=== PATIENT | female | born 1990 | race Caucasian/White ===

== ENCOUNTER 2017-08-26 16:13 | Emergency (ER) | payer MEDICAID, SELFPAY ==
[2017-08-26 16:15] VITALS: BP 127/63; PULSE 82; RESP 18; TEMP 36.5; O2SAT 100; BMI 18.6
--- NOTE | 2017-08-26 16:30 | CT_ITS ---
STUDY: CT ABDOMEN AND PELVIS WITH CONTRAST REASON FOR EXAM: Female, 27 years old. Abdominal pain. Patient has been treated for cervical cancer and melanoma. RADIATION DOSAGE (If Supplied By Facility): CTDIvol = ( 5.80 ) mGy, DLP = ( 219.75 ) mGycm TECHNIQUE: Transaxial images were obtained from the dome of the diaphragm to the symphysis pubis with oral contrast. 60ML ml of Isovue 300 contrast was administered. Sagittal and coronal images were reconstructed. Individualized dose optimization techniques were used for this CT. COMPARISON: CT of the abdomen and pelvis dated August 30, 2016. FINDINGS: The visualized lung bases are unremarkable. The visualized portions of the heart are within normal limits. Normal liver. Normal gallbladder and extrahepatic biliary system. Normal spleen. Normal pancreas. Normal bilateral adrenal glands. There is mild prominence of right renal collecting system, similar to previous CT. The renal parenchyma has a normal appearance. Normal left kidney. Normal visualized stomach. Normal small intestine. Normal colon. There are surgical clips in the region of the appendix consistent with a prior appendectomy. Normal abdominal aorta. Normal inferior vena cava. Normal retroperitoneum. Normal urinary bladder. There is decreased enhancement in the region of the cervix compared to the rest of the uterus. This may be related to treatment for cancer. Normal abdominal wall. Normal osseous structures. CT/Abdomen/Pelvis WITH Contrast IMPRESSION: No CT evidence of acute intra-abdominal disease. Electronically Signed: Shu Perez MD at 19:20 EST , Service support ,
[2017-08-26] MEDS: Ondansetron 4 MG/2 ML Vial IV (16:50)
[2017-08-26] MEDS: 0.9% Normal Saline 1,000 ML 150 ML IV (16:53)
[2017-08-26] MEDS: DiphenhydrAMINE 50 MG/ML Syringe 12.5 MG IV (17:07)
[2017-08-26 17:09] LABS: Absolute Lymphocyte Count 1.05 X10^3/ul (0.83-4.51); Basophil# 0.04 X10^3/uL; Basophil% 0.9 % (0-1); Eosinophil# 0.06 X10^3/uL; Eosinophils% 1.3 % (0-5); Hematocrit 43.7 % (37-47); Hemoglobin 14.5 g/dl (12.0-15.0); Lymphocyte # 1.05 X10^3/ul (4.0); Lymphocyte % 22.4 % (19-41); Mean Corp Hgb Conc 33.2 g/gl (32-36); Mean Corpuscular Volume 93.6 fL (81-99); Mean Platelet Vol. 8.8 fl (6.2-12.0); Monocyte# 0.55 X10^3/uL; Monocyte% 11.8 % (0-10); Neutrophil # 2.97 X10^3/uL (2.7-7.7); Neutrophil % 63.4 % (47-70); Platelet Count 270 K/mm3 (150-450); RBC Distribution Width SD 47.7 fl (35.1-43.9); Red Blood Count 4.67 M/mm3 (4.2-5.4); White Blood Count 4.7 K/mm3 (4.4-11.0)
[2017-08-26 17:10] LABS: POSITIVE COUNT NO; POSITIVE DIFFERENTIAL NO; POSITIVE MORPHOLOGY NO
[2017-08-26 17:37] LABS: Anion Gap 8 (5-15); BUN 7 mg/dL (7-18); BUN/Creat Ratio 7.7 RATIO (10-20); Chloride 101 mmol/L (98-107); EST Glomerular Filtration Rate 80 mL/min (>60); Est Glom Filt Rate - Afr Amer 97 mL/min (>60); Estimated Creatinine Clearance 58.47 ml/min; Glucose 79 mg/dL (70-110); Potassium 3.9 mmol/L (3.5-5.1); Sodium Level 136 mmol/L (136-145)
[2017-08-26 17:42] LABS: Bacteria 0 SEEN /hpf (None Seen); Mucous, Urine 0 SEEN /hpf (<or=2+); Red Blood Cells-Urine 0 SEEN /hpf (0-5); White Blood Cells 0 SEEN /hpf (0-5)
[2017-08-26 17:48] LABS: Color, Urine Yellow (Yellow); Glucose, Dipstick Normal (Normal); Ketone-Dipstick Negative (Negative); Leukocyte Esterase-Dipstick Negative /ul (Negative); Nitrite-Dipstick Negative (Negative); Occult Blood-Urine Negative /ul (Negative); Protein-Dipstick Negative (Negative); Specific Gravity, Urine 1.005 (1.002-1.030); Urine Bilirubin Dipstick Negative (Negative); Urine Clarity Clear (Clear); Urine Urobilinogen Normal (Normal)
[2017-08-26 18:01] LABS: Squamous Epithelial Cells - UA 0-5 SEEN /hpf (5-10)
[2017-08-26 18:29] VITALS: PULSE 64; RESP 21; O2SAT 99
[2017-08-26] MEDS: HYDROcodone Bitartrate/Apap 5/325 Tablet PO (19:35)
--- NOTE | 2017-08-26 20:31 | ED.DCSUM_ITS ---
- ER Visit Summary Date of Service: 08/26/17 Chief Complaint: Abdominal pain History of Present Illness: The patient is a 27 F who presents with a four-day history of lower abdominal pain, worse in the left lower quadrant. Patient is a history of cervical cancer that was treated with chemo and radiation. She has recurrent radiation cystitis. Patient reports having both ovaries removed in the past secondary to twisting and bleeding. Patient states she is able to urinate and have bowel movements without difficulty. Pain is not worsened with food. She has not noted a fever. Physical Examination: Vital signs are unremarkable. Patient is sitting on the bed, flexed forward laying her head on the mattress in front of her. She appears quite uncomfortable. She is in no acute distress. Heart is regular rate and rhythm. Lung sounds are clear. Abdomen is soft with tenderness in the left lower quadrant. There is no guarding or rebound. She has no CVA tenderness. Test Results: CBC and chemistry studies are normal. Urinalysis normal. Lactate normal. CT abdomen pelvis with contrast reveals no evidence of acute disease. Emergency Department Course and Treatment: Patient was given morphine, Zofran, and IV fluids. Patient states she has had all his medications previously with no difficulty, however did developed a localized reaction just above her IV site. She is given a dose of Benadryl and this reaction resolved. Due to continued pain she did receive a dose of [place] here. Test results were discussed with her. She will follow bland diet will be given a short course of [place] for home. She is written off work for today and tomorrow. Treatment Plan: [] Disposition: Discharge Impression: Abdominal pain, uncertain etiology This note was generated with [employer] dictation software. It may contain incorrect words, spelling, and punctuation that were not noted in review of the chart prior to signing ED Disposition - Plan for ED Patient: Disposition: Home or Assisted Living Chief Complaint: Abd Pain Instructions: ED Abdominal Pain Unkn Cause Prescriptions: Hydrocodone Bitart/Apap 5-325 [[place] 5/325] 1 - 2 tablet PO Q4H PRN PRN #20 tablet PRN Reason: Pain Ondansetron [Zofran Odt] 4 mg PO Q8H PRN PRN #10 tab PRN Reason: Nausea Referrals: Flavio Blanchard DO [Primary Care Provider] - 1 Week if not improving
[2017-08-26 20:55] VITALS: BP 105/54; PULSE 60; RESP 14; O2SAT 98
== END 2017-08-26 21:04 | disposition home or self-care (01) ==
PROVIDERS: Emergency Provider Emergency Medicine; Family Provider Student in an Organized Health Care Education/Training Program; PCP Student in an Organized Health Care Education/Training Program
DX: R10.30 Lower abdominal pain, unspecified (principal); N30.40 Irradiation cystitis without hematuria; Y84.2 Radiological procedure and radiotherapy as the cause of abnormal reaction of the patient, or of later complication, without mention of misadventure at the time of the procedure; Z72.0 Tobacco use; Z85.41 Personal history of malignant neoplasm of cervix uteri; Z92.21 Personal history of antineoplastic chemotherapy; Z92.3 Personal history of irradiation; Z86.2 Personal history of diseases of the blood and blood-forming organs and certain disorders involving the immune mechanism; Z86.19 Personal history of other infectious and parasitic diseases
CPT/HCPCS: 74177; 80048; 81001; 83605; 85025; 96361; 96374; 96375; 99285; J7050; Q9967; A4216; J2405

== ENCOUNTER 2017-12-01 17:19 | Emergency (ER) | payer MEDICAID, SELFPAY ==
[2017-12-01 17:20] VITALS: BP 138/105; PULSE 70; RESP 18; TEMP 36.9; O2SAT 98; BMI 16.9
[2017-12-01] MEDS: 0.9% Normal Saline 1,000 ML 1000 ML IV (17:43)
[2017-12-01] MEDS: Ondansetron 4 MG/2 ML Vial IV (17:43)
[2017-12-01] MEDS: HYDROmorphone 1 MG/ML Syringe IV ×2 (17:43→19:45)
--- NOTE | 2017-12-01 17:49 | EKG12_ITS ---
Test Reason : ABDOMINAL PAIN Blood Pressure : / mmHG Vent. Rate : 084 BPM Atrial Rate : 080 BPM P-R Int : 000 ms QRS Dur : 070 ms QT Int : 414 ms P-R-T Axes : 000 036 070 degrees QTc Int : 489 ms Normal sinus rhythm Prolonged QT Abnormal ECG Confirmed by ALEJANDRO PARDO, RO ([id number]), editorial director ALMA HUI ([id number] on 12/03/2017 3:34:16 PM Referred By: JAYESH Confirmed By:RO ALLEN MD
--- NOTE | 2017-12-01 18:01 | RAD_ITS ---
STUDY: X-RAY CHEST REASON FOR EXAM: Female, 27 years old. Chest pain TECHNIQUE: Frontal view of the chest COMPARISON: None. FINDINGS: The lungs are clear. There are no pleural effusions. There is no pneumothorax. The heart is normal in size. The visualized osseous structures are within normal limits. RAD/Chest 1 View (Portable) IMPRESSION: No acute thoracic pathology. Electronically Signed: Reid Hernandez, at 18:31 EDT Tel , Service support ,
--- NOTE | 2017-12-01 18:02 | CT_ITS ---
STUDY: CT ABDOMEN AND PELVIS WITH CONTRAST REASON FOR EXAM: Female, 27 years old. Lower abdominal pain. History of cervical cancer and radiation treatment. RADIATION DOSAGE (If Supplied By Facility): CTDIvol = ( 5.59 ) mGy, DLP = ( 199.11 ) mGycm TECHNIQUE: Transaxial images were obtained from the dome of the diaphragm to the symphysis pubis without oral contrast. 75ML ml of Isovue 300 contrast was administered. Sagittal and coronal images were reconstructed. Individualized dose optimization techniques were used for this CT. COMPARISON: 08/26/2017 FINDINGS: The visualized lung bases are clear. The visualized portions of the heart and pericardium are within normal limits. There are no calcified gallstones present. The liver is within normal limits. There are no suspicious hepatic lesions. The spleen is normal in size. The pancreas is within normal limits. The adrenal glands are within normal limits. There are no obstructing renal stones. There is no hydronephrosis. There are no focal renal lesions. Normal visualized stomach. There is no bowel obstruction. There are mildly thickened loops of small bowel in the pelvis, consistent with enteritis. The patient is status post appendectomy. The aorta is normal in caliber. There is a small amount of free fluid. There is no free air, fluid collection or lymphadenopathy. There are no destructive osseous lesions. CT/Abdomen/Pelvis W IV Cont ONLY IMPRESSION: Mildly thickened loops of small bowel in the pelvis, consistent with enteritis. No bowel obstruction. Small amount of pelvic free fluid. Electronically Signed: Reid Hernandez, at 19:12 EDT Tel , Service support ,
[2017-12-01 18:29] LABS: Absolute Lymphocyte Count 1.19 X10^3/ul (0.83-4.51); Absolute Neutrophil Count 7.4 X10^3/uL (2.0-7.7); Basophil# 0.03 X10^3/uL; Basophil% 0.3 % (0-1); Eosinophil# 0.05 X10^3/uL; Eosinophils% 0.5 % (0-5); Hematocrit 41.6 % (37-47); Hemoglobin 13.8 g/dl (12.0-15.0); Lymphocyte # 1.19 X10^3/ul (4.0); Lymphocyte % 12.8 % (19-41); Mean Corp Hgb Conc 33.2 g/gl (32-36); Mean Corpuscular Hgb 31.1 pg (27.0-32.0); Mean Corpuscular Volume 93.7 fL (81-99); Mean Platelet Vol. 8.7 fl (6.2-12.0); Monocyte# 0.65 X10^3/uL; Neutrophil # 7.39 X10^3/uL (2.7-7.7); Neutrophil % 79.3 % (47-70); Platelet Count 286 K/mm3 (150-450); RBC Distribution Width CV 14.1 % (11.6-14.6); RBC Distribution Width SD 48.2 fl (35.1-43.9); Red Blood Count 4.44 M/mm3 (4.2-5.4); White Blood Count 9.3 K/mm3 (4.4-11.0)
[2017-12-01 18:31] LABS: ALB/GLOB Ratio 1.1 RATIO (0.9-2.4); AST(SGOT) 26 U/L (15-37); Alanine Aminotransfer ALT/SGPT 31 U/L (13-56); Albumin, Serum 3.8 g/dL (3.2-5.0); Alkaline Phosphatase 99 U/L (45-117); Anion Gap 8 (5-15); BUN 8 mg/dL (7-18); Calcium,Total 8.6 mg/dL (8.5-10.1); Chloride 104 mmol/L (98-107); Creatinine, Serum 0.89 mg/dL (0.55-1.02); EST Glomerular Filtration Rate 81 mL/min (>60); Est Glom Filt Rate - Afr Amer 98 mL/min (>60); Globulin 3.5 g/dL (2.2-4.2); Glucose 86 mg/dL (74-106); Lipase 386 U/L (73-393); Potassium 3.5 mmol/L (3.5-5.1); Protein, Total 7.3 g/dL (6.4-8.2); Sodium Level 136 mmol/L (136-145)
[2017-12-01 18:32] LABS: POSITIVE COUNT NO; POSITIVE DIFFERENTIAL NO; POSITIVE MORPHOLOGY NO
[2017-12-01 18:33] LABS: hCG Titer Quant., Serum 3 mIU/mL (<9 non-preg)
[2017-12-01] MEDS: Ketorolac 30 MG/ML Syringe IV (18:33)
[2017-12-01 18:48] LABS: Mucous, Urine 0 SEEN /hpf (<or=2+)
[2017-12-01 18:54] LABS: Color, Urine Yellow (Yellow); Glucose, Dipstick Normal (Normal); Ketone-Dipstick 5 mg/dl (Negative); Leukocyte Esterase-Dipstick 25 /ul (Negative); Nitrite-Dipstick Negative (Negative); Occult Blood-Urine 50 /ul (Negative); Protein-Dipstick Negative (Negative); Urine Bilirubin Dipstick Negative (Negative); Urine Clarity Cloudy (Clear); Urine Urobilinogen Normal (Normal)
[2017-12-01 19:06] LABS: Red Blood Cells-Urine 5-10 SEEN /hpf (0-5); White Blood Cells 0-5 SEEN /hpf (0-5)
[2017-12-01 19:07] LABS: Amorphous Sediment 1+; Bacteria 1+ /hpf (None Seen); Squamous Epithelial Cells - UA 0-5 SEEN /hpf (5-10)
--- NOTE | 2017-12-01 19:32 | ED.DCSUM_ITS ---
- ER Visit Summary Date of Service: 12/01/17 Chief Complaint: Abdominal pain History of Present Illness: The patient is a [address] Blanchard. She reports that she has abdominal pain that began today. It is a diffuse pain is worse in the left lower quadrant. She describes it as sharp. Senna 10 severity. It is worsened by movement and relieved by position. She reports she has been nausea and vomited multiple times. No blood or emesis. Last bowel was today. She has had no diarrhea, melena, or hematochezia. No dysuria or frequency. Patient reports that she has a history of cervical cancer that required chemotherapy and radiation in 2016. States that she has had similar pain intermittently since this. Physical Examination: Vitals: Stable. Afebrile. General: Well-nourished and well-developed. Head: Normocephalic atraumatic. Neck: Supple, no lymphadenopathy. No JVD. Nontender. Cardiovascular: Regular rate and rhythm. No murmurs. Respiratory: No respiratory distress. Clear to auscultation bilaterally. Abdominal: Soft, moderate diffuse tenderness palpation is worse in the left lower quadrant, nondistended, normal bowel sounds. No guarding, rebound, or peritoneal signs. Back: Nontender. Extremities: Nontender, no edema. Skin: Normal color, no rash. Neurologic: Alert and oriented ?3. Cranial nerves II through XII are intact. Normal strength and sensation. Psych: Normal affect. Test Results: EKG is sinus at 84 with artifact and no acute changes. Chest x- ray is normal. CT and pelvis IV contrast only shows a small amount of free fluid in the pelvis. Mildly thickened loops of small bowel in the pelvis consistent with enteritis. No small bowel obstruction. CBC is marked for segment neutrophils 79 lymphocytes of 13. Chem-7 is normal. LFTs are normal. Lipase normal. UA is negative. test is negative. Emergency Department Course and Treatment: An [facility] report was obtained which show she is only had 4 prescriptions for opiates in the past year. She is treated here with Tylenol, Dilaudid, Zofran, and Phenergan IV. She is resting more comfortably. Treatment Plan: Patient will be discharged with [place] and Zofran. Instructed to follow-up Dr. Blanchard 1-2 days not improving. Return to the emergency department for any worsening symptoms. Disposition: To home in improved and stable condition. Impression: 1. Abdominal pain, uncertain cause. This note was generated with [employer] dictation software. It may contain incorrect words, spelling, and punctuation that were not noted in review of the chart prior to signing ED Disposition - Plan for ED Patient: Disposition: Home or Assisted Living Chief Complaint: Abd Pain Instructions: ED Abdominal Pain Unkn Cause Prescriptions: Hydrocodone Bitart/Apap 5-325 [[place] 5/325] 1 - 2 tablet PO Q4H PRN PRN 3 Days # 12 tablet PRN Reason: Pain Ondansetron [Zofran Odt] 4 mg PO Q8H PRN PRN #10 tablet PRN Reason: Nausea Referrals: Flavio Blanchard DO [Primary Care Provider] - 1-2 Days if not improving
[2017-12-01] MEDS: proMETHazine 25 MG/ML Syringe 6.25 MG IV (19:42)
[2017-12-01 19:49] VITALS: BP 106/65; PULSE 84; RESP 14; O2SAT 97
[2017-12-01] MEDS: HYDROcodone Bitartrate/Apap 5/325 Tablet PO (20:15)
--- NOTE | 2017-12-01 20:16 | ED.RN ---
PT GIVEN HOME PACK. SCANNER IN THE ROOM NOT WORKING. TINO MORENO PRESENT TO VERIFY.
== END 2017-12-01 20:17 | disposition home or self-care (01) ==
PROVIDERS: Emergency Provider Emergency Medicine; Family Provider Student in an Organized Health Care Education/Training Program; PCP Student in an Organized Health Care Education/Training Program
DX: R10.9 Unspecified abdominal pain (principal); R11.2 Nausea with vomiting, unspecified; R07.9 Chest pain, unspecified; R06.00 Dyspnea, unspecified; Z72.0 Tobacco use; Z85.41 Personal history of malignant neoplasm of cervix uteri; Z92.21 Personal history of antineoplastic chemotherapy; Z92.3 Personal history of irradiation
CPT/HCPCS: 71045; 74177; 80053; 81001; 83690; 84702; 85025; 93005; 96361; 96374; 96375; 96376; 99285; J7030; Q9967; A4216; J2405

== ENCOUNTER 2018-02-16 14:53 | Emergency (ER) | payer MEDICAID, SELFPAY ==
[2018-02-16 14:54] VITALS: BP 100/66; PULSE 104; RESP 16; TEMP 36.8; O2SAT 97; BMI 18.8
--- NOTE | 2018-02-16 15:08 | CT_ITS ---
STUDY: CT BRAIN WITHOUT CONTRAST REASON FOR EXAM: Female, 27 years old. Headache. Light sensitivity. RADIATION DOSAGE (If Supplied By Facility): CTDIvol = ( 44.99 ) mGy, DLP = ( 694.87 ) mGycm TECHNIQUE: Transaxial CT imaging of the brain was performed without administration of intravenous contrast material. Individualized dose optimization techniques were used for this CT. COMPARISON: 10/18/2012 FINDINGS: Normal soft tissue structures. Normal calvarium. Normal size ventricles and extra-axial spaces for the patient's age. Normal white matter tracts of the cerebral hemispheres. Normal basal ganglia and thalami. Normal brainstem. Normal cerebellum. There is no intracranial hemorrhage. There are no findings of an acute ischemic infarction. Normal visualized paranasal sinuses. CT/Brain/Head without Contrast IMPRESSION: Normal unenhanced CT scan of the brain. Electronically Signed: Stewart Leach DO at 16:12 EDT Tel , Service support ,
--- NOTE | 2018-02-16 15:09 | EKG12_ITS ---
Test Reason : HEADACHE Blood Pressure : / mmHG Vent. Rate : 072 BPM Atrial Rate : 072 BPM P-R Int : 114 ms QRS Dur : 084 ms QT Int : 378 ms P-R-T Axes : 015 036 063 degrees QTc Int : 413 ms Normal sinus rhythm Normal ECG Confirmed by BREE PARDO, PATRICIA ([id number]), publications editor ALMA HUI ([id number] on 02/20/2018 1:04:41 PM Referred By: DARREN Confirmed By:PATRICIA GIRON MD
[2018-02-16] MEDS: DiphenhydrAMINE 50 MG/ML Syringe 25 MG IV (15:24)
[2018-02-16] MEDS: 0.9% Normal Saline 1,000 ML 1000 ML IV (15:24)
[2018-02-16] MEDS: HYDROmorphone 1 MG/ML Syringe IV (15:24)
[2018-02-16] MEDS: Metoclopramide 10 MG/2 ML Vial IV (15:24)
[2018-02-16 15:42] LABS: Absolute Lymphocyte Count 1.31 X10^3/ul (0.83-4.51); Absolute Neutrophil Count 3.5 X10^3/uL (2.0-7.7); Basophil# 0.04 X10^3/uL; Basophil% 0.7 % (0-1); Eosinophil# 0.13 X10^3/uL; Eosinophils% 2.4 % (0-5); Hematocrit 38.3 % (37-47); Hemoglobin 12.7 g/dl (12.0-15.0); Lymphocyte # 1.31 X10^3/ul (4.0); Lymphocyte % 23.9 % (19-41); Mean Corp Hgb Conc 33.2 g/gl (32-36); Mean Corpuscular Hgb 31.5 pg (27.0-32.0); Mean Platelet Vol. 8.7 fl (6.2-12.0); Monocyte# 0.54 X10^3/uL; Monocyte% 9.8 % (0-10); Neutrophil # 3.46 X10^3/uL (2.7-7.7); Platelet Count 253 K/mm3 (150-450); RBC Distribution Width CV 13.1 % (11.6-14.6); RBC Distribution Width SD 44.1 fl (35.1-43.9); Red Blood Count 4.03 M/mm3 (4.2-5.4); White Blood Count 5.5 K/mm3 (4.4-11.0)
[2018-02-16 15:43] LABS: POSITIVE COUNT NO; POSITIVE DIFFERENTIAL NO; POSITIVE MORPHOLOGY NO
--- NOTE | 2018-02-16 15:53 | ED.DCSUM_ITS ---
- ER Visit Summary Date of Service: 02/16/18 Chief Complaint: Headache History of Present Illness: The patient is a 27 F who reports that approximately 30 minutes ago she had the abrupt onset of a sharp headache that is diffuse. Is 10 out of 10 severity. Is worsened by standing, light, or sound. She taken ibuprofen without relief. She reports she has been nausea and vomited twice. No blood or emesis. Patient reports that the pain is so severe that she is feels shaky and has been stiff with this. She reports that she felt hot and was breathing quickly. She had paresthesias from her toes to midcalf and hands to elbows bilaterally and her hands went stiff. She then had a syncopal episode while sitting. She reports that she does feel mildly short of breath. Physical Examination: Vitals: Stable. Afebrile. General: Well-nourished and well-developed. Head: Normocephalic atraumatic. Neck: Supple, no lymphadenopathy. No JVD. Nontender. Cardiovascular: Regular rate and rhythm. No murmurs. Respiratory: No respiratory distress. Clear to auscultation bilaterally. Abdominal: Soft, nontender, nondistended, normal bowel sounds. No guarding, rebound, or peritoneal signs. Back: Nontender. Extremities: Nontender, no edema. Skin: Normal color, no rash. Neurologic: Alert and oriented ?3. Cranial nerves II through XII are intact. Normal strength and sensation. Psych: Tearful, anxious, and hyperventilating. Test Results: EKG is sinus at [address] changes. Chest x-ray is normal. CBC is normal. Chem-[address] brain shows no acute disease. Emergency Department Course and Treatment: Patient had an IV placed. She was given Dilaudid, Reglan, and Benadryl IV. Patient reports her headache is down to 4 out of 10 severity. She is given dose of Toradol IV and dexamethasone IV to try to prevent rebound headache. Treatment Plan: Patient will be discharged instructions to push fluids. Use Tylenol and/or ibuprofen for pain. Follow Dr. Blanchard in 1-2 days not improving. Return to the emergency department for any worsening symptoms. Disposition: To home in improved and stable condition. Impression: 1. Cephalgia, acute. This note was generated with [employer] software. It may contain incorrect words, spelling, and punctuation that were not noted in review of the chart prior to signing ED Disposition - Plan for ED Patient: Chief Complaint: Headache Instructions: ED Cephalgia Unspecified Referrals: Flavio Blanchard DO [Primary Care Provider] - 1-2 Days if not improving
[2018-02-16 15:56] LABS: Anion Gap 6 (5-15); BUN 10 mg/dL (7-18); BUN/Creat Ratio 10.6 RATIO (10-20); Calcium,Total 8.5 mg/dL (8.5-10.1); Chloride 104 mmol/L (98-107); Creatinine, Serum 0.94 mg/dL (0.55-1.02); EST Glomerular Filtration Rate 76 mL/min (>60); Est Glom Filt Rate - Afr Amer 92 mL/min (>60); Glucose 95 mg/dL (74-106); Potassium 3.7 mmol/L (3.5-5.1); Sodium Level 139 mmol/L (136-145)
[2018-02-16 16:25] VITALS: BP 96/57; PULSE 57; RESP 12; O2SAT 99
[2018-02-16] MEDS: Ketorolac 30 MG/ML Syringe IV (16:45)
[2018-02-16 16:51] VITALS: BP 96/51; PULSE 68; RESP 12
--- NOTE | 2018-02-16 18:17 | RAD_ITS ---
STUDY: X-RAY CHEST REASON FOR EXAM: Female, 27 years old. Headache. TECHNIQUE: AP upright portable view. COMPARISON: 12/01/2017. FINDINGS: The lungs are clear and expanded. There is no demonstrated pleural abnormality. Normal size heart. Normal mediastinum and marbella. Normal visualized pulmonary arteries. Normal visualized aortic arch and descending thoracic aorta. Normal visualized thoracic spine. Normal visualized ribs, clavicles, and shoulders. There is no demonstrated abnormality of the visualized soft tissue structures of the upper abdomen. RAD/Chest 1 View (Portable) IMPRESSION: Normal x-ray examination of the chest and unchanged since 12/01/2017. Electronically Signed: Bean Connor MD at 15:28 EDT , Service support ,
== END 2018-02-16 16:54 | disposition home or self-care (01) ==
PROVIDERS: Emergency Provider Emergency Medicine; Family Provider Student in an Organized Health Care Education/Training Program; PCP Student in an Organized Health Care Education/Training Program
DX: R51 Headache (principal); R11.2 Nausea with vomiting, unspecified; R06.4 Hyperventilation; R55 Syncope and collapse; Z72.0 Tobacco use; Z85.41 Personal history of malignant neoplasm of cervix uteri; Z92.21 Personal history of antineoplastic chemotherapy; Z86.2 Personal history of diseases of the blood and blood-forming organs and certain disorders involving the immune mechanism
CPT/HCPCS: 70450; 71045; 80048; 85025; 93005; 96361; 96374; 96375; 99284; J7030; A4216

== ENCOUNTER 2018-07-14 17:52 | Emergency (ER) | payer MEDICAID, SELFPAY ==
[2018-07-14 17:53] VITALS: BP 150/98; PULSE 90; RESP 16; TEMP 36.6; O2SAT 96; BMI 19.9
== END 2018-07-14 20:28 | disposition left against medical advice (07) ==
PROVIDERS: Emergency Provider Emergency Medicine; Family Provider Student in an Organized Health Care Education/Training Program; PCP Student in an Organized Health Care Education/Training Program
DX: K92.2 Gastrointestinal hemorrhage, unspecified (principal)

== ENCOUNTER 2018-07-15 02:57 | Emergency (ER) | payer MEDICAID, SELFPAY ==
[2018-07-14 17:53] VITALS: BMI 19.9
[2018-07-15 02:59] VITALS: BP 132/81; PULSE 65; RESP 16; TEMP 36.9; O2SAT 95; BMI 19.0
[2018-07-15 03:02] VITALS: RESP 16
[2018-07-15] MEDS: Ondansetron 4 MG/2 ML Vial IV (03:40)
[2018-07-15] MEDS: 0.9% Normal Saline 1,000 ML 1000 ML IV (03:40)
[2018-07-15] MEDS: Ketorolac 30 MG/ML Syringe IV (03:43)
[2018-07-15 03:44] LABS: Absolute Lymphocyte Count 0.69 X10^3/ul (0.83-4.51); Absolute Neutrophil Count 7.3 X10^3/uL (2.0-7.7); Basophil# 0.03 X10^3/uL; Basophil% 0.3 % (0-1); Eosinophils% 1.1 % (0-5); Hemoglobin 13.2 g/dl (12.0-15.0); Lymphocyte # 0.69 X10^3/ul (4.0); Lymphocyte % 7.7 % (19-41); Mean Corp Hgb Conc 33.8 g/gl (32-36); Mean Corpuscular Hgb 31.5 pg (27.0-32.0); Mean Corpuscular Volume 93.1 fL (81-99); Mean Platelet Vol. 8.8 fl (6.2-12.0); Monocyte# 0.75 X10^3/uL; Monocyte% 8.4 % (0-10); Neutrophil # 7.34 X10^3/uL (2.7-7.7); Neutrophil % 82.4 % (47-70); Platelet Count 247 K/mm3 (150-450); RBC Distribution Width CV 13.5 % (11.6-14.6); RBC Distribution Width SD 44.9 fl (35.1-43.9); Red Blood Count 4.19 M/mm3 (4.2-5.4); White Blood Count 8.9 K/mm3 (4.4-11.0)
[2018-07-15 03:50] LABS: POSITIVE COUNT NO; POSITIVE DIFFERENTIAL NO; POSITIVE MORPHOLOGY NO
[2018-07-15 03:54] LABS: Anion Gap 11 (5-15); BUN 12 mg/dL (7-18); BUN/Creat Ratio 15.8 RATIO (10-20); Calcium,Total 8.7 mg/dL (8.5-10.1); Chloride 106 mmol/L (98-107); Creatinine, Serum 0.76 mg/dL (0.55-1.02); EST Glomerular Filtration Rate 97 mL/min (>60); Est Glom Filt Rate - Afr Amer 117 mL/min (>60); Estimated Creatinine Clearance 69.91 ml/min; Glucose 96 mg/dL (74-106); Sodium Level 143 mmol/L (136-145)
[2018-07-15 04:39] LABS: Color, Urine Yellow (Yellow); Glucose, Dipstick Normal (Normal); Ketone-Dipstick 50 mg/dl (Negative); Leukocyte Esterase-Dipstick 25 /ul (Negative); Nitrite-Dipstick Negative (Negative); Occult Blood-Urine 10 /ul (Negative); Protein-Dipstick Negative (Negative); Urine Bilirubin Dipstick Negative (Negative); Urine Clarity Sl. Cloudy (Clear); Urine Urobilinogen Normal (Normal)
[2018-07-15 04:44] LABS: Bacteria RARE /hpf (None Seen); Red Blood Cells-Urine 0-5 SEEN /hpf (0-5); Squamous Epithelial Cells - UA 0-5 SEEN /hpf (5-10); White Blood Cells 0-5 SEEN /hpf (0-5)
[2018-07-15 04:45] LABS: Calcium Oxalate Crystals Ur RARE /hpf (<or=2+); Mucous, Urine RARE /hpf (<or=2+)
--- NOTE | 2018-07-15 04:51 | ED.VISSUMM ---
- ER Visit Summary Date of Service: 07/15/18 Chief Complaint: Abdominal pain History of Present Illness: The patient is a 28 F who presents with abdominal pain. It began yesterday. She complains of sharp lower abdominal pain which is worse on the left. She also reports 2 episodes of nonbloody nonbilious emesis. She reports a fever of 101.2 at home. No diarrhea. Physical Examination: Afebrile vitals are normal Moist mucous membranes Heart regular rate and rhythm Lungs are clear Abdomen soft nondistended she does have suprapubic abdominal tenderness and left lower quadrant abdominal pain Test Results: CBC BMP unremarkable. Urinalysis shows rare bacteria and was sent for culture. Emergency Department Course and Treatment: Patient was treated here with IV fluids Toradol Zofran. She is sleeping comfortably on reevaluation. Patient has had chronic similar pain. Her last 2 CTs were unremarkable. 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 She was advised to follow-up as an outpatient with gynecology. She is agreeable to this plan. All questions answered bedside. Patient discharged. Understands to return for new or worsening symptoms. Treatment Plan: [] Disposition: Discharge Impression: Abdominal pain This note was generated with [employer] dictation software. It may contain incorrect words, spelling, and punctuation that were not noted in review of the chart prior to signing ED Disposition - Plan for ED Patient: Chief Complaint: Nausea/Vomiting Referrals: Flavio Blanchard DO [Primary Care Provider] -
--- NOTE | 2018-07-15 04:53 | ED.DEP ---
ED Disposition - Plan for ED Patient: Chief Complaint: Nausea/Vomiting Instructions: ED Abdominal Pain Unkn Cause Referrals: Flavio Blanchard DO [Primary Care Provider] -
[2018-07-15 05:15] VITALS: BP 118/70; PULSE 87; RESP 16; O2SAT 95
== END 2018-07-15 05:15 | disposition home or self-care (01) ==
PROVIDERS: Emergency Provider Emergency Medicine; Family Provider Student in an Organized Health Care Education/Training Program; PCP Student in an Organized Health Care Education/Training Program
DX: R10.32 Left lower quadrant pain (principal); R11.2 Nausea with vomiting, unspecified; R50.9 Fever, unspecified; Z72.0 Tobacco use; Z86.19 Personal history of other infectious and parasitic diseases
CPT/HCPCS: 80048; 81001; 85025; 87086; 96361; 96374; 96375; 99283; J7030; A4216; J2405

== ENCOUNTER 2018-07-29 17:59 | Emergency (ER) | payer MEDICAID, SELFPAY ==
[2018-07-29] VITALS (7 sets, daily range): BP systolic 108–132; BP diastolic 70–84; PULSE 82–102; RESP 14–21; TEMP 37.3–38.9; O2SAT 96–98; BMI 20.2
--- NOTE | 2018-07-29 18:21 | EKG12_ITS ---
Test Reason : FEVER Blood Pressure : / mmHG Vent. Rate : 104 BPM Atrial Rate : 105 BPM P-R Int : 122 ms QRS Dur : 074 ms QT Int : 306 ms P-R-T Axes : 064 028 069 degrees QTc Int : 402 ms Sinus tachycardia Otherwise normal ECG Confirmed by ALEJANDRO PARDO, RO ([id number]), science editor ALMA HUI ([id number] on 08/01/2018 1:47:56 PM Referred By: ROBERT Confirmed By:RO ALLEN MD
--- NOTE | 2018-07-29 18:40 | RAD_ITS ---
STUDY: X-RAY CHEST REASON FOR EXAM: Female, 28 years old. Fever, cough. TECHNIQUE: Portable chest. COMPARISON: 02/16/2018. FINDINGS: There is mild opacity in the right lower lobe consistent with acute pneumonia. The lungs are otherwise clear. There is no pleural effusion. Normal size heart. Normal mediastinum and marbella. Normal visualized pulmonary arteries. Normal visualized aortic arch and descending thoracic aorta. Normal visualized thoracic spine. Normal visualized ribs, clavicles, and shoulders. There is no demonstrated abnormality of the visualized soft tissue structures of the upper abdomen. RAD/Chest 1 View (Portable) IMPRESSION: Right lower lobe pneumonia. Electronically Signed: Lydia Hernandez MD at 19:13 EST Tel , Service support ,
[2018-07-29 18:41] LABS: Bacteria 0 SEEN /hpf (None Seen); Red Blood Cells-Urine 0 SEEN /hpf (0-5)
[2018-07-29] MEDS: Ondansetron 4 MG/2 ML Vial IV (18:41)
[2018-07-29] MEDS: Acetaminophen 325 MG Tablet 650 MG PO (18:41)
[2018-07-29] MEDS: 0.9% Normal Saline 1,000 ML 150 ML IV (18:41)
[2018-07-29 18:58] LABS: Color, Urine Yellow (Yellow); Glucose, Dipstick Normal (Normal); Ketone-Dipstick 5 mg/dl (Negative); Leukocyte Esterase-Dipstick 25 /ul (Negative); Nitrite-Dipstick Negative (Negative); Occult Blood-Urine Negative /ul (Negative); Protein-Dipstick 15 mg/dl (Negative); Specific Gravity, Urine 1.015 (1.002-1.030); Urine Bilirubin Dipstick Negative (Negative); Urine Clarity Clear (Clear); Urine Urobilinogen 1 mg/dl (Normal); Urine pH 6.5 (5.0 - 8.0)
[2018-07-29 18:59] LABS: ALB/GLOB Ratio 0.8 RATIO (0.9-2.4); AST(SGOT) 28 U/L (15-37); Alanine Aminotransfer ALT/SGPT 28 U/L (13-56); Albumin, Serum 3.1 g/dL (3.2-5.0); Alkaline Phosphatase 106 U/L (45-117); Anion Gap 8 (5-15); BUN 6 mg/dL (7-18); BUN/Creat Ratio 7.6 RATIO (10-20); Chloride 100 mmol/L (98-107); Creatinine, Serum 0.79 mg/dL (0.55-1.02); EST Glomerular Filtration Rate 92 mL/min (>60); Est Glom Filt Rate - Afr Amer 112 mL/min (>60); Estimated Creatinine Clearance 71.77 ml/min; Globulin 3.8 g/dL (2.2-4.2); Glucose 81 mg/dL (74-106); Potassium 3.7 mmol/L (3.5-5.1); Protein, Total 6.9 g/dL (6.4-8.2); Sodium Level 134 mmol/L (136-145)
[2018-07-29 19:01] LABS: White Blood Cells 5-10 SEEN /hpf (0-5)
[2018-07-29 19:02] LABS: Mucous, Urine 1+ /hpf (<or=2+); Squamous Epithelial Cells - UA 0-5 SEEN /hpf (5-10)
[2018-07-29 19:14] LABS: Absolute Neutrophil Count 8.6 X10^3/uL (2.0-7.7); Basophil# 0.03 X10^3/uL; Basophil% 0.3 % (0-1); Hematocrit 35.2 % (37-47); Hemoglobin 11.9 g/dl (12.0-15.0); Lymphocyte % 5.7 % (19-41); Mean Corp Hgb Conc 33.8 g/gl (32-36); Mean Corpuscular Hgb 30.8 pg (27.0-32.0); Mean Corpuscular Volume 91.2 fL (81-99); Mean Platelet Vol. 8.6 fl (6.2-12.0); Monocyte# 1.27 X10^3/uL; Neutrophil # 8.63 X10^3/uL (2.7-7.7); Neutrophil % 81.9 % (47-70); Platelet Count 233 K/mm3 (150-450); RBC Distribution Width CV 13.6 % (11.6-14.6); RBC Distribution Width SD 45.2 fl (35.1-43.9); Red Blood Count 3.86 M/mm3 (4.2-5.4); White Blood Count 10.5 K/mm3 (4.4-11.0)
[2018-07-29 19:16] LABS: Differential Indicated SCAN CRITERIA MET; POSITIVE COUNT NO; POSITIVE DIFFERENTIAL YES; POSITIVE MORPHOLOGY NO
[2018-07-29] MEDS: Benzonatate 100 MG Capsule 200 MG PO (20:04)
[2018-07-29] MEDS: levoFLOXacin IV 500 MG/100 ML BAG 100 MG IV (20:04)
[2018-07-29] MEDS: HYDROmorphone 0.5 MG/0.5 ML SYRINGE IV (20:21)
--- NOTE | 2018-07-29 21:38 | ED.VISSUMM ---
- ER Visit Summary Date of Service: 07/29/18 Chief Complaint: Fever History of Present Illness: The patient is a 28 F with a one-week history of fever, sore throat, body aches. She has had nausea, vomiting, diarrhea. She does report dysuria. Patient states her nephew had similar type symptoms. Past history significant for cervical cancer with radiation cystitis and C. difficile. Physical Examination: Blood pressure is 122/70, temperature 101.6, heart rate 102, respiratory rate 18, pulse ox 98% on room air. Patient sitting upright in bed. She is in no acute distress but is anxious. Head neck examination reveals TMs to be clear bilaterally. Posterior pharynx is normal. Heart is tachycardic and regular. Lungs sounds are slightly diminished at the bases. Abdomen is soft with mild mid left abdominal tenderness. No guarding or rebound. Hypoactive bowel sounds. Skin examination was no rash or lesions. Test Results: Portable chest x-ray reveals right lower lobe pneumonia. EKG is sinus tach at 104 with no sign of acute ischemia. CBC was normal white count but left shift is present. Hemoglobin is 11.9. Chemistry studies, LFTs, urinalysis normal. Lactate is normal at 1.0. Blood cultures were sent. Emergency Department Course and Treatment: Patient is given IV fluids, Tylenol, and Zofran. Upon completion of x-ray she is given a dose of IV Levaquin. For continued pain and cough she did receive a small dose of Dilaudid along with Tessalon Perles. On repeat evaluation patient is resting comfortably. Test results are discussed with her. She will be given Levaquin and Tessalon Perles for home. Treatment Plan: [] Disposition: Discharge Impression: Pneumonia This note was generated with [employer] dictation software. It may contain incorrect words, spelling, and punctuation that were not noted in review of the chart prior to signing ED Disposition - Plan for ED Patient: Disposition: Home or Assisted Living Chief Complaint: Fever Instructions: ED Pneumonia Adult Prescriptions: Benzonatate [Tessalon Perle] 200 mg PO TID PRN PRN #20 capsule PRN Reason: Cough levoFLOXacin tablet [Levaquin] 500 mg PO DAILY #6 tablet Referrals: Flavio Blanchard DO [Primary Care Provider] - 5-7 Days
[2018-07-29 21:59] LABS: International Normalized Ratio 1.1; Prothrombin Time (Protime)PT. 14.5 SECONDS (11.7-14.9)
[2018-07-29 22:00] LABS: Partial Thromboplast Time 38.3 Seconds (24.1-36.2)
--- OUTSIDE RECORDS SUMMARY | 2018-10-31 06:16 | XMS RPT_ITS ---
:1990 Author Organization [facility] Care Team Providers Name Role Phone OXANA VARGASYA (OUTPATIENT SURGERY RN) Referring Unavailable ANASTASIA GARCIA Attending Unavailable FLAVIO BOLAND Referring Unavailable ANASTASIA GARCIA Attending Unavailable ANASTASIA GARCIA Referring Unavailable Boland, Flavio Primary Care Unavailable Ashleigh Hill Attending Unavailable Boland, Flavio Primary Care Unavailable Zana Brown Attending Unavailable Boland, Flavio Primary Care Unavailable Tyrone Meyer Attending Unavailable Boland, Flavio Primary Care Unavailable Tyrone Meyer Attending Unavailable Flavio Boland Primary Care Unavailable Nitish Basilio Attending Unavailable PROBLEMS PROBLEMS DATE TYPE CONDITION / CODE ATTENDING STATUS SOURCE 08/15/2018 Active Malignant ANASTASIA GARCIA Active [facility] neoplasm of [facility] [place] endocervix / Repository C53.0(ICD-10) 04/30/2018 Unknown R10.9 - DarrenBoris cannonuel Active Ana Unspecified Community abdominal pain / Hospital R10.9(ICD-10) Repository PROCEDURES PROCEDURES No Procedure Records FoundRESULTS RESULTS VAG PATHOGENS DNA Collected: 08/21/2018 Status: F Source: [place] 1:00 PM [facility] REPOSITORY TYPE CODE TESTS RESULT OUT OF RANGE REFERENCE UNITS LAB TVDNA Negative for Trichomonas Negative vaginalis by DNA for Trichomonas Probe Trich vag vaginalis by DNA DNA Probe Probe LAB GVDNA Negative for Gardnerella Positive Abnormal vaginalis by DNA for Gardnerella Alert Probe Chika vag vaginalis by DNA DNA Probe probe. Result Comment: This is suggestive, but not diagnostic of bacterial vaginosis, results should be interpreted in conjunction with other data such as pH, amine odor, clue cells and vaginal discharge characteristics. LAB CANDNA Negative for Shirin species Negative by DNA Probe Shirin sp DNA for Shirin Probe species by DNA Probe Performed By: #### VAGDNA #### [facility] [address] [place] [address] GC/CHLAMYDIA AMPLIF Collected: 08/21/2018 Status: F Source: [place] 1:00 [facility] REPOSITORY TYPE CODE TESTS RESULT OUT OF REFERENCE UNITS RANGE LAB GCCTSR GC/Chlam Amp Cervix Source LAB GCAMPL GC Negative Amplification for Neisseria gonorrhoeae by amplification. LAB CLAMPL Chlamydia Negative Amplif for Chlamydia trachomatis by amplification. Performed By: #### GCCT #### [facility] [address] [place] [address] Observed: 08/21/2018 Status: F Source: [place] URINE CULTURE 1:00 PM [facility] REPOSITORY Sp. Request/Comment: - Specimen received in preservative Culture Result - <10,000 CFU/ml Normal urogenital nanci Performed By: #### URCUL #### [facility] [address] [place] [address] PROGRESS Observed: 08/21/2018 Status: COMPLETED Source: [place] 12:40 PM [facility] REPOSITORY HNO ID: [id number] Author: Kinza (Mya) Lazaro Service: (none) Author Type: Nurse Practitioner Type: Progress Notes Filed: 08/21/2018 1:06 PM Note Text: Subjective HPI Lashon Medina is a 28 year old female who presents with vaginal discharge and urinary frequency for the past 2 days. She had a pelvic exam a few days ago (f/u visit with COLLEGE ADMINISTRATOR oncololgy from cervical cancer- in remission since 2015. She states she normally gets a UTI following pelvic exams. She denies dysuria. Review of Systems Constitutional: Negative. Negative for fever. Gastrointestinal: Negative. Negative for abdominal pain, diarrhea, nausea and vomiting. Genitourinary: Positive for frequency. Vaginal discharge and itching Musculoskeletal: Negative. Negative for back pain. BP 102/72 Pulse 68 Temp 36.5 ?C (97.7 ?F) (Left Tympanic) Resp 16 Wt 44.3 kg (97 lb 9.6 oz) LMP (LMP Unknown) BMI 21.12 kg/m? PAST MEDICAL HISTORY Diagnosis Date - Cervical cancer (HCC) 06/19/2015 stage 1 b - Depression - Endometriosis - IBS (irritable bowel syndrome) 03/26 - Unspecified asthma(493.90) PAST SURGICAL HISTORY Procedure Laterality Date - APPENDECTOMY HX 06/24 - EXTRACTION ERUPTED TOOTH/EXR 2009 all 4-- severe reaction after - IMPLANON INSERTION 04/26/2011 - LAPAROSCOPIC SALPING/OOPHORECTOMY 07/2016 for ovarian tissue freezing - LAPAROSCOPIC SALPING/OOPHORECTOMY 09/2015 for ovarian torsion following transposition from previous surgery. - LAPAROSCOPY DIAGNOSTIC 05/24 endometriosis - PAST SURGICAL HISTORY OF 2001 ORIF LEFT ELBOW - REMOVAL OF TONSILS,12+ Y/O 05/2012 - SIGMOIDOSCOPY 08/30/2017 Ahmed- bleeding inflamed mucosa in the rectum, bx - normal ALLERGIES Bees; Cisplatin; Morphine; Percocet [Oxycodone-Acetaminophen] MEDICATIONS albuterol HFA (PROAIR HFA) 90 mcg/actuation inhaler Inhale 2 Puffs as instructed every 4 hours as needed. phenazopyridine (PYRIDIUM) 100 mg tablet Take 1 tablet by mouth three times daily as needed. dicyclomine (BENTYL) 10 mg capsule Take 1 capsule by mouth three times daily. pantoprazole DR (PROTONIX) 40 mg tablet Take 1 tablet by mouth once daily. phenazopyridine (PYRIDIUM, GERIDIUM) 100 mg tablet Take 1 tablet by mouth three times daily as needed (bladder pain). shark liver oil-cocoa butter (PREPARATION H) 0.25-3 % suppository 1 Suppository by RECTAL route as needed. ondansetron (ZOFRAN) 4 mg tablet Take 1 tablet by mouth every 6 hours as needed. EPINEPHrine (EPIPEN) 0.3 mg/0.3 mL auto-injector Inject 0.3 mL intramuscularly as needed. USE AUTO INJECTOR IN LARGE MUSCLE (THIGH) AT FIRST SIGN OF HYPERSENSATIVITY REACTION zolpidem (AMBIEN) 5 mg tablet Take 1 tablet by mouth at bedtime as needed. albuterol HFA (PROVENTIL HFA, VENTOLIN HFA) 90 mcg/actuation inhaler Inhale 2 Puffs as instructed every 4 hours as needed. docusate sodium (COLACE) 100 mg capsule Take 1 capsule by mouth twice daily. albuterol 90 mcg/actuation Aero Inhale 2 Puffs as instructed four times daily as needed. benzonatate (TESSALON PERLE) 100 mg capsule Take 1-2 capsules tid prn peg 3350-Electrolytes (GOLYTELY) 236-22.74-6.74 -5.86 gram suspension Take the night prior to the examination HYDROcodone-acetaminophen (NORCO) 5-325 mg per tablet Take 1 tablet by mouth every 6 hours as needed. conjugated estrogens-medroxyPROGESTERone (PREMPRO) 0.625-2.5 mg per tablet Take 1 tablet by mouth once daily. ibuprofen (MOTRIN) 600 mg tablet Take 1 tablet by mouth every 6 hours as needed for Pain. FAMILY HISTORY Problem Relation Age of Onset - Breast Cancer Maternal Aunt in her 30's - Alcohol/Drug Mother ETOH - Alcohol/Drug Father - Asthma Paternal Grandmother - Asthma Paternal Aunt - Hypertension Paternal Uncle - Hypertension Paternal Grandfather - Lipids Paternal Aunt - Osteoporosis Paternal Grandmother - Hypertension Maternal Grandmother - Hypertension Maternal Uncle - Alcohol/Drug Paternal Aunt - Alcohol/Drug Maternal Aunt - Alcohol/Drug Maternal Uncle - Hypertension Paternal Grandmother - Allergies Mother - Allergies Father - Allergies Paternal Aunt - Allergies Paternal Grandmother - Allergies Brother - Allergies Daughter - Psychiatry Mother Depression - Psychiatry Father - Psychiatry Paternal Aunt Depression - Psychiatry Paternal Grandmother Social History Substance Use Topics - Smoking status: Current Every Day Smoker Packs/day: 0.30 Years: 2.00 Types: Cigarettes Start date: 01/14/2013 - Smokeless tobacco: Never Used - Alcohol use Yes Comment: approx 1 per month Objective Physical Exam Cardiovascular: Normal rate. Pulmonary/Chest: Effort normal. Genitourinary: Vagina normal and vulva normal. Vulva exhibits no erythema, no exudate, no lesion, no rash and no tenderness. Vagina exhibits normal mucosa, no exudate and no lesion. No vaginal discharge found. Neurological: She is alert. Skin: Skin is warm and dry. No rash noted. Nursing note and vitals reviewed. ASSESSMENT/PLAN: 1. Urinary frequency - ICD9: 788.41, ICD10: R35.0 acute - UA positive for ramona esterase - Send urine for culture - Begin treatment with Bactrim DS BID for 3 days - Patient education for prevention given - UA DIP, URINE (POC) - URINE CULTURE - SULFAMETHOXAZOLE 800 MG-TRIMETHOPRIM 160 MG TABLET - VAGINAL PATHOGENS DNA PROBES - GC/CHLAMYDIA DNA DET - Follow-up with your PCP in 3-5 days if symptoms have not improved or sooner if symptoms worsen - Discussed red flags and need for immediate medical evaluation if any occur. - Discussed supportive care treatment with fluids, rest and analgesia. - Discussed expected course of illness Kinza Streeter APRN.OUTPATIENT SURGERY RN - Follow- up with your PCP in 3-5 days if symptoms have not improved or sooner if symptoms worsen - Discussed red flags and need for immediate medical evaluation if any occur. - Discussed supportive care treatment with fluids, rest and analgesia. - Discussed expected course of illness - Follow-up with your PCP in 3-5 days if symptoms have not improved or sooner if symptoms worsen - Discussed red flags and need for immediate medical evaluation if any occur. - Discussed supportive care treatment with fluids, rest and analgesia. - Discussed expected course of illness Kinza Streeter APRN.CNP CNOV Observed: 08/21/2018 Status: COMPLETED Source: [place] 12:30 PM [facility] REPOSITORY Office Visit (WSTR) LASHON MEDINA ([id number]) 1990 F TXT Date Time Provider Department 08/21/18 12:[address]ZA [address]REETER (MYA) [facility] During your visit today, we recorded the following information about you: Temperature Pulse Respiration Blood pressure 97.7 degrees 68/minute 16/minute 102/72 Weight 44.3 kg Kinza Streeter APRN.MYA 08/21/2018 1:06 PM Addendum Subjective HPI Lashon Medina is a 28 year old female who presents with vaginal discharge and urinary frequency for the past 2 days. She had a pelvic exam a few days ago (f/u visit with COLLEGE ADMINISTRATOR oncololgy from cervical cancer- in remission since 2015. She states she normally gets a UTI following pelvic exams. She denies dysuria. Review of Systems Constitutional: Negative. Negative for fever. Gastrointestinal: Negative. Negative for abdominal pain, diarrhea, nausea and vomiting. Genitourinary: Positive for frequency. Vaginal discharge and itching Musculoskeletal: Negative. Negative for back pain. BP 102/72 Pulse 68 Temp 36.5 ?C (97.7 ?F) (Left Tympanic) Resp 16 Wt 44.3 kg (97 lb 9.6 oz) LMP (LMP Unknown) BMI 21.12 kg/m? PAST MEDICAL HISTORY Diagnosis Date - Cervical cancer (HCC) 06/19/2015 stage 1 b - Depression - Endometriosis - IBS (irritable bowel syndrome) 03/26 - Unspecified asthma(493.90) PAST SURGICAL HISTORY Procedure Laterality Date - APPENDECTOMY HX 06/24 - EXTRACTION ERUPTED TOOTH/EXR 2009 all 4-- severe reaction after - IMPLANON INSERTION 04/26/2011 - LAPAROSCOPIC SALPING/OOPHORECTOMY 07/2016 for ovarian tissue freezing - LAPAROSCOPIC SALPING/OOPHORECTOMY 09/2015 for ovarian torsion following transposition from previous surgery. - LAPAROSCOPY DIAGNOSTIC 05/24 endometriosis - PAST SURGICAL HISTORY OF 2001 ORIF LEFT ELBOW - REMOVAL OF TONSILS,12+ Y/O 05/2012 - SIGMOIDOSCOPY 08/30/2017 Ahmed- bleeding inflamed mucosa in the rectum, bx - normal ALLERGIES Bees; Cisplatin; Morphine; Percocet [Oxycodone-Acetaminophen] MEDICATIONS albuterol HFA (PROAIR HFA) 90 mcg/actuation inhaler Inhale 2 Puffs as instructed every 4 hours as needed. phenazopyridine (PYRIDIUM) 100 mg tablet Take 1 tablet by mouth three times daily as needed. dicyclomine (BENTYL) 10 mg capsule Take 1 capsule by mouth three times daily. pantoprazole DR (PROTONIX) 40 mg tablet Take 1 tablet by mouth once daily. phenazopyridine (PYRIDIUM, GERIDIUM) 100 mg tablet Take 1 tablet by mouth three times daily as needed (bladder pain). shark liver oil-cocoa butter (PREPARATION H) 0.25-3 % suppository 1 Suppository by RECTAL route as needed. ondansetron (ZOFRAN) 4 mg tablet Take 1 tablet by mouth every 6 hours as needed. EPINEPHrine (EPIPEN) 0.3 mg/0.3 mL auto-injector Inject 0.3 mL intramuscularly as needed. USE AUTO INJECTOR IN LARGE MUSCLE (THIGH) AT FIRST SIGN OF HYPERSENSATIVITY REACTION zolpidem (AMBIEN) 5 mg tablet Take 1 tablet by mouth at bedtime as needed. albuterol HFA (PROVENTIL HFA, VENTOLIN HFA) 90 mcg/actuation inhaler Inhale 2 Puffs as instructed every 4 hours as needed. docusate sodium (COLACE) 100 mg capsule Take 1 capsule by mouth twice daily. albuterol 90 mcg/actuation Aero Inhale 2 Puffs as instructed four times daily as needed. benzonatate (TESSALON PERLE) 100 mg capsule Take 1-2 capsules tid prn peg 3350-Electrolytes (GOLYTELY) 236-22.74-6.74 -5.86 gram suspension Take the night prior to the examination HYDROcodone-acetaminophen (NORCO) 5-325 mg per tablet Take 1 tablet by mouth every 6 hours as needed. conjugated estrogens-medroxyPROGESTERone (PREMPRO) 0.625-2.5 mg per tablet Take 1 tablet by mouth once daily. ibuprofen (MOTRIN) 600 mg tablet Take 1 tablet by mouth every 6 hours as needed for Pain. FAMILY HISTORY Problem Relation Age of Onset - Breast Cancer Maternal Aunt in her 30's - Alcohol/Drug Mother ETOH - Alcohol/Drug Father - Asthma Paternal Grandmother - Asthma Paternal Aunt - Hypertension Paternal Uncle - Hypertension Paternal Grandfather - Lipids Paternal Aunt - Osteoporosis Paternal Grandmother - Hypertension Maternal Grandmother - Hypertension Maternal Uncle - Alcohol/Drug Paternal Aunt - Alcohol/Drug Maternal Aunt - Alcohol/Drug Maternal Uncle - Hypertension Paternal Grandmother - Allergies Mother - Allergies Father - Allergies Paternal Aunt - Allergies Paternal Grandmother - Allergies Brother - Allergies Daughter - Psychiatry Mother Depression - Psychiatry Father - Psychiatry Paternal Aunt Depression - Psychiatry Paternal Grandmother Social History Substance Use Topics - Smoking status: Current Every Day Smoker Packs/day: 0.30 Years: 2.00 Types: Cigarettes Start date: 01/14/2013 - Smokeless tobacco: Never Used - Alcohol use Yes Comment: approx 1 per month Objective Physical Exam Cardiovascular: Normal rate. Pulmonary/Chest: Effort normal. Genitourinary: Vagina normal and vulva normal. Vulva exhibits no erythema, no exudate, no lesion, no rash and no tenderness. Vagina exhibits normal mucosa, no exudate and no lesion. No vaginal discharge found. Neurological: She is alert. Skin: Skin is warm and dry. No rash noted. Nursing note and vitals reviewed. ASSESSMENT/PLAN: 1. Urinary frequency - ICD9: 788.41, ICD10: R35.0 acute - UA positive for ramona esterase - Send urine for culture - Begin treatment with Bactrim DS BID for 3 days - Patient education for prevention given - UA DIP, URINE (POC) - URINE CULTURE - SULFAMETHOXAZOLE 800 MG-TRIMETHOPRIM 160 MG TABLET - VAGINAL PATHOGENS DNA PROBES - GC/CHLAMYDIA DNA DET - Follow-up with your PCP in 3-5 days if symptoms have not improved or sooner if symptoms worsen - Discussed red flags and need for immediate medical evaluation if any occur. - Discussed supportive care treatment with fluids, rest and analgesia. - Discussed expected course of illness Kinza Streeter APRN.OUTPATIENT SURGERY RN - Follow-up with your PCP in 3-5 days if symptoms have not improved or sooner if symptoms worsen - Discussed red flags and need for immediate medical evaluation if any occur. - Discussed supportive care treatment with fluids, rest and analgesia. - Discussed expected course of illness - Follow-up with your PCP in 3-5 days if symptoms have not improved or sooner if symptoms worsen - Discussed red flags and need for immediate medical evaluation if any occur. - Discussed supportive care treatment with fluids, rest and analgesia. - Discussed expected course of illness FRANCO Isidro APRN.CNP 08/21/2018 1:03 PM Addendum ASSESSMENT/PLAN: 1. Dysuria - ICD9: 788.1, ICD10: R30.0 acute - UA positive for ramona esterase - Send urine for culture - Begin treatment with Bactrim DS BID for 3 days- will call with culture results - Patient education for prevention given - UA DIP, URINE (POC) - URINE CULTURE - SULFAMETHOXAZOLE 800 MG-TRIMETHOPRIM 160 MG TABLET - VAGINAL PATHOGENS DNA PROBES - GC/CHLAMYDIA DNA DET - Follow-up with your PCP in 3-5 days if symptoms have not improved or sooner if symptoms worsen - Discussed red flags and need for immediate medical evaluation if any occur. - Discussed supportive care treatment with fluids, rest and analgesia. - Discussed expected course of illness FRANCO Isidro Ma 08/21/2018 12:56 PM Signed I was present during the patient's physical exam by kinza Cervantes Ma Referring Provider: SELF [[id number]] Allergies As of Date: 08/21/2018 Noted Allergy Reaction BEES 07/29/2008 2 - Rash Comments: HAS EPI PEN CISPLATIN 08/15/2015 5 - Intolerance Comments: Hearing loss MORPHINE 08/29/2017 4 - Hives PERCOCET (OXYCODONE-ACETAMINOPHEN)08/09/2015 8 - GI Upset Date Reviewed: 08/21/2018 Reviewed by: Kinza Streeter - Fully Assessed Reason for Visit: UTI [116] Primary Visit Diagnosis:Urinary frequency [R35.0] Order(s):UA DIP, URINE (POC) [[id number]] Order #: [id number]. #:[id number] URINE CULTURE [SQURCUL] Order #: [id number] sulfamethoxazole-trimethoprim (BACTRIM DS) 800-160 mg per tabletTake 1 tablet by mouth twice daily for 3 days.Disp: 6 tabletRfl: 0 VAGINAL PATHOGENS DNA PROBES [SQVAGDNA] Order #: [id number] GC/CHLAMYDIA DNA DET [SQGCCAMP] Order #: [id number] Prescriptions as of 08/21/2018 Sig: ALBUTEROL SULFATE HFA 90 MCG/* Inhale 2 Puffs as instructed * PHENAZOPYRIDINE 100 MG TABLET Take 1 tablet by mouth three * DICYCLOMINE 10 MG CAPSULE Take 1 capsule by mouth three* PANTOPRAZOLE 40 MG TABLET,DEL* Take 1 tablet by mouth once d* PHENAZOPYRIDINE 100 MG TABLET Take 1 tablet by mouth three * PHENYLEPHRINE 0.25 %-SHARK LI* 1 Suppository by RECTAL route* ONDANSETRON HCL 4 MG TABLET Take 1 tablet by mouth every * EPINEPHRINE 0.3 MG/0.3 ML INJ* Inject 0.3 mL intramuscularly* ZOLPIDEM 5 MG TABLET Take 1 tablet by mouth at bed* ALBUTEROL SULFATE HFA 90 MCG/* Inhale 2 Puffs as instructed * DOCUSATE SODIUM 100 MG CAPSULE Take 1 capsule by mouth twice* ALBUTEROL 90 MCG/ACTUATION AE* Inhale 2 Puffs as instructed * SULFAMETHOXAZOLE 800 MG-TRIME* Take 1 tablet by mouth twice * BENZONATATE 100 MG CAPSULE Take 1-2 capsules tid prn Patient not taking: Reported on 08/21/2018 PEG 3350-ELECTROLYTES 236 GRA* Take the night prior to the e* HYDROCODONE 5 MG-ACETAMINOPHE* Take 1 tablet by mouth every * CONJ ESTROGEN-MEDROXYPROGESTE* Take 1 tablet by mouth once d* IBUPROFEN 600 MG TABLET Take 1 tablet by mouth every * Problem List As Of Date 08/21/2018 Noted Resolved Supervision of Other High-Risk [O09.8*INVALID FOR*08/31/2009 Unspecified symptom associated with female ishmael*INVALID FOR*04/17/2011 Asthma [J45.909] INVALID FOR* Depression with anxiety [F41.8] INVALID FOR* Chronic pelvic pain in female [R10.2, G89.29] INVALID FOR* ADD (attention deficit disorder) [F98.8] INVALID FOR* Pain in joint, lower leg [M25.569] INVALID FOR*12/17/2016 Lower urinary tract infectious disease [N39.0] INVALID FOR*12/17/2016 Neoplasm of uncertain behavior of skin of breas*INVALID FOR* Cervical cancer (HCC) [C53.9] INVALID FOR*12/17/2016 Abdominal pain [R10.9] INVALID FOR*09/21/2015 Cervical cancer, FIGO stage IB1 (HCC) [C53.9] INVALID FOR* Surgical menopause [E89.40] INVALID FOR* Vaginal bleeding [N93.9] INVALID FOR* Hematuria [R31.9] INVALID FOR* Left lower quadrant pain [R10.32] INVALID FOR* More... Change in bowel habit [R19.4] INVALID FOR* More... Hematochezia [K92.1] INVALID FOR* More... Other instructions from your clinician: ASSESSMENT/PLAN: 1. Dysuria - ICD9: 788.1, ICD10: R30.0 acute - UA positive for raomna esterase - Send urine for culture - Begin treatment with Bactrim DS BID for 3 days- will call with culture results - Patient education for prevention given - UA DIP, URINE (POC) - URINE CULTURE - SULFAMETHOXAZOLE 800 MG-TRIMETHOPRIM 160 MG TABLET - VAGINAL PATHOGENS DNA PROBES - GC/CHLAMYDIA DNA DET - Follow-up with your PCP in 3-5 days if symptoms have not improved or sooner if symptoms worsen - Discussed red flags and need for immediate medical evaluation if any occur. - Discussed supportive care treatment with fluids, rest and analgesia. - Discussed expected course of illness Kinza Streeter APRN.[facility] Visit Notes: >> Zaria Cervantes Ma [facility] Aug 21, 2018 12:55 PM Status: Signed I was present during the patient's physical exam by kinza [facility] Zaria Cervantes Ma Prescriptions ordered this encounter Disp Refills Start End SULFAMETHOXAZOLE 800 MG-TRIMETHOPRIM* 6 ta* 0 08/21/2018 08/24/2018 Route: ORAL Sig: Take 1 tablet by mouth twice daily for 3 days. Encounter Status:Closed by KINZA STREETER on 08/21/18 CYTOLOGY Observed: 08/15/2018 Status: F Source: [place] 5:16 PM [facility] REPOSITORY ---Abnormal Pap Test - Epithelial Cell Abnormality--- Specimen originated from [facility] Specimen #: [id number] Submitting Physician: ASHLEIGH GARCIA CNP SPECIMEN SUBMITTED A: CERVICAL, DIAGNOSTIC, FLUID FINAL DIAGNOSIS A. CERVICAL, DIAGNOSTIC, FLUID Satisfactory for interpretation. Epithelial cell abnormality. Low grade squamous intraepithelial lesion (LSIL). This specimen has been analyzed by the ThinPrep Imaging System, an automated imaging and review system, which assists the laboratory in evaluating cells on ThinPrep Pap tests. Following automated imaging, selected díaz from every slide are reviewed by a gas operations superintendent. Flavio Medina M.D. (Electronic Signature) CLINICAL DATA HIST MALIGNANCY Cervical carcinoma, HPV Testing: Yes, Reflex HPV for ASCUS Menstrual History: HYSTERECTOMY: Cervix still remains STAINS A: CERVICAL, DIAGNOSTIC, FLUID THIN PREP COLLEGE ADMINISTRATOR Date of Report: 08/20/2018 Date of Procedure: 08/15/2018 Date of Receipt: 08/18/2018 Submitted by: ASHLEIGH GARCIA OUTPATIENT SURGERY RN Additional Physician(s): ANASTASIA GARCIA MD Location: [facility] (Medicare Nurse [facility]) Diagnostic interpretation performed at [facility], [address] [place] [address]. The Pap Smear is a screening test for cervical cancer. False negative results occur with all screening tests, emphasizing the need for rescreening at recommended intervals, and clinical correlation. CNOVSP Observed: 08/15/2018 Status: COMPLETED Source: [place] 4:20 PM [facility] REPOSITORY Visit (SP) Office (GYNCMD) LASHON MEDINA ([id number]) 1990 F TXT Date Time Provider Department 08/15/18 4:20 PM ANASTASIA GARCIA GYNCMD During your visit today, we recorded the following information about you: Pulse Blood pressure Weight 78/minute 135/60 42.7 kg Anastasia Garcia MD 08/23/2018 12:42 PM Signed Gynecologic Oncology [facility] Follow up visit Re: Lashon Medina CC#: [id number] 08/15/2018 PROBLEM: Lashon Medina returns to the office today for follow up DIAGNOSIS: FIGO stage 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 PRIOR TREATMENT AND DATE: 1) 04/2013: Pap - Low grade squamous intraepithelial lesion (LSIL), cannot exclude high grade squamous intraepithelial lesion (HSIL). Lost to follow-up until 2014. 2) 03/2015: Colpo and biopsies - High grade cervical dysplasia 3) 05/2015: LEEP - Grade 2 SCC, involve entire thickness (4.5 mm), positive lateral and deep margins, focal LVSI. Specimen size 2.1 x 2.0 x 0.6 cm. 4) 07/12/2015: Laparoscopic right ovarian transposition, right salpingectomy, left salpingo-oophorectomy for ovarian tissue freezing. 5) 07/26/2015 - 09/02/2015: Definitive and concurrent chemotherapy (Weekly Cisplatin), received external beam RT 45 Gy/25 fx (Ana). 6) 09/05/2015 - 09/26/2015: HDRB: 30Gy, 6Gy/fx, 5fx's, point A dose, has received 5/5 fractions. 7) 09/19/2015 - 09/21/2015: Admitted for persistent RLQ abdominal pain, underwent diagnostic laparoscopy, lysis of adhesion, right oophorectomy on 09/20 for ovarian torsion. 8.) 07/11/2016 - Vaginal culture - BV, flagyl prescribed. Urine Culture - Negative. Vaginal mucosa, biopsy - Numerous bacterial colonies, inflammation, and rare fragments of benign squamous epithelium. 9.)07/16/2016 PAIN MANAGEMENT CONSULTATION RECOMMENDATIONS Discontinue gabapentin if not already stopped.Topamax 15 mg 1 capsule at bedtime for 1 week increase to 2 capsules at bedtime thereafter, #60 with 2 refills. The patient wished to titrate any new medications rather judiciously given past medication sensitivities. 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 No vaginal bleeding or discharge. No abdominal pain, nausea, vomiting, diarrhea, or constipation. No dysuria, gross hematuria, urinary frequency, urinary urgency, or incontinence. No shortness of breath, cough, or chest pain. Her ECOG performance status is zero (fully active, able to carry on all pre-disease performance without restriction). OBJECTIVE: VITALS: BP 135/60 Pulse 78 Wt 42.7 kg (94 lb 1.6 oz) LMP (LMP Unknown) BMI 20.36 kg/m? GENERAL: alert, oriented, pleasant and cooperative. HEENT: Normocephalic, atraumatic, mucus membranes moist and no lesions. NECK: Supple, no adenopathy; thyroid symmetric, normal size, no bruits. No supraclavicular, cervical, or pelvic lymphadenopathy.. HEART: Regular rate and rhythm, no murmur, clicks or rubs. LUNGS: Clear to auscultation bilaterally. Good air exchange. ABDOMEN: Abdomen soft, non-tender, no hepatosplenomegaly. PELVIC: External genitalia, anus and urethral meatus are normal in appearance and without lesions. Vagina and cervix are normal in appearance on speculum examination. Bimanual pelvic and rectovaginal examination were negative for urethral, bladder or pelvic masses, parametrial thickening or cul-de-sac nodularity. Uterus normal size and non-tender. There were no rectal masses. LOWER EXTREMITIES: No pitting edema, no palpable cords and no skin changes Buckram Sewer for exam: Ashleigh Garcia CNP ASSESSMENT: Ms. 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 Cancer: No clinical evidence of disease. Signs and symptoms of recurrence reviewed - Pap done today, will repeat annually - CT scan as needed 2. RTC in 6 months Anastasia Garcia MD, MPH 25 min spent with the patient with >50% face to face counseling CC: DO Flavio Lazaro DO (PCP) Sarah Garcia MD Referring Provider: ANASTASIA GARCIA [[id number]] Allergies As of Date: 08/15/2018 Noted Allergy Reaction BEES 07/29/2008 2 - Rash Comments: HAS EPI PEN CISPLATIN 08/15/2015 5 - Intolerance Comments: Hearing loss MORPHINE 08/29/2017 4 - Hives PERCOCET (OXYCODONE-ACETAMINOPHEN)08/09/2015 8 - GI Upset Date Reviewed: 08/15/2018 Reviewed by: Jess (Payal) PAYAL Armenta - Fully Assessed Reason for Visit: Follow Up [171] Primary Visit Diagnosis:Cancer of endocervix (HCC) [C53.0] Order(s):PAP FLUID CERVICAL DIAGNOSTIC [[id number]] Order #: [id number]. #:[id number] Prescriptions as of 08/15/2018 Sig: BENZONATATE 100 MG CAPSULE Take 1-2 capsules tid prn Patient not taking: Reported on 08/21/2018 ALBUTEROL SULFATE HFA 90 MCG/* Inhale 2 Puffs as instructed * PHENAZOPYRIDINE 100 MG TABLET Take 1 tablet by mouth three * DICYCLOMINE 10 MG CAPSULE Take 1 capsule by mouth three* PANTOPRAZOLE 40 MG TABLET,DEL* Take 1 tablet by mouth once d* PHENAZOPYRIDINE 100 MG TABLET Take 1 tablet by mouth three * PEG 3350-ELECTROLYTES 236 GRA* Take the night prior to the e* PHENYLEPHRINE 0.25 %-SHARK LI* 1 Suppository by RECTAL route* ONDANSETRON HCL 4 MG TABLET Take 1 tablet by mouth every * HYDROCODONE 5 MG-ACETAMINOPHE* Take 1 tablet by mouth every * CONJ ESTROGEN-MEDROXYPROGESTE* Take 1 tablet by mouth once d* EPINEPHRINE 0.3 MG/0.3 ML INJ* Inject 0.3 mL intramuscularly* IBUPROFEN 600 MG TABLET Take 1 tablet by mouth every * ZOLPIDEM 5 MG TABLET Take 1 tablet by mouth at bed* ALBUTEROL SULFATE HFA 90 MCG/* Inhale 2 Puffs as instructed * DOCUSATE SODIUM 100 MG CAPSULE Take 1 capsule by mouth twice* ALBUTEROL 90 MCG/ACTUATION AE* Inhale 2 Puffs as instructed * Problem List As Of Date 08/15/2018 Noted Resolved Supervision of Other High-Risk [O09.8*INVALID FOR*08/31/2009 Unspecified symptom associated with female ishmael*INVALID FOR*04/17/2011 Asthma [J45.909] INVALID FOR* Depression with anxiety [F41.8] INVALID FOR* Chronic pelvic pain in female [R10.2, G89.29] INVALID FOR* ADD (attention deficit disorder) [F98.8] INVALID FOR* Pain in joint, lower leg [M25.569] INVALID FOR*12/17/2016 Lower urinary tract infectious disease [N39.0] INVALID FOR*12/17/2016 Neoplasm of uncertain behavior of skin of breas*INVALID FOR* Cervical cancer (HCC) [C53.9] INVALID FOR*12/17/2016 Abdominal pain [R10.9] INVALID FOR*09/21/2015 Cervical cancer, FIGO stage IB1 (HCC) [C53.9] INVALID FOR* Surgical menopause [E89.40] INVALID FOR* Vaginal bleeding [N93.9] INVALID FOR* Hematuria [R31.9] INVALID FOR* Left lower quadrant pain [R10.32] INVALID FOR* More... Change in bowel habit [R19.4] INVALID FOR* More... Hematochezia [K92.1] INVALID FOR* More... Encounter Status:Closed by ANASTASIA GARCIA MD on 08/23/18 PROGRESS Observed: 08/13/2018 Status: COMPLETED Source: [place] 7:49 PM [facility] REPOSITORY HNO ID: [id number] Author: Anastasia Garcia Service: (none) Author Type: Physician Type: Progress Notes Filed: 08/23/2018 12:42 PM Note Text: Gynecologic Oncology [facility] Follow up visit Re: Lashon Medina [facility]#: [id number] 08/15/2018 PROBLEM: Lashon Medina returns to the office today for follow up DIAGNOSIS: FIGO stage 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 PRIOR TREATMENT AND DATE: 1) 04/2013: Pap - Low grade squamous intraepithelial lesion (LSIL), cannot exclude high grade squamous intraepithelial lesion (HSIL). Lost to follow-up until 2014. 2) 03/2015: Colpo and biopsies - High grade cervical dysplasia 3) 05/2015: LEEP - Grade 2 SCC, involve entire thickness (4.5 mm), positive lateral and deep margins, focal LVSI. Specimen size 2.1 x 2.0 x 0.6 cm. 4) 07/12/2015: Laparoscopic right ovarian transposition, right salpingectomy, left salpingo-oophorectomy for ovarian tissue freezing. 5) 07/26/2015 - 09/02/2015: Definitive and concurrent chemotherapy (Weekly Cisplatin), received external beam RT 45 Gy/25 fx ([place]). 6) 09/05/2015 - 09/26/2015: HDRB: 30Gy, 6Gy/fx, 5fx's, point A dose, has received 5/5 fractions. 7) 09/19/2015 - 09/21/2015: Admitted for persistent RLQ abdominal pain, underwent diagnostic laparoscopy, lysis of adhesion, right oophorectomy on 09/20 for ovarian torsion. 8.) 07/11/2016 - Vaginal culture - BV, flagyl prescribed. Urine Culture - Negative. Vaginal mucosa, biopsy - Numerous bacterial colonies, inflammation, and rare fragments of benign squamous epithelium. 9.)07/16/2016 PAIN MANAGEMENT CONSULTATION RECOMMENDATIONS Discontinue gabapentin if not already stopped.Topamax 15 mg 1 capsule at bedtime for 1 week increase to 2 capsules at bedtime thereafter, #60 with 2 refills. The patient wished to titrate any new medications rather judiciously given past medication sensitivities. 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 No vaginal bleeding or discharge. No abdominal pain, nausea, vomiting, diarrhea, or constipation. No dysuria, gross hematuria, urinary frequency, urinary urgency, or incontinence. No shortness of breath, cough, or chest pain. Her ECOG performance status is zero (fully active, able to carry on all pre-disease performance without restriction). OBJECTIVE: VITALS: BP 135/60 Pulse 78 Wt 42.7 kg (94 lb 1.6 oz) LMP (LMP Unknown) BMI 20.36 kg/m? GENERAL: alert, oriented, pleasant and cooperative. HEENT: Normocephalic, atraumatic, mucus membranes moist and no lesions. NECK: Supple, no adenopathy; thyroid symmetric, normal size, no bruits. No supraclavicular, cervical, or pelvic lymphadenopathy.. HEART: Regular rate and rhythm, no murmur, clicks or rubs. LUNGS: Clear to auscultation bilaterally. Good air exchange. ABDOMEN: Abdomen soft, non-tender, no hepatosplenomegaly. PELVIC: External genitalia, anus and urethral meatus are normal in appearance and without lesions. Vagina and cervix are normal in appearance on speculum examination. Bimanual pelvic and rectovaginal examination were negative for urethral, bladder or pelvic masses, parametrial thickening or cul-de-sac nodularity. Uterus normal size and non-tender. There were no rectal masses. LOWER EXTREMITIES: No pitting edema, no palpable cords and no skin changes Buckram Sewer for exam: Ashleigh Garcia CNP ASSESSMENT: Ms. 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 Cancer: No clinical evidence of disease. Signs and symptoms of recurrence reviewed - Pap done today, will repeat annually - CT scan as needed 2. RTC in 6 months Anastasia Garcia MD, MPH 25 min spent with the patient with >50% face to face counseling CC: DO Flavio Lazaro DO (PCP) Sarah Garcia MD 12 LEAD ELECTROCARDIOGRAM Observed: 08/01/2018 Status: F Source: [place] 1:48 PM [facility] Cardiovascular Services [address] [place] [address] 12 Lead EKG 07/29/18 1830 MR#: [id number] Acct: [id number] Name: LASHON MEDINA Rep #: [id number] : 1990 28 From: Román Santos MD Attending Dr: Status: DEP ER Ordering Dr: Ashleigh Hill MD Date: 07/29/18 Location: ED Sex: F C Admitted: Test Reason : FEVER Blood Pressure : / mmHG Vent. Rate : 104 BPM Atrial Rate : 105 BPM P-R Int : 122 ms QRS Dur : 074 ms QT Int : 306 ms P-R-T Axes : 064 028 069 degrees QTc Int : 402 ms Sinus tachycardia Otherwise normal ECG Confirmed by ALEJANDRO PARDO, ROMÁN ([id number]), social media editor ALMA HUI ([id number]) on 08/01/2018 1:47:56 PM Referred By: ROBERT Confirmed By:ROMÁN SANTOS MD 08/01/18 1347 Date Román Santos MD CC: Ashleigh Hill MD; Flavio Melendez DO Signed EMERGENCY DEPARTMENT Observed: 07/30/2018 Status: F Source: [place] SUMMARY 1:57 AM [facility] REPOSITORY [facility] Medical Records Department [address] [place] [address] Emergency Department Summary 07/29/188 MR#: [id number] Acct: [id number] Name: LASHON MEDINA Rep #: [id number] : 1990 28 From: Ashleigh Hill MD PCP: Flavio Melendez DO Status: DEP ER - ER Visit Summary Date of Service: 07/29/18 Chief Complaint: Fever History of Present Illness: The patient is a 28 F with a one- week history of fever, sore throat, body aches. She has had nausea, vomiting, diarrhea. She does report dysuria. Patient states her nephew had similar type symptoms. Past history significant for cervical cancer with radiation cystitis and C. difficile. Physical Examination: Blood pressure is 122/70, temperature 101.6, heart rate 102, respiratory rate 18, pulse ox 98% on room air. Patient sitting upright in bed. She is in no acute distress but is anxious. Head neck examination reveals TMs to be clear bilaterally. Posterior pharynx is normal. Heart is tachycardic and regular. Lungs sounds are slightly diminished at the bases. Abdomen is soft with mild mid left abdominal tenderness. No guarding or rebound. Hypoactive bowel sounds. Skin examination was no rash or lesions. Test Results: Portable chest x-ray reveals right lower lobe pneumonia. EKG is sinus tach at 104 with no sign of acute ischemia. CBC was normal white count but left shift is present. Hemoglobin is 11.9. Chemistry studies, LFTs, urinalysis normal. Lactate is normal at 1.0. Blood cultures were sent. Emergency Department Course and Treatment: Patient is given IV fluids, Tylenol, and Zofran. Upon completion of x-ray she is given a dose of IV Levaquin. For continued pain and cough she did receive a small dose of Dilaudid along with Tessalon Perles. On repeat evaluation patient is resting comfortably. Test results are discussed with her. She will be given Levaquin and Tessalon Perles for home. Treatment Plan: [] Disposition: Discharge Impression: Pneumonia This note was generated with [employer] dictation software. It may contain incorrect words, spelling, and punctuation that were not noted in review of the chart prior to signing ED Disposition - Plan for ED Patient: Disposition: Home or Assisted Living Chief Complaint: Fever Instructions: ED Pneumonia Adult Prescriptions: Benzonatate [Tessalon Perle] 200 mg PO TID PRN PRN #20 capsule PRN Reason: Cough levoFLOXacin tablet [Levaquin] 500 mg PO DAILY #6 tablet Referrals: Falvio Boland, [Primary Care Provider] - 5-7 Days What to do if you have Problems For any increased pain, shortness of breath, bleeding, nausea or vomiting, chest pain, or any unexpected problems, contact your Primary Care Provider. Call [facility] ([phone]) or report to the closest Emergency Room. Call 911 if necessary. 07/30/18 0157 <Electronically signed by Ashleigh Hill MD> Date Ashleigh Hill MD Cosigner Signature (If Indicated): Date CC: Flavio Melendez DO DISCHARGE INSTRUCTION Observed: 07/29/2018 Status: F Source: [place] 9:40 PM [facility] REPOSITORY [facility] Medical Records Department [address] [place] [address] Discharge Instruction 07/29/182137 MR#: [id number] Acct: [id number] Name: LASHON MEDINA Rep #: [id number] : 1990 28 From: Ashleigh Hill MD PCP: Flavio Melendez DO Status: REG ER ED Disposition - Plan for ED Patient: Disposition: Home or Assisted Living Chief Complaint: Fever Instructions: ED Pneumonia Adult Prescriptions: Benzonatate [Tessalon Perle] 200 mg PO TID PRN PRN #20 capsule PRN Reason: Cough levoFLOXacin tablet [Levaquin] 500 mg PO DAILY #6 tablet Referrals: Flavio Boland DO [Primary Care Provider] - 5-7 Days What to do if you have Problems For any increased pain, shortness of breath, bleeding, nausea or vomiting, chest pain, or any unexpected problems, contact your Primary Care Provider. Call [facility] ([phone]) or report to the closest Emergency Room. Call 911 if necessary. 07/29/180 <Electronically signed by Ashleigh Hill MD> Date Ashleigh Hill MD Cosigner Signature (If Indicated): Date CC: Flavio Rajivhernan Observed: 07/29/2018 Status: F Source: [place] CULTURE, BLOOD (WB) 6:46 PM [facility] REPOSITORY BC No growth in 5 days. Performed By: #### M200.1000 #### [facility] [address] [place], [address] Observed: 07/29/2018 Status: F Source: [place] CULTURE, URINE 6:30 PM [facility] REPOSITORY Order Date: 07/29/18 Urine Culture Culture exhibits no growth. Performed By: #### M100.0650 #### [facility] [address] [place], [address] COMPREHENSIVE METABOLIC Collected: 07/29/2018 Status: F Source: ANA PROFIL 6:26 PM [facility] REPOSITORY TYPE CODE TESTS RESULT OUT OF RANGE REFERENCE UNITS LAB L501.0100 74-106 mg/dL Normal GLU 81 Result Comment: Please note revised GLUCOSE reference range effective 2017. LAB L501.1000 7-18 mg/dL Low BUN 6 LAB L501.1100 0.55-1.02 mg/dL Normal CREAT,SERUM 0.79 Result Comment: The validity of the calculated GFR AND GFRAA in patients over 70 years has not been determined. Clinical correlation is essential. LAB L501.1110 >60 mL/min Normal EST GFR 92 Result Comment: Non- GFR Calc LAB L501.1115 >60 mL/min Normal EST GFR - AA 112 Result Comment: GFR Calc LAB L501.1255 ml/min Normal Estimated CRCL 71.77 LAB L501.1300 10-20 RATIO Low BUN/CRE 7.6 LAB L501.1500 6.4-8. g/dL Normal 2 T PROT 6.9 LAB L501.1800 3.2-5. g/dL Low 0 ALB 3.1 LAB L501.1950 2.2-4. g/dL Normal 2 GLOB 3.8 LAB L501.2000 0.9-2. RATIO Low 4 A/G 0.8 LAB L501.2200 8.5-10 mg/dL Low .1 CA 8.0 LAB L501.4100 15-37 U/L Normal AST 28 LAB L501.4305 45-117 U/L Normal ALK P 106 LAB L501.4405 13-56 U/L Normal ALT 28 LAB L501.4600 0.20-1 mg/dL Normal .00 T BILI 0.20 LAB L501.5300 136-14 mmol/L Low 5 NA 134 LAB L501.5600 3.5-5. mmol/L Normal 1 K 3.7 LAB L501.5900 98-107 mmol/L Normal CL 100 LAB L501.6100 21.0-3 mmol/L Normal 2.0 CO2 26.0 LAB L501.6200 5-15 Normal GAP 8 Performed By: #### L500.4050 #### [facility] [address] [place], [address] URINALYSIS, COMPLETE Collected: 07/29/2018 Status: F Source: [place] 6:26 PM [facility] REPOSITORY Order Comment: Order Date: 07/29/18 How was Urine Obtained? HAZ TECH TO SPECIFY TYPE CODE TESTS RESULT OUT OF RANGE REFERENCE UNITS LAB L400.3000 Yellow COLOR Normal Yellow LAB L400.3050 Clear Normal CLARITY Clear LAB L400.3200 Normal mg/dl Normal GLUCOSE, UR Normal LAB L400.3300 Negative mg/dL Normal BILIRUBIN URINE Negative LAB L400.3400 Negative mg/dl High 5 KETONE UR LAB L400.3465 1.002-1.030 Normal SP.GR. DIPSTX 1.015 LAB L400.3550 5.0 - 8.0 pH UR Normal 6.5 LAB L400.3600 Negative mg/dl High PROT 15 DIPSTX LAB L400.3700 Normal mg/dl High 1 UROBILI LAB L400.3750 Negative Normal NITRITE UR Negative LAB L400.3780 Negative /ul Normal OCCULT BLOOD-UR Negative LAB L400.3800 Negative /ul High LEUK 25 ESTERASE LAB L400.4050 0-5 /hpf WBC Normal 5-10 SEEN LAB L400.4100 0-5 /hpf 0 Normal RBC-UA SEEN LAB L400.4150 5-10 /hpf SQUAM Normal EPI 0-5 SEEN LAB L400.4300 None Seen /hpf 0 Normal BACTERIA SEEN LAB L400.4350 <or=2+ /hpf 1+ Normal MUCUS, URINE Performed By: #### L400.0001 #### [facility] [address] [place], [address] CBC W/DIFF, AUTOMATED Collected: 07/29/2018 Status: F Source: ANA 6:26 PM [facility] REPOSITORY TYPE CODE TESTS RESULT OUT OF RANGE REFERENCE UNITS LAB L100.1000 4.4-11.0 K/mm3 Normal WBC 10.5 LAB L100.1200 4.2-5.4 M/mm3 Low RBC 3.86 LAB L100.1300 12.0-15.0 g/dl Low HGB 11.9 LAB L100.1400 37-47 % Low HCT 35.2 LAB L100.1500 81-99 fL Normal MCV 91.2 LAB L100.1600 27.0-32.0 pg Normal MCH 30.8 LAB L100.1700 32-36 g/gl Normal MCHC 33.8 LAB L100.1810 11.6-14.6 % Normal RDW CV 13.6 LAB L100.1820 35.1-43.9 fl High RDW SD 45.2 LAB L100.1900 150-450 K/mm3 Normal PLT 233 LAB L100.2000 6.2-12.0 fl Normal MPV 8.6 LAB L100.2100 47-70 % High NEUT% 81.9 LAB L100.2200 19-41 % Low LY% 5.7 LAB L100.2300 0-10 % High MONO% 12.0 LAB L100.2400 0-5 % Normal EO% 0.0 LAB L100.2500 0-1 % Normal BASO% 0.3 LAB L100.2550 0.0-0.9 % Normal IM GRAN % 0.100 Result Comment: IG% - Immature Granulocytes (promyelocytes, myelocytes and metamyelocytes) > 1% indicates that a LEFT SHIFT is Present. LAB L100.2620 2.0-7.7 X10 3/uL High Absolute Neut 8.6 LAB L100.2720 0.83-4.51 X10 3/ul Low Absolute Lymph 0.60 LAB L100.4500 SMEAR Normal COMMENT Result Comment: LYMPHOPENIA NOTED Performed By: #### L100.0100 #### [facility] [address] [place], [address] LACTIC ACID Collected: 07/29/2018 Status: F Source: ANA 6:26 PM [facility] REPOSITORY Order Comment: Yes/No query for Sepsis Lactate Rule Y TYPE CODE TESTS RESULT OUT OF RANGE REFERENCE UNITS LAB L503.6005 0.4-2.0 mmol/L Normal LACTIC ACID 1.0 Performed By: #### L503.6005 #### [facility] [address] [place], [address] PROTHROMBIN TIME W/INR Collected: 07/29/2018 Status: F Source: ANA 6:26 PM [facility] REPOSITORY TYPE CODE TESTS RESULT OUT OF RANGE REFERENCE UNITS LAB L300.4150 11.7-14.9 SECONDS Normal PROTIME 14.5 LAB L300.4200 Normal INR 1.1 Performed By: #### L300.3900, L300.4310 #### [facility] [place], [address] PARTIAL THROMBOPLAST Collected: 07/29/2018 Status: F Source: ANA TIME 6:26 PM [facility] REPOSITORY TYPE CODE TESTS RESULT OUT OF REFERENCE UNITS RANGE LAB L300.4310 24.1-36.2 Seconds High PTT 38.3 Performed By: #### L300.3900, L300.4310 #### [facility] [address] [place], [address] Observed: 07/29/2018 Status: F Source: ANA CULTURE, BLOOD (WB) 6:26 PM [facility] REPOSITORY BC No growth in 5 days. Performed By: #### M200.1000 #### [facility] [address] [place], [address] CHEST 1 VIEW Observed: 07/29/2018 Status: F Source: ANA (PORTABLE) 6:23 PM [facility] REPOSITORY [facility] Imaging Services [address] [place] [address] Chest 1 View (Portable) MR#: [id number] Acct: [id number] Name: LASHON MEDINA Rep #: [id number] : 1990 F 28 From: Lydia Hernandez MD PCP: Flavio Melendez DO Status: REG ER Study: Chest 1 View (Portable) Date of Exam: 07/29/18 Exam# [id number] Ordering Dr: Ashleigh Hill MD STUDY: X-RAY CHEST REASON FOR EXAM: Female, 28 years old. Fever, cough. TECHNIQUE: Portable chest. COMPARISON: 02/16/2018. FINDINGS: There is mild opacity in the right lower lobe consistent with acute pneumonia. The lungs are otherwise clear. There is no pleural effusion. Normal size heart. Normal mediastinum and marbella. Normal visualized pulmonary arteries. Normal visualized aortic arch and descending thoracic aorta. Normal visualized thoracic spine. Normal visualized ribs, clavicles, and shoulders. There is no demonstrated abnormality of the visualized soft tissue structures of the upper abdomen. RAD/Chest 1 View (Portable) IMPRESSION: Right lower lobe pneumonia. Electronically Signed: Lydia Hernandez MD at 19:13 EST Tel , Service support , CC: Ashleigh Hill MD; Flavio Melendez DO Experience Specialist: Signed DISCHARGE INSTRUCTION Observed: 07/15/2018 Status: F Source: [place] 4:53 AM [facility] REPOSITORY [facility] Medical Records Department [address] [place] [address] Discharge Instruction 07/15/18 0453 MR#: [id number] Acct: [id number] Name: LASHON MEDINA Rep #: [id number] : 1990 28 From: Zana Brown MD PCP: Flavio Melendez DO Status: REG ER ED Disposition - Plan for ED Patient: Chief Complaint: Nausea/Vomiting Instructions: ED Abdominal Pain Unkn Cause Referrals: Boland,Flavio, DO [Primary Care Provider] - What to do if you have Problems For any increased pain, shortness of breath, bleeding, nausea or vomiting, chest pain, or any unexpected problems, contact your Primary Care Provider. Call [facility] ([phone]) or report to the closest Emergency Room. Call 911 if necessary. 07/15/18 0453 <Electronically signed by Zana Brown MD> Date Zana Brown MD Cosigner Signature (If Indicated): Date CC: Flavio Melendez DO EMERGENCY DEPARTMENT Observed: 07/15/2018 Status: F Source: [place] SUMMARY 4:53 AM [facility] REPOSITORY [facility] Medical Records Department [address] [place] [address] Emergency Department Summary 07/15/18 0451 MR#: [id number] Acct: [id number] Name: LASHON MEDINA Rep #: [id number] : 1990 28 From: Zana Brown MD PCP: Flavio Melendez DO Status: REG ER - ER Visit Summary Date of Service: 07/15/18 Chief Complaint: Abdominal pain History of Present Illness: The patient is a 28 F who presents with abdominal pain. It began yesterday. She complains of sharp lower abdominal pain which is worse on the left. She also reports 2 episodes of nonbloody nonbilious emesis. She reports a fever of 101.2 at home. No diarrhea. Physical Examination: Afebrile vitals are normal Moist mucous membranes Heart regular rate and rhythm Lungs are clear Abdomen soft nondistended she does have suprapubic abdominal tenderness and left lower quadrant abdominal pain Test Results: CBC BMP unremarkable. Urinalysis shows rare bacteria and was sent for culture. Emergency Department Course and Treatment: Patient was treated here with IV fluids Toradol Zofran. She is sleeping comfortably on reevaluation. Patient has had chronic similar pain. Her last 2 CTs were unremarkable. Patient states that she does have a resource management specialist in [facility] that she follows with. She was advised to follow- up as an outpatient with gynecology. She is agreeable to this plan. All questions answered bedside. Patient discharged. Understands to return for new or worsening symptoms. Treatment Plan: [] Disposition: Discharge Impression: Abdominal pain This note was generated with Mobile [employer] dictation software. It may contain incorrect words, spelling, and punctuation that were not noted in review of the chart prior to signing ED Disposition - Plan for ED Patient: Chief Complaint: Nausea/Vomiting Referrals: Flavio Boland, DO [Primary Care Provider] - What to do if you have Problems For any increased pain, shortness of breath, bleeding, nausea or vomiting, chest pain, or any unexpected problems, contact your Primary Care Provider. Call [facility] ([phone]) or report to the closest Emergency Room. Call 911 if necessary. 07/15/18 0453 <Electronically signed by Zana Brown MD> Date Zana Brown MD Cosigner Signature (If Indicated): Date CC: Flavio Melendez DO URINALYSIS, COMPLETE Collected: 07/15/2018 Status: F Source: ANA 4:33 AM [facility] REPOSITORY Order Comment: Order Date: 07/15/18 How was Urine Obtained? CLEAN CATCH TYPE CODE TESTS RESULT OUT OF RANGE REFERENCE UNITS LAB L400.3000 Yellow COLOR Normal Yellow LAB L400.3050 Clear Normal CLARITY Sl. Cloudy LAB L400.3200 Normal mg/dl Normal GLUCOSE, UR Normal LAB L400.3300 Negative mg/dL Normal BILIRUBIN URINE Negative LAB L400.3400 Negative mg/dl High 50 KETONE UR LAB L400.3465 1.002-1.030 Normal SP.GR. DIPSTX 1.020 LAB L400.3550 5.0 - 8.0 pH UR Normal 6.0 LAB L400.3600 Negative mg/dl PROT Normal DIPSTX Negative LAB L400.3700 Normal mg/dl Normal UROBILI Normal LAB L400.3750 Negative Normal NITRITE UR Negative LAB L400.3780 Negative /ul High 10 OCCULT BLOOD-UR LAB L400.3800 Negative /ul High LEUK 25 ESTERASE LAB L400.4050 0-5 /hpf WBC Normal 0-5 SEEN LAB L400.4100 0-5 /hpf Normal RBC-UA 0-5 SEEN LAB L400.4150 5-10 /hpf SQUAM Normal EPI 0-5 SEEN LAB L400.4300 None Seen /hpf Normal BACTERIA RARE LAB L400.4350 <or=2+ /hpf Normal MUCUS, URINE RARE LAB L400.4700 <or=2+ /hpf CA OX Normal CRYSTAL RARE Performed By: #### L400.0001 #### [facility] [address] [place], [address] Observed: 07/15/2018 Status: F Source: [place] CULTURE, URINE 4:33 AM [facility] REPOSITORY Urine Culture Culture exhibits no growth. Performed By: #### M100.0650 #### [facility] [address] [place], [address] CBC W/DIFF, AUTOMATED Collected: 07/15/2018 Status: F Source: [place] 3:35 AM [facility] REPOSITORY TYPE CODE TESTS RESULT OUT OF RANGE REFERENCE UNITS LAB L100.1000 4.4-11.0 K/mm3 Normal WBC 8.9 LAB L100.1200 4.2-5.4 M/mm3 Low RBC 4.19 LAB L100.1300 12.0-15.0 g/dl Normal HGB 13.2 LAB L100.1400 37-47 % Normal HCT 39.0 LAB L100.1500 81-99 fL Normal MCV 93.1 LAB L100.1600 27.0-32.0 pg Normal MCH 31.5 LAB L100.1700 32-36 g/gl Normal MCHC 33.8 LAB L100.1810 11.6-14.6 % Normal RDW CV 13.5 LAB L100.1820 35.1-43.9 fl High RDW SD 44.9 LAB L100.1900 150-450 K/mm3 Normal PLT 247 LAB L100.2000 6.2-12.0 fl Normal MPV 8.8 LAB L100.2100 47-70 % High NEUT% 82.4 LAB L100.2200 19-41 % Low LY% 7.7 LAB L100.2300 0-10 % Normal MONO% 8.4 LAB L100.2400 0-5 % Normal EO% 1.1 LAB L100.2500 0-1 % Normal BASO% 0.3 LAB L100.2550 0.0-0.9 % Normal IM GRAN % 0.100 Result Comment: IG% - Immature Granulocytes (promyelocytes, myelocytes and metamyelocytes) > 1% indicates that a LEFT SHIFT is Present. LAB L100.2620 2.0-7.7 X10 3/uL Normal Absolute Neut 7.3 LAB L100.2720 0.83-4.51 X10 3/ul Low Absolute Lymph 0.69 Performed By: #### L100.0100 #### [facility] [address] [place], [address] BASIC METABOLIC Collected: 07/15/2018 Status: F Source: [place] PROFILE (BMP) 3:35 AM [facility] REPOSITORY TYPE CODE TESTS RESULT OUT OF RANGE REFERENCE UNITS LAB L501.0100 74-106 mg/dL Normal GLU 96 Result Comment: Please note revised GLUCOSE reference range effective 2017. LAB L501.1000 7-18 mg/dL Normal BUN 12 LAB L501.1100 0.55-1.02 mg/dL Normal CREAT,SERUM 0.76 Result Comment: The validity of the calculated GFR AND GFRAA in patients over 70 years has not been determined. Clinical correlation is essential. LAB L501.1110 >60 mL/min Normal EST GFR 97 Result Comment: Non- GFR Calc LAB L501.1115 >60 mL/min Normal EST GFR - AA 117 Result Comment: GFR Calc LAB L501.1255 ml/min Normal Estimated CRCL 69.91 LAB L501.1300 10-20 RATIO Normal BUN/CRE 15.8 LAB L501.2200 8.5-10 mg/dL Normal .1 CA 8.7 LAB L501.5300 136-14 mmol/L Normal 5 NA 143 LAB L501.5600 3.5-5. mmol/L Normal 1 K 4.0 LAB L501.5900 98-107 mmol/L Normal CL 106 LAB L501.6100 21.0-3 mmol/L Normal 2.0 CO2 26.0 LAB L501.6200 5-15 Normal GAP 11 Performed By: #### L500.2500 #### [facility] [address] [place], [address] CNOV Observed: 05/03/2018 Status: COMPLETED Source: [place] 3:00 PM [facility] REPOSITORY Office Visit (WSTR) LASHON MEDINA ([id number]) 1990 F TXT Date Time Provider Department 05/03/18 3:00 PM KIM VARGAS (OUTPATIENT SURGERY RN) [facility] During your visit today, we recorded the following information about you: Temperature Pulse Blood pressure Weight 98.5 degrees 97/minute 120/70 41.3 kg Kim Vargas APRN.CNP 05/03/2018 2:59 PM Signed ASSESSMENT/PLAN: 1. Acute bronchitis, unspecified organism - ICD9: 466.0, ICD10: J20.9 (primary diagnosis) - Discussed use of Prednisone 5 day course as needed for cough, wheeze, shortness of breath * Prednisone 40 mg (2 tablets) per day for 5 days, take in morning or early in day * Do not NSAIDs during this 5 day course (ibuprofen, naproxen, Motrin, Aleve, Advil) Tylenol only during prednisone use * Follow up with primary care provider if no improvement with treatmen * Seek medical care immediately, call 911, go to ER if you have chest pain, difficulty breathing, shortness of breath, inability to swallow. ? Rest, oral fluids, tylenol or motrin as needed for pain or fever Tessalon Perles as prescribed for coughing, do not combine this with other cough and cold medications Prednisone for airway congestion/wheezing/coughing Zithromax for infection please take as directed and finish the entire prescription unless instructed otherwise - AZITHROMYCIN 250 MG TABLET - PREDNISONE 20 MG TABLET - BENZONATATE 100 MG CAPSULE - ALBUTEROL SULFATE HFA 90 MCG/ACTUATION AEROSOL INHALER 2. Wheezing - ICD9: 786.07, ICD10: R06.2 - PREDNISONE 20 MG TABLET - ALBUTEROL SULFATE HFA 90 MCG/ACTUATION AEROSOL INHALER 3. Adventitious breath sounds - ICD9: 786.00, ICD10: R06.89 Kim Vargas APRN.CNP 05/03/2018 3:07 PM Signed Subjective The history is provided by the patient and a relative. Patient presents with: Cough Sore Throat HISTORY: Lashon Medina is a 28 year old female who presents presents today with a complaint of cough present for last 16 days, and worsening CHARACTERISTICS: productive with yellow, green sputum, congested PRECIPITATING/AGGRIVATING FACTORS: position ASSOCIATED SYMPTOMS: wheezing, sputum production and ear pressure and sore throat HISTORY: ASTHMA: No ENVIRONMENTAL ALLERGENS: Yes RECENT TRAVEL: No SMOKING: Yes PREVIOUS CHEST X-RAY: No BP 120/70 Pulse 97 Temp 36.9 ?C (98.5 ?F) (Left Tympanic) Wt 41.3 kg (91 lb) LMP (LMP Unknown) SpO2 97% BMI 19.69 kg/m? 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 Cervical Cancer, Figo Stage Ib1 (Hcc) Surgical Menopause Vaginal Bleeding Hematuria Left Lower Quadrant Pain Change in Bowel Habit Hematochezia Family History Problem Relation Age of Onset - Breast Cancer Maternal Aunt in her 30's - Alcohol/Drug Mother ETOH - Alcohol/Drug Father - Asthma Paternal Grandmother - Asthma Paternal Aunt - Hypertension Paternal Uncle - Hypertension Paternal Grandfather - Lipids Paternal Aunt - Osteoporosis Paternal Grandmother - Hypertension Maternal Grandmother - Hypertension Maternal Uncle - Alcohol/Drug Paternal Aunt - Alcohol/Drug Maternal Aunt - Alcohol/Drug Maternal Uncle - Hypertension Paternal Grandmother - Allergies Mother - Allergies Father - Allergies Paternal Aunt - Allergies Paternal Grandmother - Allergies Brother - Allergies Daughter - Psychiatry Mother Depression - Psychiatry Father - Psychiatry Paternal Aunt Depression - Psychiatry Paternal Grandmother Social History Marital status: Single Spouse name: Years of education: 10 Number of children: 1 Occupational History Occupation Employer Comment [employer] Social History Main Topics Smoking status: Current Every Day Smoker Packs/day: 0.30 Years: 2.00 Types: Cigarettes Start date: 01/14/2013 Smokeless tobacco: Never Used Alcohol use: Yes Comment: approx 1 per month Drug use: No Sexual activity: Yes Partners with: Male control/protection: Implant Comment: Nexplanon Social History Narrative Daughter 4 yo. Nicki ([facility] 07/2013)- lives in apartment with self, daughter,bf and brother (who is a big stress inducer for her) PAST MEDICAL HISTORY Diagnosis Date - Cervical cancer (HCC) 06/19/2015 stage 1 b - Depression - Endometriosis - IBS (irritable bowel syndrome) 03/26 - Unspecified asthma(493.90) Review of Systems Constitutional: Negative. Negative for chills, fever and malaise/fatigue. HENT: Positive for congestion (cest) and sore throat (mild). Negative for ear pain (pressure) and sinus pain. Respiratory: Positive for cough, sputum production and wheezing. Negative for shortness of breath. Cardiovascular: Negative for chest pain. Musculoskeletal: Negative for myalgias. Skin: Negative for rash. Neurological: Negative for headaches. Objective Physical Exam Constitutional: She is well-developed, well-nourished, and in no distress. HENT: Head: Normocephalic and atraumatic. Right Ear: External ear and ear canal normal. Tympanic membrane is bulging. Tympanic membrane is not injected, not erythematous and not retracted. A middle ear effusion (serous) is present. Left Ear: External ear and ear canal normal. Tympanic membrane is bulging. Tympanic membrane is not injected, not erythematous and not retracted. A middle ear effusion (serous) is present. Nose: Nose normal. Right sinus exhibits no maxillary sinus tenderness and no frontal sinus tenderness. Left sinus exhibits no maxillary sinus tenderness and no frontal sinus tenderness. Mouth/Throat: Uvula is midline and mucous membranes are normal. Posterior oropharyngeal erythema (mild) present. No oropharyngeal exudate, posterior oropharyngeal edema or tonsillar abscesses. Eyes: Pupils are equal, round, and reactive to light. Conjunctivae and EOM are normal. Neck: Normal range of motion. Cardiovascular: Normal rate, regular rhythm and normal heart sounds. Pulmonary/Chest: Effort normal. No respiratory distress. She has no decreased breath sounds. She has wheezes (throughout). She has rhonchi in the right lower field and the left lower field. She has no rales. Lymphadenopathy: Head (right side): No submental, no submandibular, no tonsillar, no preauricular and no posterior auricular adenopathy present. Head (left side): No submental, no submandibular, no tonsillar, no preauricular and no posterior auricular adenopathy present. She has no cervical adenopathy. Right cervical: No posterior cervical adenopathy present. Left cervical: No posterior cervical adenopathy present. Right: No supraclavicular adenopathy present. Left: No supraclavicular adenopathy present. Skin: Skin is warm and dry. Psychiatric: Affect normal. Nursing note and vitals reviewed. ASSESSMENT/PLAN: 1. Acute bronchitis, unspecified organism - ICD9: 466.0, ICD10: J20.9 (primary diagnosis) - Discussed use of Prednisone 5 day course as needed for cough, wheeze, shortness of breath * Prednisone 40 mg (2 tablets) per day for 5 days, take in morning or early in day * Do not NSAIDs during this 5 day course (ibuprofen, naproxen, Motrin, Aleve, Advil) Tylenol only during prednisone use * Follow up with primary care provider if no improvement with treatmen * Seek medical care immediately, call 911, go to ER if you have chest pain, difficulty breathing, shortness of breath, inability to swallow. ? Rest, oral fluids, tylenol or motrin as needed for pain or fever Marcos Chow as prescribed for coughing, do not combine this with other cough and cold medications Prednisone for airway congestion/wheezing/coughing Zithromax for infection please take as directed and finish the entire prescription unless instructed otherwise - AZITHROMYCIN 250 MG TABLET - PREDNISONE 20 MG TABLET - BENZONATATE 100 MG CAPSULE - ALBUTEROL SULFATE HFA 90 MCG/ACTUATION AEROSOL INHALER 2. Wheezing - ICD9: 786.07, ICD10: R06.2 - PREDNISONE 20 MG TABLET - ALBUTEROL SULFATE HFA 90 MCG/ACTUATION AEROSOL INHALER 3. Adventitious breath sounds - ICD9: 786.00, ICD10: R06.89 Diagnosis and treatment plan were discussed and questions were answered to the patient's satisfaction. Pt acknowledged understanding of concepts and follow up plan. Specific signs and symptoms that would indicate the need for higher level of care were discussed in detail warranting prompt ER evaluation. Kim Vargas APRN.OUTPATIENT SURGERY RN Referring Provider: SELF [200] Allergies As of Date: 05/03/2018 Noted Allergy Reaction BEES 07/29/2008 2 - Rash Comments: HAS EPI PEN CISPLATIN 08/15/2015 5 - Intolerance Comments: Hearing loss MORPHINE 08/29/2017 4 - Hives PERCOCET (OXYCODONE-ACETAMINOPHEN)08/09/2015 8 - GI Upset Date Reviewed: 05/03/2018 Reviewed by: Zaria Cervantes Ma - Fully Assessed Reason for Visit: Cough [28] Sore Throat [200] Primary Visit Diagnosis:Acute bronchitis, unspecified organism [J20.9] Other Visit Diagnoses:Wheezing [R06.2] Adventitious breath sounds [R06.89] Order(s):azithromycin (ZITHROMAX Z-TED) 250 mg tabletTake 2 tablets day one, then, 1 tablet daily until gone.Disp: 1 PackageRfl: 0 predniSONE (DELTASONE) 20 mg tabletTake 2 tablets by mouth once daily for 5 days.Disp: 10 tabletRfl: 0 benzonatate (TESSALON PERLE) 100 mg capsuleTake 1- 2 capsules tid prnDisp: 30 capsuleRfl: 0 albuterol HFA (PROAIR HFA) 90 mcg/actuation inhalerInhale 2 Puffs as instructed every 4 hours as needed.Disp: 1 InhalerRfl: 0 Prescriptions as of 05/03/2018 Sig: DICYCLOMINE 10 MG CAPSULE Take 1 capsule by mouth three* PANTOPRAZOLE 40 MG TABLET,DEL* Take 1 tablet by mouth once d* ONDANSETRON HCL 4 MG TABLET Take 1 tablet by mouth every * EPINEPHRINE 0.3 MG/0.3 ML INJ* Inject 0.3 mL intramuscularly* ZOLPIDEM 5 MG TABLET Take 1 tablet by mouth at bed* ALBUTEROL SULFATE HFA 90 MCG/* Inhale 2 Puffs as instructed * ALBUTEROL 90 MCG/ACTUATION AE* Inhale 2 Puffs as instructed * AZITHROMYCIN 250 MG TABLET Take 2 tablets day one, then,* PREDNISONE 20 MG TABLET Take 2 tablets by mouth once * BENZONATATE 100 MG CAPSULE Take 1-2 capsules tid prn ALBUTEROL SULFATE HFA 90 MCG/* Inhale 2 Puffs as instructed * PHENAZOPYRIDINE 100 MG TABLET Take 1 tablet by mouth three * PHENAZOPYRIDINE 100 MG TABLET Take 1 tablet by mouth three * PEG 3350-ELECTROLYTES 236 GRA* Take the night prior to the e* PHENYLEPHRINE 0.25 %-SHARK LI* 1 Suppository by RECTAL route* HYDROCODONE 5 MG-ACETAMINOPHE* Take 1 tablet by mouth every * CONJ ESTROGEN-MEDROXYPROGESTE* Take 1 tablet by mouth once d* IBUPROFEN 600 MG TABLET Take 1 tablet by mouth every * DOCUSATE SODIUM 100 MG CAPSULE Take 1 capsule by mouth twice* Problem List As Of Date 05/03/2018 Noted Resolved Supervision of Other High-Risk [O09.8*INVALID FOR*08/31/2009 Unspecified symptom associated with female ishmael*INVALID FOR*04/17/2011 Asthma [J45.909] INVALID FOR* Depression with anxiety [F41.8] INVALID FOR* Chronic pelvic pain in female [R10.2, G89.29] INVALID FOR* ADD (attention deficit disorder) [F98.8] INVALID FOR* Pain in joint, lower leg [M25.569] INVALID FOR*12/17/2016 Lower urinary tract infectious disease [N39.0] INVALID FOR*12/17/2016 Neoplasm of uncertain behavior of skin of breas*INVALID FOR* Cervical cancer (HCC) [C53.9] INVALID FOR*12/17/2016 Abdominal pain [R10.9] INVALID FOR*09/21/2015 Cervical cancer, FIGO stage IB1 (HCC) [C53.9] INVALID FOR* Surgical menopause [E89.40] INVALID FOR* Vaginal bleeding [N93.9] INVALID FOR* Hematuria [R31.9] INVALID FOR* Left lower quadrant pain [R10.32] INVALID FOR* More... Change in bowel habit [R19.4] INVALID FOR* More... Hematochezia [K92.1] INVALID FOR* More... Other instructions from your clinician: ASSESSMENT/PLAN: 1. Acute bronchitis, unspecified organism - ICD9: 466.0, ICD10: J20.9 (primary diagnosis) - Discussed use of Prednisone 5 day course as needed for cough, wheeze, shortness of breath * Prednisone 40 mg (2 tablets) per day for 5 days, take in morning or early in day * Do not NSAIDs during this 5 day course (ibuprofen, naproxen, Motrin, Aleve, Advil) Tylenol only during prednisone use * Follow up with primary care provider if no improvement with treatmen * Seek medical care immediately, call 911, go to ER if you have chest pain, difficulty breathing, shortness of breath, inability to swallow. ? Rest, oral fluids, tylenol or motrin as needed for pain or fever Tessalon Perles as prescribed for coughing, do not combine this with other cough and cold medications Prednisone for airway congestion/wheezing/coughing Zithromax for infection please take as directed and finish the entire prescription unless instructed otherwise - AZITHROMYCIN 250 MG TABLET - PREDNISONE 20 MG TABLET - BENZONATATE 100 MG CAPSULE - ALBUTEROL SULFATE HFA 90 MCG/ACTUATION AEROSOL INHALER 2. Wheezing - ICD9: 786.07, ICD10: R06.2 - PREDNISONE 20 MG TABLET - ALBUTEROL SULFATE HFA 90 MCG/ACTUATION AEROSOL INHALER 3. Adventitious breath sounds - ICD9: 786.00, ICD10: R06.89 Prescriptions ordered this encounter Disp Refills Start End AZITHROMYCIN 250 MG TABLET 1 Pa* 0 05/03/2018 05/08/2018 Sig: Take 2 tablets day one, then, 1 tablet daily until gone. PREDNISONE 20 MG TABLET 10 t* 0 05/03/2018 05/08/2018 Route: ORAL Sig: Take 2 tablets by mouth once daily for 5 days. BENZONATATE 100 MG CAPSULE 30 c* 0 05/03/2018 Sig: Take 1-2 capsules tid prn ALBUTEROL SULFATE HFA 90 MCG/ACTUATI* 1 In* 0 05/03/2018 Route: INHALATION Sig: Inhale 2 Puffs as instructed every 4 hours as needed. Encounter Status:Closed by KIM VARGAS CNP on 05/03/18 PROGRESS Observed: 05/03/2018 Status: COMPLETED Source: [place] 2:59 PM [facility] REPOSITORY HNO ID: [id number] Author: Kim Garay) Robbie Service: (none) Author Type: Nurse Practitioner Type: Progress Notes Filed: 05/03/2018 3:07 PM Note Text: Subjective The history is provided by the patient and a relative. Patient presents with: Cough Sore Throat HISTORY: Lashon Medina is a 28 year old female who presents presents today with a complaint of cough present for last 16 days, and worsening CHARACTERISTICS: productive with yellow, green sputum, congested PRECIPITATING/AGGRIVATING FACTORS: position ASSOCIATED SYMPTOMS: wheezing, sputum production and ear pressure and sore throat HISTORY: ASTHMA: No ENVIRONMENTAL ALLERGENS: Yes RECENT TRAVEL: No SMOKING: Yes PREVIOUS CHEST X-RAY: No BP 120/70 Pulse 97 Temp 36.9 ?C (98.5 ?F) (Left Tympanic) Wt 41.3 kg (91 lb) LMP (LMP Unknown) SpO2 97% BMI 19.69 kg/m? 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 Cervical Cancer, Figo Stage Ib1 (Hcc) Surgical Menopause Vaginal Bleeding Hematuria Left Lower Quadrant Pain Change in Bowel Habit Hematochezia Family History Problem Relation Age of Onset - Breast Cancer Maternal Aunt in her 30's - Alcohol/Drug Mother ETOH - Alcohol/Drug Father - Asthma Paternal Grandmother - Asthma Paternal Aunt - Hypertension Paternal Uncle - Hypertension Paternal Grandfather - Lipids Paternal Aunt - Osteoporosis Paternal Grandmother - Hypertension Maternal Grandmother - Hypertension Maternal Uncle - Alcohol/Drug Paternal Aunt - Alcohol/Drug Maternal Aunt - Alcohol/Drug Maternal Uncle - Hypertension Paternal Grandmother - Allergies Mother - Allergies Father - Allergies Paternal Aunt - Allergies Paternal Grandmother - Allergies Brother - Allergies Daughter - Psychiatry Mother Depression - Psychiatry Father - Psychiatry Paternal Aunt Depression - Psychiatry Paternal Grandmother Social History Marital status: Single Spouse name: Years of education: 10 Number of children: 1 Occupational History Occupation Employer Comment [employer] Social History Main Topics Smoking status: Current Every Day Smoker Packs/day: 0.30 Years: 2.00 Types: Cigarettes Start date: 01/14/2013 Smokeless tobacco: Never Used Alcohol use: Yes Comment: approx 1 per month Drug use: No Sexual activity: Yes Partners with: Male control/protection: Implant Comment: Nexplanon Social History Narrative Daughter 4 yo. Nicki ([facility] 07/2013)- lives in apartment with self, daughter,bf and brother (who is a big stress inducer for her) PAST MEDICAL HISTORY Diagnosis Date - Cervical cancer (HCC) 06/19/2015 stage 1 b - Depression - Endometriosis - IBS (irritable bowel syndrome) 03/26 - Unspecified asthma(493.90) Review of Systems Constitutional: Negative. Negative for chills, fever and malaise/fatigue. HENT: Positive for congestion (cest) and sore throat (mild). Negative for ear pain (pressure) and sinus pain. Respiratory: Positive for cough, sputum production and wheezing. Negative for shortness of breath. Cardiovascular: Negative for chest pain. Musculoskeletal: Negative for myalgias. Skin: Negative for rash. Neurological: Negative for headaches. Objective Physical Exam Constitutional: She is well-developed, well-nourished, and in no distress. HENT: Head: Normocephalic and atraumatic. Right Ear: External ear and ear canal normal. Tympanic membrane is bulging. Tympanic membrane is not injected, not erythematous and not retracted. A middle ear effusion (serous) is present. Left Ear: External ear and ear canal normal. Tympanic membrane is bulging. Tympanic membrane is not injected, not erythematous and not retracted. A middle ear effusion (serous) is present. Nose: Nose normal. Right sinus exhibits no maxillary sinus tenderness and no frontal sinus tenderness. Left sinus exhibits no maxillary sinus tenderness and no frontal sinus tenderness. Mouth/Throat: Uvula is midline and mucous membranes are normal. Posterior oropharyngeal erythema (mild) present. No oropharyngeal exudate, posterior oropharyngeal edema or tonsillar abscesses. Eyes: Pupils are equal, round, and reactive to light. Conjunctivae and EOM are normal. Neck: Normal range of motion. Cardiovascular: Normal rate, regular rhythm and normal heart sounds. Pulmonary/Chest: Effort normal. No respiratory distress. She has no decreased breath sounds. She has wheezes (throughout). She has rhonchi in the right lower field and the left lower field. She has no rales. Lymphadenopathy: Head (right side): No submental, no submandibular, no tonsillar, no preauricular and no posterior auricular adenopathy present. Head (left side): No submental, no submandibular, no tonsillar, no preauricular and no posterior auricular adenopathy present. She has no cervical adenopathy. Right cervical: No posterior cervical adenopathy present. Left cervical: No posterior cervical adenopathy present. Right: No supraclavicular adenopathy present. Left: No supraclavicular adenopathy present. Skin: Skin is warm and dry. Psychiatric: Affect normal. Nursing note and vitals reviewed. ASSESSMENT/PLAN: 1. Acute bronchitis, unspecified organism - ICD9: 466.0, ICD10: J20.9 (primary diagnosis) - Discussed use of Prednisone 5 day course as needed for cough, wheeze, shortness of breath * Prednisone 40 mg (2 tablets) per day for 5 days, take in morning or early in day * Do not NSAIDs during this 5 day course (ibuprofen, naproxen, Motrin, Aleve, Advil) Tylenol only during prednisone use * Follow up with primary care provider if no improvement with treatmen * Seek medical care immediately, call 911, go to ER if you have chest pain, difficulty breathing, shortness of breath, inability to swallow. ? Rest, oral fluids, tylenol or motrin as needed for pain or fever Tessalon Perles as prescribed for coughing, do not combine this with other cough and cold medications Prednisone for airway congestion/wheezing/coughing Zithromax for infection please take as directed and finish the entire prescription unless instructed otherwise - AZITHROMYCIN 250 MG TABLET - PREDNISONE 20 MG TABLET - BENZONATATE 100 MG CAPSULE - ALBUTEROL SULFATE HFA 90 MCG/ACTUATION AEROSOL INHALER 2. Wheezing - ICD9: 786.07, ICD10: R06.2 - PREDNISONE 20 MG TABLET - ALBUTEROL SULFATE HFA 90 MCG/ACTUATION AEROSOL INHALER 3. Adventitious breath sounds - ICD9: 786.00, ICD10: R06.89 Diagnosis and treatment plan were discussed and questions were answered to the patient's satisfaction. Pt acknowledged understanding of concepts and follow up plan. Specific signs and symptoms that would indicate the need for higher level of care were discussed in detail warranting prompt ER evaluation. Kim Vargas APRN.OUTPATIENT SURGERY RN CNCO Observed: 03/11/2018 Status: COMPLETED Source: [place] 12:00 AM [facility] REPOSITORY Letter Text MD [facility] [address] [place] [address] Lashon Medina March 11, 2018 Lashon Medina [address] [facility] [address] Dear Lashon Iyer Medina: Due to a change in your provider's schedule, it has become necessary to reschedule the following appointment: Anastasia Garcia MD Date: 08/01/18 Time: 3:00PM We apologize for any inconvenience to you, however your provider would still like to see you. Please call us at [phone] to reschedule your appointment. Sincerely, Appointment Staff 12 LEAD ELECTROCARDIOGRAM Observed: 02/20/2018 Status: F Source: [place] 1:05 PM [facility] REPOSITORY [facility] Cardiovascular Services [address] [place] [id number] 12 Lead EKG 02/16/18 1516 MR#: [id number] Acct: [id number] Name: LASHON MEDINA Rep #: [id number] : 1990 27 From: Beck Giron MD Attending Dr: Status: DEP ER Ordering Dr: Tyrone Meyer MD Date: 02/16/18 Location: ED Sex: F C Admitted: Test Reason : HEADACHE Blood Pressure : / mmHG Vent. Rate : 072 BPM Atrial Rate : 072 BPM P-R Int : 114 ms QRS Dur : 084 ms QT Int : 378 ms P-R-T Axes : 015 036 063 degrees QTc Int : 413 ms Normal sinus rhythm Normal ECG Confirmed by BREE PARDO, BECK ([id number]), social media editor ALMA HUI ([id number]) on 02/20/2018 1:04:41 PM Referred By: DARREN Confirmed By:BECK GIRON MD 02/20/18 1304 Date Beck Giron MD CC: Flavio Melendez DO; Tyrone Meyer MD Signed EMERGENCY DEPARTMENT Observed: 02/17/2018 Status: F Source: [place] SUMMARY 2:21 AM [facility] REPOSITORY [facility] Medical Records Department [address] [place] [address] Emergency Department Summary 02/16/18 1551 MR#: [id number] Acct: [id number] Name: LASHON MEDINA Rep #: [id number] : 1990 27 From: Tyrone Meyer MD PCP: Flavio Melendez, Status: DEP ER - ER Visit Summary Date of Service: 02/16/18 Chief Complaint: Headache History of Present Illness: The patient is a 27 F who reports that approximately 30 minutes ago she had the abrupt onset of a sharp headache that is diffuse. Is 10 out of 10 severity. Is worsened by standing, light, or sound. She taken ibuprofen without relief. She reports she has been nausea and vomited twice. No blood or emesis. Patient reports that the pain is so severe that she is feels shaky and has been stiff with this. She reports that she felt hot and was breathing quickly. She had paresthesias from her toes to midcalf and hands to elbows bilaterally and her hands went stiff. She then had a syncopal episode while sitting. She reports that she does feel mildly short of breath. Physical Examination: Vitals: Stable. Afebrile. General: Well-nourished and well-developed. Head: Normocephalic atraumatic. Neck: Supple, no lymphadenopathy. No JVD. Nontender. Cardiovascular: Regular rate and rhythm. No murmurs. Respiratory: No respiratory distress. Clear to auscultation bilaterally. Abdominal: Soft, nontender, nondistended, normal bowel sounds. No guarding, rebound, or peritoneal signs. Back: Nontender. Extremities: Nontender, no edema. Skin: Normal color, no rash. Neurologic: Alert and oriented 3. Cranial nerves II through XII are intact. Normal strength and sensation. Psych: Tearful, anxious, and hyperventilating. Test Results: EKG is sinus at [address] changes. Chest x-ray is normal. CBC is normal. Chem-[address] brain shows no acute disease. Emergency Department Course and Treatment: Patient had an IV placed. She was given Dilaudid, Reglan, and Benadryl IV. Patient reports her headache is down to 4 out of 10 severity. She is given dose of Toradol IV and dexamethasone IV to try to prevent rebound headache. Treatment Plan: Patient will be discharged instructions to push fluids. Use Tylenol and/or ibuprofen for pain. Follow Dr. Boland in 1-2 days not improving. Return to the emergency department for any worsening symptoms. Disposition: To home in improved and stable condition. Impression: 1. Cephalgia, acute. This note was generated with Mobile [employer] dictation software. It may contain incorrect words, spelling, and punctuation that were not noted in review of the chart prior to signing ED Disposition - Plan for ED Patient: Chief Complaint: Headache Instructions: ED Cephalgia Unspecified Referrals: Flavio Boland DO [Primary Care Provider] - 1-2 Days if not improving What to do if you have Problems For any increased pain, shortness of breath, bleeding, nausea or vomiting, chest pain, or any unexpected problems, contact your Primary Care Provider. Call [facility] ([phone]) or report to the closest Emergency Room. Call 911 if necessary. 02/17/18 0221 <Electronically signed by Tyrone Meyer MD> Date Tyrone Meyer MD Cosigner Signature (If Indicated): Date CC: Flavio Melendez DO CBC W/DIFF, AUTOMATED Collected: 02/16/2018 Status: F Source: [place] 3:30 PM [facility] REPOSITORY TYPE CODE TESTS RESULT OUT OF RANGE REFERENCE UNITS LAB L100.1000 4.4-11.0 K/mm3 Normal WBC 5.5 LAB L100.1200 4.2-5.4 M/mm3 Low RBC 4.03 LAB L100.1300 12.0-15.0 g/dl Normal HGB 12.7 LAB L100.1400 37-47 % Normal HCT 38.3 LAB L100.1500 81-99 fL Normal MCV 95.0 LAB L100.1600 27.0-32.0 pg Normal MCH 31.5 LAB L100.1700 32-36 g/gl Normal MCHC 33.2 LAB L100.1810 11.6-14.6 % Normal RDW CV 13.1 LAB L100.1820 35.1-43.9 fl High RDW SD 44.1 LAB L100.1900 150-450 K/mm3 Normal PLT 253 LAB L100.2000 6.2-12.0 fl Normal MPV 8.7 LAB L100.2100 47-70 % Normal NEUT% 63.0 LAB L100.2200 19-41 % Normal LY% 23.9 LAB L100.2300 0-10 % Normal MONO% 9.8 LAB L100.2400 0-5 % Normal EO% 2.4 LAB L100.2500 0-1 % Normal BASO% 0.7 LAB L100.2550 0.0-0.9 % Normal IM GRAN % 0.200 Result Comment: IG% - Immature Granulocytes (promyelocytes, myelocytes and metamyelocytes) > 1% indicates that a LEFT SHIFT is Present. LAB L100.2620 2.0-7.7 X10 3/uL Normal Absolute Neut 3.5 LAB L100.2720 0.83-4.51 X10 3/ul Normal Absolute Lymph 1.31 Performed By: #### L100.0100 #### [facility] [address] [place], [address] BASIC METABOLIC Collected: 02/16/2018 Status: F Source: [place] PROFILE ([facility]) 3:30 PM [facility] REPOSITORY TYPE CODE TESTS RESULT OUT OF RANGE REFERENCE UNITS LAB L501.0100 74-106 mg/dL Normal GLU 95 Result Comment: Please note revised GLUCOSE reference range effective 2017. LAB L501.1000 7-18 mg/dL Normal BUN 10 LAB L501.1100 0.55-1.02 mg/dL Normal CREAT,SERUM 0.94 Result Comment: The validity of the calculated GFR AND GFRAA in patients over 70 years has not been determined. Clinical correlation is essential. LAB L501.1110 >60 mL/min Normal EST GFR 76 Result Comment: Non- GFR Calc LAB L501.1115 >60 mL/min Normal EST GFR - AA 92 Result Comment: GFR Calc LAB L501.1255 ml/min Normal Estimated CRCL 56.50 LAB L501.1300 10-20 RATIO Normal BUN/CRE 10.6 LAB L501.2200 8.5-10 mg/dL Normal .1 CA 8.5 LAB L501.5300 136-14 mmol/L Normal 5 NA 139 LAB L501.5600 3.5-5. mmol/L Normal 1 K 3.7 LAB L501.5900 98-107 mmol/L Normal CL 104 LAB L501.6100 21.0-3 mmol/L Normal 2.0 CO2 29.0 LAB L501.6200 5-15 Normal GAP 6 Performed By: #### L500.2500 #### [facility] [address] [facility] [place], [address] CHEST 1 VIEW Observed: 02/16/2018 Status: F Source: [place] (PORTABLE) 3:10 PM [facility] REPOSITORY [facility] Imaging Services [address] [place] [address] Chest 1 View (Portable) MR#: [id number] Acct: [id number] Name: LASHON MEDINA Rep #: [id number] : 1990 F 27 From: Bean Connor MD PCP: Flavio Melendez DO Status: REG ER Study: Chest 1 View (Portable) Date of Exam: 02/16/18 Exam# [id number] Ordering Dr: Tyrone Meyer MD STUDY: X-RAY CHEST REASON FOR EXAM: Female, 27 years old. Headache. TECHNIQUE: AP upright portable view. COMPARISON: 12/01/2017. FINDINGS: The lungs are clear and expanded. There is no demonstrated pleural abnormality. Normal size heart. Normal mediastinum and marbella. Normal visualized pulmonary arteries. Normal visualized aortic arch and descending thoracic aorta. Normal visualized thoracic spine. Normal visualized ribs, clavicles, and shoulders. There is no demonstrated abnormality of the visualized soft tissue structures of the upper abdomen. RAD/Chest 1 View (Portable) IMPRESSION: Normal x-ray examination of the chest and unchanged since 12/01/2017. Electronically Signed: Bean Connor MD at 15:28 EDT , Service support , CC: Flavio Melendez DO; Tyrone Meyer MD Experience Specialist: Signed BRAIN/HEAD WITHOUT Observed: 02/16/2018 Status: F Source: [place] CONTRAST 3:10 PM [facility] REPOSITORY [facility] Imaging Services [address] [place] [address] Brain/Head without Contrast MR#: [id number] Acct: [id number] Name: LASHON MEDINA Rep #: [id number] : 1990 F 27 From: Stewart Leach DO PCP: Flavio Melendez DO Status: REG ER Study: Brain/Head without Contrast Date of Exam: 02/16/18 Exam# [id number] Ordering Dr: Tyrone Meyer MD STUDY: CT BRAIN WITHOUT CONTRAST REASON FOR EXAM: Female, 27 years old. Headache. Light sensitivity. RADIATION DOSAGE (If Supplied By Facility): CTDIvol = ( 44.99 ) mGy, DLP = ( 694.87 ) mGycm TECHNIQUE: Transaxial CT imaging of the brain was performed without administration of intravenous contrast material. Individualized dose optimization techniques were used for this CT. COMPARISON: 10/18/2012 FINDINGS: Normal soft tissue structures. Normal calvarium. Normal size ventricles and extra-axial spaces for the patient's age. Normal white matter tracts of the cerebral hemispheres. Normal basal ganglia and thalami. Normal brainstem. Normal cerebellum. There is no intracranial hemorrhage. There are no findings of an acute ischemic infarction. Normal visualized paranasal sinuses. CT/Brain/Head without Contrast IMPRESSION: Normal unenhanced CT scan of the brain. Electronically Signed: Stewart Leach DO at 16:12 EDT Tel , Service support , CC: Flavio Melendez DO; Tyrone Meyer MD Experience Specialist: Signed PROGRESS Observed: 01/24/2018 Status: COMPLETED Source: [place] 7:38 PM [facility] [place] REPOSITORY HNO ID: [id number] Author: Anastasia Garcia Service: (none) Author Type: Physician Type: Progress Notes Filed: 01/24/2018 7:43 PM Note Text: DATE OF SERVICE: January 24, 2018 PROBLEM: Lashon Medina returns to the office today for follow up DIAGNOSIS: FIGO stage IB1 cervical SCC (LVSI+, deep stromal invasion) s/p external beam RT (completed 09/02/15), now s/p 5 fractions of brachytherapy (6 Gy/fx). PRIOR TREATMENT AND DATE: 1) 04/2013: Pap - Low grade squamous intraepithelial lesion (LSIL), cannot exclude high grade squamous intraepithelial lesion (HSIL). Lost to follow-up until 2014. 2) 03/2015: Colpo and biopsies - High grade cervical dysplasia 3) 05/2015: LEEP - Grade 2 SCC, involve entire thickness (4.5 mm), positive lateral and deep margins, focal LVSI. Specimen size 2.1 x 2.0 x 0.6 cm. 4) 07/12/2015: Laparoscopic right ovarian transposition, right salpingectomy, left salpingo-oophorectomy for ovarian tissue freezing. 5) 07/26/2015 - 09/02/2015: Definitive and concurrent chemotherapy (Weekly Cisplatin), received external beam RT 45 Gy/25 fx (Ana). 6) 09/05/2015 - 09/26/2015: HDRB: 30Gy, 6Gy/fx, 5fx's, point A dose, has received 5/5 fractions. 7) 09/19/2015 - 09/21/2015: Admitted for persistent RLQ abdominal pain, underwent diagnostic laparoscopy, lysis of adhesion, right oophorectomy on 09/20 for ovarian torsion. 8.) 07/11/2016 - Vaginal culture - BV, flagyl prescribed. Urine Culture - Negative. Vaginal mucosa, biopsy - Numerous bacterial colonies, inflammation, and rare fragments of benign squamous epithelium. 9.)07/16/2016 PAIN MANAGEMENT CONSULTATION RECOMMENDATIONS Discontinue gabapentin if not already stopped.Topamax 15 mg 1 capsule at bedtime for 1 week increase to 2 capsules at bedtime thereafter, #60 with 2 refills. The patient wished to titrate any new medications rather judiciously given past medication sensitivities. 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 12/07/2016 CT UROGRAM IMPRESSION: NO SUSPICIOUS RENAL LESIONS, URINARY TRACT CALCULUS, OR HYDRONEPHROSIS. NO ACUTE FINDINGS OR METASTATIC DISEASE IN THE ABDOMEN OR PELVIS. HEALTH MAINTENANCE: Last Pap- 07/2017 - Negative Last mammogram 2012 [place] 1 SUBJECTIVE/INTERVAL HISTORY: Lashon Medina reports that she feels well. c/p of abdominal cramping sometime. No vaginal bleeding or discharge. No shortness of breath, cough, or chest pain. No abdominal pain, nausea, vomiting, diarrhea, or constipation. No dysuria, gross hematuria, urinary frequency, urinary urgency, or incontinence. Her ECOG performance status is zero (fully active, able to carry on all pre-disease performance without restriction). Anastasia Garcia MD OBJECTIVE: VITALS: BP 106/76 Pulse 70 Temp 36.9 ?C (98.4 ?F) Wt 38.7 kg (85 lb 6.4 oz) LMP (LMP Unknown) SpO2 100% BMI 18.48 kg/m? GENERAL: Patient is a well developed, well nourished female. She is Alert, oriented, pleasant and cooperative. SKIN: Color, texture, turgor normal. No rashes or lesions. HEENT: Normocephalic, atraumatic, mucus membranes moist and no lesions NECK: Supple, no adenopathy; thyroid symmetric, normal size, no bruits LUNGS: Normal efforts BACK: No CVA tenderness or gross deformities. BREAST: breast lump fixed about 2-3 cm on the left breast ABDOMEN: Abdomen soft, non-tender, no hepatosplenomegaly. PELVIC: Normal external genitalia. Normal vaginal and cervix on speculum. No mass or lesion or nodularity on bimanual exam. LOWER EXTREMITIES: No pitting edema, no palpable cords and no skin changes. ASSESSMENT: Ms. 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 Cancer: No clinical evidence of disease. Signs and symptoms of recurrence reviewed - Pap done today, will repeat annually - CT scan as needed 2. RTC in 6 months Anastasia Garcia MD, MPH 25 min spent with the patient with >50% face to face counseling CC: DO Flavio Lazaro DO (PCP) Sarah Garcia MD CNOV Observed: 01/24/2018 Status: COMPLETED Source: [place] 3:20 PM [facility] REPOSITORY Office Visit (GYNCMD) LASHON MEDINA ([id number]) 1990 F TXT Date Time Provider Department 01/24/18 3:20 PM ANASTASIA GARCIA GYND During your visit today, we recorded the following information about you: Temperature Pulse Blood pressure Weight 98.4 degrees 70/minute 106/76 38.7 kg Anastasia Garcia MD 01/24/2018 7:43 PM Signed DATE OF SERVICE: January 24, 2018 PROBLEM: Lashon Medina returns to the office today for follow up DIAGNOSIS: FIGO stage IB1 cervical SCC (LVSI+, deep stromal invasion) s/p external beam RT (completed 09/02/15), now s/p 5 fractions of brachytherapy (6 Gy/fx). PRIOR TREATMENT AND DATE: 1) 04/2013: Pap - Low grade squamous intraepithelial lesion (LSIL), cannot exclude high grade squamous intraepithelial lesion (HSIL). Lost to follow-up until 2014. 2) 03/2015: Colpo and biopsies - High grade cervical dysplasia 3) 05/2015: LEEP - Grade 2 SCC, involve entire thickness (4.5 mm), positive lateral and deep margins, focal LVSI. Specimen size 2.1 x 2.0 x 0.6 cm. 4) 07/12/2015: Laparoscopic right ovarian transposition, right salpingectomy, left salpingo-oophorectomy for ovarian tissue freezing. 5) 07/26/2015 - 09/02/2015: Definitive and concurrent chemotherapy (Weekly Cisplatin), received external beam RT 45 Gy/25 fx (Ana). 6) 09/05/2015 - 09/26/2015: HDRB: 30Gy, 6Gy/fx, 5fx's, point A dose, has received 5/5 fractions. 7) 09/19/2015 - 09/21/2015: Admitted for persistent RLQ abdominal pain, underwent diagnostic laparoscopy, lysis of adhesion, right oophorectomy on 09/20 for ovarian torsion. 8.) 07/11/2016 - Vaginal culture - BV, flagyl prescribed. Urine Culture - Negative. Vaginal mucosa, biopsy - Numerous bacterial colonies, inflammation, and rare fragments of benign squamous epithelium. 9.)07/16/2016 PAIN MANAGEMENT CONSULTATION RECOMMENDATIONS Discontinue gabapentin if not already stopped.Topamax 15 mg 1 capsule at bedtime for 1 week increase to 2 capsules at bedtime thereafter, #60 with 2 refills. The patient wished to titrate any new medications rather judiciously given past medication sensitivities. 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 12/07/2016 CT UROGRAM IMPRESSION: NO SUSPICIOUS RENAL LESIONS, URINARY TRACT CALCULUS, OR HYDRONEPHROSIS. NO ACUTE FINDINGS OR METASTATIC DISEASE IN THE ABDOMEN OR PELVIS. HEALTH MAINTENANCE: Last Pap- 07/2017 - Negative Last mammogram 2012 [place] 1 SUBJECTIVE/INTERVAL HISTORY: Lashon Medina reports that she feels well. c/p of abdominal cramping sometime. No vaginal bleeding or discharge. No shortness of breath, cough, or chest pain. No abdominal pain, nausea, vomiting, diarrhea, or constipation. No dysuria, gross hematuria, urinary frequency, urinary urgency, or incontinence. Her ECOG performance status is zero (fully active, able to carry on all pre-disease performance without restriction). Anastasia Garcia MD OBJECTIVE: VITALS: BP 106/76 Pulse 70 Temp 36.9 ?C (98.4 ?F) Wt 38.7 kg (85 lb 6.4 oz) LMP (LMP Unknown) SpO2 100% BMI 18.48 kg/m? GENERAL: Patient is a well developed, well nourished female. She is Alert, oriented, pleasant and cooperative. SKIN: Color, texture, turgor normal. No rashes or lesions. HEENT: Normocephalic, atraumatic, mucus membranes moist and no lesions NECK: Supple, no adenopathy; thyroid symmetric, normal size, no bruits LUNGS: Normal efforts BACK: No CVA tenderness or gross deformities. BREAST: breast lump fixed about 2-3 cm on the left breast ABDOMEN: Abdomen soft, non-tender, no hepatosplenomegaly. PELVIC: Normal external genitalia. Normal vaginal and cervix on speculum. No mass or lesion or nodularity on bimanual exam. LOWER EXTREMITIES: No pitting edema, no palpable cords and no skin changes. ASSESSMENT: Ms. 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 Cancer: No clinical evidence of disease. Signs and symptoms of recurrence reviewed - Pap done today, will repeat annually - CT scan as needed 2. RTC in 6 months Anastasia Garcia MD, MPH 25 min spent with the patient with >50% face to face counseling CC: DO Flavio Lazaro DO (PCP) Sarah Garcia MD Referring Provider: FLAVIO BOLAND [[id number]] Allergies As of Date: 01/24/2018 Noted Allergy Reaction BEES 07/29/2008 2 - Rash Comments: HAS EPI PEN CISPLATIN 08/15/2015 5 - Intolerance Comments: Hearing loss MORPHINE 08/29/2017 4 - Hives PERCOCET (OXYCODONE-ACETAMINOPHEN)08/09/2015 8 - GI Upset Date Reviewed: 01/24/2018 Reviewed by: Anastasia Garcia - Fully Assessed Reason for Visit: ED Follow-up [821] Cmt: inflamed bladder - in remission from Cervical Cancer and still having some concerns per patient Primary Visit Diagnosis:Malignant neoplasm of cervix, unspecified site (HCC) [C53.9] Prescriptions as of 01/24/2018 Sig: PHENAZOPYRIDINE 100 MG TABLET Take 1 tablet by mouth three * DICYCLOMINE 10 MG CAPSULE Take 1 capsule by mouth three* PANTOPRAZOLE 40 MG TABLET,DEL* Take 1 tablet by mouth once d* PHENAZOPYRIDINE 100 MG TABLET Take 1 tablet by mouth three * PHENYLEPHRINE 0.25 %-SHARK LI* 1 Suppository by RECTAL route* ONDANSETRON HCL 4 MG TABLET Take 1 tablet by mouth every * EPINEPHRINE 0.3 MG/0.3 ML INJ* Inject 0.3 mL intramuscularly* ZOLPIDEM 5 MG TABLET Take 1 tablet by mouth at bed* ALBUTEROL SULFATE HFA 90 MCG/* Inhale 2 Puffs as instructed * DOCUSATE SODIUM 100 MG CAPSULE Take 1 capsule by mouth twice* ALBUTEROL 90 MCG/ACTUATION AE* Inhale 2 Puffs as instructed * PEG 3350-ELECTROLYTES 236 GRA* Take the night prior to the e* HYDROCODONE 5 MG-ACETAMINOPHE* Take 1 tablet by mouth every * CONJ ESTROGEN-MEDROXYPROGESTE* Take 1 tablet by mouth once d* IBUPROFEN 600 MG TABLET Take 1 tablet by mouth every * Problem List As Of Date 01/24/2018 Noted Resolved Supervision of Other High-Risk [O09.8*INVALID FOR*08/31/2009 Unspecified symptom associated with female ishmael*INVALID FOR*04/17/2011 Asthma [J45.909] INVALID FOR* Depression with anxiety [F41.8] INVALID FOR* Chronic pelvic pain in female [R10.2, G89.29] INVALID FOR* ADD (attention deficit disorder) [F98.8] INVALID FOR* Pain in joint, lower leg [M25.569] INVALID FOR*12/17/2016 Lower urinary tract infectious disease [N39.0] INVALID FOR*12/17/2016 Neoplasm of uncertain behavior of skin of breas*INVALID FOR* Cervical cancer (HCC) [C53.9] INVALID FOR*12/17/2016 Abdominal pain [R10.9] INVALID FOR*09/21/2015 Cervical cancer, FIGO stage IB1 (HCC) [C53.9] INVALID FOR* Surgical menopause [E89.40] INVALID FOR* Vaginal bleeding [N93.9] INVALID FOR* Hematuria [R31.9] INVALID FOR* Left lower quadrant pain [R10.32] INVALID FOR* More... Change in bowel habit [R19.4] INVALID FOR* More... Hematochezia [K92.1] INVALID FOR* More... Encounter Status:Closed by ANASTASIA GARCIA MD on 01/24/18 CNCO Observed: 01/24/2018 Status: COMPLETED Source: [place] 12:00 AM [facility] REPOSITORY Letter Text Lashon Medina Anastasia Garcia MD Hematology and Medical Oncology [address] [place] [address] January 24, 2018 Lashon Medina [address] [place] [address] To Whom it May Concern: Lashon Medina is able to return to work 01/27/2018. If you have any further questions, please feel free to contact my office at [phone]. Sincerely yours, Anastasia Garcia MD (Electronically signed to expedite mailing) 12 LEAD ELECTROCARDIOGRAM Observed: 12/03/2017 Status: F Source: [place] 3:34 PM [facility] REPOSITORY [facility] Cardiovascular Services [address] [place] [address] 12 Lead EKG 12/01/17 1803 MR#: [id number] Acct: [id number] Name: LASHON MEDINA Rep #: [id number] : 1990 27 From: Román Snatos MD Attending Dr: Status: DEP ER Ordering Dr: Tyrone Meyer MD Date: 12/01/17 Location: ED Sex: F C Admitted: Test Reason : ABDOMINAL PAIN Blood Pressure : / mmHG Vent. Rate : 084 BPM Atrial Rate : 080 BPM P-R Int : 000 ms QRS Dur : 070 ms QT Int : 414 ms P-R-T Axes : 000 036 070 degrees QTc Int : 489 ms Normal sinus rhythm Prolonged QT Abnormal ECG Confirmed by ALEJANDRO PARDO, ROMÁN ([id number]), social media editor ALMA HUI ([id number]) on 12/03/2017 3:34:16 PM Referred By: JAYESH Confirmed By:ROMÁN SANTOS MD 12/03/17 1534 Date Román Santos MD CC: Flavio Melendez DO; Tyrone Meeyr MD Signed EMERGENCY DEPARTMENT Observed: 12/02/2017 Status: F Source: [place] SUMMARY 12:16 AM [facility] REPOSITORY [facility] Medical Records Department [address] [place] [address] Emergency Department Summary 12/01/17 1931 MR#: [id number] Acct: [id number] Name: LASHON MEDINA Rep #: [id number] : 1990 27 From: Tyrone Meyer MD PCP: Flavio Melendez DO Status: DEP ER - ER Visit Summary Date of Service: 12/01/17 Chief Complaint: Abdominal pain History of Present Illness: The patient is a [address] Boland. She reports that she has abdominal pain that began today. It is a diffuse pain is worse in the left lower quadrant. She describes it as sharp. Senna 10 severity. It is worsened by movement and relieved by position. She reports she has been nausea and vomited multiple times. No blood or emesis. Last bowel was today. She has had no diarrhea, melena, or hematochezia. No dysuria or frequency. Patient reports that she has a history of cervical cancer that required chemotherapy and radiation in 2016. States that she has had similar pain intermittently since this. Physical Examination: Vitals: Stable. Afebrile. General: Well-nourished and well-developed. Head: Normocephalic atraumatic. Neck: Supple, no lymphadenopathy. No JVD. Nontender. Cardiovascular: Regular rate and rhythm. No murmurs. Respiratory: No respiratory distress. Clear to auscultation bilaterally. Abdominal: Soft, moderate diffuse tenderness palpation is worse in the left lower quadrant, nondistended, normal bowel sounds. No guarding, rebound, or peritoneal signs. Back: Nontender. Extremities: Nontender, no edema. Skin: Normal color, no rash. Neurologic: Alert and oriented 3. Cranial nerves II through XII are intact. Normal strength and sensation. Psych: Normal affect. Test Results: EKG is sinus at 84 with artifact and no acute changes. Chest x-ray is normal. CT and pelvis IV contrast only shows a small amount of free fluid in the pelvis. Mildly thickened loops of small bowel in the pelvis consistent with enteritis. No small bowel obstruction. CBC is marked for segment neutrophils 79 lymphocytes of 13. Chem-7 is normal. LFTs are normal. Lipase normal. UA is negative. test is negative. Emergency Department Course and Treatment: An OARRS report was obtained which show she is only had 4 prescriptions for opiates in the past year. She is treated here with Tylenol, Dilaudid, Zofran, and Phenergan IV. She is resting more comfortably. Treatment Plan: Patient will be discharged with Topping and Zofran. Instructed to follow-up Dr. Boland 1-2 days not improving. Return to the emergency department for any worsening symptoms. Disposition: To home in improved and stable condition. Impression: 1. Abdominal pain, uncertain cause. This note was generated with Mobile Co[employer]ion dictation software. It may contain incorrect words, spelling, and punctuation that were not noted in review of the chart prior to signing ED Disposition - Plan for ED Patient: Disposition: Home or Assisted Living Chief Complaint: Abd Pain Instructions: ED Abdominal Pain Unkn Cause Prescriptions: Hydrocodone Bitart/Apap 5-325 [Topping 5/325] 1 - 2 tablet PO Q4H PRN PRN 3 Days #12 tablet PRN Reason: Pain Ondansetron [Zofran Odt] 4 mg PO Q8H PRN PRN #10 tablet PRN Reason: Nausea Referrals: Flavio Boland DO [Primary Care Provider] - 1-2 Days if not improving What to do if you have Problems For any increased pain, shortness of breath, bleeding, nausea or vomiting, chest pain, or any unexpected problems, contact your Primary Care Provider. Call [facility] ([phone]) or report to the closest Emergency Room. Call 911 if necessary. 12/02/17 0016 <Electronically signed by Tyrone Meyer MD> Date Tyrone Vasquezigngrace Signature (If Indicated): Date CC: Flavio Melendez, URINALYSIS, COMPLETE Collected: 12/01/2017 Status: F Source: [place] 6:37 PM [facility] REPOSITORY Order Comment: Order Date: 12/01/17 Has pt arrived? Y How was Urine Obtained? CLEAN CATCH TYPE CODE TESTS RESULT OUT OF RANGE REFERENCE UNITS LAB L400.3000 Yellow COLOR Normal Yellow LAB L400.3050 Clear Normal CLARITY Cloudy LAB L400.3200 Normal mg/dl Normal GLUCOSE, UR Normal LAB L400.3300 Negative mg/dL Normal BILIRUBIN URINE Negative LAB L400.3400 Negative mg/dl High 5 KETONE UR LAB L400.3465 1.002-1.030 Normal SP.GR. DIPSTX 1.010 LAB L400.3550 5.0 - 8.0 pH UR Normal 8.0 LAB L400.3600 Negative mg/dl PROT Normal DIPSTX Negative LAB L400.3700 Normal mg/dl Normal UROBILI Normal LAB L400.3750 Negative Normal NITRITE UR Negative LAB L400.3780 Negative /ul High 50 OCCULT BLOOD-UR LAB L400.3800 Negative /ul High LEUK 25 ESTERASE LAB L400.4050 0-5 /hpf WBC Normal 0-5 SEEN LAB L400.4100 0-5 /hpf Normal RBC-UA 5-10 SEEN LAB L400.4150 5-10 /hpf SQUAM Normal EPI 0-5 SEEN LAB L400.4300 None Seen /hpf 1+ Normal BACTERIA LAB L400.4350 <or=2+ /hpf 0 Normal MUCUS, URINE SEEN LAB L400.4900 1+ Normal AMORPHOUS Performed By: #### L400.0001 #### [facility] [address] [place], [address] CHEST 1 VIEW Observed: 12/01/2017 Status: F Source: ANA (PORTABLE) 6:03 PM [facility] REPOSITORY [facility] Imaging Services [address] [place] [address] Chest 1 View (Portable) MR#: [id number] Acct: [id number] Name: LASHON MEDINA Rep #: [id number] : 1990 F 27 From: Reid Hernandez MD PCP: Flavio Melendez DO Status: REG ER Study: Chest 1 View (Portable) Date of Exam: 12/01/17 Exam# [id number] Ordering Dr: Tyrone Meyer MD STUDY: X-RAY CHEST REASON FOR EXAM: Female, 27 years old. Chest pain TECHNIQUE: Frontal view of the chest COMPARISON: None. FINDINGS: The lungs are clear. There are no pleural effusions. There is no pneumothorax. The heart is normal in size. The visualized osseous structures are within normal limits. RAD/Chest 1 View (Portable) IMPRESSION: No acute thoracic pathology. Electronically Signed: Reid Hernandez, at 18:31 EDT Tel , Service support , CC: Flavio Melendez DO; Tyrone Meyer MD Experience Specialist: Signed ABDOMEN/PELVIS W IV CONT Observed: 12/01/2017 Status: F Source: [place] ONLY 6:03 PM [facility] REPOSITORY [facility] Imaging Services [address] [place] [address] Abdomen/Pelvis W IV Cont ONLY MR#: [id number] Acct: [id number] Name: LASHON MEDINA Rep #: [id number] : 1990 F 27 From: Reid Hernandez MD PCP: Flavio Melendez DO Status: REG ER Study: Abdomen/Pelvis W IV Cont ONLY Date of Exam: 12/01/17 Exam# [id number] Ordering Dr: Tyrone Meyer MD STUDY: CT ABDOMEN AND PELVIS WITH CONTRAST REASON FOR EXAM: Female, 27 years old. Lower abdominal pain. History of cervical cancer and radiation treatment. RADIATION DOSAGE (If Supplied By Facility): CTDIvol = ( 5.59 ) mGy, DLP = ( 199.11 ) mGycm TECHNIQUE: Transaxial images were obtained from the dome of the diaphragm to the symphysis pubis without oral contrast. 75ML ml of Isovue 300 contrast was administered. Sagittal and coronal images were reconstructed. Individualized dose optimization techniques were used for this CT. COMPARISON: 08/26/2017 FINDINGS: The visualized lung bases are clear. The visualized portions of the heart and pericardium are within normal limits. There are no calcified gallstones present. The liver is within normal limits. There are no suspicious hepatic lesions. The spleen is normal in size. The pancreas is within normal limits. The adrenal glands are within normal limits. There are no obstructing renal stones. There is no hydronephrosis. There are no focal renal lesions. Normal visualized stomach. There is no bowel obstruction. There are mildly thickened loops of small bowel in the pelvis, consistent with enteritis. The patient is status post appendectomy. The aorta is normal in caliber. There is a small amount of free fluid. There is no free air, fluid collection or lymphadenopathy. There are no destructive osseous lesions. CT/Abdomen/Pelvis W IV Cont ONLY IMPRESSION: Mildly thickened loops of small bowel in the pelvis, consistent with enteritis. No bowel obstruction. Small amount of pelvic free fluid. Electronically Signed: Reid Hernandez, at 19:12 EDT Tel , Service support , CC: Flavio Melendez DO; Tyrone Meyer MD Experience Specialist: Signed COMPREHENSIVE METABOLIC Collected: 12/01/2017 Status: F Source: ANA PROFIL 5:40 PM [facility] REPOSITORY TYPE CODE TESTS RESULT OUT OF RANGE REFERENCE UNITS LAB L501.0100 74-106 mg/dL Normal GLU 86 Result Comment: Please note revised GLUCOSE reference range effective 2017. LAB L501.1000 7-18 mg/dL Normal BUN 8 LAB L501.1100 0.55-1.02 mg/dL Normal CREAT,SERUM 0.89 Result Comment: The validity of the calculated GFR AND GFRAA in patients over 70 years has not been determined. Clinical correlation is essential. LAB L501.1110 >60 mL/min Normal EST GFR 81 Result Comment: Non- GFR Calc LAB L501.1115 >60 mL/min Normal EST GFR - AA 98 Result Comment: GFR Calc LAB L501.1255 ml/min Normal Estimated CRCL 53.50 LAB L501.1300 10-20 RATIO Low BUN/CRE 9.0 LAB L501.1500 6.4-8. g/dL Normal 2 T PROT 7.3 LAB L501.1800 3.2-5. g/dL Normal 0 ALB 3.8 LAB L501.1950 2.2-4. g/dL Normal 2 GLOB 3.5 LAB L501.2000 0.9-2. RATIO Normal 4 A/G 1.1 LAB L501.2200 8.5-10 mg/dL Normal .1 CA 8.6 LAB L501.4100 15-37 U/L Normal AST 26 LAB L501.4305 45-117 U/L Normal ALK P 99 LAB L501.4405 13-56 U/L Normal ALT 31 LAB L501.4600 0.20-1 mg/dL Normal .00 T BILI 0.70 LAB L501.5300 136-14 mmol/L Normal 5 NA 136 LAB L501.5600 3.5-5. mmol/L Normal 1 K 3.5 LAB L501.5900 98-107 mmol/L Normal CL 104 LAB L501.6100 21.0-3 mmol/L Normal 2.0 CO2 24.0 LAB L501.6200 5-15 Normal GAP 8 Performed By: #### L500.4050, L501.2450 #### [facility] [address] [place], [address] LIPASE Collected: 12/01/2017 Status: F Source: ANA 5:40 PM [facility] REPOSITORY TYPE CODE TESTS RESULT OUT OF RANGE REFERENCE UNITS LAB L501.2450 73-393 U/L Normal LIPASE 386 Performed By: #### L500.4050, L501.2450 #### [facility] [address] [facility] [address] [place], [place], [id number] CBC W/DIFF, AUTOMATED Collected: 12/01/2017 Status: F Source: [place] 5:40 PM [facility] REPOSITORY TYPE CODE TESTS RESULT OUT OF RANGE REFERENCE UNITS LAB L100.1000 4.4-11.0 K/mm3 Normal WBC 9.3 LAB L100.1200 4.2-5.4 M/mm3 Normal RBC 4.44 LAB L100.1300 12.0-15.0 g/dl Normal HGB 13.8 LAB L100.1400 37-47 % Normal HCT 41.6 LAB L100.1500 81-99 fL Normal MCV 93.7 LAB L100.1600 27.0-32.0 pg Normal MCH 31.1 LAB L100.1700 32-36 g/gl Normal MCHC 33.2 LAB L100.1810 11.6-14.6 % Normal RDW CV 14.1 LAB L100.1820 35.1-43.9 fl High RDW SD 48.2 LAB L100.1900 150-450 K/mm3 Normal PLT 286 LAB L100.2000 6.2-12.0 fl Normal MPV 8.7 LAB L100.2100 47-70 % High NEUT% 79.3 LAB L100.2200 19-41 % Low LY% 12.8 LAB L100.2300 0-10 % Normal MONO% 7.0 LAB L100.2400 0-5 % Normal EO% 0.5 LAB L100.2500 0-1 % Normal BASO% 0.3 LAB L100.2550 0.0-0.9 % Normal IM GRAN % 0.100 Result Comment: IG% - Immature Granulocytes (promyelocytes, myelocytes and metamyelocytes) > 1% indicates that a LEFT SHIFT is Present. LAB L100.2620 2.0-7.7 X10 3/uL Normal Absolute Neut 7.4 LAB L100.2720 0.83-4.51 X10 3/ul Normal Absolute Lymph 1.19 Performed By: #### L100.0100 #### [facility] [address] [facility] [place], [address] HCG TITER QUANT., Collected: 12/01/2017 Status: F Source: ANA SERUM 5:40 PM [facility] REPOSITORY TYPE CODE TESTS RESULT OUT OF RANGE REFERENCE UNITS LAB L700.8000 <9 non-preg mIU/mL Normal HCG 3 QUANT. Performed By: #### L700.8000 #### [facility] [address] [place], [address] XR HAND 3V PA/LAT/OBL Observed: 09/27/2017 Status: C Source: [facility] 3:41 PM [facility] REPOSITORY * * *Final Report* * * * * * SEE BOTTOM OF REPORT FOR ADDENDED TEXT * * * DATE OF EXAM: Sep 27 2017 3:41PM WOX [id number] - XR HAND 3V PA/LAT/OBL LT / PROCEDURE REASON: Pain in left hand * * * * Physician Interpretation * * * * * * * * * * * * ORIGINAL REPORT * * * * * * * * EXAM TITLE: XR HAND 3V PA/LAT/OBL LT EXAM DATE/TIME: 09/27/2017 3:41 PM COMPARISON: None. CLINICAL INDICATION/HISTORY: Metatarsal tenderness TECHNIQUE: PA, lateral, and oblique views of left wrist are presented. FINDINGS: No fractures or subluxations are noted. The wrist joint spaces are well preserved. The mineralization of the bones is normal. There is no significant soft tissue swelling. IMPRESSION: Negative left wrist. * * * * * * * * ADDENDUM #1 * * * * * * * * TECHNIQUE: PA, lateral and oblique views of the left hand are presented. IMPRESSION: No acute fractures seen and phalanxes or metacarpal bones. Experience Specialist: PSCB Transcribe Date/Time: Sep 27 2017 4:29P Dictated by : BRE GUTIERREZ MD This examination was interpreted and the report reviewed and electronically signed by: BRE GUTIERREZ MD on Sep 27 2017 4:05PM EST This document has been addended by: BRE GUTIERREZ MD on Sep 27 2017 4:32PM EST [id number] PROGRESS Observed: 09/27/2017 Status: COMPLETED Source: [place] 3:34 PM [facility] REPOSITORY HNO ID: [id number] Author: Carol Manning Service: (none) Author Type: (none) Type: Progress Notes Filed: 09/27/2017 3:41 PM Note Text: Radiology Service Progress Note PATIENT NAME: Lashon Medina DATE OF SERVICE: September 27, 2017 TIME: 3:34 PM PATIENT IDENTITY VERIFICATION COMPLETED USING TWO (2) METHODS: Patient confirmed name verbally and Date of . PATIENT GENDER DATA: Female. status: : No status: NO. PATIENT RELEVANT IMPLANT DATA REVIEWED: Not Applicable RADIOLOGY DEPARTMENT: General X-ray: Exam(s) Completed: Upper Extremity X-Ray(s): Hand, left : PERIPHERAL IV DATA: Not applicable SIGNED BY: Carol Manning September 27, 2017 3:34 PM PROGRESS Observed: 09/27/2017 Status: COMPLETED Source: [place] 3:22 PM [facility] REPOSITORY HNO ID: [id number] Author: Kim Vargas Service: (none) Author Type: Nurse Practitioner Type: Progress Notes Filed: 09/27/2017 4:37 PM Note Text: Subjective The history is provided by the patient. No foreign languages professor was used. HPI Lashon Medina is a 27 year old female who presents today for CC of left hand pain. This started today when she was moving two porcelein sinks, and pushed one sink into the other and her hand was in between. She is also having bruising and swelling. Symptoms are worsened by touch or movement She has tried ice, no medications. 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 Cervical Cancer, Figo Stage Ib1 (Hcc) Surgical Menopause Vaginal Bleeding Hematuria Left Lower Quadrant Pain Change in Bowel Habit Hematochezia Family History Problem Relation Age of Onset - Breast Cancer Maternal Aunt in her 30's - Alcohol/Drug Mother ETOH - Alcohol/Drug Father - Asthma Paternal Grandmother - Asthma Paternal Aunt - Hypertension Paternal Uncle - Hypertension Paternal Grandfather - Lipids Paternal Aunt - Osteoporosis Paternal Grandmother - Hypertension Maternal Grandmother - Hypertension Maternal Uncle - Alcohol/Drug Paternal Aunt - Alcohol/Drug Maternal Aunt - Alcohol/Drug Maternal Uncle - Hypertension Paternal Grandmother - Allergies Mother - Allergies Father - Allergies Paternal Aunt - Allergies Paternal Grandmother - Allergies Brother - Allergies Daughter - Psychiatry Mother Depression - Psychiatry Father - Psychiatry Paternal Aunt Depression - Psychiatry Paternal Grandmother Social History Marital status: Single Spouse name: Years of education: 10 Number of children: 1 Occupational History Occupation Employer Comment [employer] Social History Main Topics Smoking status: Current Every Day Smoker Packs/day: 0.30 Years: 2.00 Types: Cigarettes Start date: 01/14/2013 Smokeless status: Never Used Alcohol use: Yes Comment: approx 1 per month Drug use: No Sexual activity: Yes Partners with: Male control/protection: Implant Comment: MarginLefton Social History Narrative Daughter 4 yo. Nicki ([facility] 07/2013)- lives in apartment with self, daughter,bf and brother (who is a big stress inducer for her) Review of Systems Constitutional: Negative for chills, fever and malaise/fatigue. Musculoskeletal: Positive for joint pain (left hand). Negative for myalgias. Skin: Negative for rash. Neurological: Negative for tingling and headaches. Objective Physical Exam Constitutional: She is oriented to person, place, and time and well-developed, well-nourished, and in no distress. No distress. HENT: Head: Normocephalic and atraumatic. Eyes: Conjunctivae and EOM are normal. Pupils are equal, round, and reactive to light. Neck: Normal range of motion. Neck supple. Pulmonary/Chest: Effort normal. Musculoskeletal: Left hand: She exhibits decreased range of motion, tenderness, bony tenderness, disruption of two-point discrimination and swelling. She exhibits no deformity and no laceration. Hands: Neurological: She is alert and oriented to person, place, and time. Skin: Skin is warm and dry. Psychiatric: Affect normal. Nursing note and vitals reviewed. ASSESSMENT/PLAN: 1. Left hand pain - ICD9: 729.5, ICD10: M79.642 Rest, ice, elevation, drake tape finger splint as applied for comfort, pain medications as discussed Tylenol or motrin/Advil/ibuprofen as needed for pain See your doctor if not improving if pain persists beyond 10-14 days there are times where a repeat x-ray is needed to rule out occult fracture Ibuprofen 600 mg 3-4 times a day as needed every 6 hours - XR HAND GENERAL 3V PA/LAT/OBL LT - interpreted by BRE GUTIERREZ MD IMPRESSION: No acute fractures seen and phalanxes or metacarpal bones. Diagnosis and treatment plan were discussed and questions were answered to the patient's satisfaction. Pt acknowledged understanding of concepts and follow up plan. Specific signs and symptoms that would indicate the need for higher level of care were discussed in detail warranting prompt ER evaluation. Kim Vargas CNP ALLERGIES ALLERGIES DATE TYPE / CODE NAME / CODE REACTION SEVERITY SOURCE Drug oxycodone Nausea Unknown [place] 8 Allergy/292013277( HCl/[id number] [facility]) (RXNORM) Hospital Repository Drug morphine/F0060 Hives Unknown [place] 8 Allergy/661510726( 75769(RXNORM) [facility]) Hospital Repository Drug cisplatin/F006 Other Unknown [place] 8 Allergy/312868116( 797783(RXNORM) [facility]) Hospital Repository Drug venom-honey Other Unknown [place] 8 Allergy/334036003( bee/A327795819 [facility]) (RXNORM) Hospital Repository Miscellaneous CISPLATIN Other Unknown [place] 8 Allergy/617424989( [facility]) Hospital Repository DRUG MORPHINE HIVES [place] 8 INGREDI/605324064( [facility] Main SNOMED CT) [place] Repository DRUG CISPLATIN INTOLERANCE [place] 6 INGREDI/401605336( [facility] Main SNOMED CT) [place] Repository DRUG/439453016(SNO OXYCODONE-ACET GI UPSET [place] [address]) AMINOPHEN [facility] Repository Environ/582423635( BEES RASH [place] [address]) [facility] Main [place] Repository ENCOUNTERS ENCOUNTERS ADMIT/DISCHARGE ACCOUNT ADMITTING ENCOUNTER LOCATION SOURCE NUMBER CLASS 08/21/2018/08/21/19 [id number] Ambulatory [address] Repository 08/15/2018/08/25/19 [id number] Ambulatory [address] Repository 07/29/2018/07/29/20 [id number] Emergency [place] ing:ED Repository 07/15/2018/07/15/20 [id number] Emergency [place] ing:ED Repository 07/14/2018/07/14/20 [id number] Emergency [place] ing:ED Repository 05/03/2018/05/05/20 [id number] Ambulatory [address] Repository 02/16/2018/02/17/20 [id number] Emergency [place] ing:ED Repository 01/24/2018/01/29/20 [id number] Ambulatory [address] Repository 12/01/2017/12/02/19 [id number] Emergency [place] ing:ED Repository 09/27/2017/09/27/19 [id number] Ambulatory [address] Repository 09/27/2017/09/27/19 [id number] Ambulatory [address] Repository PAYERS PAYERS ENCOUNTER GUARANTOR PAYER SUBSCRIBER SOURCE 07/29/2018 LASHON L Primary LASHON L [place] [id number] [facility] Number: [id number] [id number] Repository [address]Mfy: [phone]) Date:2018-07-29P O [phone] () [address]ATTN: [place] [address]HG: 07/29/2018 Secondary NOT GIVENUNK [place] Insurance:SELF PAY [place] Number: Effective Repository Date:2018-07-29 07/15/2018 LASHON L Primary LASHON L [place] [id number] [facility] Number: [id number] [place], [place] [id number] Repository [address]Xxs: [phone]) Date:2018-07-15P O [phone] () [address]ATTN: [place] [address]SW: 07/15/2018 Secondary NOT GIVENUNK [place] Insurance:SELF PAY [place] Number: Effective Repository Date:2018-07-15 07/14/2018 LASHON L Primary LASHON L [place] [id number] Insurance:CARESOURCEP REYNOLDSB: [facility] Number: [id number] [place], [place] [id number] Repository [address]Tad: ([phone]) Date:2018-07-14P O [phone] () [address]ATTN: [place] [address]EE: 07/14/2018 Secondary NOT GIVENUNK [place] Insurance:SELF PAY [place] Number: Effective Repository Date:2018-07-14 02/16/2018 LASHON L Primary LASHON L [place] [id number] Insurance:CAREURCEP REYNOLDSB: [facility] Number: [id number] [place], [place] [id number] Repository [address]Jqw: [phone]) Date:2018-02-16P O [phone] () [address]ATTN: [place] [address]ER: 02/16/2018 Secondary NOT GIVENUNK [place] Insurance:SELF PAY [place] Number: Effective Repository Date:2018-02-16 12/01/2017 LASHON L Primary LASHON L [place] [id number] Insurance:BUCKDEANGELOE REYNOLDSDOB: [facility] [id number] Number: Repository [phone]: [phone]) [id number] [phone] (HP) Date:9111-32-20[address] [address]BE: 12/01/2017 Secondary NOT GIVENUNK [place] Insurance:SELF PAY [facility] Number: Effective Repository Date:2017-12-01
== END 2018-07-29 21:59 | disposition home or self-care (01) ==
PROVIDERS: Emergency Provider Emergency Medicine; Family Provider Student in an Organized Health Care Education/Training Program; PCP Student in an Organized Health Care Education/Training Program
DX: J18.9 Pneumonia, unspecified organism (principal); R11.2 Nausea with vomiting, unspecified; R19.7 Diarrhea, unspecified; R30.0 Dysuria; Z72.0 Tobacco use; Z85.41 Personal history of malignant neoplasm of cervix uteri
CPT/HCPCS: 71045; 80053; 81001; 83605; 85025; 85610; 85730; 87040; 87086; 93005; 96361; 96365; 96366; 96375; 99284; J7030; A4216; J2405

== ENCOUNTER 2019-02-17 15:02 | Emergency (ER) | payer MEDICAID, SELFPAY ==
[2018-07-29 17:59] VITALS: BMI 20.2
[2019-02-17 15:05] VITALS: BP 120/80; PULSE 76; RESP 16; TEMP 25.5; O2SAT 99; BMI 20.4
--- NOTE | 2019-02-17 15:39 | ED.VISSUMM ---
- ER Visit Summary Date of Service: 02/17/19 Chief Complaint: Hematuria History of Present Illness: The patient is a 28 F presenting with hematuria and multiple complaints. Patient states her symptoms have been ongoing since January. She has noted blood in her urine. She also complains of generalized weakness, feeling dehydrated, and decreased appetite. She believes these symptoms may be due to kidney failure. She denies dysuria. Denies abdominal pain. Denies fever. Denies vaginal discharge. She was seen by her gynecologic oncologist on Saturday. She was advised her symptoms are not related to her previous cervical cancer that is in remission and was referred back to her primary care physician. She has an appointment with her primary care physician on February 28. Physical Examination: Vitals are stable. Patient is afebrile. Alert no acute distress. HEENT exam is unremarkable. Neck is supple. Lungs are clear and equal bilaterally. Heart is regular rate and rhythm. Abdomen is soft nontender nondistended. No guarding or rebound Back nontender, no CVA tenderness Extremities are unremarkable. Skin is warm and dry. No focal neurologic deficit. Remainder of exam is unremarkable. Emergency Department Course and Treatment: Patient was given IV fluids, Zofran. CBC, chemistries unremarkable. Urinalysis unremarkable. hCG negative. On repeat evaluation, patient is resting comfortably. She is advised to follow-up with her primary care physician as scheduled. Advised to return to the ED for worsening complaints. Disposition: Discharge home Impression: Reported hematuria This note was generated with [employer] dictation software. It may contain incorrect words, spelling, and punctuation that were not noted in review of the chart prior to signing ED Disposition - Plan for ED Patient: Instructions: Hematuria Referrals: Kerrie Ferraro MD [STAFF PHYSICIAN] - Flavio Blanchard DO [NON CLINICAL AFFILIATE] -
[2019-02-17 15:53] VITALS: TEMP 37.1
[2019-02-17] MEDS: 0.9% Normal Saline 1,000 ML 1000 ML IV (16:10)
[2019-02-17 16:17] LABS: Anion Gap 5 (5-15); BUN 6 mg/dL (7-18); BUN/Creat Ratio 6.7 RATIO (10-20); Calcium,Total 8.8 mg/dL (8.5-10.1); Chloride 104 mmol/L (98-107); EST Glomerular Filtration Rate 79 mL/min (>60); Est Glom Filt Rate - Afr Amer 96 mL/min (>60); Estimated Creatinine Clearance 63.44 ml/min; Glucose 92 mg/dL (74-106); Potassium 3.9 mmol/L (3.5-5.1); Sodium Level 138 mmol/L (136-145)
[2019-02-17 16:25] LABS: Bacteria 0 SEEN /hpf (None Seen); Mucous, Urine 0 SEEN /hpf (<or=2+); Red Blood Cells-Urine 0 SEEN /hpf (0-5); White Blood Cells 0 SEEN /hpf (0-5)
[2019-02-17 16:29] LABS: Absolute Lymphocyte Count 0.92 X10^3/ul (0.83-4.51); Absolute Neutrophil Count 3.7 X10^3/uL (2.0-7.7); Basophil# 0.05 X10^3/uL; Basophil% 0.9 % (0-1); Eosinophil# 0.09 X10^3/uL; Eosinophils% 1.7 % (0-5); Hemoglobin 13.3 g/dl (12.0-15.0); Lymphocyte # 0.92 X10^3/ul (4.0); Lymphocyte % 17.1 % (19-41); Mean Corp Hgb Conc 33.3 g/gl (32-36); Mean Corpuscular Hgb 31.3 pg (27.0-32.0); Mean Corpuscular Volume 94.1 fL (81-99); Mean Platelet Vol. 8.9 fl (6.2-12.0); Monocyte# 0.61 X10^3/uL; Monocyte% 11.3 % (0-10); Neutrophil % 68.8 % (47-70); Platelet Count 267 K/mm3 (150-450); RBC Distribution Width CV 13.7 % (11.6-14.6); RBC Distribution Width SD 47.5 fl (35.1-43.9); Red Blood Count 4.25 M/mm3 (4.2-5.4); White Blood Count 5.4 K/mm3 (4.4-11.0)
[2019-02-17 16:32] LABS: Internal QC Validated? YES +Cl - CLEAR BKGD; Pregnancy, Urine Negative Negative
[2019-02-17 16:32] LABS: POSITIVE COUNT NO; POSITIVE DIFFERENTIAL NO; POSITIVE MORPHOLOGY NO
[2019-02-17 16:39] LABS: Color, Urine Yellow (Yellow); Glucose, Dipstick Normal (Normal); Ketone-Dipstick Negative (Negative); Leukocyte Esterase-Dipstick Negative /ul (Negative); Nitrite-Dipstick Negative (Negative); Occult Blood-Urine Negative /ul (Negative); Protein-Dipstick Negative (Negative); Specific Gravity, Urine 1.005 (1.002-1.030); Urine Bilirubin Dipstick Negative (Negative); Urine Clarity Clear (Clear); Urine Urobilinogen Normal (Normal)
[2019-02-17 16:51] LABS: Squamous Epithelial Cells - UA 0-5 SEEN /hpf (5-10)
[2019-02-17] MEDS: Ondansetron 4 MG/2 ML Vial IV (17:14)
--- NOTE | 2019-02-17 17:18 | ED.DEP ---
ED Disposition - Plan for ED Patient: Instructions: Hematuria Referrals: Flavio Blanchard DO [NON CLINICAL AFFILIATE] - Kerrie Ferraro MD [STAFF PHYSICIAN] -
[2019-02-17 17:39] VITALS: BP 114/65; PULSE 71; RESP 16; O2SAT 99
== END 2019-02-17 17:40 | disposition home or self-care (01) ==
PROVIDERS: Emergency Provider Emergency Medicine; Family Provider Family Medicine; PCP Family Medicine
DX: R31.9 Hematuria, unspecified (principal); R53.1 Weakness; R63.8 Other symptoms and signs concerning food and fluid intake; Z85.41 Personal history of malignant neoplasm of cervix uteri; Z72.0 Tobacco use
CPT/HCPCS: 80048; 81001; 81025; 85025; 96361; 96374; 99283; J7030; A4216; J2405

== ENCOUNTER 2019-03-05 18:32 | Emergency (ER) | payer MEDICAID, SELFPAY ==
[2019-03-05 18:34] VITALS: BP 127/71; PULSE 80; RESP 18; TEMP 36.8; O2SAT 97; BMI 20.7
--- NOTE | 2019-03-05 19:55 | CT_ITS ---
STUDY: CT ABDOMEN AND PELVIS WITH CONTRAST REASON FOR EXAM: Female, 28 years old. Pain. Rectal bleeding. History of cervical cancer. Prior appendectomy. RADIATION DOSAGE (If Supplied By Facility): CTDIvol = ( 7.98 ) mGy, DLP = ( 275.74 ) mGycm TECHNIQUE: Transaxial images were obtained from the dome of the diaphragm to the symphysis pubis with oral contrast. 100ml IV/Oral Isovue 300 was administered. Sagittal and coronal images were reconstructed. Individualized dose optimization techniques were used for this CT. COMPARISON: December 01, 2017 FINDINGS: The visualized lung bases are unremarkable. The visualized portions of the heart are within normal limits. Normal liver. Normal gallbladder and extrahepatic biliary system. Normal spleen. Normal pancreas. Normal bilateral adrenal glands. Stable extrarenal pelvis of the right kidney. Normal left kidney. Normal visualized stomach. Normal small intestine. There is wall thickening of the distal rectum. There is perirectal and presacral edema . There are surgical clips in the region of the appendix consistent with a prior appendectomy. Normal abdominal aorta. Normal inferior vena cava. Normal retroperitoneum. Normal urinary bladder. There is atrophy of the uterus. Normal abdominal wall. Normal osseous structures. CT/Abdomen/Pelvis WITH Contrast IMPRESSION: Proctocolitis could be infectious or inflammatory or postradiation.. No obstruction. Presacral edema Electronically Signed: Matias Vega MD at 21:52 EDT , Service support ,
[2019-03-05 20:09] LABS: Bacteria 0 SEEN /hpf (None Seen); Mucous, Urine 0 SEEN /hpf (<or=2+); Red Blood Cells-Urine 0 SEEN /hpf (0-5)
[2019-03-05] MEDS: Ondansetron 4 MG/2 ML Vial IV (20:12)
[2019-03-05] MEDS: Ketorolac 30 MG/ML Syringe IV (20:12)
--- NOTE | 2019-03-05 20:28 | ED.DCSUM_ITS ---
- ER Visit Summary Date of Service: 03/05/19 Chief Complaint: Abdominal pain History of Present Illness: The patient is a 28 F presenting with abdominal pain. She states this has been going on for the past 3 weeks. She states she has a history of cervical cancer. She states she is in the process of trans ferring to a new oncologist. She is awaiting a call back. She states she did not like her previous oncologist. She states she believes she needs a hysterectomy. She denies nausea or vomiting. She states she is due for a CT scan of her abdomen. She went to urgent care today and was advised to come to the ED for further evaluation. Physical Examination: Vitals are stable. Patient is afebrile. Alert no acute distress. HEENT exam is unremarkable. Neck is supple. Lungs are clear and equal bilaterally. Heart is regular rate and rhythm. Abdomen is soft mild diffuse tenderness with no guarding or rebound Extremities are unremarkable. Skin is warm and dry. No focal neurologic deficit. Remainder of exam is unremarkable. Emergency Department Course and Treatment: Patient given Toradol, Zofran IV. CBC, chemistries unremarkable. Urinalysis shows 5-10 white blood cells. Urine culture was sent. She denies urinary complaints. hCG negative. CT abdomen pelvis shows proctocolitis could be infectious or inflammatory or postradiation.. No obstruction. Presacral edema. Patient believes she has had these findings in the past post radiation. She does not have a white count. Discussed with Dr. Rich. She will see her for close outpatient follow-up. Patient is agreeable with this plan. Advised return to ED if worsening complaints. Disposition: Discharge home Impression: Abdominal pain, proctocolitis This note was generated with [employer] dictation software. It may contain incorrect words, spelling, and punctuation that were not noted in review of the chart prior to signing ED Disposition - Plan for ED Patient: Referrals: Korey Seay MD [Primary Care Provider] -
[2019-03-05 20:29] LABS: Absolute Lymphocyte Count 1.47 X10^3/uL (0.83-4.51); Absolute Neutrophil Count 3.6 X10^3/uL (2.0-7.7); Basophil# 0.06 X10^3/uL; Basophil% 1.1 % (0-1); Eosinophil# 0.09 X10^3/uL; Eosinophils% 1.6 % (0-5); Hematocrit 40.6 % (37-47); Hemoglobin 13.4 g/dL (12.0-15.0); Lymphocyte # 1.47 X10^3/ul (4.0); Lymphocyte % 25.7 % (19-41); Mean Corpuscular Hgb 31.8 pg (27.0-32.0); Mean Corpuscular Volume 96.2 fL (81-99); Mean Platelet Vol. 8.7 fl (6.2-12.0); Monocyte# 0.48 X10^3/uL; Monocyte% 8.4 % (0-10); NRBC Flagged by Analyzer 0 % (0-5); Neutrophil # 3.59 X10^3/uL (2.7-7.7); Neutrophil % 62.8 % (47-70); Platelet Count 262 K/mm3 (150-450); RBC Distribution Width CV 13.2 % (11.6-14.6); RBC Distribution Width SD 46.4 fl (35.1-43.9); Red Blood Count 4.22 M/mm3 (4.2-5.4); White Blood Count 5.7 K/mm3 (4.4-11.0)
[2019-03-05 20:30] LABS: Color, Urine Yellow (Yellow); Glucose, Dipstick Normal (Normal); Ketone-Dipstick Negative (Negative); Leukocyte Esterase-Dipstick 100 /ul (Negative); Nitrite-Dipstick Negative (Negative); Occult Blood-Urine Negative /ul (Negative); Protein-Dipstick Negative (Negative); Urine Bilirubin Dipstick Negative (Negative); Urine Clarity Clear (Clear); Urine Urobilinogen Normal (Normal)
[2019-03-05 20:33] VITALS: RESP 16
[2019-03-05 20:41] LABS: Anion Gap 4 (5-15); BUN 5 mg/dL (7-18); BUN/Creat Ratio 5.6 RATIO (10-20); Calcium,Total 8.8 mg/dL (8.5-10.1); Chloride 107 mmol/L (98-107); Creatinine, Serum 0.89 mg/dL (0.55-1.02); EST Glomerular Filtration Rate 81 mL/min (>60); Est Glom Filt Rate - Afr Amer 98 mL/min (>60); Estimated Creatinine Clearance 65.05 ml/min; Glucose 78 mg/dL (74-106); Potassium 3.6 mmol/L (3.5-5.1); Sodium Level 140 mmol/L (136-145)
[2019-03-05 20:56] LABS: Squamous Epithelial Cells - UA 0-5 SEEN /hpf (5-10); White Blood Cells 5-10 SEEN /hpf (0-5)
[2019-03-05 20:59] LABS: Internal QC Validated? YES +Cl - CLEAR BKGD; Pregnancy, Serum, hCG Quali. NEGATIVE Negative
[2019-03-05 22:00] VITALS: RESP 16
--- NOTE | 2019-03-05 22:59 | ED.DEP ---
ED Disposition - Plan for ED Patient: Instructions: ABDOMINAL PAIN, Unknown Cause, (Female) Referrals: Korey Seay MD [Primary Care Provider] - Shantell Rich MD [STAFF PHYSICIAN] -
[2019-03-05 23:07] VITALS: BP 131/97; PULSE 68; RESP 16; O2SAT 98
--- NOTE | 2019-03-05 23:07 | ED.RN ---
REVIEWED D/C INSTRUCTIONS, FOLLOW UP CARE, AND S/S THAT WOULD WARRANT A RETURN TO THE ED WITH PT. PT VERBALIZED AN UNDERSTANDING AND DENIES FURTHER QUESTIONS FOR THIS RN. PT SKIN P/W/D, RESP EVEN AND UNLABORED, PT A&O X 3, NO DISTRESS NOTED. PT AMBULATED OUT OF ED, GAIT STEADY.
== END 2019-03-05 23:09 | disposition home or self-care (01) ==
LOC: ED 19:16
PROVIDERS: Emergency Provider Emergency Medicine; Family Provider Family Medicine; PCP Family Medicine
DX: K51.30 Ulcerative (chronic) rectosigmoiditis without complications (principal); Z79.899 Other long term (current) drug therapy; Z85.41 Personal history of malignant neoplasm of cervix uteri
CPT/HCPCS: 74177; 80048; 81001; 84703; 85025; 87086; 87088; 96374; 96375; 99283; Q9967; A4216; J2405

== ENCOUNTER 2019-03-22 19:03 | Inpatient (IN) | payer MEDICAID, SELFPAY ==
[2019-03-22 19:04] VITALS: BP 115/67; PULSE 83; RESP 14; TEMP 36.7; O2SAT 99; BMI 20.7
--- NOTE | 2019-03-22 19:29 | RAD_ITS ---
STUDY: X-RAY - LEFT FOOT CLINICAL: Female, 28 years old. STEPPED ON A NAIL 2 DAYS AGO. LEFT FOOT PAIN. PUNCTURE WOUND AREA OF 4TH METATARSAL. TECHNIQUE: 3 view(s) of the foot. COMPARISON: None. FINDINGS: Normal talus, calcaneus, and tarsal bones. Normal visualized subtalar, talonavicular, calcaneocuboid, tarsal and tarsometatarsal articulations. Normal metatarsi. Normal metatarsophalangeal joint of the great toe. Normal tibial and fibular sesamoid bones. Normal interphalangeal joint of the great toe. Normal phalanges of the great toe. Normal second through fifth metatarsophalangeal joints. Normal interphalangeal joints and phalanges of the lesser toes. The soft tissue structures are unremarkable. RAD/Foot min 3 Views IMPRESSION: No radiodense foreign body is seen. No evidence of osteomyelitis or fracture. Electronically Signed: David Tang MD at 19:47 EDT Tel , Service support ,
[2019-03-22 19:40] LABS: Absolute Lymphocyte Count 1.84 X10^3/uL (0.83-4.51); Basophil# 0.04 X10^3/uL; Basophil% 0.7 % (0-1); Eosinophil# 0.25 X10^3/uL; Eosinophils% 4.3 % (0-5); Hematocrit 39.6 % (37-47); Hemoglobin 13.1 g/dL (12.0-15.0); Lymphocyte # 1.84 X10^3/ul (4.0); Lymphocyte % 31.8 % (19-41); Mean Corp Hgb Conc 33.1 g/dL (32-36); Mean Corpuscular Hgb 31.3 pg (27.0-32.0); Mean Corpuscular Volume 94.5 fL (81-99); Mean Platelet Vol. 8.4 fl (6.2-12.0); Monocyte# 0.64 X10^3/uL; Monocyte% 11.1 % (0-10); NRBC Flagged by Analyzer 0 % (0-5); Neutrophil % 51.8 % (47-70); Platelet Count 265 K/mm3 (150-450); RBC Distribution Width CV 12.9 % (11.6-14.6); RBC Distribution Width SD 45.1 fl (35.1-43.9); Red Blood Count 4.19 M/mm3 (4.2-5.4); White Blood Count 5.8 K/mm3 (4.4-11.0)
[2019-03-22] MEDS: Diphth,Pertuss(Acell),Tet Vac 0.5 ML Vial IM (19:42)
[2019-03-22 19:53] LABS: Anion Gap 4 (5-15); BUN 5 mg/dL (7-18); BUN/Creat Ratio 5.7 RATIO (10-20); Calcium,Total 8.8 mg/dL (8.5-10.1); Chloride 107 mmol/L (98-107); Creatinine, Serum 0.88 mg/dL (0.55-1.02); EST Glomerular Filtration Rate 82 mL/min (>60); Est Glom Filt Rate - Afr Amer 99 mL/min (>60); Estimated Creatinine Clearance 66.01 ml/min; Glucose 77 mg/dL (74-106); Sodium Level 139 mmol/L (136-145)
--- NOTE | 2019-03-22 20:08 | ED.DCSUM_ITS ---
- ER Visit Summary Date of Service: 03/22/19 Chief Complaint: [Puncture wound to the left foot] History of Present Illness: The patient is a 28 F [presents to the emergency department with a puncture wound to the left foot that occurred 3 days ago. Patient states that Rolly evening she was walking her dog and was wearing flip- flops when she stepped on a nail that was in a board. Patient states that the nail went almost all the way through to her foot but did not break the skin on the dorsal surface of the foot. Patient is unsure of her last tetanus shot. Patient now having a hard time bearing weight secondary to pain. Patient also noticed increased redness and swelling and she presents for evaluation. She denies any fevers. Patient has history of cervical cancer that had been in remission but recently found that she may have recurrence. She is not currently receiving any type of chemotherapy. She is not a diabetic. Physical Examination: [HEENT-PERRLA, EOMI. Cranial nerves II through XII grossly intact. TMs clear. Mucous membranes moist. No adenopathy. Cardiovascular-regular rate and rhythm without murmur or ectopy Lungs-clear to auscultation, chest wall stable without crepitus or subcu emphysema Abdomen-normoactive bowel sounds, soft, nontender, no rebound or rigidity, no peritoneal signs. Extremities-intact ?4, normal range of motion, normal pulses. Left foot-patient has small puncture wound between the fourth and fifth metatarsal heads. Pat ient has soft tissue swelling and erythema noted. Patient also has erythema to the dorsum of the foot. Neurovascular intact. No lymphangitic streaking.] Test Results: [CBC with differential showed normal white count. Chemistries unremarkable. X-rays of the left foot showed no foreign bodies within the wound.] Emergency Department Course and Treatment: [Patient treated with clindamycin 600 mg IV and also added Cipro 400 mg IV for Pseudomonas coverage. Case was discussed with podiatry. At this point it was decided to admit patient for IV antibiotics and if she does not respond may require surgical incision and drainage.] Treatment Plan: [Admit for IV antibiotics] Disposition: [Admit] Impression: [Puncture wound left foot and cellulitis left foot] This note was generated with [employer] dictation software. It may contain incorrect words, spelling, and punctuation that were not noted in review of the chart prior to signing ED Disposition - Plan for ED Patient: Referrals: Korey Seay MD [Primary Care Provider] -
--- NOTE | 2019-03-22 20:24 | PCM.HP.STD ---
Problem List (1) Left foot infection Status: Acute (2) Pelvic pain Status: Chronic History of Present Illness Date of Admission: 03/22/19 Chief Complaint: LEFT FOOT PAIN The patient is a 28 year old F with a significant history of cervical cancer s/p oophorectomy, chemotherapy, and radiation; IBS; overactive bladder who presented with excruciating left foot pain that started about 2 days ago following a nail puncture through her right metatarsals while walking her dog. She reports not been able to walk because of the pain. She tried some Epsom salts but it did not help her. Associated with her symptoms is swelling and erythema in between the metatarsal heads of the same foot. Patient was started on Clindamycin IV at the ED. Also, because she was wearing a flip-flop when she had the nail puncture she was considered at risk for pseudomonas and she was given a dose of Ciprofloxacin. Emergency department reportedly discussed the case with food and beverage service manager, Dr. Gibbons. Per ED Doc, Dr. Kanu Gibbons will follow if consulted. Also, at the ED patient was given TdaP injection. Past Medical History Past Medical History (Chronic Problems): Chronic Problems Anemia due to blood loss, chronic (Chronic) Hematuria (Chronic) due to radiation cystitis Chronic radiation cystitis (Chronic) Pelvic pain (Chronic) Cervical cancer (Chronic) treated with radiation and chemo in the past Allergies morphine Allergy (Verified 03/05/19 18:34) Hives venom-honey bee [bee venom (honey bee)] Allergy (Verified 03/05/19 18:34) Other cisplatin Adverse Reaction (Verified 03/05/19 18:34) Other oxycodone HCl [From Percocet] Adverse Reaction (Verified 03/05/19 18:34) Nausea CISPLATIN Adverse Reaction (Uncoded 03/05/19 18:34) Other LOSS OF HEARING Home Medications: Ambulatory Orders Medication Instructions Recorded Dicyclomine HCl [Bentyl] 10 mg PO TID 02/17/19 Epinephrine 0.3 mg IM PRN PRN 02/17/19 Ergocalciferol [Vitamin D] 50,000 mg PO QWEEK 02/17/19 Oxybutynin [Ditropan] 5 mg PO DAILY 02/17/19 Potassium Gluconate 595 mg PO DAILY 02/17/19 Venlafaxine HCl [Venlafaxine HCl 75 mg PO DAILY 02/17/19 ER] Surgical History: appendectomy, tonsillectomy, - - Oophorectomy BL Psychiatric History: No pertinent psych hx [employer]IAN History: cervical cancer - treated with radiation and chemo Lives: With Family Smoking Status: Current every day smoker Tobacco Use: Cigarettes - *Family History Maternal History Items: Cancer, Heart Disease Paternal History Items: - - Parkinson disease Review of Systems Constitutional: Reports: - - Hot flashes that she attributes to menopause. Denies: Weight Change HEENT: Denies: Head Aches, Sinus Congestion, Sinus Drainage Cardiovascular: Reports: Edema - Left foot. Denies: Chest Pain, Palpitations Respiratory: Denies: Cough, Shortness of breath at rest, Sputum production Gastrointestinal: Reports: Nausea - After receiving Dilaudid at the emergency department. Denies: Abdominal Pain, Vomiting Genitourinary: Denies: Dysuria Musculoskeletal: Reports: Joint Pain - Metatarsals of left foot, Joint Tenderness - Left foot Skin: Reports: - - Erythema in between metatarsal heads of left foot. Denies: Rash, Wounds Neurological: Denies: Numbness, Tingling, Focal weakness Psychiatric: Denies: Anxiety, Depression, Homicidal Ideations, Suicidal Ideations Hematologic/ Lymphatic: Denies: Easy Bruising, Easy Bleeding VTE Information - Inpt Only VTE Present on Admission: No VTE Mechan Device Prophylaxis: None VTE Pharm Prophylaxis ordered?: Yes Patient Problems: Active and Suspected Problems Left foot infection (Acute) - Physical Exam General: Alert, Oriented x3, Cooperative HEENT: Atraumatic, PERRLA, EOMI, Normocephalic Neck: Supple, No JVD, Negative Carotid Bruits Lungs: Clear to auscultation, Normal air movement Cardiovascular: Regular rate, No murmurs Abdomen: Bowel Sounds Present, Soft, Non Tender Extremities: Capillary Refill Less than 3 Seconds, Edema - Left foot, Tenderness Skin: - - Erythema in between the heads of left foot Musculoskeletal: Tenderness - Left foot Neurological: Cranial nerves II-XII grossly intact Psych/Mental Status: Normal Affect, Appropriate Vital Signs Temp Pulse Resp BP Pulse Ox 98.1 F 83 14 115/67 99 03/22/19 19:04 03/22/19 19:04 03/22/19 19:04 03/22/19 19:04 03/22/19 19:04 Weight: 43.545 kg Body Mass Index (BMI) 20.7 Laboratory Tests Past 24 Hrs 03/22/19 03/22/19 19:30 19:30 WBC 5.8 RBC 4.19 L Hgb 13.1 Hct 39.6 MCV 94.5 MCH 31.3 MCHC 33.1 RDW Std Deviation 45.1 H RDW Coeff of Carmen 12.9 Plt Count 265 MPV 8.4 Immature Gran % (Auto) 0.300 Neut % (Auto) 51.8 Lymph % (Auto) 31.8 [place] % (Auto) 11.1 H Eos % (Auto) 4.3 Baso % (Auto) 0.7 Absolute Neuts (auto) 3.0 Absolute Lymphs (auto) 1.84 Nucleated RBC % 0 Sodium 139 Potassium 4.0 Chloride 107 Carbon Dioxide 28.0 Anion Gap 4 L BUN 5 L Creatinine 0.88 Estim Creat Clear Calc 66.01 Est GFR (MDRD) Af Amer 99 Est GFR (MDRD) Non-Af 82 BUN/Creatinine Ratio 5.7 L Glucose 77 Calcium 8.8 Assessment/Plan All Active Problems Left foot infection (Acute) Abdominal pain (Resolved) Clostridium difficile colitis (Resolved) The patient is a 28 year old F with a significant history of cervical cancer s/p oophorectomy, chemotherapy, and radiation; IBS; overactive bladder who presented with excruciating left foot pain that started about 2 days ago following a nail puncture through her right metatarsals; and also with swelling and erythema of her left foot consistent with left foot infection secondary to a nail puncture. Left foot infection secondary to a nail puncture. Patient received Tdap in the emergency department. Received a dose of clindamycin and ciprofloxacin at the emergency department. We will continue ciprofloxacin and clindamycin. Emergency department doctor discussed the case with Dr. Kanu Gibbons, food and beverage service manager. Will consult Dr. Kanu Gibbnos. Patient is allergic to morphine and oxycodone at the emergency department. Reported allergy to oxycodone is nausea. At the emergency department he received Dilaudid which reportedly also gave nausea. Dilaudid continued. PRN Zofran and as needed; and bowel protocol ordered. Cervical Cancer Status post oophorectomy, chemo and radiation. Patient reports recurrence and is awaiting biopsy. Patient to follow-up outpatient. Tobacco abuse Counseled Nicotine patch prescribed IBS Bentyl ordered. Overactive bladder Ditropan continued Depression Venlafaxine continued DVT prophylaxis Because of his history of cancer is at high risk of DVT. Lovenox ordered Code Visit Inpatient E&M: 13790 Init Hosp L3
[2019-03-22] MEDS: Ciprofloxacin 400 MG/200 ML BAG 200 MG IV (20:58)
[2019-03-22] MEDS: HYDROmorphone 1 MG/ML Syringe IV ×2 (20:58→22:10)
[2019-03-22] MEDS: proMETHazine 25 MG/ML Syringe 12.5 MG IV (21:08)
[2019-03-22 21:24] VITALS: BMI 21.7
[2019-03-22 21:38] VITALS: BP 120/81; PULSE 60; RESP 16; TEMP 36.8; O2SAT 100
[2019-03-22] MEDS: Dicyclomine 10 MG Capsule PO (21:51)
[2019-03-22] MEDS: Ondansetron 4 MG/2 ML Vial IV (22:14)
[2019-03-22 22:20] VITALS: O2SAT 99
[2019-03-22] MEDS: Senna/Docusate Sodium 1 Tablet 2 TABLET PO (22:34)
[2019-03-22 22:45] VITALS: PULSE 60; RESP 16; O2SAT 100
[2019-03-23] VITALS (12 sets, daily range): BP systolic 85–126; BP diastolic 43–80; PULSE 54–86; RESP 12–18; TEMP 36.3–36.8; O2SAT 96–100; BMI 20.5
[2019-03-23] MEDS: Ibuprofen 400 MG Tablet PO (00:22)
[2019-03-23] MEDS: Acetaminophen 325 MG Tablet 650 MG PO (04:22)
[2019-03-23 04:27] LABS: Mucous, Urine 0 SEEN /hpf (<or=2+); White Blood Cells 0 SEEN /hpf (0-5)
[2019-03-23] MEDS: Dicyclomine 10 MG Capsule PO ×2 (04:29→22:54)
[2019-03-23 05:06] LABS: Color, Urine Yellow (Yellow); Glucose, Dipstick Normal (Normal); Ketone-Dipstick Negative (Negative); Leukocyte Esterase-Dipstick 25 /ul (Negative); Nitrite-Dipstick Negative (Negative); Occult Blood-Urine Negative /ul (Negative); Protein-Dipstick Negative (Negative); Urine Bilirubin Dipstick Negative (Negative); Urine Clarity Clear (Clear); Urine Urobilinogen Normal (Normal)
[2019-03-23 05:17] LABS: Bacteria RARE /hpf (None Seen); Red Blood Cells-Urine 0-5 SEEN /hpf (0-5); Squamous Epithelial Cells - UA 0-5 SEEN /hpf (5-10)
[2019-03-23 06:09] LABS: Absolute Lymphocyte Count 1.75 X10^3/uL (0.83-4.51); Absolute Neutrophil Count 3.3 X10^3/uL (2.0-7.7); Basophil# 0.05 X10^3/uL; Basophil% 0.8 % (0-1); Eosinophil# 0.26 X10^3/uL; Eosinophils% 4.3 % (0-5); Hematocrit 36.3 % (37-47); Hemoglobin 11.6 g/dL (12.0-15.0); Lymphocyte # 1.75 X10^3/ul (4.0); Lymphocyte % 28.7 % (19-41); Mean Corpuscular Hgb 30.9 pg (27.0-32.0); Mean Corpuscular Volume 96.5 fL (81-99); Mean Platelet Vol. 8.6 fl (6.2-12.0); Monocyte# 0.75 X10^3/uL; Monocyte% 12.3 % (0-10); NRBC Flagged by Analyzer 0 % (0-5); Neutrophil # 3.28 X10^3/uL (2.7-7.7); Neutrophil % 53.7 % (47-70); Platelet Count 238 K/mm3 (150-450); RBC Distribution Width CV 13.1 % (11.6-14.6); RBC Distribution Width SD 46.8 fl (35.1-43.9); Red Blood Count 3.76 M/mm3 (4.2-5.4); White Blood Count 6.1 K/mm3 (4.4-11.0)
--- NOTE | 2019-03-23 06:34 | MRI_ITS ---
STUDY: MRI LEFT FOREFOOT WITHOUT CONTRAST REASON FOR EXAM: Female, 28 years old. Nail puncture wound, foot infection. TECHNIQUE: Standardized fat and water weighted pulse sequences were obtained in all 3 orthogonal planes. COMPARISON: None. FINDINGS: Normal metatarsophalangeal joint of the hallux. Normal tibial and fibular sesamoids, with normal sesamoids-first metatarsal articulations. Normal interphalangeal joint of the hallux. Normal proximal and distal phalanges of the great toe. Normal medial and lateral heads of the flexor hallucis brevis tendons. Normal flexor and extensor hallucis longus tendons. Normal second through fifth metatarsophalangeal (MTP) joints. Normal interphalangeal joints of the second through fifth toes. Normal proximal, middle and distal phalanges of the second through fifth toes. Normal first through fourth intermetatarsal spaces. Normal flexor and extensor tendons of the second through fifth toes. Normal visualized metatarsi. Normal intrinsic muscles of the forefoot. There is no demonstrated soft tissue abnormality. MRI/Lower Ext/No Jt/w/o IMPRESSION: Normal unenhanced MRI of the forefoot. Electronically Signed: Law Adams MD at 10:34 EDT Tel , Service support ,
[2019-03-23 06:37] LABS: Anion Gap 5 (5-15); BUN 6 mg/dL (7-18); BUN/Creat Ratio 6.6 RATIO (10-20); Calcium,Total 8.4 mg/dL (8.5-10.1); Chloride 109 mmol/L (98-107); Creatinine, Serum 0.91 mg/dL (0.55-1.02); EST Glomerular Filtration Rate 79 mL/min (>60); Est Glom Filt Rate - Afr Amer 95 mL/min (>60); Glucose 79 mg/dL (74-106); Potassium 4.2 mmol/L (3.5-5.1); Sodium Level 144 mmol/L (136-145)
--- NOTE | 2019-03-23 06:42 | CON.PCM_ITS ---
Problem List (1) Puncture wound of left foot Status: Acute (2) Pain in left foot Status: Acute (3) Cellulitis of left foot Status: Acute Reason for Consult Date of Consultation: 03/23/19 Reason for Consultation: Puncture wound left foot History of Present Illness: The patient is a 28 year old F with a history of cervical cancer and s/p oophore ctomy, chemotherapy, and radiation, History of IBS, overactive bladder. Patient was consulted to podiatry after being admitted through the emergency department last evening for a puncture wound that the patient sustained after stepping on a nail while walking her dog on Saturday evening. Patient states that she did not notice some rust to the nail. She tried using epsom salt, but not much else to treat the area. She said it hurt to bear weight, and she noticed a small area of redness to the top of her foot with some slight swelling and says she decided to finally get checked out late last evening. She is currently resting comfortably in bed and denies any current feelings of nausea, vomiting, fever, chills, or shortness of breath. [] Past Medical History Past Medical History (Chronic Problems): Chronic Problems Anemia due to blood loss, chronic (Chronic) Hematuria (Chronic) due to radiation cystitis Chronic radiation cystitis (Chronic) Pelvic pain (Chronic) Cervical cancer (Chronic) treated with radiation and chemo in the past Allergies morphine Allergy (Verified 03/05/19 18:34) Hives venom-honey bee [bee venom (honey bee)] Allergy (Verified 03/05/19 18:34) Other cisplatin Adverse Reaction (Verified 03/05/19 18:34) Other oxycodone HCl [From Percocet] Adverse Reaction (Verified 03/05/19 18:34) Nausea CISPLATIN Adverse Reaction (Uncoded 03/05/19 18:34) Other LOSS OF HEARING Home Medications: Ambulatory Orders Medication Instructions Recorded Dicyclomine HCl [Bentyl] 10 mg PO TID 02/17/19 Epinephrine 0.3 mg IM PRN PRN 02/17/19 Ergocalciferol [Vitamin D] 50,000 mg PO QWEEK 02/17/19 Oxybutynin [Ditropan] 5 mg PO DAILY 02/17/19 Potassium Gluconate 595 mg PO DAILY 02/17/19 Venlafaxine HCl [Venlafaxine HCl 75 mg PO DAILY 02/17/19 ER] Surgical History: appendectomy, tonsillectomy, - - Oophorectomy BL 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: cervical cancer - treated with radiation and chemo Lives: With Family Smoking Status: Current every day smoker Tobacco Use: Cigarettes - *Family History Maternal History Items: Cancer, Heart Disease Paternal History Items: - - Parkinson disease Review of Systems Constitutional: Denies: Chills, Fever, Weight Change HEENT: Denies: Head Aches, Sinus Congestion, Sinus Drainage Cardiovascular: Denies: Chest Pain, Palpitations Respiratory: Denies: Cough, Shortness of breath at rest, Sputum production Gastrointestinal: Denies: Abdominal Pain, Nausea, Vomiting Musculoskeletal: Reports: Foot Pain - left Skin: Reports: - - erythema to left foot Neurological: Denies: Numbness, Tingling, Focal weakness Hematologic/ Lymphatic: Denies: Easy Bruising, Easy Bleeding Patient Problems: Active and Suspected Problems Left foot infection (Acute) Puncture wound of left foot (Acute) Pain in left foot (Acute) Cellulitis of left foot (Acute) - Physical Exam General: Alert, Oriented x3, Cooperative Extremities: No cyanosis, Capillary Refill Less than 3 Seconds - to all distal digits of left foot, No Calf Tenderness - negative stevo and lal signs, Edema - very minor edema to distal plantar and dorsal foot in area of 3rd/4the distal metatarsals in area of puncture wound., Peripheral Pulses Normal - DP and PT pulses palpable bilateral Skin: Ulcer/ Wound - Small puncture wound that appears to be closed to the plantar left foot between the 3rd and 4th distal metatarsal heads. Slight edema in this area, but no significant cellulitis appreciated plantarly. There is also some slight erythema dorsally between the 3rd and 4th metatarsal areas. No drainage appreciated due to there being no open wounds at this time as the puncture site has closed since Saturday. No significant bogginess or fluctuance appreciated on examination. Musculoskeletal: Tenderness - to dorsal and plantar distal left foot in area of puncture, - - AROM of all digits of left foot Neurological: Sensory exam intact to light touch and pain Psych/Mental Status: Normal Affect, Appropriate Vital Signs Temp Pulse Resp BP Pulse Ox 97.3 F L 58 L 16 95/57 L 99 03/23/19 04:07 03/23/19 04:07 03/23/19 04:07 03/23/19 04:07 03/23/19 04:07 Oxygen Delivery Method Room Air Weight: 45.5 kg Body Mass Index (BMI) 21.7 Intake and Output for Last 24 Hours 03/21/19 03/22/19 03/23/19 23:59 23:59 23:59 Intake Total 353 / 353 Output Total 1110 / 1110 Balance -757 / -757 Laboratory Tests Past 24 Hrs 03/22/19 03/22/19 03/23/19 19:30 19:30 04:20 WBC 5.8 RBC 4.19 L Hgb 13.1 Hct 39.6 MCV 94.5 MCH 31.3 MCHC 33.1 RDW Std Deviation 45.1 H RDW Coeff of Carmen 12.9 Plt Count 265 MPV 8.4 Immature Gran % (Auto) 0.300 Neut % (Auto) 51.8 Lymph % (Auto) 31.8 [place] % (Auto) 11.1 H Eos % (Auto) 4.3 Baso % (Auto) 0.7 Absolute Neuts (auto) 3.0 Absolute Lymphs (auto) 1.84 Nucleated RBC % 0 ESR Sodium 139 Potassium 4.0 Chloride 107 Carbon Dioxide 28.0 Anion Gap 4 L BUN 5 L Creatinine 0.88 Estim Creat Clear Calc 66.01 Est GFR (MDRD) Af Amer 99 Est GFR (MDRD) Non-Af 82 BUN/Creatinine Ratio 5.7 L Glucose 77 Calcium 8.8 C-React Prot Ext Range Urine Color Yellow Urine Clarity Clear Urine pH 6.0 Ur Specific [place] 1.010 Urine Protein Negative Urine Glucose (UA) Normal Urine Ketones Negative Urine Occult Blood Negative Urine Nitrite Negative Urine Bilirubin Negative Urine Urobilinogen Normal Ur Leukocyte Esterase 25 H Urine RBC 0-5 SEEN Urine WBC 0 SEEN Ur Squamous Epith Cells 0-5 SEEN Urine Bacteria RARE Urine Mucus 0 SEEN 03/23/19 03/23/19 03/23/19 05:48 05:48 05:48 WBC 6.1 RBC 3.76 L Hgb 11.6 L Hct 36.3 L MCV 96.5 MCH 30.9 MCHC 32.0 RDW Std Deviation 46.8 H RDW Coeff of Carmen 13.1 Plt Count 238 MPV 8.6 Immature Gran % (Auto) 0.200 Neut % (Auto) 53.7 Lymph % (Auto) 28.7 [place] % (Auto) 12.3 H Eos % (Auto) 4.3 Baso % (Auto) 0.8 Absolute Neuts (auto) 3.3 Absolute Lymphs (auto) 1.75 Nucleated RBC % 0 ESR Pending Sodium 144 Potassium 4.2 Chloride 109 H Carbon Dioxide 30.0 Anion Gap 5 BUN 6 L Creatinine 0.91 Estim Creat Clear Calc 66.70 Est GFR (MDRD) Af Amer 95 Est GFR (MDRD) Non-Af 79 BUN/Creatinine Ratio 6.6 L Glucose 79 Calcium 8.4 L C-React Prot Ext Range Urine Color Urine Clarity Urine pH Ur Specific [place] Urine Protein Urine Glucose (UA) Urine Ketones Urine Occult Blood Urine Nitrite Urine Bilirubin Urine Urobilinogen Ur Leukocyte Esterase Urine RBC Urine WBC Ur Squamous Epith Cells Urine Bacteria Urine Mucus 03/23/19 05:48 WBC RBC Hgb Hct MCV MCH MCHC RDW Std Deviation RDW Coeff of Carmen Plt Count MPV Immature Gran % (Auto) Neut % (Auto) Lymph % (Auto) [place] % (Auto) Eos % (Auto) Baso % (Auto) Absolute Neuts (auto) Absolute Lymphs (auto) Nucleated RBC % ESR Sodium Potassium Chloride Carbon Dioxide Anion Gap BUN Creatinine Estim Creat Clear Calc Est GFR (MDRD) Af Amer Est GFR (MDRD) Non-Af BUN/Creatinine Ratio Glucose Calcium C-React Prot Ext Range Pending Urine Color Urine Clarity Urine pH Ur Specific [place] Urine Protein Urine Glucose (UA) Urine Ketones Urine Occult Blood Urine Nitrite Urine Bilirubin Urine Urobilinogen Ur Leukocyte Esterase Urine RBC Urine WBC Ur Squamous Epith Cells Urine Bacteria Urine Mucus Assessment/Plan All Active Problems Left foot infection (Acute) Puncture wound of left foot (Acute) Pain in left foot (Acute) Cellulitis of left foot (Acute) Abdominal pain (Resolved) Clostridium difficile colitis (Resolved) This patient was carefully examined and evaluated in detail resting in her bed earlier this morning. She was examined for her left foot where she sustained a puncture wound after stepping on a nail while walking her dog Rolly evening. WBC is 6.1. Patient is afebrile. No cultures taken this morning as there are no open wounds currently. Patient currently on clindamycin and ciprofloxacin. X-rays taken last evening showed no radiodense foreign bodies and no evidence of osteomyelitis or fracture. No soft tissue emphysema. MRI was ordered this morning to further evaluate the area of puncture wound. We will continue to monitor for results from this. I discussed the case with the patient in great detail as well as discussed all of her possible treatment options along with all of the risks, benefits, and potential outcomes of all of these. At this time, the plan will be to take the patient for incision and drainage as well as debridement of all necrotic, nonviable, infected soft tissue. This procedure was discussed in detail with the patient. We also discussed complications could include but are not limited to further infection, infection of bone, infection of the joint, need for further surgery, possible partial amputation, loss of limb. Patient understands this and agrees to proceed with procedure. Consent will be obtained for said procedure. We also discussed that her waiting over 2 days before seeking treatment could also have an effect on the outcome. She is aware of this. Orders were placed to have the patient n.p.o. after 8 AM. M edical management and DVT prophylaxis appreciated per medical team. Podiatry will continue to follow this patient closely while in house.
[2019-03-23 06:56] LABS: CRP < 2.90 mg/L (0.0-3.0)
[2019-03-23 07:00] LABS: Erythrocyte Sedimentation Rate 2 mm/hr (0-20)
[2019-03-23] MEDS: Oxybutynin 5 MG Tablet PO (08:01)
[2019-03-23] MEDS: Venlafaxine XR 75 MG Capsule PO (08:01)
[2019-03-23] MEDS: Ondansetron 4 MG/2 ML Vial IV ×2 (08:06→16:26)
[2019-03-23] MEDS: 0.9% NaCl Peripheral Flush Adult/Peds IV ×2 (08:07→10:42)
[2019-03-23] MEDS: HYDROmorphone 1 MG/ML Syringe IV ×4 (08:07→23:25)
--- NOTE | 2019-03-23 09:31 | PN_ITS ---
Patient Problems: Active and Suspected Problems Left foot infection (Acute) Puncture wound of left foot (Acute) Pain in left foot (Acute) Cellulitis of left foot (Acute) Subjective: Patient is a 28-year-old lady admitted with left foot pain following puncture wound with a nail Objective: GENERAL: cooperative HEENT: Atraumatic; moist oral mucosa EYES; Anicteric, Normal Conjunctiva NECK; supple, normal thyroid, no distended JVD. RESPIRATORY: Diminished to auscultation bilaterally, CARDIOVASCULAR: Regular S1 S2, no audible murmurs GI: soft, non-tender, normoactive bowel sounds, : No Renal angle tenderness; EXTREMITIES: Puncture wound on the sole of the left foot with surrounding area of tenderness no erythema MUSCULOSKELETAL: No Joint Tenderness; no muscle waisting NEURO: Awake; no lateralizing signs. SKIN: No Rash PSYCH; Normal affect Vitals/I&O's: Vital Signs Temp Pulse Resp BP Pulse Ox 97.3 F L 58 L 16 95/57 L 99 03/23/19 04:07 03/23/19 04:07 03/23/19 04:07 03/23/19 04:07 03/23/19 04:07 Oxygen Delivery Method Room Air Weight: 45.5 kg Body Mass Index (BMI) 21.7 Intake and Output for Last 24 Hours 03/21/19 03/22/19 03/23/19 23:59 23:59 23:59 Intake Total 353 / 353 Output Total 1110 / 1110 Balance -757 / -757 Laboratory Results 03/22/19 19:30: WBC 5.8, RBC 4.19 L, Hgb 13.1, Hct 39.6, MCV 94.5, MCH 31.3, MCHC 33.1, RDW Std Deviation 45.1 H, RDW Coeff of Carmen 12.9, Plt Count 265, MPV 8.4, Immature Gran % (Auto) 0.300, Neut % (Auto) 51.8, Lymph % (Auto) 31.8, [place] % (Auto) 11.1 H, Eos % (Auto) 4.3, Baso % (Auto) 0.7, Absolute Neuts (auto) 3.0, Absolute Lymphs (auto) 1.84, Nucleated RBC % 0 03/22/19 19:30: Sodium 139, Potassium 4.0, Chloride 107, Carbon Dioxide 28.0, Anion Gap 4 L, BUN 5 L, Creatinine 0.88, Estim Creat Clear Calc 66.01, Est GFR (MDRD) Af Amer 99, Est GFR (MDRD) Non-Af 82, BUN/Creatinine Ratio 5.7 L, Glucose 77, Calcium 8.8 03/23/19 04:20: Urine Color Yellow, Urine Clarity Clear, Urine pH 6.0, Ur Specific [place] 1.010, Urine Protein Negative, Urine Glucose (UA) Normal, Urine Ketones Negative, Urine Occult Blood Negative, Urine Nitrite Negative, Urine Bilirubin Negative, Urine Urobilinogen Normal, Ur Leukocyte Esterase 25 H, Urine RBC 0-5 SEEN, Urine WBC 0 SEEN, Ur Squamous Epith Cells 0-5 SEEN, Urine Bacteria RARE, Urine Mucus 0 SEEN 03/23/19 05:48: WBC 6.1, RBC 3.76 L, Hgb 11.6 L, Hct 36.3 L, MCV 96.5, MCH 30.9, MCHC 32.0, RDW Std Deviation 46.8 H, RDW Coeff of Carmen 13.1, Plt Count 238, MPV 8.6, Immature Gran % (Auto) 0.200, Neut % (Auto) 53.7, Lymph % (Auto) 28.7, [place] % (Auto) 12.3 H, Eos % (Auto) 4.3, Baso % (Auto) 0.8, Absolute Neuts (auto) 3.3, Absolute Lymphs (auto) 1.75, Nucleated RBC % 0 03/23/19 05:48: Sodium 144, Potassium 4.2, Chloride 109 H, Carbon Dioxide 30.0, Anion Gap 5, BUN 6 L, Creatinine 0.91, Estim Creat Clear Calc 66.70, Est GFR (MDRD) Af Amer 95, Est GFR (MDRD) Non-Af 79, BUN/Creatinine Ratio 6.6 L, Glucose 79, Calcium 8.4 L 03/23/19 05:48: ESR 2 03/23/19 05:48: C-React Prot Ext Range < 2.90 Current Medications Acetaminophen (Tylenol) 650 mg PO Q6H PRN PRN PRN Reason: MILD PAIN (-10/19) Last Admin: 03/23/19 04:22 Dose: 650 mg Documented by: Dextrose (D50w Syringe) 0 gm IV X1 PRN; Protocol PRN Reason: Hypoglycemia Dicyclomine HCl (Bentyl) 10 mg PO TID [facility] Last Admin: 03/23/19 04:29 Dose: 10 mg Documented by: Enoxaparin Sodium (Lovenox) 40 mg SC DAILY@1000 SHILA Last Admin: 03/23/19 07:52 Dose: Not Given Documented by: Ergocalciferol (Vitamin D) 50,000 unit PO QWEEK@1000 SHILA Glucagon () 1 mg IM .X1 PRN PRN Reason: Hypoglycemia Hydromorphone HCl (Dilaudid Inj) 1 mg IV Q4H PRN PRN PRN Reason: SEVERE PAIN (6-10/10) Last Admin: 03/23/19 08:07 Dose: 1 mg Documented by: Clindamycin Phosphate 600 mg/ (Dextrose) 54 mls @ 100 mls/hr IV Q8 [facility] Last Admin: 03/23/19 05:36 Dose: 100 mls/hr Documented by: Ciprofloxacin (Cipro) 400 mg in 200 mls @ 200 mls/hr IV Q12 [facility] Sodium Chloride () 250 mls @ 15 mls/hr IV .[id number] PRN PRN Reason: SALINE FLUSH Ibuprofen (Motrin) 400 mg PO Q6H PRN PRN PRN Reason: MODERATE PAIN (4-5/10) Last Admin: 03/23/19 00:22 Dose: 400 mg Documented by: Nicotine (Nicoderm Cq (Pbkc)) 21 mg TRANSDERM. DAILY [facility] Last Admin: 03/23/19 08:01 Dose: 21 mg Documented by: Ondansetron HCl (Zofran) 4 mg IV Q8H PRN PRN PRN Reason: NAUSEA/VOMITING Last Admin: 03/23/19 08:06 Dose: 4 mg Documented by: Oxybutynin Chloride (Ditropan) 5 mg PO DAILY [facility] Last Admin: 03/23/19 08:01 Dose: 5 mg Documented by: Senna/Docusate Sodium (Senokot-S, Mae-Colace) 2 tablet PO BID PRN PRN PRN Reason: Constipation Last Admin: 03/22/19 22:34 Dose: 2 tablet Documented by: Sodium Chloride () 10 - 40 ml IV UD PRN PRN Reason: SALINE FLUSH Last Admin: 03/23/19 08:07 Dose: 10 ml Documented by: Venlafaxine HCl (Effexor Xr) 75 mg PO DAILY [facility] Last Admin: 03/23/19 08:01 Dose: 75 mg Documented by: Medical Necessity - Tobacco Use Smoking Status: Current every day smoker Tobacco Use: Cigarettes Assessment/Plan All Active Problems Left foot infection (Acute) Puncture wound of left foot (Acute) Pain in left foot (Acute) Cellulitis of left foot (Acute) Abdominal pain (Resolved) Clostridium difficile colitis (Resolved) Patient is a 28-year-old lady admitted with left foot pain following puncture wound with a nail 1. Left foot puncture wound from a nail suspected surrounding area of infection. Admitted to regular nursing floor patient started on Cipro and clindamycin consultation placed to podiatry. Patient has been seen by Dr. Gibbons MRI ordered for subsequent evaluation 2. Cervical cancer status post nephrectomy with subsequent chemo and radiation 3. Tobacco dependence counseled on cessation, offered nicotine patch for tobacco cravings 4. Irritable bowel syndrome symptoms controlled with Bentyl 5. Overactive bladder patient is on Ditropan 6. Depression patient is on SNRI 7. DVT prophylaxis SC Lovenox Active Medications Acetaminophen (Tylenol) 650 mg PO Q6H PRN PRN PRN Reason: MILD PAIN (1-3/10) Last Admin: 03/23/19 04:22 Dose: 650 mg Documented by: Dextrose (D50w Syringe) 0 gm IV X1 PRN; Protocol PRN Reason: Hypoglycemia Dicyclomine HCl (Bentyl) 10 mg PO TID [facility] Last Admin: 03/23/19 04:29 Dose: 10 mg Documented by: Enoxaparin Sodium (Lovenox) 40 mg SC DAILY@1000 SHILA Last Admin: 03/23/19 07:52 Dose: Not Given Documented by: Ergocalciferol (Vitamin D) 50,000 unit PO QWEEK@1000 SHILA Glucagon () 1 mg IM .X1 PRN PRN Reason: Hypoglycemia Hydromorphone HCl (Dilaudid Inj) 1 mg IV Q4H PRN PRN PRN Reason: SEVERE PAIN (6-10/10) Last Admin: 03/23/19 08:07 Dose: 1 mg Documented by: Clindamycin Phosphate 600 mg/ (Dextrose) 54 mls @ 100 mls/hr IV Q8 [facility] Last Admin: 03/23/19 05:36 Dose: 100 mls/hr Documented by: Ciprofloxacin (Cipro) 400 mg in 200 mls @ 200 mls/hr IV Q12 [facility] Sodium Chloride () 250 mls @ 15 mls/hr IV .[id number] PRN PRN Reason: SALINE FLUSH Ibuprofen (Motrin) 400 mg PO Q6H PRN PRN PRN Reason: MODERATE PAIN (4-5/10) Last Admin: 03/23/19 00:22 Dose: 400 mg Documented by: Nicotine (Nicoderm Cq (Pbkc)) 21 mg TRANSDERM. DAILY [facility] Last Admin: 03/23/19 08:01 Dose: 21 mg Documented by: Ondansetron HCl (Zofran) 4 mg IV Q8H PRN PRN PRN Reason: NAUSEA/VOMITING Last Admin: 03/23/19 08:06 Dose: 4 mg Documented by: Oxybutynin Chloride (Ditropan) 5 mg PO DAILY [facility] Last Admin: 03/23/19 08:01 Dose: 5 mg Documented by: Senna/Docusate Sodium (Senokot-S, Mae-Colace) 2 tablet PO BID PRN PRN PRN Reason: Constipation Last Admin: 03/22/19 22:34 Dose: 2 tablet Documented by: Sodium Chloride () 10 - 40 ml IV UD PRN PRN Reason: SALINE FLUSH Last Admin: 03/23/19 08:07 Dose: 10 ml Documented by: Venlafaxine HCl (Effexor Xr) 75 mg PO DAILY [facility] Last Admin: 03/23/19 08:01 Dose: 75 mg Documented by: Clinical Impression(s) from Imaging Studies Foot X-Ray 03/22/19 19:29 IMPRESSION: No radiodense foreign body is seen. No evidence of osteomyelitis or fracture. Electronically Signed: David Tang MD at 19:47 EDT Tel , Service support , Code Visit Inpatient E&M: [id number] [facility] L2
[2019-03-23] MEDS: Ciprofloxacin 400 MG/200 ML BAG 200 MG IV (10:42)
--- NOTE | 2019-03-23 11:05 | CASEMGMT ---
TINO DONALDSON Face to Face with patient for initial transition planning/care coordination assessment. RN CM introduced self and role at [facility]. Patient lying in bed, alert and oriented. Patient willing to participate in assessment and is able to answer all questions appropriately. Care providers, pharmacy, and demographics verified. Patient wishes to discharge home, with possible HHC for wound care and IV ATB. Patient states she has no further needs or concerns at this time. CM to follow for discharge planning needs that may arise. PCP: Geena Specialists: Oncologist new referral Preferred Pharmacy: [facility] Insurance: [employer] Prescription Benefit: yes Living Will/HPOA: none LNOK: father, grandmother Living Arrangements: Patient lives with family in 3 story home with bed and bath on first floor. Patient states she is independent at home. Transportation: self, family DME/HHC: Patient denies previous HHC or DME. Will monitor patient for need for HHC for wound care and/or IV ATB. Disposition Plan: Patient to discharge home with family support and follow-up plans in place. Tashia CHAO, RN, CM
[2019-03-23 13:08] LABS: Partial Thromboplast Time 28.7 Seconds (24.1-36.2); Prothrombin Time (Protime)PT. 13.1 SECONDS (11.7-14.9)
--- NOTE | 2019-03-23 16:39 | NURSING ---
called report to Jess in AC at this time.
[2019-03-23] MEDS: Bupivacaine Mpf 0.5% 30 ML VIAL (18:03)
--- NOTE | 2019-03-23 19:06 | OP.PCM_ITS ---
Problem List (1) Puncture wound of left foot Status: Acute (2) Pain in left foot Status: Acute (3) Cellulitis of left foot Status: Acute Report of Operation Date of Procedure: 03/23/19 Pre-Operative Diagnosis: Puncture wound of left foot with cellulitis Post-Operative Diagnosis: same Surgery/Procedure Performed:: Incision and drainage of left foot with debridement of any nonviable soft tissue Description of Surgical Findings:: Hemostasis controlled with well-padded ankle tourniquet The patient tolerated the procedure and anesthesia well. She was transported to PACU with vital signs stable vascular status intact to the left lower extremity. She will be transferred back to the regular medicine surgical floor upon continued stability and will continue antibiotics that her culture guided. Medical management per primary team is appreciated. Electronic orders were entered postoperatively Type of Anesthesia:: Local MAC - Preoperative injection: 10 cc of 0.5% Marcaine plain administered in typical left ankle block fashion Special Medications: Aerobic and anaerobic deep wound cultures sent to microbiology Estimated Blood Loss (mL): less 5mL Description of Procedure: Indications: This 28-year-old female with a history of cervical cancer and status post oophorectomy, and radiation, history of IBS, overactive bladder was consulted to podiatry after being admitted to the emergency room last evening for a puncture wound that the patient sustained after stepping on a nail while walking her dog Saturday evening. The patient states that the nail did have some rust. She states she tried using some Epsom salt, but has not done much else on her own to treat the area. She said the area began to hurt while bearing weight and continue to hurt over the weekend which prompted her to seek treatment on Saturday night in the emergency room. She also noticed some slight swelling and a small area of faint redness to the left foot. The patient was started on ciprofloxacin and clindamycin. The erythema and edema had slowly subsided when patient was first evaluated early this morning after spending the night in the hospital. The area was still painful to touch, most notably in the plantar aspect of the foot in the area of the puncture wound. The puncture wound had already closed over, and no drainage or openings in the skin were appreciated. Patient's WBC is 6.1 today. Patient is afebrile. X-rays taken in the emergency room last evening showed no radiodense foreign bodies and no evidence of osteomyelitis or fracture. No soft tissue emphysema. MRI was ordered this morning and read by the radiologist as showing a normal unenhanced MRI of the forefoot with no evidence of retained foreign body, no signs of osteomyelitis, and no signs of abscess. Due to the patient still having pain in the area as well as some edema, I feel it is in the patient's best interest to undergo an incision and drainage to cleanse the puncture wound site, as well as debride any nonviable soft tissue if encountered. Next, the planned surgical procedure was discussed in great detail with the patient. This was done to the patient's satisfaction. The patient agrees to proceed with the planned procedure and operation at this time for incision and drainage and debridement of all necrotic, nonviable, infected soft tissue of the left foot. All of the risks and potential complications were reviewed with the patient. She relates that she understands the importance of proper compliance following this procedure to optimize healing potential, but no guarantees were given. She is advised that the complications and risks include, but are not limited to, further infection, need for further surgeries, formation of abscess/ulcers, transfer lesions, increased deformity of feet and toes, weakness, loss of strength, loss of function, the potential for further nonhealing, delayed healing, blood clots, chronic swelling, nerve damage, severe pain, complex regional pain syndrome, need for more proximal extensive amputations such as a TMA, BKA, loss of complete limb, or even potential loss of life. All the patient's questions were answered to her satisfaction, it was then agreed upon to proceed with the above- stated procedure of the left foot. The consent form was reviewed with the patient and was freely signed. Again no guarantees were given. Description of procedure: Patient was brought in the operating room and placed on the table in the supine position. The patient was already on IV antibiotics per hospitalist. The patient received MAC anesthesia with local anesthetic. Local anesthetic block was performed in an ankle block fashion consisting of 10 mL of 0.5% Marcaine plain to the left ankle. A well-padded ankle tourniquet was then applied to the patient's left ankle. The left foot and ankle were then scrubbed prepped and draped in usual aseptic manner. A timeout was then performed and the patient was properly identified and the surgical plan was confirmed. Left ankle tourniquet was then inflated to 250 mmHg. Next attention was then directed to the plantar left foot in the area of the puncture wound. Using a #15 scalpel blade, an approximately 3.0 cm linear incision was made through the skin layer through the center of the puncture wound between the plantar distal left foot and between the third and fourth metatarsals. Dissection was carefully deepened making sure to avoid any vital neurovascular structures. Once this was done, blunt dissection was carefully performed using a curved hemostat. During this time there were multiple small metallic appearing flecks encountered and carefully removed. The surrounding tissue did not appear to be necrotic and there was no purulence encountered during dissection and probing into the 3rd intermetatarsal space. Next, due to there being a very minor area of erythema to dorsal foot to the distal 3rd intermetatarsal space, a small stab incision was made here and then bluntly dissected down using curved hemostat to make sure there was no purulence or abscess in this area. No purulence encountered. Again, all surrounding soft tissue appeared healthy and viable at this time. It was at this time that the top gloves were taken off, and the surgical site was flushed with copious amounts of normal sterile saline. Once this was complete, swab cultures were taken and sent for aerobic and anaerobic evaluation. The site was once again flushed with saline and inspected to make sure there were no more visible metallic flecks. The left ankle tourniquet was then deflated in order to ensure there were no areas of excessive bleeding. Sufficient blood flow is noted to the surgical site upon deflation of the tourniquet as well as a prompt hyperemic response to remaining digits of the left foot. The surgical site was then packed with quarter inch iodoform gauze, followed by 4 x 4's, ABDs, Kerlix, and Rajeev bandage. After the procedure: The patient tolerated the procedure and anesthesia well. She was transferred to PACU with vital signs stable and vascular status intact. She will be transferred back to the medical surgical floor upon continued stability. She was advised to continue with strict nonweightbearing to the left lower extremity, especially to forefoot, to make sure all pressure is kept off the patient's forefoot. Patient is to keep the dressing clean dry and intact. She can elevate the right lower extremity. Patient is to continue with antibiotics under the management of the hospital team. To continue DVT prophylaxis and medical management per primary team as well. I will continue to follow this patient closely while in house.
[2019-03-24] MEDS: Ciprofloxacin 400 MG/200 ML BAG 200 MG IV ×3 (00:05→21:47)
[2019-03-24 00:53] VITALS: BP 97/55; PULSE 56; RESP 16; TEMP 36.7; O2SAT 96
[2019-03-24 04:00] VITALS: BP 98/57; PULSE 64; RESP 18; TEMP 36.6; O2SAT 95
[2019-03-24] MEDS: Dicyclomine 10 MG Capsule PO ×3 (06:03→21:48)
[2019-03-24 06:54] VITALS: O2SAT 94
--- NOTE | 2019-03-24 08:08 | PCM.PN.HOSP ---
Patient Problems: Active and Suspected Problems Left foot infection (Acute) Puncture wound of left foot (Acute) Pain in left foot (Acute) Cellulitis of left foot (Acute) Subjective: Patient underwent incision and drainage of the left foot with debridement of nonviable tissue. Cultures sent results pending seen this a.m. pain is controlled awaiting for culture results Objective: GENERAL: cooperative HEENT: Atraumatic; moist oral mucosa EYES; Anicteric, Normal Conjunctiva NECK; supple, normal thyroid, RESPIRATORY: Diminished to auscultation CARDIOVASCULAR: Regular S1 S2, GI: soft, non-tender, normoactive bowel sounds, : No Renal angle tenderness; EXTREMITIES: Foot in surgical dressing MUSCULOSKELETAL: No Joint Tenderness; NEURO: Awake; no lateralizing signs. SKIN: No Rash PSYCH; Normal affect Vitals/I&O's: Vital Signs Temp Pulse Resp BP Pulse Ox 97.9 F 64 18 98/57 L 95 03/24/19 04:00 03/24/19 04:00 03/24/19 04:00 03/24/19 04:00 03/24/19 04:00 Oxygen Delivery Method Room Air Weight: 42.91 kg Body Mass Index (BMI) 20.5 Intake and Output for Last 24 Hours 03/22/19 03/23/19 03/24/19 23:59 23:59 23:59 Intake Total 1703 / 2356 872 / 872 Output Total 1110 / 1310 525 / 525 Balance 593 / 1046 347 / 347 Laboratory Results 03/23/19 12:55: PT 13.1, INR 1.0, APTT 28.7 Current Medications Acetaminophen (Tylenol) 650 mg PO Q6H PRN PRN PRN Reason: MILD PAIN (1-3/10) Last Admin: 03/23/19 04:22 Dose: 650 mg Documented by: Dextrose (D50w Syringe) 0 gm IV X1 PRN; Protocol PRN Reason: Hypoglycemia Dicyclomine HCl (Bentyl) 10 mg PO TID [facility] Last Admin: 03/24/19 06:03 Dose: 10 mg Documented by: Enoxaparin Sodium (Lovenox) 40 mg SC DAILY@1000 [facility] Last Admin: 03/23/19 07:52 Dose: Not Given Documented by: Ergocalciferol (Vitamin D) 50,000 unit PO QWEEK@1000 [facility] Glucagon () 1 mg IM .X1 PRN PRN Reason: Hypoglycemia Hydromorphone HCl (Dilaudid Inj) 1 mg IV Q4H PRN PRN PRN Reason: SEVERE PAIN (6-10/10) Last Admin: 03/23/19 23:25 Dose: 1 mg Documented by: Clindamycin Phosphate 600 mg/ (Dextrose) 54 mls @ 100 mls/hr IV Q8 ON LICENSE OF [facility] Last Admin: 03/24/19 06:03 Dose: 100 mls/hr Documented by: Ciprofloxacin (Cipro) 400 mg in 200 mls @ 200 mls/hr IV Q12 ON LICENSE OF [facility] Last Admin: 03/24/19 00:05 Dose: 200 mls/hr Documented by: Sodium Chloride () 250 mls @ 15 mls/hr IV .[id number] PRN PRN Reason: SALINE FLUSH Ibuprofen (Motrin) 400 mg PO Q6H PRN PRN PRN Reason: MODERATE PAIN (4-5/10) Last Admin: 03/23/19 00:22 Dose: 400 mg Documented by: Nicotine (Nicoderm Cq (Pbkc)) 21 mg TRANSDERM. DAILY ON LICENSE OF [facility] Last Admin: 03/23/19 08:01 Dose: 21 mg Documented by: Ondansetron HCl (Zofran) 4 mg IV Q8H PRN PRN PRN Reason: NAUSEA/VOMITING Last Admin: 03/23/19 16:26 Dose: 4 mg Documented by: Oxybutynin Chloride (Ditropan) 5 mg PO DAILY ON LICENSE OF [facility] Last Admin: 03/23/19 08:01 Dose: 5 mg Documented by: Senna/Docusate Sodium (Senokot-S, Mae-Colace) 2 tablet PO BID PRN PRN PRN Reason: Constipation Last Admin: 03/22/19 22:34 Dose: 2 tablet Documented by: Sodium Chloride () 10 - 40 ml IV UD PRN PRN Reason: SALINE FLUSH Last Admin: 03/23/19 10:42 Dose: 10 ml Documented by: Venlafaxine HCl (Effexor Xr) 75 mg PO DAILY ON LICENSE OF [facility] Last Admin: 03/23/19 08:01 Dose: 75 mg Documented by: Medical Necessity - Tobacco Use Smoking Status: Current every day smoker Tobacco Use: Cigarettes Assessment/Plan All Active Problems Left foot infection (Acute) Puncture wound of left foot (Acute) Pain in left foot (Acute) Cellulitis of left foot (Acute) Abdominal pain (Resolved) Clostridium difficile colitis (Resolved) Patient is a 28-year-old lady admitted with left foot pain following puncture wound with a nail 1. Left foot puncture wound from a nail suspected surrounding area of infection. Admitted to regular nursing floor patient started on Cipro and clindamycin consultation placed to podiatry. Patient has been seen by Dr. Gibbons MRI ordered for subsequent evaluation. Patient underwent incision and drainage of the left foot with debridement of nonviable tissue. Cultures sent results pending 2. Cervical cancer status post nephrectomy with subsequent chemo and radiation followed by oncology at [place]. 3. Tobacco dependence counseled on cessation, offered nicotine patch for tobacco cravings 4. Irritable bowel syndrome symptoms controlled with Bentyl 5. Overactive bladder patient is on Ditropan 6. Depression patient is on SNRI 7. DVT prophylaxis SC Lovenox Active Medications Acetaminophen (Tylenol) 650 mg PO Q6H PRN PRN PRN Reason: MILD PAIN (1-3) Last Admin: 03/23/19 04:22 Dose: 650 mg Documented by: Dextrose (D50w Syringe) 0 gm IV X1 PRN; Protocol PRN Reason: Hypoglycemia Dicyclomine HCl (Bentyl) 10 mg PO TID ON LICENSE OF [facility] Last Admin: 03/23/19 04:29 Dose: 10 mg Documented by: Enoxaparin Sodium (Lovenox) 40 mg SC DAILY@1000 [facility] Last Admin: 03/23/19 07:52 Dose: Not Given Documented by: Ergocalciferol (Vitamin D) 50,000 unit PO QWEEK@1000 [facility] Glucagon () 1 mg IM .X1 PRN PRN Reason: Hypoglycemia Hydromorphone HCl (Dilaudid Inj) 1 mg IV Q4H PRN PRN PRN Reason: SEVERE PAIN (6-10/10) Last Admin: 03/23/19 08:07 Dose: 1 mg Documented by: Clindamycin Phosphate 600 mg/ (Dextrose) 54 mls @ 100 mls/hr IV Q8 [facility] Last Admin: 03/23/19 05:36 Dose: 100 mls/hr Documented by: Ciprofloxacin (Cipro) 400 mg in 200 mls @ 200 mls/hr IV Q12 [facility] Sodium Chloride () 250 mls @ 15 mls/hr IV .[id number] PRN PRN Reason: SALINE FLUSH Ibuprofen (Motrin) 400 mg PO Q6H PRN PRN PRN Reason: MODERATE PAIN (4-5/10) Last Admin: 03/23/19 00:22 Dose: 400 mg Documented by: Nicotine (Nicoderm Cq (Pbkc)) 21 mg TRANSDERM. DAILY ON LICENSE OF [facility] Last Admin: 03/23/19 08:01 Dose: 21 mg Documented by: Ondansetron HCl (Zofran) 4 mg IV Q8H PRN PRN PRN Reason: NAUSEA/VOMITING Last Admin: 03/23/19 08:06 Dose: 4 mg Documented by: Oxybutynin Chloride (Ditropan) 5 mg PO DAILY ON LICENSE OF [facility] Last Admin: 03/23/19 08:01 Dose: 5 mg Documented by: Senna/Docusate Sodium (Senokot-S, Mae-Colace) 2 tablet PO BID PRN PRN PRN Reason: Constipation Last Admin: 03/22/19 22:34 Dose: 2 tablet Documented by: Sodium Chloride () 10 - 40 ml IV UD PRN PRN Reason: SALINE FLUSH Last Admin: 03/23/19 08:07 Dose: 10 ml Documented by: Venlafaxine HCl (Effexor Xr) 75 mg PO DAILY ON LICENSE OF [facility] Last Admin: 03/23/19 08:01 Dose: 75 mg Documented by: Clinical Impression(s) from Imaging Studies Foot X-Ray 03/22/19 19:29 IMPRESSION: No radiodense foreign body is seen. No evidence of osteomyelitis or fracture. Electronically Signed: David Tang MD at 19:47 EDT Tel , Service support , Lower Extremity MRI 03/23/19 06:34 IMPRESSION: Normal unenhanced MRI of the forefoot. Electronically Signed: Law Adams MD at 10:34 EDT Tel , Service support , Code Visit Inpatient E&M: 79946 Subs Hosp L2
[2019-03-24 09:30] VITALS: BP 117/69; PULSE 70; RESP 16; TEMP 36.7; O2SAT 99
[2019-03-24] MEDS: HYDROmorphone 1 MG/ML Syringe IV ×3 (09:38→21:45)
[2019-03-24] MEDS: Enoxaparin 40 MG/0.4 ML Syringe SC (09:41)
[2019-03-24] MEDS: Venlafaxine XR 75 MG Capsule PO (09:42)
[2019-03-24] MEDS: Oxybutynin 5 MG Tablet PO (09:42)
[2019-03-24] MEDS: Ondansetron 4 MG/2 ML Vial IV ×2 (09:44→21:57)
--- NOTE | 2019-03-24 11:42 | PCM.PROGNOTE ---
Patient Problems: Active and Suspected Problems Left foot infection (Acute) Puncture wound of left foot (Acute) Pain in left foot (Acute) Cellulitis of left foot (Acute) Subjective: This patient was seen resting bedside today postop day #1 S/P incision and drainage of left foot with debridement and removal of any nonviable tissue. Patient was resting comfortably in bed. States that she is feeling better today. She relates that the pain is controlled currently with her foot. She has an appetite. She currently denies any feelings of nausea, vomiting, fever, chills. - Physical Exam General: Alert, Oriented x3, Cooperative, No apparent distress Extremities: Capillary Refill Less than 3 Seconds - To all distal digits of the left foot, No Calf Tenderness - Negative Aly and Lance sign on the left, Edema - Very minor edema around surgical sites, Peripheral Pulses Normal Skin: Incision - Approximately 3 cm incision to the plantar distal foot to third interspace and stab incision to the dorsal distal foot to the third interspace are both open. Very slight amount of surrounding erythema to the dorsal incision site. No extending or streaking cellulitis. No significant increase in warmth. No purulence or malodor appreciated today. Musculoskeletal: Tenderness - With manipulation of incision sites. Neurological: Sensory exam intact to light touch and pain Psych/Mental Status: Normal Affect, Appropriate Vital Signs Temp Pulse Resp BP Pulse Ox 97.9 F 64 18 98/57 L 94 03/24/19 04:00 03/24/19 04:00 03/24/19 04:00 03/24/19 04:00 03/24/19 06:54 Oxygen Delivery Method Room Air Weight: 42.9 kg Body Mass Index (BMI) 20.5 Intake and Output for Last 24 Hours 03/22/19 03/23/19 03/24/19 23:59 23:59 23:59 Intake Total 1703 / 2356 872 / 872 Output Total 1110 / 1310 525 / 525 Balance 593 / 1046 347 / 347 Microbiology Past 72 Hours 03/23/19 18:26 Gram Stain - Final Wound Drainage - Aerobic & Anaerobic Swabs Wound Culture - Preliminary No growth-Final to follow Laboratory Tests Past 24 Hrs 03/23/19 12:55 PT 13.1 INR 1.0 APTT 28.7 Medical Necessity - Tobacco Use Smoking Status: Current every day smoker Tobacco Use: Cigarettes Assessment/Plan All Active Problems Left foot infection (Acute) Puncture wound of left foot (Acute) Pain in left foot (Acute) Cellulitis of left foot (Acute) Abdominal pain (Resolved) Clostridium difficile colitis (Resolved) Postop day #1 S/P incision and drainage of left foot with debridement/removal of nonviable tissue following nail puncture wound Pain left foot Resolving cellulitis This patient was carefully examined and evaluated again today postop day #1 S/P incision and drainage of left foot with debridement/removal of nonviable tissue following nail puncture wound this past Saturday. Patient's vital signs currently stable. Pain is currently controlled. No strikethrough appreciated outer dressings. Aerobic and anaerobic cultures taken during surgery last evening are still pending. Patient is to continue on current antibiotics. Infectious disease consult would be appreciated. The patient is to continue to be completely nonweightbearing to the left foot especially the forefoot with the assistance of a walker. She can keep leg elevated while in bed and ice as necessary. Surgical sites carefully inspected again with patient resting in bed today. Sites were carefully flushed again today with saline. Once complete, the surgical sites were then dressed with Aquacel Ag followed by 4 x 4's, ABDs, Kerlix, and an Rajeev bandage. Patient is to have dressing changed in this manner on a daily basis. Continued medical management and DVT prophylaxis appreciated by primary medical team. Podiatry will continue to follow this patient while in house.
[2019-03-24] MEDS: 0.9% NaCl Peripheral Flush Adult/Peds IV ×4 (11:45→21:58)
[2019-03-24 14:10] VITALS: BP 106/69; PULSE 72; RESP 16; TEMP 36.8; O2SAT 98
[2019-03-24] MEDS: HYDROcodone Bitartrate/Apap 5/325 Tablet PO ×2 (14:14→18:02)
[2019-03-24] MEDS: Fluconazole 100 MG Tablet 200 MG PO (16:48)
[2019-03-24] MEDS: Ibuprofen 400 MG Tablet PO (16:51)
[2019-03-24 19:47] VITALS: BP 121/78; PULSE 59; RESP 16; TEMP 36.6; O2SAT 410
[2019-03-25 01:47] VITALS: BP 101/48; PULSE 66; RESP 16; TEMP 36.7; O2SAT 99
[2019-03-25] MEDS: Dicyclomine 10 MG Capsule PO (06:36)
[2019-03-25] MEDS: HYDROcodone Bitartrate/Apap 5/325 Tablet PO (06:40)
--- NOTE | 2019-03-25 08:07 | PCM.PN.HOSP ---
Patient Problems: Active and Suspected Problems Left foot infection (Acute) Puncture wound of left foot (Acute) Pain in left foot (Acute) Cellulitis of left foot (Acute) Subjective: Patient seen remains comfortable. Pain control is optimal. Her cultures have remained negative to date. Objective: GENERAL: cooperative HEENT: Atraumatic; moist oral mucosa EYES; Anicteric, Normal Conjunctiva NECK; supple, normal thyroid, RESPIRATORY: Diminished to auscultation CARDIOVASCULAR: Regular S1 S2, GI: soft, non-tender, normoactive bowel sounds, : No Renal angle tenderness; EXTREMITIES: Foot in surgical dressing MUSCULOSKELETAL: No Joint Tenderness; NEURO: Awake; no lateralizing signs. SKIN: No Rash PSYCH; Normal affect Vitals/I&O's: Vital Signs Temp Pulse Resp BP Pulse Ox 98.0 F 66 16 101/48 L 99 03/25/19 01:47 03/25/19 01:47 03/25/19 01:47 03/25/19 01:47 03/25/19 01:47 Oxygen Delivery Method Room Air Weight: 42.9 kg Body Mass Index (BMI) 20.5 Intake and Output for Last 24 Hours 03/23/19 03/24/19 03/25/19 23:59 23:59 23:59 Intake Total 1703 / 2356 2673 / 3894 1421 / 1421 Output Total 1110 / 1310 2225 / 2925 1250 / 1250 Balance 593 / 1046 448 / 969 171 / 171 Microbiology Past 72 Hours 03/23/19 18:26 Wound Drainage - Aerobic & Anaerobic Swabs Gram Stain - Final 03/23/19 18:26 Wound Drainage - Aerobic & Anaerobic Swabs Wound Culture - Preliminary No growth-Final to follow Current Medications Acetaminophen (Tylenol) 650 mg PO Q6H PRN PRN PRN Reason: MILD PAIN (1-3/10) Last Admin: 03/23/19 04:22 Dose: 650 mg Documented by: Hydrocodone Bitart/Acetaminophen ([place] 5mg-325mg) 1 tablet PO Q4H PRN PRN PRN Reason: MOD-SEVERE PAIN (4-10/10) Last Admin: 03/25/19 06:40 Dose: 1 tablet Documented by: Dextrose (D50w Syringe) 0 gm IV X1 PRN; Protocol PRN Reason: Hypoglycemia Dicyclomine HCl (Bentyl) 10 mg PO TID [facility] Last Admin: 03/25/19 06:36 Dose: 10 mg Documented by: Enoxaparin Sodium (Lovenox) 40 mg SC DAILY@1000 [facility] Last Admin: 03/24/19 09:41 Dose: 40 mg Documented by: Ergocalciferol (Vitamin D) 50,000 unit PO QWEEK@1000 [facility] Glucagon () 1 mg IM .X1 PRN PRN Reason: Hypoglycemia Hydromorphone HCl (Dilaudid Inj) 1 mg IV Q4H PRN PRN PRN Reason: SEVERE PAIN (6-10/10) Last Admin: 03/24/19 21:45 Dose: 1 mg Documented by: Clindamycin Phosphate 600 mg/ (Dextrose) 54 mls @ 100 mls/hr IV Q8 [facility] Last Admin: 03/25/19 06:36 Dose: 100 mls/hr Documented by: Ciprofloxacin (Cipro) 400 mg in 200 mls @ 200 mls/hr IV Q12 [facility] Last Admin: 03/24/19 21:47 Dose: 200 mls/hr Documented by: Sodium Chloride () 250 mls @ 15 mls/hr IV .[id number] PRN PRN Reason: SALINE FLUSH Ibuprofen (Motrin) 400 mg PO Q6H PRN PRN PRN Reason: MODERATE PAIN (4-5/10) Last Admin: 03/24/19 16:51 Dose: 400 mg Documented by: Nicotine (Nicoderm Cq (Pbkc)) 21 mg TRANSDERM. DAILY [facility] Last Admin: 03/24/19 09:41 Dose: 21 mg Documented by: Ondansetron HCl (Zofran) 4 mg IV Q8H PRN PRN PRN Reason: NAUSEA/VOMITING Last Admin: 03/24/19 21:57 Dose: 4 mg Documented by: Oxybutynin Chloride (Ditropan) 5 mg PO DAILY [facility] Last Admin: 03/24/19 09:42 Dose: 5 mg Documented by: Senna/Docusate Sodium (Senokot-S, Mae-Colace) 2 tablet PO BID PRN PRN PRN Reason: Constipation Last Admin: 03/22/19 22:34 Dose: 2 tablet Documented by: Sodium Chloride () 10 - 40 ml IV UD PRN PRN Reason: SALINE FLUSH Last Admin: 03/24/19 21:58 Dose: 10 ml Documented by: Venlafaxine HCl (Effexor Xr) 75 mg PO DAILY [facility] Last Admin: 03/24/19 09:42 Dose: 75 mg Documented by: Medical Necessity - Tobacco Use Smoking Status: Current every day smoker Tobacco Use: Cigarettes Assessment/Plan All Active Problems Left foot infection (Acute) Puncture wound of left foot (Acute) Pain in left foot (Acute) Cellulitis of left foot (Acute) Abdominal pain (Resolved) Clostridium difficile colitis (Resolved) Patient is a 28-year-old lady admitted with left foot pain following puncture wound with a nail 1. Left foot puncture wound from a nail suspected surrounding area of infection. Admitted to regular nursing floor patient started on Cipro and clindamycin consultation placed to podiatry. Patient has been seen by Dr. Gibbons MRI ordered for subsequent evaluation. Patient underwent incision and drainage of the left foot with debridement of nonviable tissue. Cultures ;negative to date. 2. Cervical cancer status post nephrectomy with subsequent chemo and radiation followed by oncology at [place]. 3. Tobacco dependence counseled on cessation, offered nicotine patch for tobacco cravings 4. Irritable bowel syndrome symptoms controlled with Bentyl 5. Overactive bladder patient is on Ditropan 6. Depression patient is on SNRI 7. DVT prophylaxis SC Lovenox Code Visit Inpatient E&M: 69367 Subs Hosp L2
[2019-03-25 08:55] VITALS: BP 117/73; PULSE 79; RESP 16; TEMP 37.2; O2SAT 100
[2019-03-25] MEDS: Ondansetron 4 MG/2 ML Vial IV (09:05)
[2019-03-25] MEDS: HYDROmorphone 1 MG/ML Syringe IV (09:06)
[2019-03-25] MEDS: Ciprofloxacin 400 MG/200 ML BAG 200 MG IV (09:06)
[2019-03-25] MEDS: Oxybutynin 5 MG Tablet PO (09:06)
[2019-03-25] MEDS: Venlafaxine XR 75 MG Capsule PO (09:06)
[2019-03-25] MEDS: Enoxaparin 40 MG/0.4 ML Syringe SC (09:06)
--- NOTE | 2019-03-25 09:17 | DCINST_ITS ---
- Discharge Diagnoses Current Active Problems: Current Active and Chronic Problems Left foot infection (Acute) Puncture wound of left foot (Acute) Pain in left foot (Acute) Cellulitis of left foot (Acute) You will use the following diet at home:: Regular Your food should be the consistency of: Regular Discharge Activity: Return to Normal Activity Allergies/Adverse Reactions: Allergies morphine Allergy (Verified 03/05/19 18:34) Hives venom-honey bee [bee venom (honey bee)] Allergy (Verified 03/05/19 18:34) Other cisplatin Adverse Reaction (Verified 03/05/19 18:34) Other oxycodone HCl [From Percocet] Adverse Reaction (Verified 03/05/19 18:34) Nausea CISPLATIN Adverse Reaction (Uncoded 03/05/19 18:34) Other LOSS OF HEARING Medications to take at Discharge Dicyclomine HCl [Bentyl] 10 mg PO TID 02/17/19 Epinephrine 0.3 mg IM PRN PRN 02/17/19 Ergocalciferol [Vitamin D] 50,000 mg PO QWEEK 02/17/19 Oxybutynin [Ditropan] 5 mg PO DAILY 02/17/19 Potassium Gluconate 595 mg PO DAILY 02/17/19 Venlafaxine HCl [Venlafaxine HCl ER] 75 mg PO DAILY 02/17/19 Ciprofloxacin [Cipro] 500 mg PO BID #14 tab 03/25/19 Lactobacillus Acidophilus [Acidophilus] 1 tab PO BID #60 tab 03/25/19 The following prescriptions were given: Lactobacillus Acidophilus [Acidophilus] 1 tab PO BID #60 tab Transmission Status: Pending to [facility] Ciprofloxacin [Cipro] 500 mg PO BID #14 tab Transmission Status: Pending to [facility] Primary Care Physician: Korey Seay MD [Primary Care Provider] - Please follow up with your Primary Care Physician in: in 5-7 days Test Results: Test results from this visit will be discussed in further detail at your follow- up appointment, if applicable. Please Follow Up With: Kanu Gibbons DPM When: in 5-7 days Proposed Discharge Date: 03/25/19
--- NOTE | 2019-03-25 10:30 | CASEMGMT ---
TINO DONALDSON updated that patient will need FWW at discharge. TINO DONALDSON received script for FWW. TINO DONALDSON provided patient with list of DME companies and patient is agreeable to [employer]. Referral sent to [facility] and arranged for walker to be delivered to hospital prior to discharge. Patient states family will assist with dressing changes, TINO DONALDSON requested patient have family come to hospital to learn dressing changes. Patient will call family to come in and learn dressing changes. CM to continue to follow this patient and plan for a safe discharge.
--- NOTE | 2019-03-25 10:36 | PCM.DC.SUM ---
Discharge Date and Diagnosis - Problem List Patient Problems: Active and Suspected Problems Left foot infection (Acute) Puncture wound of left foot (Acute) Pain in left foot (Acute) Cellulitis of left foot (Acute) Date of Admission: 03/22/19 Date of Discharge: 03/25/19 - Primary Discharge Diagnosis Active and Suspected Problems Left foot infection (Acute) Puncture wound of left foot (Acute) Pain in left foot (Acute) Cellulitis of left foot (Acute) - Secondary Discharge Diagnosis Chronic Problems Anemia due to blood loss, chronic (Chronic) Hematuria (Chronic) due to radiation cystitis Chronic radiation cystitis (Chronic) Pelvic pain (Chronic) Cervical cancer (Chronic) treated with radiation and chemo in the past Hospital Course and Treatment Imaging Results: Clinical Impression(s) from Imaging Studies Foot X-Ray 03/22/19 19:29 IMPRESSION: No radiodense foreign body is seen. No evidence of osteomyelitis or fracture. Electronically Signed: David Tang MD at 19:47 EDT Tel , Service support , Lower Extremity MRI 03/23/19 06:34 IMPRESSION: Normal unenhanced MRI of the forefoot. Electronically Signed: Law Adams MD at 10:34 EDT Tel , Service support , Operations: None Summary of Care Provided: Patient is a 28-year-old lady admitted with left foot pain following puncture wound with a nail 1. Left foot puncture wound from a nail suspected surrounding area of infection. Admitted to regular nursing floor patient started on Cipro and clindamycin consultation placed to podiatry. Patient has been seen by Dr. Gibbons MRI ordered for subsequent evaluation. Patient underwent incision and drainage of the left foot with debridement of nonviable tissue. Cultures had remained negative to date at the time of discharge. Patient was discharged home on ciprofloxacin with instructions given to patient to follow-up with her primary care physician as well as Dr. Gibbons with podiatry in 3 to 5 days 2. Cervical cancer status post nephrectomy with subsequent chemo and radiation followed by oncology at [facility]. 3. Tobacco dependence counseled on cessation, offered nicotine patch for tobacco cravings 4. Irritable bowel syndrome symptoms controlled with Bentyl 5. Overactive bladder patient is on Ditropan 6. Depression patient is on SNRI 7. DVT prophylaxis SC Lovenox Patient Problems: Active and Suspected Problems Left foot infection (Acute) Puncture wound of left foot (Acute) Pain in left foot (Acute) Cellulitis of left foot (Acute) Objective: GENERAL: cooperative HEENT: Atraumatic; moist oral mucosa EYES; Anicteric, Normal Conjunctiva NECK; supple, normal thyroid, RESPIRATORY: Diminished to auscultation CARDIOVASCULAR: Regular S1 S2, GI: soft, non-tender, normoactive bowel sounds, : No Renal angle tenderness; EXTREMITIES: Foot in surgical dressing MUSCULOSKELETAL: No Joint Tenderness; NEURO: Awake; no lateralizing signs. SKIN: No Rash PSYCH; Normal affect - Physical Exam Vital Signs Temp Pulse Resp BP Pulse Ox 98.9 F 79 16 117/73 100 03/25/19 08:55 03/25/19 08:55 03/25/19 08:55 03/25/19 08:55 03/25/19 08:55 Oxygen Delivery Method Room Air Weight: 42.9 kg Body Mass Index (BMI) 20.5 Intake and Output for Last 24 Hours 03/23/19 03/24/19 03/25/19 23:59 23:59 23:59 Intake Total 1703 / 2356 2673 / 3894 1421 / 1421 Output Total 1110 / 1310 2225 / 2925 1250 / 1250 Balance 593 / 1046 448 / 969 171 / 171 Microbiology Past 72 Hours 03/23/19 18:26 Gram Stain - Final Wound Drainage - Aerobic & Anaerobic Swabs Wound Culture - Preliminary No growth-Final to follow Discharge Activity: Return to Normal Activity Home Medications: Medications to take at Discharge Dicyclomine HCl [Bentyl] 10 mg PO TID 02/17/19 Epinephrine 0.3 mg IM PRN PRN 02/17/19 Ergocalciferol [Vitamin D] 50,000 mg PO QWEEK 02/17/19 Oxybutynin [Ditropan] 5 mg PO DAILY 02/17/19 Potassium Gluconate 595 mg PO DAILY 02/17/19 Venlafaxine HCl [Venlafaxine HCl ER] 75 mg PO DAILY 02/17/19 Ciprofloxacin [Cipro] 500 mg PO BID #14 tab 03/25/19 Lactobacillus Acidophilus [Acidophilus] 1 tab PO BID #60 tab 03/25/19 Following Prescrptions Were Given to Patient: Lactobacillus Acidophilus [Acidophilus] 1 tab PO BID #60 tab Transmission Status: Received by [facility] Ciprofloxacin [Cipro] 500 mg PO BID #14 tab Transmission Status: Received by [facility] Primary Care Physician: Korey Seay MD [Primary Care Provider] - Please follow up with your Primary Care Physician in: in 5-7 days Please Follow Up With: Kanu Gibbons DPM When: in 5-7 days Please Follow Up With: Korey Seay MD When: 5 to 7 days Disposition: Home Minutes spent on discharge:: 35 Patient Condition:: Stable Medical Necessity - Tobacco Use Smoking Status: Current every day smoker Tobacco Use: Cigarettes Meaningful Use Info Meaningful Use Diagnoses (Choose all that apply): None applicable Code Visit Inpatient E&M: 40195 Disch Hosp
--- NOTE | 2019-03-25 12:22 | PN_ITS ---
Patient Problems: Active and Suspected Problems Left foot infection (Acute) Puncture wound of left foot (Acute) Pain in left foot (Acute) Cellulitis of left foot (Acute) Subjective: This patient was seen resting bedside today postop day #2 S/P incision and drainage of left foot with debridement and removal of any nonviable tissue. Patient was resting comfortably in bed with family members present. States that she is feeling better today again. She relates that the pain is controlled currently with her foot. She currently denies any feelings of nausea, vomiting, fever, chills. - Physical Exam General: Alert, Oriented x3, Cooperative, No apparent distress Extremities: Capillary Refill Less than 3 Seconds - Negative Aly and Lance signs on left to all distal digits of the left foot, No Calf Tenderness, Edema - Very minor edema around surgical sites, Peripheral Pulses Normal Skin: Ulcer/ Wound - Approximately 3 cm incision to the plantar distal foot to third interspace and stab incision to the dorsal distal foot to the third i nterspace are both open. Very slight amount of surrounding improving erythema to the dorsal incision site. No extending or streaking cellulitis. No significant increase in warmth. No purulence or malodor appreciated today. Musculoskeletal: Tenderness - With manipulation of incision sites Neurological: Sensory exam intact to light touch and pain Psych/Mental Status: Normal Affect, Appropriate Vital Signs Temp Pulse Resp BP Pulse Ox 98.9 F 79 16 117/73 100 03/25/19 08:55 03/25/19 08:55 03/25/19 08:55 03/25/19 08:55 03/25/19 08:55 Oxygen Delivery Method Room Air Weight: 42.9 kg Body Mass Index (BMI) 20.5 Intake and Output for Last 24 Hours 03/23/19 03/24/19 03/25/19 23:59 23:59 23:59 Intake Total 1703 / 2356 2673 / 3894 1421 / 1421 Output Total 1110 / 1310 2225 / 2925 1250 / 1250 Balance 593 / 1046 448 / 969 171 / 171 Microbiology Past 72 Hours 03/23/19 18:26 Gram Stain - Final Wound Drainage - Aerobic & Anaerobic Swabs Wound Culture - Preliminary No growth-Final to follow Medical Necessity - Tobacco Use Smoking Status: Current every day smoker Tobacco Use: Cigarettes Assessment/Plan All Active Problems Left foot infection (Acute) Puncture wound of left foot (Acute) Pain in left foot (Acute) Cellulitis of left foot (Acute) Abdominal pain (Resolved) Clostridium difficile colitis (Resolved) Postop day #1 S/P incision and drainage of left foot with debridement/removal of nonviable tissue following nail puncture wound Pain left foot Resolving cellulitis This patient was carefully examined and evaluated again today postop day #1 S/P incision and drainage of left foot with debridement/removal of nonviable tissue following nail puncture wound this past Saturday. Patient's vital signs currently stable. Pain is currently controlled. Aerobic and anaerobic cultures taken during surgery are showing no organisms. Patient is to continue on current antibiotics. The patient is to continue to be completely nonweightbearing to the left foot especially the forefoot with the assistance of a walker. She can keep leg elevated while in bed and ice as necessary. Surgical sites carefully in spected again with patient resting in bed today with family members present. Sites were carefully flushed again today with saline. Once complete, the surgical sites were then dressed with Aquacel Ag followed by 4 x 4's, ABDs, Kerlix, and an Rajeev bandage. Patient is to have dressing changed in this manner on a daily basis once discharged. Patient's family was shown how to perform dressing changes. There is to continue to monitor the area closely for any worsening signs or symptoms of local infection and were instructed to go to the emergency room again if noted. The patient will follow-up with me in approximately 1 week in office to check on progress. Podiatry will continue to follow this patient while in house.
--- NOTE | 2019-03-27 14:50 | CASEMGMT ---
TINO DONALDSON DC PHONE CALL DC DATE: 03/25/19 DC Disposition: Home Diagnosis on Discharge: Puncture wound foot LACE/STRATA: 13/ Intro role of CM to patient via phone. Reviewed dc instructions including medications. Pt states she has been keeping foot elevated but it is still swollen. RN CM reinforced taking antibiotic as ordered until completed. Also reinforce if symptoms worsen, to call PCP to be seen. Pt understands and no further questions. No care improvement suggestions were given. Madi BUCHANANN RN ACM
== END 2019-03-25 13:14 | disposition home or self-care (01) | DRG 383 ==
LOC: ED 19:24 → MS3 21:22
PROVIDERS: Podiatrist; Admitting Provider Hospitalist; Emergency Provider Emergency Medicine; Family Provider Family Medicine; PCP Family Medicine; Referring Provider Hospitalist; Visit Provider Internal Medicine
PROC: 0JCR0ZZ Extirpation of Matter from Left Foot Subcutaneous Tissue and Fascia, Open Approach (ICD-10-PCS; principal; 2019-03-23 17:15)
DX: L03.116 Cellulitis of left lower limb (principal); S91.342A Puncture wound with foreign body, left foot, initial encounter; W45.0XXA Nail entering through skin, initial encounter; Y93.K1 Activity, walking an animal; N32.81 Overactive bladder; K58.9 Irritable bowel syndrome, unspecified; Z92.3 Personal history of irradiation; Z92.21 Personal history of antineoplastic chemotherapy; Z23 Encounter for immunization; F32.9 Major depressive disorder, single episode, unspecified; C53.9 Malignant neoplasm of cervix uteri, unspecified; Z90.722 Acquired absence of ovaries, bilateral; Y84.2 Radiological procedure and radiotherapy as the cause of abnormal reaction of the patient, or of later complication, without mention of misadventure at the time of the procedure; N30.40 Irradiation cystitis without hematuria
CPT/HCPCS: 36415; 73630; 73718; 80048; 81001; 85025; 85610; 85652; 85730; 86140; 87070; 87075; 87205; 90715; 99285; J7030; J7050; A4216; J0744; J2405

== ENCOUNTER 2019-04-02 19:27 | Emergency (ER) | payer MEDICAID, SELFPAY ==
[2019-03-23 09:46] VITALS: BMI 20.5
[2019-04-02 19:27] VITALS: BP 130/84; PULSE 91; RESP 18; TEMP 36.4; O2SAT 98; BMI 19.7
[2019-04-02 19:47] VITALS: BP 124/74; PULSE 76; RESP 18; O2SAT 98
--- NOTE | 2019-04-02 20:06 | ED.VISSUMM ---
- ER Visit Summary Date of Service: 04/02/19 Chief Complaint: [Laceration left ring finger] History of Present Illness: The patient is a 28 F [presents to the emergency department with a laceration to her left ring finger that she sustained while cutting a bagel with a knife. Patient is right-hand dominant. Patient up-to-date on tetanus.] Physical Examination: [Index finger-patient has a 1 cm laceration to the distal phalanx pulp with no active bleeding. She is neurovascular intact. She has normal range of motion at the DIP and PIP joint. Neurovascular intact.] Test Results: [None indicated] Emergency Department Course and Treatment: [I discussed treatment options with patient and initially she agreed to suture repair however after further thinking about it and looking at her wound she thinks the laceration is quite small and just would prefer to have it wrapped with Steri-Strips. I certainly feel this is a reasonable option.] Treatment Plan: [Normal with primary care physician in 3 to 5 days for wound check.] Disposition: [Discharged home stable condition] Impression: [Left ring finger laceration 1 [id number] repair] This note was generated with [employer] dictation software. It may contain incorrect words, spelling, and punctuation that were not noted in review of the chart prior to signing ED Disposition - Plan for ED Patient: Referrals: Korey Seay MD [Primary Care Provider] -
--- NOTE | 2019-04-02 20:08 | ED.DEP ---
ED Disposition - Plan for ED Patient: Instructions: LACERATION, Hand, LACERATION, Small/superficial, Not sutured Referrals: Korey Seay MD [Primary Care Provider] - 3-5 Days
--- NOTE | 2019-04-02 20:22 | NURSING ---
PT REFUSED SUTURES AFTER SUTURE SET WAS SETUP AND LIDO PULLED FROM ACCUDOSE. WOUND CLEANED, PLACED 1 STERISTRIP AND INSTRUCTED ON KEEPING AREA CLEAN
[2019-04-02 20:23] VITALS: BP 124/74; PULSE 76; TEMP -7.7; TEMP 18; O2SAT 97
== END 2019-04-02 20:23 | disposition home or self-care (01) ==
LOC: ED 19:59
PROVIDERS: Emergency Provider Emergency Medicine; Family Provider Family Medicine; PCP Family Medicine
DX: S61.215A Laceration without foreign body of left ring finger without damage to nail, initial encounter (principal); W26.0XXA Contact with knife, initial encounter; Y93.9 Activity, unspecified; Y92.9 Unspecified place or not applicable; Y99.9 Unspecified external cause status; Z72.0 Tobacco use; Z79.899 Other long term (current) drug therapy; Z85.41 Personal history of malignant neoplasm of cervix uteri
CPT/HCPCS: 99282

== ENCOUNTER 2019-10-06 11:12 | Emergency (ER) | payer MEDICAID, SELFPAY ==
[2019-10-06 11:15] VITALS: BP 120/80; PULSE 99; RESP 16; TEMP 36.6; O2SAT 100; BMI 20.7
[2019-10-06 12:01] LABS: Mucous, Urine 0 SEEN /hpf (<or=2+)
[2019-10-06 12:07] LABS: Absolute Lymphocyte Count 0.79 X10^3/uL (0.83-4.51); Absolute Neutrophil Count 5.9 X10^3/uL (2.0-7.7); Basophil# 0.04 X10^3/uL; Basophil% 0.5 % (0-1); Eosinophil# 0.16 X10^3/uL; Eosinophils% 2.1 % (0-5); Hematocrit 41.3 % (37-47); Hemoglobin 13.4 g/dL (12.0-15.0); Lymphocyte # 0.79 X10^3/ul (4.0); Lymphocyte % 10.4 % (19-41); Mean Corp Hgb Conc 32.4 g/dL (32-36); Mean Corpuscular Hgb 31.2 pg (27.0-32.0); Mean Platelet Vol. 8.4 fl (6.2-12.0); Monocyte# 0.68 X10^3/uL; NRBC Flagged by Analyzer 0 % (0-5); Neutrophil # 5.88 X10^3/uL (2.7-7.7); Neutrophil % 77.6 % (47-70); Platelet Count 295 K/mm3 (150-450); RBC Distribution Width CV 13.2 % (11.6-14.6); RBC Distribution Width SD 46.3 fl (35.1-43.9); White Blood Count 7.6 K/mm3 (4.4-11.0)
[2019-10-06 12:07] LABS: Glucose, Dipstick Normal (Normal); Ketone-Dipstick Negative (Negative); Leukocyte Esterase-Dipstick 500 /ul (Negative); Nitrite-Dipstick Positive (Negative); Occult Blood-Urine 250 /ul (Negative); Protein-Dipstick 30 mg/dl (Negative); Urine Clarity Cloudy (Clear); Urine Urobilinogen 8 mg/dl (Normal)
[2019-10-06 12:08] LABS: Color, Urine AMBER (Yellow); Urine Bilirubin Dipstick 3 mg/dL (Negative)
[2019-10-06 12:15] LABS: Anion Gap 5 (5-15); BUN 9 mg/dL (7-18); BUN/Creat Ratio 10.8 RATIO (10-20); Calcium,Total 9.1 mg/dL (8.5-10.1); Chloride 107 mmol/L (98-107); Creatinine, Serum 0.84 mg/dL (0.55-1.02); EST Glomerular Filtration Rate 86 mL/min (>60); Est Glom Filt Rate - Afr Amer 104 mL/min (>60); Estimated Creatinine Clearance 68.54 ml/min; Glucose 73 mg/dL (74-106); Potassium 3.8 mmol/L (3.5-5.1); Sodium Level 140 mmol/L (136-145)
[2019-10-06] MEDS: 0.9% Normal Saline 1,000 ML 1000 ML IV (12:15)
[2019-10-06 12:16] LABS: Bacteria 2+ /hpf (None Seen); Red Blood Cells-Urine 50-100 SEEN /hpf (0-5); Squamous Epithelial Cells - UA 25-50 SEEN /hpf (5-10); White Blood Cells >100 SEEN /hpf (0-5)
[2019-10-06 12:18] LABS: Renal Epithelial Cells 0-5 SEEN /hpf (0-5); Trichomonas 0-5 SEEN /hpf (None Seen)
[2019-10-06] MEDS: HYDROmorphone 1 MG/ML Syringe IV (12:20)
[2019-10-06] MEDS: Ondansetron 4 MG/2 ML Vial IV (12:20)
[2019-10-06] MEDS: Ceftriaxone 1 GM/50 ML BAG IV (12:49)
--- NOTE | 2019-10-06 12:52 | ED.DCSUM_ITS ---
- ER Visit Summary Date of Service: 10/06/19 Chief Complaint: [Dysuria and hematuria] History of Present Illness: The patient is a 29 F [presents to the emergency department with symptoms for about a week. Patient was recently treated with Keflex but does not feel like she got better. At times will have a difficult time getting urine out and she is had blood in her urine. She is had fever up to 102 yesterday. She has had some chills. She denies any vomiting although she is had some nausea. Patient does get frequent urinary tract infections. 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 Patient's had prior appendectomy. Primary care p shania is Dr. Korey Seay.] Patient denies any back pain. Physical Examination: [HEENT-PERRLA, EOMI. Cranial nerves II through XII grossly intact. TMs clear. Mucous membranes moist. No adenopathy. Cardiovascular-regular rate and rhythm without murmur or ectopy Lungs-clear to auscultation, chest wall stable without crepitus or subcu emphysema Abdomen-normoactive bowel sounds, soft. Patient does have suprapubic tenderness on palpation. There is some mild guarding. There is no rebound, rigidity, or peritoneal signs. Extremities-intact ?4, normal range of motion, normal pulses, atraumatic] Test Results: [CBC with differential obtained showed a white count 7.6, hemoglobin 13, hematocrit 41, placed to 95. Chemistries unremarkable. U rinalysis showed 500 cassette esterase as well as positive for nitrites. Patient had greater than 100 WBCs and 50-100 RBCs. Patient specimen also contaminated with 25-50 epithelial cells. Urine culture was sent.] Emergency Department Course and Treatment: [Patient was medicated with Rocephin 1 g IV. Patient was started on Azo. Patient was given Dilaudid 1 mg IV on arrival] Treatment Plan: [Patient will be treated with Bactrim and Azo. Patient to follow-up with her primary care physician 3 to 5 days.] Disposition: [Discharge in stable condition] Impression: [Hemorrhagic cystitis] This note was generated with [employer] software. It may contain incorrect words, spelling, and punctuation that were not noted in review of the chart prior to signing ED Disposition - Plan for ED Patient: Referrals: Korey Seay MD [Primary Care Provider] -
--- NOTE | 2019-10-06 12:55 | ED.DEP ---
ED Disposition - Plan for ED Patient: Instructions: Bladder Infection, Female (Adult) Prescriptions: Smz/Tmp Ds [Bactrim Ds] 1 tab PO BID #14 tab Transmission Status: Pending to [facility] [place] Phenazopyridine HCl [Pyridium] 200 mg PO BID PRN PRN #10 tab PRN Reason: Pain Transmission Status: Pending to [facility] [place] Referrals: Korey Seay MD [Primary Care Provider] - 3-5 Days
[2019-10-06] MEDS: Phenazopyridine 95 MG Tablet 190 MG PO (13:09)
[2019-10-06 13:22] VITALS: BP 105/60; PULSE 67; RESP 12; O2SAT 98
== END 2019-10-06 13:22 | disposition home or self-care (01) ==
LOC: ED 11:43
PROVIDERS: Emergency Provider Emergency Medicine; PCP Family Medicine
DX: N30.91 Cystitis, unspecified with hematuria (principal); Z72.0 Tobacco use; Z79.899 Other long term (current) drug therapy; Z87.440 Personal history of urinary (tract) infections; Z92.3 Personal history of irradiation; Z85.41 Personal history of malignant neoplasm of cervix uteri
CPT/HCPCS: 80048; 81001; 85025; 87086; 87088; 87186; 96365; 96375; 99284; J7030; A4216; J2405

== ENCOUNTER 2019-11-06 13:10 | Emergency (ER) | payer MEDICAID, SELFPAY ==
[2019-11-06 13:11] VITALS: BP 135/93; PULSE 117; RESP 17; TEMP 37.2; O2SAT 96; BMI 22.1
[2019-11-06 13:28] LABS: Bacteria 0 SEEN /hpf (None Seen); Mucous, Urine 0 SEEN /hpf (<or=2+); Squamous Epithelial Cells - UA 0 SEEN /hpf (5-10)
--- NOTE | 2019-11-06 13:29 | ED.VISSUMM ---
- ER Visit Summary Date of Service: 11/06/19 Chief Complaint: Hematuria and dysuria History of Present Illness: The patient is a 29 F history of prior cervical cancer for which she underwent radiation the [facility]. Since that time she has intermittent interstitial cystitis and at times UTIs. She is G1, P1 Ab0. She states that she has not had a menstrual period since 7 years ago due to her ovaries being affected by the radiation. She has had prior appendectomy also. States today she had gross hematuria and discomfort. Says she is able to urinate. States this is happened before. She denies any vaginal bleeding or vaginal discharge no fever. Physical Examination: Young female no acute distress vital signs are stable she is afebrile. She does not look septic or toxic. H EENT exam unremarkable. Neck nontender no lymphadenopathy. Lungs are clear. Heart regular rhythm rate about 105 no murmur abdomen is soft and nontender normal bowel sounds no peritoneal signs. No distention. Extremities moves all 4. Calves nontender. No edema. Neurologically she is awake and alert with no focal motor deficits. Skin unremarkable. Multiple tattoos. Test Results: Urinalysis shows 25-50 white cells greater than 100 red cells and nitrates. There was no bacteria culture will be sent. This will be treated as a UTI. CBC shows shows a normal white count 8 and hemoglobin of 12. Bladder scan shows a volume of 177 post void residual. Emergency Department Course and Treatment: Patient has gross hematuria. This may or may not be secondary to UTI. She wants her blood count also checked to make sure she is not anemic. Her exam is benign. Clinically she looks well. Patient is doing well at 1421. I explained her test results. A urine culture was sent. She will be started on Keflex. Plenty of fluids at home. Follow-up with the urologist. Treatment Plan: Keflex 4 times daily for 7 days. Follow-up with urology. Disposition: Discharge Impression: Gross hematuria history of radiation induced interstitial cystitis UTI This note was generated with [employer] software. It may contain incorrect words, spelling, and punctuation that were not noted in review of the chart prior to signing ED Disposition - Plan for ED Patient: Referrals: Korey Seay MD [Primary Care Provider] -
[2019-11-06 13:33] LABS: Color, Urine Red (Yellow); Glucose, Dipstick Normal (Normal); Ketone-Dipstick 15 mg/dl (Negative); Leukocyte Esterase-Dipstick Negative /ul (Negative); Nitrite-Dipstick Positive (Negative); Occult Blood-Urine 150 /ul (Negative); Protein-Dipstick 500 mg/dl (Negative); Specific Gravity, Urine 1.015 (1.002-1.030); Urine Clarity Turbid (Clear); Urine Urobilinogen 1 mg/dl (Normal)
[2019-11-06] MEDS: Ibuprofen 600 MG Tablet PO (13:38)
[2019-11-06 13:51] LABS: Hematocrit 39.7 % (37-47); Hemoglobin 12.7 g/dL (12.0-15.0); Mean Corpuscular Hgb 30.8 pg (27.0-32.0); Mean Corpuscular Volume 96.1 fL (81-99); Mean Platelet Vol. 8.5 fl (6.2-12.0); Platelet Count 280 K/mm3 (150-450); RBC Distribution Width CV 13.6 % (11.6-14.6); RBC Distribution Width SD 47.8 fl (35.1-43.9); Red Blood Count 4.13 M/mm3 (4.2-5.4); White Blood Count 8.5 K/mm3 (4.4-11.0)
[2019-11-06 13:54] LABS: Urine Bilirubin Dipstick 3 mg/dL (Negative)
[2019-11-06 13:58] LABS: Red Blood Cells-Urine > 100 SEEN /hpf (0-5); White Blood Cells 25-50 SEEN /hpf (0-5)
--- NOTE | 2019-11-06 14:22 | ED.DEP ---
ED Disposition - Plan for ED Patient: Disposition: Home or Assisted Living Instructions: ED CYSTITIS Female Adult, ED Hematuria Prescriptions: Cephalexin [Keflex] 500 mg PO Q6 #30 cap Prescription Printed Phenazopyridine HCl [Pyridium] 200 mg PO BID PRN PRN #10 tab PRN Reason: Pain Prescription Printed Referrals: Korey Seay MD [Primary Care Provider] - 3-5 Days Ottoniel Fitch MD [STAFF PHYSICIAN] - 1 Week Additional Instructions: Follow-up with your doctor for the urine culture results or a urologist. Keflex antibiotic 1 pill 4 times a day till gone. Plenty of fluids to prevent urinary retention. Return to the emergency department if unable to urinate.
[2019-11-06] MEDS: Cephalexin 250 MG Capsule 500 MG PO (14:34)
[2019-11-06 14:36] VITALS: RESP 18
== END 2019-11-06 14:36 | disposition home or self-care (01) ==
PROVIDERS: Emergency Provider Emergency Medicine; PCP Family Medicine
DX: N39.0 Urinary tract infection, site not specified (principal); R31.0 Gross hematuria; F32.9 Major depressive disorder, single episode, unspecified; Z72.0 Tobacco use; Z79.899 Other long term (current) drug therapy; Z85.41 Personal history of malignant neoplasm of cervix uteri; Z92.3 Personal history of irradiation
CPT/HCPCS: 81001; 85027; 87086; 87088; 99284; A4216

== ENCOUNTER 2020-01-02 14:53 | Emergency (ER) | payer MEDICAID, SELFPAY ==
[2020-01-02 14:54] VITALS: BP 115/84; PULSE 86; RESP 16; TEMP 36.8; O2SAT 97; BMI 21.8
--- NOTE | 2020-01-02 15:13 | ED.VIS.GEN ---
History of Present Illness Chief Complaint: Complaint Informant: Patient Onset: Days - 3 Context: Gradual Onset Timing: Continuous Quality: burning, cramping Location: suprapubic/ bladder Current Severity: Mild Maximum Severity: Moderate Worsened by: urinating Relieved by: pyridium Associated Symptoms: fever today Narrative: Patient states he has a history of radiation cystitis and feels like she is having another infection which she is prone to. She had a lot of bladder spasms, states she is on medication for that, but she could not get in yesterday to get an antibiotic from her doctor. She started having fevers today. She has had urinary frequency, urgency, trouble emptying her bladder, and intermittent hematuria. Earlier she had urinary retention, but she was able to urinate out a small blood clot, which seemed to resolve that temporarily but she is still urinating blood. She states this is not uncommon for when she gets infections. She is on no prophylactic antibiotics. Pain does radiate into her back from her suprapubic area. No nausea or vomiting. - Past Medical History (1) Anemia due to blood loss, chronic Status: Chronic (2) Cervical cancer Status: Resolved Comment: treated with radiation and chemo in the past (3) Chronic radiation cystitis Status: Chronic Past Medical History - Allergies and Home Meds Allergies/Adverse Reactions: Allergies morphine Allergy (Verified 01/02/20 14:54) Hives venom-honey bee [bee venom (honey bee)] Allergy (Verified 01/02/20 14:54) Other cisplatin Adverse Reaction (Verified 01/02/20 14:54) Other oxycodone HCl [From Percocet] Adverse Reaction (Verified 01/02/20 14:54) Nausea CISPLATIN Adverse Reaction (Uncoded 01/02/20 14:54) Other LOSS OF HEARING Primary Care Physician: Korey Seay MD [Primary Care Provider] - 3-5 Days if not improving Surgical History: appendectomy, tonsillectomy, - - Oophorectomy BL Smoking Status: Current every day smoker - Family History Maternal Family History: Reports: Cancer, Heart Disease Paternal Family History: Reports: - - Parkinson disease Review of Systems General: Reports: Fever, Subjective. Denies: Chills, Sweats Eyes: Denies: Visual changes - bilaterally, Diplopia ENT: Denies: Rhinorrhea, Sore throat Cardiovascular: Denies: Chest pain, Palpitations Respiratory: Denies: Dyspnea, Cough, Dyspnea on exertion Gastrointestinal: Reports: Abdominal pain. Denies: Nausea, Vomiting, Diarrhea, Melena, Hematochezia Genitourinary: Reports: Dysuria, Hematuria, Frequency Musculoskeletal: Reports: Back pain. Denies: Extremity Pain Skin: Denies: Rash, Wounds Neurological: Denies: Headache, Weakness, Numbness Physical Exam Vital Signs/Narrative: Vital Signs Temp Pulse Resp BP Pulse Ox 01/02/20 14:54 98.2 F 86 16 115/84 H 97 Inital Vital Signs reviewed: Yes General: Well nourished, Well developed, No Acute Distress - Well-appearing, conversive in full sentences, able to sit up in bed without any difficulty. Head: Normocephalic, Atraumatic Eyes: Perrl, EOMI ENT: Moist mucous membranes, No rhinorrhea Neck: Supple, Nontender Cardiovascular: Regular rate, Regular rhythm, No murmurs. Negative for: Tachycardia Respiratory: No distress, CTA bilaterally, Chest nontender Abdomen: Soft, Nondistended, Normal bowel sounds, No masses, Tender - Suprapubic only. Negative for: Guarding, Rebound tenderness Back: Nontender, Normal Inspection. Negative for: CVA tenderness Extremities: Nontender, No edema Skin: Normal color, No rash, No Trauma Neurological: Alert, Oriented x3, Cranial nerves II-XII grossly intact, Normal Strength, Normal Sensation, Normal Gait Psychological: Normal affect, Normal Mood Diagnostic/Tx/Re-eval Laboratory Tests 01/02/20 01/02/20 Range/Units 15:25 15:25 Urine Color Yellow (Yellow) Urine Clarity Sl. Cloudy (Clear) Urine pH 6.0 (5.0 - 8.0) Ur Specific [place] 1.020 (1.002-1.030) Urine Protein 15 H (Negative) mg/dl Urine Glucose (UA) Normal (Normal) mg/dl Urine Ketones 5 H (Negative) mg/dl Urine Occult Blood 10 H (Negative) /ul Urine Nitrite Negative (Negative) Urine Bilirubin Negative (Negative) mg/dL Urine Urobilinogen 1 H (Normal) mg/dl Ur Leukocyte Esterase 100 H (Negative) /ul Urine RBC 0-5 SEEN (0-5) /hpf Urine WBC 10-25 SEEN (0-5) /hpf Ur Squamous Epith Cells 5-10 SEEN (5-10) /hpf Amorphous Sediment 1+ PHOS Urine Bacteria 0 SEEN (None Seen) /hpf Urine Mucus 2+ (<or=2+) /hpf Urine Test Negative Negative - Medical Decision Making Urinalysis consistent with infection, culture sent, patient states she has been on cephalexin for this many times and it usually takes care of it, she prefers to try that first with a GI think is fine. I do not think she has pyelonephritis. She has no fever here, and she examines very benignly. Started on cephalexin and advised to follow-up or return if worse. She is comfortable with that plan. ED Disposition - Plan for ED Patient: Disposition: Home or Assisted Living Diagnosis: Acute hemorrhagic cystitis Instructions: ED CYSTITIS Female Adult Prescriptions: Cephalexin [Keflex] 500 mg PO 4X/DAY #28 cap Transmission Status: Received by [facility] Phenazopyridine HCl [Pyridium] 200 mg PO BID PRN PRN #10 tab PRN Reason: Pain Transmission Status: Pending to [facility] Referrals: Korey Seay MD [Primary Care Provider] - 3-5 Days if not improving
[2020-01-02 15:34] LABS: Bacteria 0 SEEN /hpf (None Seen)
[2020-01-02 15:37] LABS: Color, Urine Yellow (Yellow); Glucose, Dipstick Normal (Normal); Ketone-Dipstick 5 mg/dl (Negative); Leukocyte Esterase-Dipstick 100 /ul (Negative); Nitrite-Dipstick Negative (Negative); Occult Blood-Urine 10 /ul (Negative); Protein-Dipstick 15 mg/dl (Negative); Urine Bilirubin Dipstick Negative (Negative); Urine Clarity Sl. Cloudy (Clear); Urine Urobilinogen 1 mg/dl (Normal)
[2020-01-02 15:46] LABS: Internal QC Validated? YES +Cl - CLEAR BKGD; Pregnancy, Urine Negative Negative
[2020-01-02 15:54] LABS: Amorphous Sediment 1+ PHOS; Mucous, Urine 2+ /hpf (<or=2+); Red Blood Cells-Urine 0-5 SEEN /hpf (0-5); Squamous Epithelial Cells - UA 5-10 SEEN /hpf (5-10); White Blood Cells 10-25 SEEN /hpf (0-5)
[2020-01-02] MEDS: Cephalexin 250 MG Capsule 500 MG PO (16:44)
== END 2020-01-02 16:48 | disposition home or self-care (01) ==
PROVIDERS: Emergency Provider Emergency Medicine; PCP Family Medicine
DX: N30.01 Acute cystitis with hematuria (principal); D50.0 Iron deficiency anemia secondary to blood loss (chronic); R33.9 Retention of urine, unspecified; N32.89 Other specified disorders of bladder; F17.200 Nicotine dependence, unspecified, uncomplicated; Z79.899 Other long term (current) drug therapy; Z88.5 Allergy status to narcotic agent; Z92.3 Personal history of irradiation; Z85.41 Personal history of malignant neoplasm of cervix uteri; Z92.21 Personal history of antineoplastic chemotherapy
CPT/HCPCS: 81001; 81025; 87086; 87088; 99283

== ENCOUNTER 2020-01-14 17:29 | Emergency (ER) | payer MEDICAID, SELFPAY ==
[2020-01-14 17:30] VITALS: BP 145/89; PULSE 99; RESP 16; TEMP 36.6; O2SAT 97; BMI 22.0
--- NOTE | 2020-01-14 17:42 | ED.DCSUM_ITS ---
- ER Visit Summary Date of Service: 01/14/20 Chief Complaint: [Abdominal pain] History of Present Illness: The patient is a 29 F [presents to the emergency department with complaint of abdominal pain that started weeks ago. Patient complains of frequent urination. She is been on Keflex for 6 months. Patient complains of blood in her urine. Patient states that she has a history of cervical cancer with prior radiation which caused radiation joe in her bladder. Patient went to urgent care today and they referred her to the emergency department because of the hematuria. Patient has had prior transfusions related to anemia from her hematuria. Patient had fever up to 101 yesterday. Patient denies any cough or sore throat. She complains of pain in her kidneys.] Patient has had prior bilateral oophorectomy as well as appendectomy. Physical Examination: HEENT-PERRLA, EOMI. Cranial nerves II through XII grossly intact. TMs clear. Mucous membranes moist. No adenopathy. Cardiovascular-regular rate and rhythm without murmur or ectopy Lungs-clear to auscultation, chest wall stable without crepitus or subcu emphysema Abdomen-normoactive bowel sounds, soft. Patient has tenderness diffusely over the lower abdomen. There is no rebound, rigidity, or peritoneal signs. Patient has bilateral flank pain. Extremities-intact ?4, normal range of motion, normal pulses, atraumatic [] Test Results: [CBC with differential obtained showing a 7.0, hemoglobin 13, hematocrit 41, placed 337. Chemistries unremarkable. Urinalysis was positive for 100 cassette esterase, negative nitrites, 50-100 WBCs, 5-10 RBCs, 0 bacteria] Emergency Department Course and Treatment: Patient was given Rocephin 1 g IV.] Received Toradol and Azo Treatment Plan: [Patient will be treated with Bactrim. Patient given Pyridium. Patient to follow-up with her primary care physician in 3 to 5 days to get her culture results and for repeat evaluation. Patient advised to return if worsening pain, fever, vomiting, or conditions worsen anyway.] Disposition: [Discharged home in stable condition] Impression: [UTI] This note was generated with [employer] dictation software. It may contain incorrect words, spelling, and punctuation that were not noted in review of the chart prior to signing ED Disposition - Plan for ED Patient: Referrals: Korey Seay MD [Primary Care Provider] -
[2020-01-14] MEDS: 0.9% Normal Saline 1,000 ML 1000 ML IV (18:15)
[2020-01-14] MEDS: Ketorolac 30 MG/ML Syringe IV (18:20)
[2020-01-14] MEDS: Phenazopyridine 95 MG Tablet 190 MG PO (18:20)
[2020-01-14 18:26] LABS: Bacteria 0 SEEN /hpf (None Seen)
[2020-01-14 18:34] LABS: Absolute Lymphocyte Count 1.56 X10^3/uL (0.83-4.51); Absolute Neutrophil Count 4.5 X10^3/uL (2.0-7.7); Basophil# 0.05 X10^3/uL; Basophil% 0.7 % (0-1); Eosinophil# 0.11 X10^3/uL; Eosinophils% 1.6 % (0-5); Hematocrit 41.3 % (37-47); Hemoglobin 13.1 g/dL (12.0-15.0); Lymphocyte # 1.56 X10^3/ul (4.0); Lymphocyte % 22.3 % (19-41); Mean Corp Hgb Conc 31.7 g/dL (32-36); Mean Corpuscular Hgb 30.6 pg (27.0-32.0); Mean Corpuscular Volume 96.5 fL (81-99); Mean Platelet Vol. 8.7 fl (6.2-12.0); Monocyte# 0.73 X10^3/uL; Monocyte% 10.4 % (0-10); NRBC Flagged by Analyzer 0 % (0-5); Neutrophil # 4.53 X10^3/uL (2.7-7.7); Neutrophil % 64.7 % (47-70); Platelet Count 337 K/mm3 (150-450); RBC Distribution Width SD 45.7 fl (35.1-43.9); Red Blood Count 4.28 M/mm3 (4.2-5.4)
[2020-01-14 18:42] LABS: Anion Gap 6 (5-15); BUN 13 mg/dL (7-18); BUN/Creat Ratio 15.8 RATIO (10-20); Chloride 106 mmol/L (98-107); Creatinine, Serum 0.82 mg/dL (0.55-1.02); EST Glomerular Filtration Rate 88 mL/min (>60); Est Glom Filt Rate - Afr Amer 106 mL/min (>60); Glucose 91 mg/dL (74-106); Potassium 3.8 mmol/L (3.5-5.1); Sodium Level 141 mmol/L (136-145)
[2020-01-14 18:43] LABS: Lactic Acid 0.8 mmol/L (0.4-1.9)
[2020-01-14 18:58] LABS: Color, Urine Yellow (Yellow); Glucose, Dipstick Normal (Normal); Ketone-Dipstick 5 mg/dl (Negative); Leukocyte Esterase-Dipstick 100 /ul (Negative); Nitrite-Dipstick Negative (Negative); Occult Blood-Urine 250 /ul (Negative); Protein-Dipstick 15 mg/dl (Negative); Urine Bilirubin Dipstick Negative (Negative); Urine Clarity Cloudy (Clear); Urine Urobilinogen 1 mg/dl (Normal)
[2020-01-14 19:10] LABS: Mucous, Urine 3+ /hpf (<or=2+)
[2020-01-14 19:13] LABS: Red Blood Cells-Urine 5-10 SEEN /hpf (0-5); White Blood Cells 50-100 SEEN /hpf (0-5)
[2020-01-14 19:15] LABS: Squamous Epithelial Cells - UA 5-10 SEEN /hpf (5-10)
--- NOTE | 2020-01-14 19:31 | ED.DEP ---
ED Disposition - Plan for ED Patient: Instructions: ED CYSTITIS Female Adult Prescriptions: Smz/Tmp Ds [Bactrim Ds] 1 tab PO BID #14 tab Prescription Printed Phenazopyridine HCl [Pyridium] 200 mg PO BID PRN PRN #10 tab PRN Reason: Pain Prescription Printed Referrals: Korey Seay MD [Primary Care Provider] - 3-5 Days
[2020-01-14] MEDS: Ceftriaxone 1 GM/50 ML BAG IV (20:14)
[2020-01-14 20:15] VITALS: BP 123/76; PULSE 60; RESP 14; O2SAT 100
== END 2020-01-14 20:59 | disposition home or self-care (01) ==
LOC: ED 18:46
PROVIDERS: Emergency Provider Emergency Medicine; PCP Family Medicine
DX: N39.0 Urinary tract infection, site not specified (principal); R31.9 Hematuria, unspecified; D64.9 Anemia, unspecified; Z72.0 Tobacco use; Z85.41 Personal history of malignant neoplasm of cervix uteri; Z92.3 Personal history of irradiation
CPT/HCPCS: 80048; 81001; 83605; 85025; 87086; 87088; 96361; 96365; 96375; 99283; J7030; J7050

== ENCOUNTER 2020-04-25 08:10 | Emergency (ER) | payer MEDICAID, SELFPAY ==
[2020-04-25 08:11] VITALS: BP 144/88; PULSE 59; RESP 17; TEMP 36.4; O2SAT 100; BMI 22.2
--- NOTE | 2020-04-25 08:36 | ED.DCSUM_ITS ---
History of Present Illness Chief Complaint: Abd Pain Informant: Patient - Abdominal Pain/Flank Pain Onset: Today - sev hrs Context: Sudden Onset Timing: Waxes and wanes Quality: Aching Location: - - medial LLQ Current Severity: Severe Maximum Severity: Severe Worsened by: Nothing Relieved by: Nothing - Nausea/Vomiting/Emesis GI Symptom: Nausea, Vomiting Onset: Today Quality: Nonbilious. Negative for: Blood streaks - Diarrhea/Melena/Hematochezia GI Symptom: Negative for: Diarrhea, Melena, Hematochezia Associated Symptoms: Negative for: Dysuria, Frequency, Hematuria, Urgency Narrative: Patient states she had this pain is started relatively suddenly this morning and has been severe. Radiates down her anterior left thigh and around to her left flank and low back. No known history of kidney stones. States she has had multiple surgeries in her abdomen but cannot tell me anything about them except for an appendectomy laparoscopies. Does have a history of endometriosis. Does have a history of cervical cancer that is in remission, but not sure what surgery she had for it. Also states she has had issues with ovarian cysts in the past but cannot comment on any details. Prior similar symptoms: Yes - but not sure with what - Past Medical History (1) Ovarian cyst Status: Chronic (2) Cervical cancer Status: Resolved Comment: treated with radiation and chemo in the past (3) Clostridium difficile colitis Status: Chronic Past Medical History - Allergies and Home Meds Allergies/Adverse Reactions: Allergies morphine Allergy (Verified 01/02/20 14:54) Hives venom-honey bee [bee venom (honey bee)] Allergy (Verified 01/02/20 14:54) Other cisplatin Adverse Reaction (Verified 01/02/20 14:54) Other oxycodone HCl [From Percocet] Adverse Reaction (Verified 01/02/20 14:54) Nausea Primary Care Physician: Korey Seay MD [Primary Care Provider] - Surgical History: appendectomy, tonsillectomy, - - Oophorectomy BL Smoking Status: Current every day smoker - Family History Maternal Family History: Reports: Cancer, Heart Disease Paternal Family History: Reports: - - Parkinson disease Review of Systems General: Denies: Chills, Fever, Sweats Eyes: Denies: Visual changes - bilaterally, Diplopia ENT: Denies: Rhinorrhea, Sore throat Cardiovascular: Denies: Chest pain, Palpitations Respiratory: Denies: Dyspnea, Cough, Dyspnea on exertion Gastrointestinal: Reports: Abdominal pain, Nausea, Vomiting. Denies: Diarrhea, Melena, Hematochezia Genitourinary: Denies: Dysuria, Hematuria, Frequency Musculoskeletal: Reports: Back pain, Extremity Pain. Denies: Myalgias, Neck pain, Swelling Skin: Denies: Rash, Wounds Neurological: Denies: Headache, Weakness, Numbness Physical Exam Vital Signs/Narrative: Vital Signs Temp Pulse Resp BP Pulse Ox 04/25/20 08:11 97.6 F L 59 L 17 144/88 H 100 Inital Vital Signs reviewed: Yes General: Well nourished, Well developed, Acute Distress - Painful. In position. Able to move around okay. Head: Normocephalic, Atraumatic Eyes: Perrl, EOMI ENT: Moist mucous membranes, No rhinorrhea Neck: Supple, Nontender Cardiovascular: Regular rate, Regular rhythm, No murmurs. Negative for: Tachycardia Respiratory: No distress, CTA bilaterally, Chest nontender Abdomen: Soft, Nondistended, Normal bowel sounds, Tender - Left lower quadrant, left upper quadrant and epigastrium less so, Guarding - Voluntary. Negative for: Rebound tenderness Back: Normal Inspection, CVA tenderness - Left only. Negative for: Spinal tenderness Extremities: Nontender, No edema Skin: Normal color, No rash, No Trauma Neurological: Alert, Oriented x3, Cranial nerves II-XII grossly intact, Normal Strength, Normal Sensation Psychological: Normal Mood, Agitated Diagnostic/Tx/Re-eval Impressions Abdomen/Pelvis CT 04/25/20 09:18 IMPRESSION: Stable presacral soft tissue prominence in the perirectal soft tissue swelling most likely secondary to prior radiation therapy. This is unchanged. Electronically Signed: Maverick Us, at 9:41 EDT , Service support , 04/25/20 09:18 Abdomen/Pelvis without Cont [CT] Stat Laboratory Results 04/25/20 04/25/20 04/25/20 08:50 08:50 08:50 WBC 13.4 H RBC 4.56 Hgb 14.1 Hct 43.5 MCV 95.4 MCH 30.9 MCHC 32.4 RDW Std Deviation 47.2 H RDW Coeff of Carmen 13.3 Plt Count 311 MPV 8.8 Immature Gran % (Auto) 0.400 Neut % (Auto) 80.1 H Lymph % (Auto) 12.7 L [place] % (Auto) 5.2 Eos % (Auto) 1.2 Baso % (Auto) 0.4 Absolute Neuts (auto) 10.7 H Absolute Lymphs (auto) 1.71 Nucleated RBC % 0 Sodium 142 Potassium 3.9 Chloride 108 H Carbon Dioxide 30.0 Anion Gap 4 L BUN 12 Creatinine 0.87 Estim Creat Clear Calc 70.19 Est GFR (MDRD) Af Amer 99 Est GFR (MDRD) Non-Af 82 BUN/Creatinine Ratio 13.8 Glucose 96 Calcium 9.1 Serum , Qual NEGATIVE Urine Color Urine Clarity Urine pH Ur Specific [place] Urine Protein Urine Glucose (UA) Urine Ketones Urine Occult Blood Urine Nitrite Urine Bilirubin Urine Urobilinogen Ur Leukocyte Esterase Urine RBC Urine WBC Ur Squamous Epith Cells Urine Bacteria Urine Mucus 04/25/20 10:50 WBC RBC Hgb Hct MCV MCH MCHC RDW Std Deviation RDW Coeff of Carmen Plt Count MPV Immature Gran % (Auto) Neut % (Auto) Lymph % (Auto) [place] % (Auto) Eos % (Auto) Baso % (Auto) Absolute Neuts (auto) Absolute Lymphs (auto) Nucleated RBC % Sodium Potassium Chloride Carbon Dioxide Anion Gap BUN Creatinine Estim Creat Clear Calc Est GFR (MDRD) Af Amer Est GFR (MDRD) Non-Af BUN/Creatinine Ratio Glucose Calcium Serum , Qual Urine Color Yellow Urine Clarity Sl. Cloudy Urine pH 6.0 Ur Specific [place] 1.020 Urine Protein 30 H Urine Glucose (UA) Normal Urine Ketones 5 H Urine Occult Blood 10 H Urine Nitrite Negative Urine Bilirubin Negative Urine Urobilinogen 1 H Ur Leukocyte Esterase 25 H Urine RBC 0-5 SEEN Urine WBC 0-5 SEEN Ur Squamous Epith Cells 0-5 SEEN Urine Bacteria 1+ Urine Mucus 2+ - Medical Decision Making CT shows nothing acute. Patient was initially given Toradol and Zofran, she states that she went to the bathroom to have a bowel movement was able to this time, small amount came out but she passed a lot of flatus, and shortly thereafter felt much better and her pain was most completely gone. She feels a little nauseous still but she appears and feels much improved. Since she did not have any signs of colitis on the CT, I do not think she need specific treatment for this right now. She wonders if it is something that she ate, the differential also includes other chronic disorders. If that is the case, she may continue to have symptoms and should follow-up for possible colonoscopy. For now, I am okay with symptomatic treatment and follow-up with her PCP. For these reasons, I do not think we need to do an ultrasound to rule out torsion of an ovary. She agrees and is comfortable with this overall plan and wants to go home. ED Disposition - Plan for ED Patient: Disposition: Home or Assisted Living Diagnosis: Pelvic pain Instructions: ED Abdominal Pain Unkn Cause Fem Prescriptions: proMETHazine tablet [Phenergan tablet] 25 mg PO Q6H PRN PRN #12 tab PRN Reason: Nausea Transmission Status: Pending to [facility]30 Referrals: Korey Seay MD [Primary Care Provider] - 3-5 Days if not improving
[2020-04-25 08:56] LABS: Absolute Lymphocyte Count 1.71 X10^3/uL (0.83-4.51); Absolute Neutrophil Count 10.7 X10^3/uL (2.0-7.7); Basophil# 0.05 X10^3/uL; Basophil% 0.4 % (0-1); Eosinophil# 0.16 X10^3/uL; Eosinophils% 1.2 % (0-5); Hematocrit 43.5 % (37-47); Hemoglobin 14.1 g/dL (12.0-15.0); Lymphocyte # 1.71 X10^3/ul (4.0); Lymphocyte % 12.7 % (19-41); Mean Corp Hgb Conc 32.4 g/dL (32-36); Mean Corpuscular Hgb 30.9 pg (27.0-32.0); Mean Corpuscular Volume 95.4 fL (81-99); Mean Platelet Vol. 8.8 fl (6.2-12.0); Monocyte% 5.2 % (0-10); NRBC Flagged by Analyzer 0 % (0-5); Neutrophil # 10.74 X10^3/uL (2.7-7.7); Neutrophil % 80.1 % (47-70); Platelet Count 311 K/mm3 (150-450); RBC Distribution Width CV 13.3 % (11.6-14.6); RBC Distribution Width SD 47.2 fl (35.1-43.9); Red Blood Count 4.56 M/mm3 (4.2-5.4); White Blood Count 13.4 K/mm3 (4.4-11.0)
[2020-04-25] MEDS: Ketorolac 30 MG/ML Syringe IV (09:06)
[2020-04-25] MEDS: Ondansetron 4 MG/2 ML Vial IV (09:06)
[2020-04-25 09:07] LABS: Internal QC Validated? YES +Cl - CLEAR BKGD; Pregnancy, Serum, hCG Quali. NEGATIVE Negative
[2020-04-25] MEDS: 0.9% Normal Saline 1,000 ML 1000 ML IV (09:07)
[2020-04-25 09:13] LABS: Anion Gap 4 (5-15); BUN 12 mg/dL (7-18); BUN/Creat Ratio 13.8 RATIO (10-20); Calcium,Total 9.1 mg/dL (8.5-10.1); Chloride 108 mmol/L (98-107); Creatinine, Serum 0.87 mg/dL (0.55-1.02); EST Glomerular Filtration Rate 82 mL/min (>60); Est Glom Filt Rate - Afr Amer 99 mL/min (>60); Estimated Creatinine Clearance 70.19 ml/min; Glucose 96 mg/dL (74-106); Potassium 3.9 mmol/L (3.5-5.1); Sodium Level 142 mmol/L (136-145)
--- NOTE | 2020-04-25 09:18 | CT_ITS ---
STUDY: CT ABDOMEN AND PELVIS WITHOUT CONTRAST REASON FOR EXAM: Female, 30 years old. ABD PAIN,N/V/D. Hx of cervical ca. htn asthma ibs colitis and appy RADIATION DOSAGE (If Supplied By Facility): CTDIvol = ( 6.04 ) mGy, DLP = ( 283.89 ) mGycm TECHNIQUE: Transaxial images were obtained from the dome of the diaphragm to the symphysis pubis without oral contrast, and without intravenous contrast. Sagittal and coronal images were reconstructed. Individualized dose optimization techniques were used for this CT. COMPARISON: Comparison is made with prior examination dated 03/05/2019 and 12/01/2017. FINDINGS: The visualized lung bases are unremarkable. The visualized portions of the heart are within normal limits. Normal liver. Normal gallbladder and extrahepatic biliary system. Normal spleen. Normal pancreas. Normal bilateral adrenal glands. Normal right kidney. Normal left kidney. Normal visualized stomach. Normal small intestine. Normal colon. There are surgical clips in the region of the appendix consistent with a prior appendectomy. Normal abdominal aorta. Normal inferior vena cava. Normal retroperitoneum. The urinary bladder is empty at the time of the examination. Stable presacral and perirectal soft tissue swelling most likely secondary to prior radiation therapy. Normal abdominal wall. Normal osseous structures. CT/Abdomen/Pelvis without Cont IMPRESSION: Stable presacral soft tissue prominence in the perirectal soft tissue swelling most likely secondary to prior radiation therapy. This is unchanged. Electronically Signed: Maverick Us, at 9:41 EDT , Service support ,
[2020-04-25 11:04] LABS: Color, Urine Yellow (Yellow); Glucose, Dipstick Normal (Normal); Ketone-Dipstick 5 mg/dl (Negative); Leukocyte Esterase-Dipstick 25 /ul (Negative); Nitrite-Dipstick Negative (Negative); Occult Blood-Urine 10 /ul (Negative); Protein-Dipstick 30 mg/dl (Negative); Urine Bilirubin Dipstick Negative (Negative); Urine Clarity Sl. Cloudy (Clear); Urine Urobilinogen 1 mg/dl (Normal)
[2020-04-25 11:12] LABS: Bacteria 1+ /hpf (None Seen); Mucous, Urine 2+ /hpf (<or=2+); Red Blood Cells-Urine 0-5 SEEN /hpf (0-5); Squamous Epithelial Cells - UA 0-5 SEEN /hpf (5-10); White Blood Cells 0-5 SEEN /hpf (0-5)
[2020-04-25 12:03] VITALS: BP 108/55; PULSE 61; RESP 16; O2SAT 95
== END 2020-04-25 12:18 | disposition home or self-care (01) ==
PROVIDERS: Emergency Provider Emergency Medicine; PCP Family Medicine
DX: R10.2 Pelvic and perineal pain (principal); R11.2 Nausea with vomiting, unspecified; F17.200 Nicotine dependence, unspecified, uncomplicated; Z79.899 Other long term (current) drug therapy; Z85.41 Personal history of malignant neoplasm of cervix uteri; Z92.3 Personal history of irradiation; Z92.21 Personal history of antineoplastic chemotherapy
CPT/HCPCS: 74176; 80048; 81001; 84703; 85025; 96361; 96374; 96375; 99283; J7030; A4216; J2405

== ENCOUNTER 2020-11-01 19:50 | Emergency (ER) | payer MEDICAID, SELFPAY ==
[2020-11-01 19:53] VITALS: BP 133/73; PULSE 112; RESP 14; TEMP 35.6; O2SAT 96; BMI 20.2
--- NOTE | 2020-11-01 20:08 | ED.DCSUM_ITS ---
History of Present Illness Chief Complaint: Abd Pain Informant: Patient - Abdominal Pain/Flank Pain Onset: Days - 4 Context: Gradual Onset Timing: Waxes and wanes Quality: Cramping Location: Diffuse - lower abdomen Current Severity: Moderate Maximum Severity: Severe Worsened by: - - before diarrhea Relieved by: Nothing - Nausea/Vomiting/Emesis GI Symptom: Nausea. Negative for: Vomiting - Diarrhea/Melena/Hematochezia GI Symptom: Diarrhea - like coffee, Hematochezia - minor off and on. Negative for: Melena Onset: Days - 4 Severity: Severe - 5-10 per day approx Associated Symptoms: Frequency, Hematuria - off and on, mild, chronic. Negative for: Dysuria, Urgency Narrative: Patient states she feels like she has another episode of C. difficile. She has been having lots of diarrhea for several days after she self treated herself with antibiotics for a possible urinary tract infection. 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 She started taking the unknown antibiotic at home about 1 week ago or a little more. She states that the dysuria that she had is now resolved, but she states it is hard to tell sometimes because she takes Pyridium a lot to cover up her chronic urinary symptoms. She has been having a lot of abdominal cramping and denies any fevers or chills but feels dry/dehydrated. - Past Medical History (1) Anemia due to blood loss, chronic Status: Chronic (2) Chronic radiation cystitis Status: Chronic (3) Clostridium difficile colitis Status: Chronic (4) Ovarian cyst Status: Chronic (5) Cervical cancer Status: Resolved Comment: treated with radiation and chemo in the past Past Medical History - Allergies and Home Meds Allergies/Adverse Reactions: Allergies morphine Allergy (Verified 11/01/20 19:53) Hives venom-honey bee [bee venom (honey bee)] Allergy (Verified 11/01/20 19:53) Other cisplatin Adverse Reaction (Verified 11/01/20 19:53) Other oxycodone HCl [From Percocet] Adverse Reaction (Verified 11/01/20 19:53) Nausea Primary Care Physician: Korey Seay MD [Primary Care Provider] - Surgical History: appendectomy, tonsillectomy, - - Oophorectomy BL Smoking Status: Current every day smoker Drugs: None - Family History Maternal Family History: Reports: Cancer, Heart Disease Paternal Family History: Reports: - - Parkinson disease Review of Systems General: Reports: Malaise. Denies: Chills, Fever, Sweats Eyes: Denies: Visual changes - bilaterally, Diplopia ENT: Denies: Bilateral ear pain, Rhinorrhea, Sore throat Cardiovascular: Denies: Chest pain, Palpitations Respiratory: Denies: Dyspnea, Cough, Dyspnea on exertion Gastrointestinal: Reports: Abdominal pain, Nausea, Diarrhea, Hematochezia. Denies: Vomiting, Melena Genitourinary: Reports: Hematuria, Frequency. Denies: Dysuria Musculoskeletal: Reports: Back pain - When cramping is severe low back hurts. Denies: Myalgias, Swelling, Extremity Pain Skin: Denies: Rash, Wounds Neurological: Denies: Headache, Weakness, Numbness Physical Exam Vital Signs/Narrative: Vital Signs Temp Pulse Resp BP Pulse Ox 11/01/20 19:53 96.1 F L 112 H 14 133/73 H 96 Inital Vital Signs reviewed: Yes General: Well nourished, Well developed, No Acute Distress - Well-appearing Head: Normocephalic, Atraumatic Eyes: Perrl, EOMI ENT: Moist mucous membranes, No rhinorrhea Neck: Supple, Nontender Cardiovascular: Regular rate, Regular rhythm, No murmurs, Tachycardia - mild Respiratory: No distress, CTA bilaterally, Chest nontender Abdomen: Soft, Nondistended, Normal bowel sounds, No masses, Tender - Diffuse, worse lower. Negative for: Guarding, Rebound tenderness Back: Nontender, Normal Inspection. Negative for: CVA tenderness Extremities: Nontender, No edema. Negative for: Calf Tenderness Skin: Normal color, No rash, No Trauma Neurological: Alert, Oriented x3, Cranial nerves II-XII grossly intact, Normal Strength, Normal Sensation, Normal Gait Psychological: Normal affect, Normal Mood Diagnostic/Tx/Re-eval Laboratory Results 11/01/20 11/01/20 11/01/20 20:20 20:20 20:20 WBC 6.8 RBC 3.78 L Hgb 11.9 L Hct 36.5 L MCV 96.6 MCH 31.5 MCHC 32.6 RDW Std Deviation 48.3 H RDW Coeff of Carmen 13.5 Plt Count 261 MPV 8.6 Immature Gran % (Auto) 0.100 Neut % (Auto) 60.4 Lymph % (Auto) 24.7 Garfield % (Auto) 11.6 H Eos % (Auto) 2.0 Baso % (Auto) 1.2 H Absolute Neuts (auto) 4.1 Absolute Lymphs (auto) 1.69 Nucleated RBC % 0 Sodium 139 Potassium 3.8 Chloride 108 H Carbon Dioxide 26.0 Anion Gap 5 BUN 9 Creatinine 0.70 Estim Creat Clear Calc 79.56 Est GFR (MDRD) Af Amer 127 Est GFR (MDRD) Non-Af 105 BUN/Creatinine Ratio 12.9 Glucose 105 Calcium 8.6 Total Bilirubin 0.20 AST 14 L ALT 22 Alkaline Phosphatase 76 Total Protein 6.2 L Albumin 3.0 L Globulin 3.2 Albumin/Globulin Ratio 0.9 Serum , Qual NEGATIVE Urine Color Urine Clarity Urine pH Ur Specific [place] Urine Protein Urine Glucose (UA) Urine Ketones Urine Occult Blood Urine Nitrite Urine Bilirubin Urine Urobilinogen Ur Leukocyte Esterase Urine RBC Urine WBC Ur Squamous Epith Cells Calcium Oxalate Crystal Urine Bacteria Urine Mucus 11/01/20 21:28 WBC RBC Hgb Hct MCV MCH MCHC RDW Std Deviation RDW Coeff of Carmen Plt Count MPV Immature Gran % (Auto) Neut % (Auto) Lymph % (Auto) Garfield % (Auto) Eos % (Auto) Baso % (Auto) Absolute Neuts (auto) Absolute Lymphs (auto) Nucleated RBC % Sodium Potassium Chloride Carbon Dioxide Anion Gap BUN Creatinine Estim Creat Clear Calc Est GFR (MDRD) Af Amer Est GFR (MDRD) Non-Af BUN/Creatinine Ratio Glucose Calcium Total Bilirubin AST ALT Alkaline Phosphatase Total Protein Albumin Globulin Albumin/Globulin Ratio Serum , Qual Urine Color Yellow Urine Clarity Sl. Cloudy Urine pH 5.0 Ur Specific [place] 1.030 Urine Protein 15 H Urine Glucose (UA) Normal Urine Ketones 5 H Urine Occult Blood Negative Urine Nitrite Negative Urine Bilirubin 1 H Urine Urobilinogen 1 H Ur Leukocyte Esterase 25 H Urine RBC 0 SEEN Urine WBC 5-10 SEEN Ur Squamous Epith Cells 0 SEEN Calcium Oxalate Crystal RARE Urine Bacteria RARE Urine Mucus 2+ - Medical Decision Making Patient did have a stool sample that was sent for C. difficile as well as an enteric bacterial panel. Neither of those tests will return tonight. The rest of her work-up was unremarkable. She was treated with IV fluids and Toradol, Bentyl and did have some improvement in her cramping. Given that this is the patient's first recurrence if she is does have C. difficile, the treatment should be vancomycin 125 orally 4 times daily for the first 10-14 days, then tapering it down. I will start her on the first part of the regimen and then she can follow-up with her doctor if she tests positive, for the rest. ED Disposition - Plan for ED Patient: Disposition: Home or Assisted Living Diagnosis: Acute diarrhea, History of Clostridioides difficile infection Instructions: ED Diarrhea, Unknown Cause, Clostridium difficile Infection Prescriptions: Dicyclomine HCl [Bentyl] 20 mg PO Q4H PRN #20 capsule PRN Reason: abdominal pain Prescription Printed Vancomycin [Vancocin] 125 mg PO Q6H 10 Days #40 capsule Prescription Printed Referrals: Korey Seay MD [Primary Care Provider] - (Within the next week or so at the most)
[2020-11-01] MEDS: Dicyclomine 20 MG/2 ML Vial IM (20:22)
[2020-11-01] MEDS: Ketorolac 30 MG/ML Syringe IV (20:22)
[2020-11-01] MEDS: 0.9% Normal Saline 1,000 ML 999 ML IV (20:22)
[2020-11-01 20:33] LABS: Absolute Lymphocyte Count 1.69 X10^3/uL (0.83-4.51); Absolute Neutrophil Count 4.1 X10^3/uL (2.0-7.7); Basophil# 0.08 X10^3/uL; Basophil% 1.2 % (0-1); Eosinophil# 0.14 X10^3/uL; Hematocrit 36.5 % (37-47); Hemoglobin 11.9 g/dL (12.0-15.0); Lymphocyte # 1.69 X10^3/ul (4.0); Lymphocyte % 24.7 % (19-41); Mean Corp Hgb Conc 32.6 g/dL (32-36); Mean Corpuscular Hgb 31.5 pg (27.0-32.0); Mean Corpuscular Volume 96.6 fL (81-99); Mean Platelet Vol. 8.6 fl (6.2-12.0); Monocyte# 0.79 X10^3/uL; Monocyte% 11.6 % (0-10); NRBC Flagged by Analyzer 0 % (0-5); Neutrophil # 4.12 X10^3/uL (2.7-7.7); Neutrophil % 60.4 % (47-70); Platelet Count 261 K/mm3 (150-450); RBC Distribution Width CV 13.5 % (11.6-14.6); RBC Distribution Width SD 48.3 fl (35.1-43.9); Red Blood Count 3.78 M/mm3 (4.2-5.4); White Blood Count 6.8 K/mm3 (4.4-11.0)
[2020-11-01 20:51] LABS: ALB/GLOB Ratio 0.9 RATIO (0.9-2.4); AST(SGOT) 14 U/L (15-37); Alanine Aminotransfer ALT/SGPT 22 U/L (13-56); Alkaline Phosphatase 76 U/L (45-117); Anion Gap 5 (5-15); BUN 9 mg/dL (7-18); BUN/Creat Ratio 12.9 RATIO (10-20); Calcium,Total 8.6 mg/dL (8.5-10.1); Chloride 108 mmol/L (98-107); EST Glomerular Filtration Rate 105 mL/min (>60); Est Glom Filt Rate - Afr Amer 127 mL/min (>60); Estimated Creatinine Clearance 79.56 ml/min; Globulin 3.2 g/dL (2.2-4.2); Glucose 105 mg/dL (74-106); Potassium 3.8 mmol/L (3.5-5.1); Protein, Total 6.2 g/dL (6.4-8.2); Sodium Level 139 mmol/L (136-145)
[2020-11-01 21:17] LABS: Internal QC Validated? YES +Cl - CLEAR BKGD; Pregnancy, Serum, hCG Quali. NEGATIVE Negative
[2020-11-01 21:39] LABS: Red Blood Cells-Urine 0 SEEN /hpf (0-5); Squamous Epithelial Cells - UA 0 SEEN /hpf (5-10)
[2020-11-01 21:41] LABS: Color, Urine Yellow (Yellow); Glucose, Dipstick Normal (Normal); Ketone-Dipstick 5 mg/dl (Negative); Leukocyte Esterase-Dipstick 25 /ul (Negative); Nitrite-Dipstick Negative (Negative); Occult Blood-Urine Negative /ul (Negative); Protein-Dipstick 15 mg/dl (Negative); Urine Clarity Sl. Cloudy (Clear); Urine Urobilinogen 1 mg/dl (Normal)
[2020-11-01 21:51] LABS: Urine Bilirubin Dipstick 1 mg/dL (Negative)
[2020-11-01 22:06] LABS: Bacteria RARE /hpf (None Seen); Calcium Oxalate Crystals Ur RARE /hpf (<or=2+); Mucous, Urine 2+ /hpf (<or=2+); White Blood Cells 5-10 SEEN /hpf (0-5)
[2020-11-01 22:26] VITALS: BP 101/61; PULSE 70; RESP 14; O2SAT 96
[2020-11-01] MEDS: Vancomycin HCl 250 MG Capsule PO (23:20)
== END 2020-11-01 23:23 | disposition home or self-care (01) ==
PROVIDERS: Emergency Provider Emergency Medicine; PCP Family Medicine
DX: R19.7 Diarrhea, unspecified (principal); A04.72 Enterocolitis due to Clostridium difficile, not specified as recurrent; N30.41 Irradiation cystitis with hematuria; Y84.2 Radiological procedure and radiotherapy as the cause of abnormal reaction of the patient, or of later complication, without mention of misadventure at the time of the procedure; Y92.9 Unspecified place or not applicable; F17.200 Nicotine dependence, unspecified, uncomplicated; Z79.899 Other long term (current) drug therapy; Z85.41 Personal history of malignant neoplasm of cervix uteri
CPT/HCPCS: 80053; 81001; 84703; 85025; 87493; 87506; 96361; 96372; 96374; 99284; J7030; A4216

== ENCOUNTER 2021-02-03 13:49 | Emergency (ER) | payer MEDICAID, SELFPAY ==
[2021-02-03 13:49] VITALS: BP 112/58; PULSE 65; RESP 15; TEMP 36; O2SAT 98; BMI 20.9
--- NOTE | 2021-02-03 14:04 | RAD_ITS ---
STUDY: X-RAY - LEFT WRIST REASON FOR EXAM: Ulnar sided left wrist pain, left wrist injury, history of growth plate fracture. TECHNIQUE: 3 view(s) of the wrist were obtained. COMPARISON: None. FINDINGS: Normal visualized distal radius and ulna. Normal radiocarpal articulation. Normal distal radioulnar articulation. Normal carpal bones. Normal carpal articulations. Normal carpometacarpal articulation of the thumb. Normal second through fifth carpometacarpal articulations. Normal visualized metacarpal bones. The soft tissue structures are unremarkable. RAD/Wrist min 3 Views IMPRESSION: Unremarkable x-ray examination of the left wrist. Electronically Signed: Evert Pina MD at 14:53 EDT Tel , Service support ,
--- NOTE | 2021-02-03 14:05 | EX.ED.UPPERE ---
HPI History of Present Illness Chief Complaint: Upper Extremity Injury Detail of Chief Complaint: Left wrist that occurred yesterday Informant: patient Narrative Narrative: Patient presents to the emergency department wanting to make sure that her left wrist is okay. Patient states that she was helping her father in the garage yesterday when she tripped and fell and braced herself with her left wrist. Patient complaining of pain with movement. She is right-hand dominant. She denies any other injuries. [facility] Medical History (Updated 02/03/21 @ 15:[address] Janett Cardona, ) Hx of cervical cancer Home Medications dicyclomine 10 mg PO TID 02/17/19 [History Last Taken 03/22/19 08:30] epinephrine 0.3 mg IM PRN PRN 02/17/19 [History Last Taken 03/22/17 12:00] ergocalciferol (vitamin D2) 50,000 mg PO QWEEK 02/17/19 [History Last Taken 03/19/19 20:30] oxybutynin chloride 5 mg PO DAILY 02/17/19 [History Last Taken 03/22/19 08:30] potassium gluconate 595 mg PO DAILY 02/17/19 [History Last Taken 03/22/19 06:00] venlafaxine 75 mg PO DAILY 02/17/19 [History Last Taken 03/22/19 08:30] acidophilus-pectin, citrus 1 tab PO BID #60 tab 03/25/19 [Rx Last Taken Unknown] phenazopyridine 200 mg PO BID PRN PRN #10 tab 10/06/19 [Rx Last Taken Unknown] phenazopyridine 200 mg PO BID PRN PRN #10 tab 01/14/20 [Rx Last Taken Unknown] sulfamethoxazole-trimethoprim 1 tab PO BID #14 tab 01/14/20 [Rx Last Taken Unknown] promethazine 25 mg PO Q6H PRN PRN #12 tab 04/25/20 [Rx Last Taken Unknown] dicyclomine 20 mg PO Q4H PRN #20 capsule 11/01/20 [Rx Last Taken Unknown] Allergy/AdvReac Type Severity Reaction Status Date / Time morphine Allergy Hives Verified 02/03/21 13:51 venom-honey bee Allergy Other Verified 02/03/21 13:51 [bee venom (honey bee)] cisplatin AdvReac Other Verified 02/03/21 13:51 oxycodone HCl [From Percocet] AdvReac Nausea Verified 02/03/21 13:51 Social History Smoking Status: Current every day smoker tobacco type: cigarettes ROS ROS ED Constitutional Constitutional ED: Reports systems reviewed and no addt'l complaints, except as documented; Denies body ache(s), change in weight or chills Eyes Eyes: Denies acute decrease in peripheral vision, change in vision, double vision or loss of vision ENT ENT ED: Reports none; Denies ear pain, lip swelling, loss taste/smell, neck pain, otalgia or sore throat Cardiovascular Cardiovascular: Reports none; Denies abdominal pain, chest pain with activity, leg edema, lightheadedness, palpitations, rapid heart rate or syncope Respiratory/Chest Respiratory/Chest: Reports none; Denies change in mental status, dry cough, dyspnea, hemoptysis, shortness of breath at rest or shortness of breath with exertion Gastrointestinal Gastrointestinal: Reports none; Denies abdominal pain, change in stool character, diarrhea, hematemesis, hematochezia, melena, rectal bleeding or vomiting Genitourinary Genitourinary ED: Reports none; Denies abdominal discomfort, anuria, dysuria, genital pain or polyuria Musculoskeletal Musculoskeletal: Reports none and other Details: Left wrist injury ; Denies arthralgias, back pain, difficulty walking, extremity pain, muscle weakness or myalgias Integumentary Reports none; Denies abscess or rash Neurologic Neurologic: Reports none; Denies abnormal gait, confusion, focal weakness, frequent falls, headache(s), loss of vision, numbness, paresthesias, radicular pain, vertigo or weakness Psychiatric Psychiatric: Reports systems reviewed and no addt'l complaints, except as documented and none; Denies behavioral changes, confusion, difficulty concentrating, hallucinations, suicidal ideation, tactile hallucinations or visual hallucinations Endocrine Endocrinology: Denies none, cold intolerance, excessive sweating, fatigue or heat intolerance Hematologic/Lymphatic Hematologic/Lymphatic: Reports none; Denies anemia, easy bleeding or easy bruising Allergic/Immunologic Allergic/Immunologic ED: Denies as per HPI, none, lip swelling, mouth swelling, throat swelling, tongue swelling or hives EXAM Physical Exam Const Vital Signs: 02/03/21 13:49 Temperature 96.8 F L Temperature Source Temporal Pulse Rate 65 Respiratory Rate 15 Blood Pressure 112/58 L Blood Pressure Mean 76 Pulse Ox 98 Oxygen Delivery Method Room Air Positive well nourished and well developed General Appearance ED: well developed and NAD HEENT Reports TM's clear and moist mucous membranes normocephalic and atraumatic; Negative for trauma or tenderness Tympanic Membrane ED: Yes TM's clear Eyes PERRL and EOMs intact bilaterally General Eye ED: Negative for pale conjunctiva or scleral icterus Neck no lymphadenopathy, supple and no JVD General: Negative for tenderness Chest Wall inspection of chest normal and palpation of chest normal Chest: Negative for tenderness Resp normal respiratory effort and clear to auscultation bilaterally Effort and Inspection: Negative for respiratory distress or pain with movement Auscultation: Negative for rhonchi, wheezes or diminished lung sounds Cardio regular rate, regular rhythm, S1 normal heart sound, S2 normal heart sound and no murmurs Peripheral Pulses: pulses 2+ throughout GI normal to inspection, nondistended, normoactive bowel sounds, soft to palpation, non-tender, non-distended and no masses Back/Spine no CVA tenderness and no thoracic nor lumbar tenderness Extremity normal to inspection Extremity Narrative: Patient has diffuse tenderness over the distal radius and scaphoid. There is no ecchymosis or bruising noted. There is no soft tissue swelling. She had good range of motion flexion extension at the wrist. She is neurovascular intact distally. General Extremety ED: Negative for edema General Extremity: Negative for edema Neuro oriented x3, CN's II-XII intact bilaterally, no sensory deficits noted and gait normal Sensorium / Orientation: awake, alert, oriented to person, oriented to place and oriented to time Motor Exam: strength 5/5 throughout and strength abnormal Psych mental status grossly normal Skin no rashes or lesions noted and no wounds MDM MDM MDM Narrative Medical decision making narrative: I suspect patient likely has a wrist sprain has no evidence of fracture noted. She was given a thumb spica splint. Patient will be given referral to orthopedics for follow-up. Radiography Diagnostic Testing: Patient had three-view x-rays of the left wrist obtained interpreted by myself as no acute fractures or dislocations. Radiology was in agreement. Discharge Plan Triage Chief Complaint: Upper Extremity Injury ED Provider: Janett Cardona Dx/Rx/DC Orders Clinical Impression: Left wrist sprain Instructions: ED Wrist Sprain Prescriptions: No Action ergocalciferol (vitamin D2) 50,000 capsule 50,000 mg PO QWEEK RF: 0 epinephrine 0.3 auto-injector 0.3 mg IM PRN PRN (Reason: ALLERGIC REACTION) RF: 0 oxybutynin chloride 5 MG tablet 5 mg PO DAILY RF: 0 dicyclomine 10 MG capsule 10 mg PO TID RF: 0 venlafaxine 75 MG tablet extended release 24hr 75 mg PO DAILY RF: 0 potassium gluconate 500 MG tablet 595 mg PO DAILY RF: 0 acidophilus-pectin, citrus 1 TABLET tablet 1 tab PO BID Qty: 60 RF: 0 phenazopyridine 200 MG tablet 200 mg PO BID PRN PRN (Reason: Pain) Qty: 10 RF: 0 phenazopyridine 200 MG tablet 200 mg PO BID PRN PRN (Reason: Pain) Qty: 10 RF: 0 sulfamethoxazole-trimethoprim 1 TABLET tablet 1 tab PO BID Qty: 14 RF: 0 promethazine 25 MG tablet 25 mg PO Q6H PRN PRN (Reason: Nausea) Qty: 12 RF: 0 dicyclomine 10 MG capsule 20 mg PO Q4H PRN (Reason: abdominal pain) Qty: 20 RF: 0 Primary Care Provider: Korey Seay Referrals: Perry Bland DO [STAFF PHYSICIAN] - 3-5 Days Koery Seay MD [Primary Care Provider] - Disposition Disposition: Home, Self Care
== END 2021-02-03 15:23 | disposition home or self-care (01) ==
PROVIDERS: Emergency Provider Emergency Medicine; PCP Family Medicine
DX: S63.502A Unspecified sprain of left wrist, initial encounter (principal); W01.10XA Fall on same level from slipping, tripping and stumbling with subsequent striking against unspecified object, initial encounter; Y93.9 Activity, unspecified; Y92.008 Other place in unspecified non-institutional (private) residence as the place of occurrence of the external cause; Y99.9 Unspecified external cause status; F17.210 Nicotine dependence, cigarettes, uncomplicated; Z79.899 Other long term (current) drug therapy; Z85.41 Personal history of malignant neoplasm of cervix uteri
CPT/HCPCS: 73110; 99283

== ENCOUNTER 2021-08-25 08:53 | Emergency (ER) | payer MEDICAID, SELFPAY ==
[2021-08-25 08:54] VITALS: BP 127/59; PULSE 55; RESP 18; TEMP 35.9; O2SAT 100
--- NOTE | 2021-08-25 09:32 | CT_ITS ---
STUDY: CT ABDOMEN AND PELVIS WITH CONTRAST REASON FOR EXAM: Female, 31 years old. Right flank pain and vomiting. Patient has a history of cervical cancer and radiation treatment. RADIATION DOSAGE (If Supplied By Facility): CTDIvol = ( 12.86 ) mGy, DLP = ( 512.88 ) mGycm TECHNIQUE: Transaxial images were obtained from the dome of the diaphragm to the symphysis pubis without oral contrast. IV 100mL Isovue-300 was administered. Sagittal and coronal images were reconstructed. Individualized dose optimization techniques were used for this CT. COMPARISON: Comparison is made with prior study there are 04/25/2020 FINDINGS: The visualized lung bases are unremarkable. The visualized portions of the heart are within normal limits. Normal liver. Normal gallbladder and extrahepatic biliary system. Normal spleen. Normal pancreas. Normal bilateral adrenal glands. Moderate degree of right hydronephrosis and right hydroureter down to the distal portion of the right ureter. No ureteral calculus is seen at this time. Normal left kidney. Normal visualized stomach. The visualized small bowel loops in the region of the pelvis appear to have a thickened wall most likely post radiation changes. Normal colon. There are surgical clips in the region of the appendix consistent with a prior appendectomy. Normal abdominal aorta. Normal inferior vena cava. Normal retroperitoneum. Normal urinary bladder. Stable appearance of the presacral soft tissue prominence most likely secondary to the patient''s post radiation changes. Normal abdominal wall. Normal osseous structures. CT/Abdomen/Pelvis W IV Cont ONLY IMPRESSION: Moderate degree right hydronephrosis and right hydroureter down to the distal portion of the right ureter without evidence of a radiopaque calculus. Stable presacral soft tissue thickening. Mild degree of mural thickening of small bowel loops seen in the pelvis. Electronically Signed: Maverick Us MD at 10:30 EST , Service support ,
[2021-08-25] MEDS: HYDROmorphone 1 MG/ML Syringe IV (09:43)
[2021-08-25] MEDS: Ondansetron 4 MG/2 ML Vial IV (09:43)
[2021-08-25] MEDS: 0.9% Normal Saline 1,000 ML 1000 ML IV (09:43)
[2021-08-25 09:46] LABS: Absolute Lymphocyte Count 0.99 X10^3/uL (0.83-4.51); Basophil# 0.03 X10^3/uL; Basophil% 0.3 % (0-1); Eosinophil# 0.02 X10^3/uL; Eosinophils% 0.2 % (0-5); Hemoglobin 12.7 g/dL (12.0-15.0); Lymphocyte # 0.99 X10^3/ul (0.83-4.51); Lymphocyte % 10.3 % (19-41); Mean Corp Hgb Conc 31.8 g/dL (32-36); Mean Corpuscular Volume 94.3 fL (81-99); Mean Platelet Vol. 8.8 fl (6.2-12.0); Monocyte# 0.55 X10^3/uL; Monocyte% 5.7 % (0-10); NRBC Flagged by Analyzer 0 % (0-5); Neutrophil % 83.1 % (47-70); Platelet Count 347 K/mm3 (150-450); RBC Distribution Width CV 13.5 % (11.6-14.6); RBC Distribution Width SD 46.5 fl (35.1-43.9); Red Blood Count 4.24 M/mm3 (4.2-5.4); White Blood Count 9.6 K/mm3 (4.4-11.0)
[2021-08-25 09:50] LABS: Internal QC Validated? YES +Cl - CLEAR BKGD; Pregnancy, Serum, hCG Quali. NEGATIVE Negative
[2021-08-25 09:52] LABS: Mucous, Urine 0 SEEN /hpf (<or=2+)
[2021-08-25 09:59] LABS: Color, Urine Yellow (Yellow); Glucose, Dipstick Normal (Normal); Ketone-Dipstick Negative (Negative); Leukocyte Esterase-Dipstick 500 /ul (Negative); Nitrite-Dipstick Positive (Negative); Occult Blood-Urine 50 /ul (Negative); Protein-Dipstick 100 mg/dl (Negative); Urine Bilirubin Dipstick Negative (Negative); Urine Clarity Cloudy (Clear); Urine Urobilinogen Normal (Normal); Urine pH 6.5 (5.0 - 8.0)
[2021-08-25 10:00] LABS: ALB/GLOB Ratio 0.9 RATIO (0.9-2.4); AST(SGOT) 16 U/L (15-37); Alanine Aminotransfer ALT/SGPT 23 U/L (13-56); Albumin, Serum 3.3 g/dL (3.2-5.0); Alkaline Phosphatase 81 U/L (45-117); Anion Gap 5 (5-15); BUN 12 mg/dL (7-18); Calcium,Total 9.2 mg/dL (8.5-10.1); Chloride 109 mmol/L (98-107); Creatinine, Serum 0.92 mg/dL (0.55-1.02); EST Glomerular Filtration Rate 76 mL/min (>60); Est Glom Filt Rate - Afr Amer 92 mL/min (>60); Estimated Creatinine Clearance 61.47 ml/min; Globulin 3.7 g/dL (2.2-4.2); Glucose 119 mg/dL (74-106); Lipase 76 U/L (73-393); Potassium 4.1 mmol/L (3.5-5.1); Sodium Level 139 mmol/L (136-145)
--- NOTE | 2021-08-25 10:02 | ED.VIS.GI ---
HPI HPI - GI History of Present Illness Chief Complaint: Flank Pain Narrative Narrative: Patient presenting with nausea, vomiting, constipation. She states has a history of cervical cancer that is currently in remission. She is not on chemotherapy. She is receiving radiation treatments. 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 She states that due to the radiation she is having problems with her bowels that she is currently doing hyperbaric oxygen therapy for this. She reports that she is having difficulty having a bowel movement and it started about 5 AM with extreme pain. She also states has been vomiting and has had some constipation. She has not taken any stool softeners or laxatives. [facility] Medical History Hx of cervical cancer Home Medications dicyclomine 10 mg PO TID 02/17/19 [History Last Taken 03/22/19 08:30] epinephrine 0.3 mg IM PRN PRN 02/17/19 [History Last Taken 03/22/17 12:00] ergocalciferol (vitamin D2) 50,000 mg PO QWEEK 02/17/19 [History Last Taken 03/19/19 20:30] oxybutynin chloride 5 mg PO DAILY 02/17/19 [History Last Taken 03/22/19 08:30] potassium gluconate 595 mg PO DAILY 02/17/19 [History Last Taken 03/22/19 06:00] venlafaxine 75 mg PO DAILY 02/17/19 [History Last Taken 03/22/19 08:30] acidophilus-pectin, citrus 1 tab PO BID #60 tab 03/25/19 [Rx Last Taken Unknown] phenazopyridine 200 mg PO BID PRN PRN #10 tab 10/06/19 [Rx Last Taken Unknown] phenazopyridine 200 mg PO BID PRN PRN #10 tab 01/14/20 [Rx Last Taken Unknown] sulfamethoxazole-trimethoprim 1 tab PO BID #14 tab 01/14/20 [Rx Last Taken Unknown] promethazine 25 mg PO Q6H PRN PRN #12 tab 04/25/20 [Rx Last Taken Unknown] dicyclomine 20 mg PO Q4H PRN #20 capsule 11/01/20 [Rx Last Taken Unknown] ondansetron 4 mg PO Q8H PRN PRN #20 tab 08/25/21 [Rx Last Taken Unknown] sulfamethoxazole-trimethoprim [Bactrim DS] 1 tab PO BID #28 tab 08/25/21 [Rx Last Taken Unknown] tizanidine [Zanaflex] 4 mg PO Q8H PRN #20 cap 08/25/21 [Rx Last Taken Unknown] Allergy/AdvReac Type Severity Reaction Status Date / Time morphine Allergy Hives Verified 08/25/21 08:56 venom-honey bee Allergy Other Verified 08/25/21 08:56 [bee venom (honey bee)] cisplatin AdvReac Other Verified 08/25/21 08:56 oxycodone HCl [From Percocet] AdvReac Nausea Verified 08/25/21 08:56 Social History Smoking Status: Current every day smoker tobacco type: cigarettes ROS ROS ED Constitutional Constitutional ED: Denies chills or fever(s) ENT ENT ED: Denies rhinorrhea or sore throat Cardiovascular Cardiovascular: Denies palpitations or racing heartbeat Respiratory/Chest Respiratory/Chest: Denies cough or dyspnea Gastrointestinal Gastrointestinal: Reports abdominal pain, constipation, nausea and vomiting Genitourinary Genitourinary ED: Reports dysuria; Denies hematuria or urinary frequency Musculoskeletal Musculoskeletal: Denies arthralgias or myalgias Integumentary Denies Abrasions or rash Neurologic Neurologic: Denies headache(s) or paresthesias EXAM Physical Exam Const Vital Signs: 08/25/21 08:54 08/25/21 11:15 Temperature 96.7 F L Temperature Source Temporal Pulse Rate 55 L 61 Respiratory Rate 18 12 Blood Pressure 127/59 H 108/76 Blood Pressure Mean 81 86 Pulse Ox 100 97 Oxygen Delivery Method Room Air Room Air Positive well nourished General Appearance ED: NAD; Negative for pallor HEENT Reports moist mucous membranes normocephalic Eyes PERRL and EOMs intact bilaterally Resp normal respiratory effort and clear to auscultation bilaterally Cardio regular rhythm Rate: bradycardia GI non-distended Palpation: soft Back/Spine General Back: CVA tenderness right Extremity full ROM Neuro Sensorium / Orientation: alert, oriented to person, oriented to place and oriented to time Psych mental status grossly normal and thought process normal Skin General Skin Exam: Negative for jaundice or pallor MDM MDM MDM Narrative Medical decision making narrative: Patient presenting with right flank pain. She is concerned she has radiation cystitis. I did obtain blood work and her CBC and CMP are unremarkable. Patient is not dehydrated. hCG is negative. She was given a liter of IV fluids and urinalysis was obtained which is consistent with UTI. She was given a dose of Rocephin. I obtained a CT of the abdomen pelvis with IV contrast given the patient's pain and it does show hydroureter and hydronephrosis on the right. Patient states she knows this is from the radiation therapy. There is a mild degree of thickening of the bowel loops in the pelvis. On reevaluation after getting medicated with Dilaudid she felt improvement. Her nausea had improved. She states he was having bladder spasms and requested muscle relaxers for this. Given that her blood work is normal and her vital signs are stable I think she can be discharged home to be treated as a pyelonephritis. She will be started on Bactrim with first dose in the ED. She was given Zofran and muscle relaxers for home out of concern that narcotics would cause her more constipation. She was given magnesium citrate to take when she gets home. Patient given return precautions. Impression: 1. Pyelonephritis 2. Constipation 3. Nausea/vomiting Lab Data Labs: Laboratory Results - last 24 hr 08/25/21 08/25/21 08/25/21 09:05 09:05 09:05 WBC 9.6 RBC 4.24 Hgb 12.7 Hct 40.0 MCV 94.3 MCH 30.0 MCHC 31.8 L RDW Std Deviation 46.5 H RDW Coeff of Carmen 13.5 Plt Count 347 MPV 8.8 Immature Gran % (Auto) 0.400 Neut % (Auto) 83.1 H Lymph % (Auto) 10.3 L [place] % (Auto) 5.7 Eos % (Auto) 0.2 Baso % (Auto) 0.3 Absolute Neuts (auto) 8.0 H Absolute Lymphs (auto) 0.99 Nucleated RBC % 0 Sodium 139 Potassium 4.1 Chloride 109 H Carbon Dioxide 25.0 Anion Gap 5 BUN 12 Creatinine 0.92 Estim Creat Clear Calc 61.47 Est GFR (MDRD) Af Amer 92 Est GFR (MDRD) Non-Af 76 BUN/Creatinine Ratio 13.0 Glucose 119 H Calcium 9.2 Total Bilirubin 0.30 AST 16 ALT 23 Alkaline Phosphatase 81 Total Protein 7.0 Albumin 3.3 Globulin 3.7 Albumin/Globulin Ratio 0.9 Lipase 76 Serum , Qual NEGATIVE Urine Color Urine Clarity Urine pH Ur Specific [place] Urine Protein Urine Glucose (UA) Urine Ketones Urine Occult Blood Urine Nitrite Urine Bilirubin Urine Urobilinogen Ur Leukocyte Esterase Urine RBC Urine WBC Ur Squamous Epith Cells Urine Bacteria Urine Mucus 08/25/21 09:45 WBC RBC Hgb Hct MCV MCH MCHC RDW Std Deviation RDW Coeff of [place] Plt Count MPV Immature Gran % (Auto) Neut % (Auto) Lymph % (Auto) [place] % (Auto) Eos % (Auto) Baso % (Auto) Absolute Neuts (auto) Absolute Lymphs (auto) Nucleated RBC % Sodium Potassium Chloride Carbon Dioxide Anion Gap BUN Creatinine Estim Creat Clear Calc Est GFR (MDRD) Af Amer Est GFR (MDRD) Non-Af BUN/Creatinine Ratio Glucose Calcium Total Bilirubin AST ALT Alkaline Phosphatase Total Protein Albumin Globulin Albumin/Globulin Ratio Lipase Serum , Qual Urine Color Yellow Urine Clarity Cloudy Urine pH 6.5 Ur Specific [place] 1.010 Urine Protein 100 H Urine Glucose (UA) Normal Urine Ketones Negative Urine Occult Blood 50 H Urine Nitrite Positive H Urine Bilirubin Negative Urine Urobilinogen Normal Ur Leukocyte Esterase 500 H Urine RBC 0-5 SEEN Urine WBC 50-100 SEEN Ur Squamous Epith Cells 0-5 SEEN Urine Bacteria 3+ Urine Mucus 0 SEEN Radiography Diagnostic Testing: Clinical Impression(s) from Imaging Studies Abdomen/Pelvis CT 08/25/21 09:32 IMPRESSION: Moderate degree right hydronephrosis and right hydroureter down to the distal portion of the right ureter without evidence of a radiopaque calculus. Stable presacral soft tissue thickening. Mild degree of mural thickening of small bowel loops seen in the pelvis. Electronically Signed: Maverick Us MD at 10:30 EST , Service support , Discharge Plan Triage Chief Complaint: Flank Pain ED Provider: Alvarez Zarate Dx/Rx/DC Orders Instructions: ED Constipation (Adult), ED Pyelonephritis, Female (Adult) Prescriptions: New tizanidine [Zanaflex] 4 mg capsule 4 mg PO Q8H PRN (Reason: muscle spasticity) Qty: 20 RF: 0 ondansetron 4 mg tablet,disintegrating 4 mg PO Q8H PRN PRN (Reason: Nausea) Qty: 20 RF: 0 sulfamethoxazole-trimethoprim [Bactrim DS] 800-160 mg tablet 1 tab PO BID Qty: 28 RF: 0 No Action ergocalciferol (vitamin D2) 50,000 capsule 50,000 mg PO QWEEK RF: 0 epinephrine 0.3 auto-injector 0.3 mg IM PRN PRN (Reason: ALLERGIC REACTION) RF: 0 oxybutynin chloride 5 MG tablet 5 mg PO DAILY RF: 0 dicyclomine 10 MG capsule 10 mg PO TID RF: 0 venlafaxine 75 MG tablet extended release 24hr 75 mg PO DAILY RF: 0 potassium gluconate 500 MG tablet 595 mg PO DAILY RF: 0 acidophilus-pectin, citrus 1 TABLET tablet 1 tab PO BID Qty: 60 RF: 0 phenazopyridine 200 MG tablet 200 mg PO BID PRN PRN (Reason: Pain) Qty: 10 RF: 0 phenazopyridine 200 MG tablet 200 mg PO BID PRN PRN (Reason: Pain) Qty: 10 RF: 0 sulfamethoxazole-trimethoprim 1 TABLET tablet 1 tab PO BID Qty: 14 RF: 0 promethazine 25 MG tablet 25 mg PO Q6H PRN PRN (Reason: Nausea) Qty: 12 RF: 0 dicyclomine 10 MG capsule 20 mg PO Q4H PRN (Reason: abdominal pain) Qty: 20 RF: 0 Primary Care Provider: Korey Seay Referrals: Korey Seay MD [Primary Care Provider] - Disposition Disposition: Home, Self Care Discharge Date/Time: 08/25/21 12:45
[2021-08-25 10:05] LABS: Bacteria 3+ /hpf (None Seen); Red Blood Cells-Urine 0-5 SEEN /hpf (0-5); Squamous Epithelial Cells - UA 0-5 SEEN /hpf (5-10); White Blood Cells 50-100 SEEN /hpf (0-5)
--- NOTE | 2021-08-25 11:13 | ED.RN ---
call pharmacy regarding atb
[2021-08-25 11:15] VITALS: BP 108/76; PULSE 61; RESP 12; O2SAT 97
[2021-08-25] MEDS: Ceftriaxone 1 GM/50 ML BAG IV (11:29)
[2021-08-25] MEDS: Orphenadrine 100 MG Tablet PO (12:32)
[2021-08-25] MEDS: Magnesium Citrate 300 ML PO (12:32)
--- NOTE | 2021-08-25 12:37 | ED.RN ---
upon this RN discharging pt, pt mumbled under her breath I should've just gone to [facility]. she was not happy to be going home and said we did nothing for her. This RN spoke with her about the prescriptions that she was receiving to go home with and follow up care. pt didn't have any questions for this RN.
== END 2021-08-25 12:45 | disposition home or self-care (01) ==
PROVIDERS: Emergency Provider Student in an Organized Health Care Education/Training Program; PCP Family Medicine; Visit Provider Student in an Organized Health Care Education/Training Program
DX: N12 Tubulo-interstitial nephritis, not specified as acute or chronic (principal); K59.00 Constipation, unspecified; R11.2 Nausea with vomiting, unspecified; F17.210 Nicotine dependence, cigarettes, uncomplicated
CPT/HCPCS: 74177; 80053; 81001; 83690; 84703; 85025; 87086; 87088; 87186; 96361; 96365; 96375; 99283; J7030; Q9967; A4216; J2405

== ENCOUNTER 2021-10-01 10:08 | Emergency (ER) | payer MEDICAID, SELFPAY ==
[2021-10-01 10:08] VITALS: BP 109/73; PULSE 69; RESP 16; TEMP 36.5; O2SAT 99; BMI 18.8
[2021-10-01 10:25] VITALS: O2SAT 99
--- NOTE | 2021-10-01 11:23 | RAD_ITS ---
STUDY: X-RAY - LEFT SHOULDER REASON FOR EXAM: Female, 31 years old. Injury/Pain TECHNIQUE: 4 view(s) of the shoulder. COMPARISON: None. FINDINGS: Normal glenohumeral articulation. Normal acromioclavicular joint. Normal acromion. Normal humeral head and visualized proximal humerus. The soft tissue structures are unremarkable. Normal visualized pulmonary apex. RAD/Shoulder min 2 Views IMPRESSION: Normal x-ray examination of the shoulder. Electronically Signed: Law Adams MD at 12:02 EST ,
--- NOTE | 2021-10-01 11:23 | RAD_ITS ---
STUDY: X-RAY - LEFT ELBOW REASON FOR EXAM: Female, 31 years old. Injury/Pain TECHNIQUE: view(s) of the elbow. COMPARISON: None. FINDINGS: Normal visualized humerus, radius and ulna. Normal radiocapitellar and ulnotrochlear articulations. The soft tissue structures are unremarkable. RAD/Elbow min 3 Views IMPRESSION: Normal x-ray examination of the elbow. Electronically Signed: Law Adams MD at 12:02 EST ,
--- NOTE | 2021-10-01 11:23 | RAD_ITS ---
STUDY: X-RAY - UNILATERAL RIBS ( LEFT ) WITH CHEST REASON FOR EXAM: Female, 31 years old. pain, injury TECHNIQUE - RIBS: 2 view(s) of the ribs. TECHNIQUE - CHEST: Single PA view of the chest. COMPARISON: None. FINDINGS - RIBS: Normal visualized ribs without a demonstrated fracture. FINDINGS - CHEST: The lungs are clear and expanded. There is no demonstrated pleural abnormality. Normal size heart. Normal mediastinum and marbella. Normal visualized pulmonary arteries. Normal visualized aortic arch and descending thoracic aorta. Normal visualized thoracic spine. Normal visualized ribs, clavicles, and shoulders. There is no demonstrated abnormality of the visualized soft tissue structures of the upper abdomen. RAD/Ribs Uni Min 3V w/PA Chest IMPRESSION: RIBS: Normal x-ray examination of the ribs. CHEST: Normal x-ray examination of the chest. Electronically Signed: Law Adams MD at 12:04 EST ,
[2021-10-01] MEDS: fentaNYL 100 MCG/2 ML Ampul 50 MCG IM (11:29)
[2021-10-01] MEDS: Ondansetron ODT 4 MG Tablet PO (11:30)
--- NOTE | 2021-10-01 11:40 | EDS_ITS ---
HPI History of Present Illness Chief Complaint: Fall Informant: patient Narrative Narrative: Patient is a 31-year-old female with history of cervical cancer currently in remission presenting with left-sided arm and rib pain secondary to a fall. Patient states she slipped and fell on the ice this morning. She landed on her shoulder and back. She also hit her elbow. She notes as a child she did have pins in her elbow. Patient states that one was knocked out of her and now it hurts to take a deep breath and she feels that she is having a hard time catching her breath. She feels like she has to speak softly because of this. She denies any in her head or any loss of consciousness. She is on any blood thinners. No other injuries or complaints at this time. [facility] Medical History (Updated 10/01/21 @ 13:[address] Kristine Mcdaniel, ) Hx of cervical cancer Home Medications dicyclomine 10 mg PO TID 02/17/19 [History Last Taken 03/22/19 08:30] epinephrine 0.3 mg IM PRN PRN 02/17/19 [History Last Taken 03/22/17 12:00] ergocalciferol (vitamin D2) 50,000 mg PO QWEEK 02/17/19 [History Last Taken 03/19/19 20:30] oxybutynin chloride 5 mg PO DAILY 02/17/19 [History Last Taken 03/22/19 08:30] potassium gluconate 595 mg PO DAILY 02/17/19 [History Last Taken 03/22/19 06:00] venlafaxine 75 mg PO DAILY 02/17/19 [History Last Taken 03/22/19 08:30] acidophilus-pectin, citrus 1 tab PO BID #60 tab 03/25/19 [Rx Last Taken Unknown] phenazopyridine 200 mg PO BID PRN PRN #10 tab 10/06/19 [Rx Last Taken Unknown] phenazopyridine 200 mg PO BID PRN PRN #10 tab 01/14/20 [Rx Last Taken Unknown] sulfamethoxazole-trimethoprim 1 tab PO BID #14 tab 01/14/20 [Rx Last Taken Unknown] promethazine 25 mg PO Q6H PRN PRN #12 tab 04/25/20 [Rx Last Taken Unknown] dicyclomine 20 mg PO Q4H PRN #20 capsule 03/23/21 [Rx Last Taken Unknown] ondansetron 4 mg PO Q8H PRN PRN #20 tab 08/25/21 [Rx Last Taken Unknown] sulfamethoxazole-trimethoprim [Bactrim DS] 1 tab PO BID #28 tab 08/25/21 [Rx Last Taken Unknown] tizanidine [Zanaflex] 4 mg PO Q8H PRN #20 cap 08/25/21 [Rx Last Taken Unknown] cyclobenzaprine 10 mg PO TID PRN #14 tab 10/01/21 [Rx Last Taken Unknown] ibuprofen 600 mg PO Q6H PRN PRN #20 tab 10/01/21 [Rx Last Taken Unknown] Allergy/AdvReac Type Severity Reaction Status Date / Time morphine Allergy Hives Verified 10/01/21 10:10 venom-honey bee Allergy Other Verified 10/01/21 10:10 [bee venom (honey bee)] cisplatin AdvReac Other Verified 10/01/21 10:10 oxycodone HCl [From Percocet] AdvReac Nausea Verified 10/01/21 10:10 Social History Smoking Status: Current every day smoker tobacco type: cigarettes ROS ROS ED Constitutional Constitutional ED: Denies chills or fever(s) Eyes Eyes: Denies blurry vision or change in vision ENT ENT ED: Denies ear pain or rhinorrhea Cardiovascular Cardiovascular: Reports chest pain Respiratory/Chest Respiratory/Chest: Reports dyspnea; Denies cough or dyspnea on exertion Gastrointestinal Gastrointestinal: Denies abdominal pain or vomiting Musculoskeletal Musculoskeletal: Reports back pain and other Details: left arm/shoulder pain Integumentary Denies Abrasions or rash Neurologic Neurologic: Denies headache(s), paresthesias or weakness Psychiatric Psychiatric: Denies depression EXAM Physical Exam Const Vital Signs: 10/01/21 10:08 10/01/21 10:25 10/01/21 12:15 Temperature 97.7 F L Temperature Source Temporal Pulse Rate 69 64 Respiratory Rate 16 16 Respiratory Effort Short of Breath Respiratory Depth Shallow Blood Pressure 109/73 114/76 Blood Pressure Mean 85 88 Pulse Ox 99 99 95 Oxygen Delivery Method Room Air Room Air Room Air 10/01/21 13:33 Temperature Temperature Source Pulse Rate 81 Respiratory Rate 18 Respiratory Effort Respiratory Depth Blood Pressure Blood Pressure Mean Pulse Ox 100 Oxygen Delivery Method Positive well nourished and well developed Constitutional Narrative: thin General Appearance ED: well developed HEENT Reports TM's clear atraumatic Tympanic Membrane ED: Yes TM's clear Eyes PERRL and EOMs intact bilaterally Neck full ROM General: Negative for tenderness Chest Wall inspection of chest normal Chest Narrative: No chest wall crepitus. Patient does have tenderness palpation of the left ribs around the mid axillary line-approximately ribs 7 and 8 Resp normal respiratory effort and clear to auscultation bilaterally Auscultation: Negative for diminished lung sounds Cardio regular rhythm and no murmurs Rate: regular rate GI normal to inspection, nondistended, normoactive bowel sounds, non-tender and non-distended Palpation: soft Back/Spine normal to inspection General Back: Negative for CVA tenderness Thoracic Spine / Upper Back: Negative for thoracic spinal tenderness Extremity normal to inspection and full ROM Extremity Narrative: Patient has diffuse tenderness of the left shoulder. Range of motion is intact. Patient able to use that arm to pull herself up in bed. Normal range of motion of the elbow with no bony tenderness. No obvious deformity. General Extremety ED: Yes tenderness; Negative for deformity or edema General Extremity: Negative for deformity or edema Neuro oriented x3, moves all extremities and no focal motor deficits Sensorium / Orientation: alert Psych mental status grossly normal Mood & Affect: anxious Skin no rashes or lesions noted and no wounds MDM MDM MDM Narrative Medical decision making narrative: Patient evaluated for left shoulder and rib injuries after fall. She is hemodynamically stable. She not hypoxic. She has equal breath sounds. Patient is breathing shallow because it hurts to take a deep breath. X-ray of the chest with rib series as well as shoulder and elbow x-ray obtained. No acute fracture or pneumothorax/pulmonary contusion is noted. Patient is given a dose of IM fentanyl and oral Zofran initially in the ER. She is then given a dose of Flexeril, Motrin, Lidoderm patch and 1 dose of [place]. Is given a work note as well as incentive spirometer. Diagnosed with rib contusion and counseled on risk of pneumonia with these. Counseled she could have a very small fracture that did not show up on imaging. Given return precautions. Discharged home with prescriptions for Flexeril and Motrin. Radiography X-Ray: Read by ED Physician, Read by Radiologist, Normal and No Fracture Diagnostic Testing: Clinical Impression(s) from Imaging Studies Elbow X-Ray 10/01/21 11:23 IMPRESSION: Normal x-ray examination of the elbow. Electronically Signed: Law Adams MD at 12:02 EST Reading Location ID and State: [id number] / [employer] , Service support , Ribs w/Chest X-Ray 10/01/21 11:23 IMPRESSION: RIBS: Normal x-ray examination of the ribs. CHEST: Normal x-ray examination of the chest. Electronically Signed: Law Adams MD at 12:04 EST Reading Location ID and State: [id number] / [employer] , Service support , Shoulder X-Ray 10/01/21 11:23 IMPRESSION: Normal x-ray examination of the shoulder. Electronically Signed: Law Adams MD at 12:02 EST Reading Location ID and State: [id number] / [employer] , Service support , Discharge Plan Triage Chief Complaint: Fall ED Provider: Kristine Mcdaniel Dx/Rx/DC Orders Clinical Impression: Fall, Acute pain of left shoulder, Contusion of rib on left side Instructions: ED Contusion, Upper Extremity, ED Contusion, Rib Prescriptions: New cyclobenzaprine 10 mg tablet 10 mg PO TID PRN (Reason: muscle spasm) Qty: 14 RF: 0 ibuprofen 600 mg tablet 600 mg PO Q6H PRN PRN (Reason: fever or pain) Qty: 20 RF: 0 No Action ergocalciferol (vitamin D2) 50,000 capsule 50,000 mg PO QWEEK RF: 0 epinephrine 0.3 auto-injector 0.3 mg IM PRN PRN (Reason: ALLERGIC REACTION) RF: 0 oxybutynin chloride 5 MG tablet 5 mg PO DAILY RF: 0 dicyclomine 10 MG capsule 10 mg PO TID RF: 0 venlafaxine 75 MG tablet extended release 24hr 75 mg PO DAILY RF: 0 potassium gluconate 500 MG tablet 595 mg PO DAILY RF: 0 acidophilus-pectin, citrus 1 TABLET tablet 1 tab PO BID Qty: 60 RF: 0 phenazopyridine 200 MG tablet 200 mg PO BID PRN PRN (Reason: Pain) Qty: 10 RF: 0 phenazopyridine 200 MG tablet 200 mg PO BID PRN PRN (Reason: Pain) Qty: 10 RF: 0 sulfamethoxazole-trimethoprim 1 TABLET tablet 1 tab PO BID Qty: 14 RF: 0 promethazine 25 MG tablet 25 mg PO Q6H PRN PRN (Reason: Nausea) Qty: 12 RF: 0 dicyclomine 10 MG capsule 20 mg PO Q4H PRN (Reason: abdominal pain) Qty: 20 RF: 0 tizanidine [Zanaflex] 4 mg capsule 4 mg PO Q8H PRN (Reason: muscle spasticity) Qty: 20 RF: 0 ondansetron 4 mg tablet,disintegrating 4 mg PO Q8H PRN PRN (Reason: Nausea) Qty: 20 RF: 0 sulfamethoxazole-trimethoprim [Bactrim DS] 800-160 mg tablet 1 tab PO BID Qty: 28 RF: 0 Primary Care Provider: Korey Seay Referrals: Korey Seay MD [Primary Care Provider] - Activity Restrictions/Additional Instructions: Use incentive spirometer at least 4 times a day to help prevent pneumonia. You can use [id number] topical lidocaine patches to help with the rib pain. Disposition Disposition: Home, Self Care Discharge Date/Time: 10/01/21 13:39
[2021-10-01 12:15] VITALS: BP 114/76; PULSE 64; RESP 16; O2SAT 95
[2021-10-01] MEDS: Lidocaine 5% Patch 1 PATCH TOPICAL (13:13)
[2021-10-01] MEDS: Ibuprofen 600 MG Tablet PO (13:13)
[2021-10-01] MEDS: HYDROcodone Bitartrate/Apap 5/325 Tablet PO (13:29)
[2021-10-01] MEDS: cycloBENZAPRine HCl 10 MG Tablet PO (13:29)
[2021-10-01 13:33] VITALS: PULSE 81; RESP 18; O2SAT 100
== END 2021-10-01 13:39 | disposition home or self-care (01) ==
PROVIDERS: Emergency Provider Emergency Medicine; PCP Family Medicine; Visit Provider Emergency Medicine
DX: S20.212A Contusion of left front wall of thorax, initial encounter (principal); M25.512 Pain in left shoulder; W00.0XXA Fall on same level due to ice and snow, initial encounter; F17.210 Nicotine dependence, cigarettes, uncomplicated; Z79.899 Other long term (current) drug therapy; Z85.41 Personal history of malignant neoplasm of cervix uteri
CPT/HCPCS: 71101; 73030; 73080; 96372; 99283

== ENCOUNTER 2023-01-04 21:34 | Inpatient (IN) | payer MEDICAID, SELFPAY ==
[2023-01-04 21:35] VITALS: BP 110/65; PULSE 118; RESP 27; TEMP 36.8; O2SAT 98; BMI 21.1
--- NOTE | 2023-01-04 21:37 | NURSING ---
STROKE ALERT CALLED
[2023-01-04 21:39] VITALS: BMI 21.1
--- NOTE | 2023-01-04 21:42 | CT_ITS ---
We are attempting to reach an attending provider to discuss findings. An addendum with communication details will be sent when the communication is complete. INDICATION: Neuro deficit, acute, stroke suspected EXAMINATION: CT BRAIN - CT Head Stroke Protocol W/O Contrast Injection TECHNIQUE: Multiple axial images were obtained of the head without intravenous contrast. A radiation dose optimization technique was used for this scan. IV Contrast dosage and agent: None. RADIATION DOSAGE (If Supplied By Facility): CTDIvol = ( 44.99 ) mGy, DLP = ( 245.49 ) mGycm COMPARISON: 02/16/2018 FINDINGS: BRAIN PARENCHYMA: No intra- or extra-axial hemorrhage. No evidence of acute infarct. No intracranial mass or mass effect. There is preservation of the gomez/white matter interface. Posterior fossa structures are unremarkable. CSF SPACES: Appropriate for age. No hydrocephalus. Basal cisterns are patent. CALVARIUM, SKULL BASE, PARANASAL SINUSES AND MASTOID AIR CELLS: Clear. No discrete lytic or blastic abnormalities. ORBITS: Both globes, extraocular muscles, optic nerves and retrobulbar fat appear unremarkable. ASPECTS Score for Acute Strokes: 10 CT/STROKE Brain/Head without Cont IMPRESSION: Negative Brain CT without contrast. Electronically Signed: Beck Shaver MD at 22:00 EDT ,
--- NOTE | 2023-01-04 21:42 | CT_ITS ---
INDICATION: Neuro deficit, acute, stroke suspected EXAMINATION: CT BRAIN WITH CONTRAST TECHNIQUE: Routine carotid CT angiogram protocol was performed without and with IV contrast. In addition, images were obtained of the [place]. NASCET criteria using the distal ICAs for comparison were used for evaluation of stenoses. 3D reconstructions were reviewed. A radiation dose optimization technique was used for this scan. IV Contrast dosage and agent: 100 mL [id number] COMPARISON: Concurrent head CT --CTA NECK: AORTIC ARCH AND BRANCHES: Normal anatomy, patent. RIGHT CCA: No occlusion, significant stenosis or dissection. RIGHT ICA: No occlusion, significant stenosis or dissection. LEFT CCA: No occlusion, significant stenosis or dissection. LEFT ICA: No occlusion, significant stenosis or dissection. RIGHT VERTEBRAL ARTERY: No occlusion, significant stenosis or dissection. LEFT VERTEBRAL ARTERY: No occlusion, significant stenosis or dissection. NECK SOFT TISSUES: Unremarkable. --CTA HEAD: --Anterior circulation: ICAs: No significant stenosis at the intracranial/visualized segments. ACAs: No significant stenosis at the visualized segments. ACOM: Present. MCAs: No significant stenosis at the visualized segments. --Posterior circulation: PCOMs: Present export sales assistant: No significant stenosis at the visualized segments. BASILAR ARTERY: No significant stenosis. VERTEBRAL ARTERIES: No significant stenosis at the intradural/visualized segments. No evidence of intracranial aneurysm or vascular malformation. CT/STROKE CTA Head AND Neck W/Con IMPRESSION: Negative CTA Carotid and CTA Brain. N.B. : The above Results were Read Back by Beck Shaver MD to Matias Hollingsworth MD, and understanding confirmed on 01/04/2023 22:11:10 (ET). Electronically Signed: Beck Shaver MD at 22:15 EDT ,
--- NOTE | 2023-01-04 21:42 | EKG12_ITS ---
Test Reason : STROKE Blood Pressure : / mmHG Vent. Rate : 082 BPM Atrial Rate : 082 BPM P-R Int : 120 ms QRS Dur : 082 ms QT Int : 352 ms P-R-T Axes : 067 032 067 degrees QTc Int : 411 ms Normal sinus rhythm with sinus arrhythmia Normal ECG Confirmed by ALEJANDRO PARDO, RO ([id number]), electronic news gathering editor JENARO HOUSTON ([id number]) on 01/08/2023 10:15:48 AM Referred By: Ashleigh Gill Confirmed By:RO ALLEN MD
--- NOTE | 2023-01-04 21:42 | ED.VIS.STROK ---
HPI History of Present Illness Chief Complaint: Stroke Alert Informant: patient and family (Multiple) Narrative Narrative: Patient was talking to a family member when suddenly she complained of a severe sudden headache and lost consciousness shortly thereafter, appeared to have some intermittent full body seizure activity while she was unconscious, and they brought her right here to the emergency department. She has a history of ovarian cancer, she is not actively undergoing treatment with chemotherapy or anything else, she had a radiation according to the family. No history of seizures that we know of. No recent illness or injuries that they know of. History is limited from the patient herself. [facility] Medical History (Updated 01/04/23 @ 22:[address] Matias Hollingsworth MD) Anemia due to blood loss, chronic Cervical cancer Chronic radiation cystitis Clostridium difficile colitis Ovarian cyst Home Medications dicyclomine 10 mg capsule 10 mg PO TID abd pain 02/17/19 [History Last Taken 03/22/19 08:30] epinephrine 0.3 mg/0.3 mL injection, auto-injector 0.3 mg IM PRN PRN ALLERGIC REACTION 02/17/19 [History Last Taken 03/22/17 12:00] ergocalciferol (vitamin D2) 1,250 mcg (50,000 unit) capsule 50,000 mg PO QWEEK suppliment 02/17/19 [History Last Taken 03/19/19 20:30] oxybutynin chloride 5 mg tablet 5 mg PO DAILY urinary leakage 02/17/19 [History Last Taken 03/22/19 08:30] potassium gluconate 500 mg (83 mg) tablet 595 mg PO DAILY muscle cramps 02/17/19 [History Last Taken 03/22/19 06:00] venlafaxine 75 mg tablet,extended release 24 hr 75 mg PO DAILY depression 02/17/19 [History Last Taken 03/22/19 08:30] acidophilus 25 million cell-pectin, citrus 100 mg tablet 1 tab PO BID #60 tabs 03/25/19 [Rx Last Taken Unknown] phenazopyridine 200 mg tablet 200 mg PO BID PRN PRN Pain #10 tabs 10/06/19 [Rx Last Taken Unknown] phenazopyridine 200 mg tablet 200 mg PO BID PRN PRN Pain #10 tabs 01/14/20 [Rx Last Taken Unknown] sulfamethoxazole 800 mg-trimethoprim 160 mg tablet 1 tab PO BID #14 tabs 01/14/20 [Rx Last Taken Unknown] promethazine 25 mg tablet 25 mg PO Q6H PRN PRN Nausea #12 tabs 04/25/20 [Rx Last Taken Unknown] dicyclomine 10 mg capsule 20 mg PO Q4H PRN abdominal pain #20 CAPSULES 11/01/20 [Rx Last Taken Unknown] ondansetron 4 mg disintegrating tablet 4 mg PO Q8H PRN PRN Nausea #20 tabs 08/25/21 [Rx Last Taken Unknown] sulfamethoxazole 800 mg-trimethoprim 160 mg tablet (Bactrim DS) 1 tab PO BID #28 tabs 08/25/21 [Rx Last Taken Unknown] tizanidine 4 mg capsule (Zanaflex) 4 mg PO Q8H PRN muscle spasticity #20 caps 08/25/21 [Rx Last Taken Unknown] cyclobenzaprine 10 mg tablet 10 mg PO TID PRN muscle spasm #14 tabs 10/01/21 [Rx Last Taken Unknown] ibuprofen 600 mg tablet 600 mg PO Q6H PRN PRN fever or pain #20 tabs 10/01/21 [Rx Last Taken Unknown] epinephrine 0.3 mg/0.3 mL injection, auto-injector 01/04/23 [History Last Taken Unknown] estradiol 0.05 mg-norethindrone 0.14 mg/24 hr semiwkly transderm patch (CombiPatch) patch 01/04/23 [History Last Taken Unknown] Allergy/AdvReac Type Severity Reaction Status Date / Time morphine Allergy Hives Verified 10/01/21 10:10 venom-honey bee Allergy Other Verified 10/01/21 10:10 [bee venom (honey bee)] cisplatin AdvReac Other Verified 10/01/21 10:10 oxycodone HCl [From Percocet] AdvReac Nausea Verified 10/01/21 10:10 Social History Smoking Status: Current every day smoker tobacco type: cigarettes ROS ROS ED Review of Systems ROS Unobtainable: due to mental status Neurologic Neurologic: Reports headache(s), paresthesias RLE, LUE and LLE and weakness EXAM Physical Exam Const Vital Signs: 01/04/23 21:35 01/04/23 21:48 01/04/23 21:50 Temperature 98.2 F Temperature Source Temporal Pulse Rate 118 H 81 Respiratory Rate 27 H 10 L Blood Pressure 110/65 133/85 H Blood Pressure Mean 80 101 Pulse Ox 98 99 Oxygen Delivery Method Room Air Room Air Room Air Positive well nourished and well developed Constitutional Narrative: Initially upon my evaluation, patient is having a relatively brief 5-second full body tonic-clonic seizure and is then unconscious, I applied gentle pressure to her superior orbital brim and she woke up and was able to have a conversation and was suddenly very anxious and crying asking why am I in the ER? General Appearance ED: well developed and NAD HEENT Reports moist mucous membranes normocephalic and atraumatic Eyes PERRL and EOMs intact bilaterally Neck full ROM, no lymphadenopathy and supple Resp normal respiratory effort and clear to auscultation bilaterally Cardio regular rate, regular rhythm and no murmurs GI non-tender and non-distended Auscultation: normoactive bowel sounds Palpation: soft Back/Spine no CVA tenderness General Back: other FROM Extremity normal to inspection General Extremety ED: Negative for edema, pulses abnormal or tenderness General Extremity: Negative for edema or pulses abnormal Neuro oriented x3 and CN's II-XII intact bilaterally Neuro Narrative: Weak left side, greater than the right leg which is also weak. Decreased sensation left side. Sensorium / Orientation: awake and alert Skin no rashes or lesions noted and no wounds NIHSS NIHSS Initial: 1a Level of Consciousness: 0 1b LOC Questions (Score 2 if aphasic/stupor): 0 1c LOC Commands (Only score 1st attempt): 0 2 Best Gaze (If aphasic, use reflexive mvmts.): 0 3 Visual: 0 4 Facial Palsy: 0 5 Motor Arm Right (UN = amputation/fusion): 0 5 Motor Arm Left: 2 6 Motor Leg Right: 2 6 Motor Leg Left: 3 7 Limb ataxia (Only + if out of proportion): 0 8 Sensory (Aphasia/stupor=0 or 1, coma=2): 1 9 Best Language: 0 10 Dysarthria (mute, coma=2, intubated=UN): 0 11 Extinction and Inattention (only scored if +): 0 Total Score: 8 MDM MDM MDM Narrative Medical decision making narrative: Patient was brought in by family. Nursing notified me they were put into a bed and I called a stroke alert immediately upon evaluating the patient, out of concern for subarachnoid hemorrhage and possible seizure. Staff obtained IV access and she was immediately taken to CT for imaging. I reviewed the plain CT shortly thereafter, see no bleed I am ordering Keppra 1 g IV. Discuss[address] with Dr. Sanchez on telestroke neurology at the bedside while examining the patient together. Her left-sided deficits are improved but still present. She agrees that this is not likely acute stroke and does not recommend tenecteplase. She agrees that the patient should be admitted and have advanced imaging especially with her history of cervical cancer. For now she agrees that the patient is safely able to stay here does not need to have neurosurgery evaluation or necessarily go to higher level of care for any particular reason. She agrees that it is possible this was seizure activity and/or Jeremi's paralysis, also migraine with neurologic symptoms is in the differential diagnosis, but the patient did lose consciousness, suggesting true seizure activity. She advises migraine medication while we are completing work-up and admitting. History & Record Review Additional record(s) reviewed:: Prior labs Lab Data Attestation: I reviewed the patient's lab results. Labs: Laboratory Results - last 24 hr 01/04/23 01/04/23 01/04/23 21:38 21:45 21:45 WBC 9.7 RBC 4.64 Hgb 14.4 Hct 44.0 MCV 94.8 MCH 31.0 MCHC 32.7 RDW Std Deviation 46.8 H RDW Coeff of Carmen 13.2 Plt Count 305 MPV 8.5 Immature Gran % (Auto) 0.300 Neut % (Auto) 70.6 H Lymph % (Auto) 17.6 L O'Brien % (Auto) 9.8 Eos % (Auto) 1.1 Baso % (Auto) 0.6 Absolute Neuts (auto) 6.9 Absolute Lymphs (auto) 1.71 Nucleated RBC % 0 PT 12.4 INR 0.9 APTT 27.1 Sodium Potassium Chloride Carbon Dioxide Anion Gap BUN Creatinine Estim Creat Clear Calc Est GFR (MDRD) Af Amer Est GFR (MDRD) Non-Af BUN/Creatinine Ratio Glucose Calcium Troponin I High Sens POC Glucose 99 01/04/23 21:45 WBC RBC Hgb Hct MCV MCH MCHC RDW Std Deviation RDW Coeff of Carmen Plt Count MPV Immature Gran % (Auto) Neut % (Auto) Lymph % (Auto) O'Brien % (Auto) Eos % (Auto) Baso % (Auto) Absolute Neuts (auto) Absolute Lymphs (auto) Nucleated RBC % PT INR APTT Sodium 138 Potassium 3.0 L Chloride 103 Carbon Dioxide 27.0 Anion Gap 8 BUN 9 Creatinine 0.89 Estim Creat Clear Calc 66.22 Est GFR (MDRD) Af Amer 95 Est GFR (MDRD) Non-Af 79 BUN/Creatinine Ratio 10.2 Glucose 87 Calcium 8.9 Troponin I High Sens < 3 L POC Glucose Radiography Chest X-Ray - ED: 1 View, Read by ED Physician, Normal, No Acute Disease and No Infiltrates Diagnostic Testing: Clinical Impression(s) from Imaging Studies Brain CT 01/04/23 21:42 IMPRESSION: Negative Brain CT without contrast. Electronically Signed: Beck Shaver MD at 22:00 EDT Reading Location ID and State: [address] [place] [address] Tel , Service support , ADDENDUM: 01/04/234 IMPRESSION: Negative Brain CT without contrast. N.B. : The above Results were Read Back by Beck Shaver MD to Matias Hollingsworth MD, and understanding confirmed on 01/04/2023 22:07:42 (ET). Electronically Signed: Beck Shaver MD at 22:00 EDT Reading Location ID and State: [facility] / [place] Tel , Service support , Head/Neck CTA 01/04/23 21:42 IMPRESSION: Negative CTA Carotid and CTA Brain. N.B. : The above Results were Read Back by Beck Shaver MD to Matias Hollingsworth MD, and understanding confirmed on 01/04/2023 22:11:10 (ET). Electronically Signed: Beck Shaver MD at 22:15 EDT Reading Location ID and State: [facility] / [place] Tel , Service support , ADDENDUM: 01/04/232221 IMPRESSION: Negative CTA Carotid and CTA Brain. N.B. : The above Results were Read Back by Beck Shaver MD to Matias Hollingsworth MD, and understanding confirmed on 01/04/2023 22:11:10 (ET). Electronically Signed: Beck Shaver MD at 22:15 EDT , Chest X-Ray 01/04/23 22:05 IMPRESSION: Incidentally noted prominent renal collecting systems. No radiographic evidence of acute cardiopulmonary disease. Electronically Signed: Beck Shaver MD at 22:25 EDT , Rhythm Strip Rhythm Strip: Sinus Rhythm Rate: 82 Ectopy: None EKG Initial EKG: Attestation: I personally reviewed and interpreted this EKG as follows: Interpretation: Sinus Rhythm and No Acute Injury Pattern Comments: normal Management Discussion w/another healthcare provider: Hospitalist, [place] (neuro Dr. Sanchez) and Radiologist Stroke Documentation Questions Stroke Team Activated: Yes Was Patient considered for Endovascular Intervention?: No-CTA negative, determined not to be an endovascular candidate IV Thrombolytic Administered: No (not thought to be stroke) Critical Care Time Critical Care Time: Yes Critical care time (excluding procedures): 30-74 minutes (40 min), Including time spent:, Discussing w/Patient &/or Family/Corporate Communications Manager, Discussing w/Consultants, Arranging Admission or Transfer and Performing Direct Patient Care at Bedside Discharge Plan Dx/Rx/DC Orders Clinical Impression: Seizure, Acute left hemiparesis, Headache, Hypokalemia Disposition Disposition: [facility]
--- NOTE | 2023-01-04 21:49 | ED.RN ---
[facility] CALLED AT [id number]. STATED TO CALL BACK WHEN PATIENT IS BACK FROM CT.
[2023-01-04 21:50] VITALS: BP 133/85; PULSE 81; RESP 10; O2SAT 99
[2023-01-04 21:56] LABS: Bedside Glucose 99 mg/dL (74-106)
[2023-01-04 21:56] LABS: Absolute Lymphocyte Count 1.71 X10^3/uL (0.83-4.51); Absolute Neutrophil Count 6.9 X10^3/uL (2.0-7.7); Basophil# 0.06 X10^3/uL; Basophil% 0.6 % (0-1); Eosinophil# 0.11 X10^3/uL; Eosinophils% 1.1 % (0-5); Hemoglobin 14.4 g/dL (12.0-15.0); Lymphocyte # 1.71 X10^3/ul (0.83-4.51); Lymphocyte % 17.6 % (19-41); Mean Corp Hgb Conc 32.7 g/dL (32-36); Mean Corpuscular Volume 94.8 fL (81-99); Mean Platelet Vol. 8.5 fl (6.2-12.0); Monocyte# 0.95 X10^3/uL; Monocyte% 9.8 % (0-10); NRBC Flagged by Analyzer 0 % (0-5); Neutrophil # 6.87 X10^3/uL (2.7-7.7); Neutrophil % 70.6 % (47-70); Platelet Count 305 K/mm3 (150-450); RBC Distribution Width CV 13.2 % (11.6-14.6); RBC Distribution Width SD 46.8 fl (35.1-43.9); Red Blood Count 4.64 M/mm3 (4.2-5.4); White Blood Count 9.7 K/mm3 (4.4-11.0)
--- NOTE | 2023-01-04 22:01 | ED.RN ---
[id number] PATIENT BACK IN ROOM. CALLED BACK TO [facility].
--- NOTE | 2023-01-04 22:05 | RAD_ITS ---
INDICATION: Neuro deficit, acute, stroke suspected EXAMINATION/TECHNIQUE: X-RAY - XR Chest 1 View COMPARISON: 10/01/2021 FINDINGS: LUNGS: No consolidation, edema or effusion. No pneumothorax. MEDIASTINUM AND CARDIOVASCULAR STRUCTURES: Cardiac silhouette not enlarged. Central airways and mediastinal contour are unremarkable. Prominent bilateral renal collecting systems. RAD/Chest 1 View IMPRESSION: Incidentally noted prominent renal collecting systems. No radiographic evidence of acute cardiopulmonary disease. Electronically Signed: Beck Shaver MD at 22:25 EDT ,
[2023-01-04] MEDS: levETIRAcetam IV 1,000 MG/100 ML BAG 400 MG IV (22:08)
[2023-01-04 22:16] LABS: Anion Gap 8 (5-15); BUN 9 mg/dL (7-18); BUN/Creat Ratio 10.2 RATIO (10-20); Calcium,Total 8.9 mg/dL (8.5-10.1); Chloride 103 mmol/L (98-107); Creatinine, Serum 0.89 mg/dL (0.55-1.02); EST Glomerular Filtration Rate 79 mL/min (>60); Est Glom Filt Rate - Afr Amer 95 mL/min (>60); Estimated Creatinine Clearance 66.22 ml/min; Glucose 87 mg/dL (74-106); Sodium Level 138 mmol/L (136-145); Troponin-I HS < 3 pg/mL (3.0-54.0)
--- NOTE | 2023-01-04 22:21 | ED.RN ---
per dr. meraz stroke team can be canceled at this time thinks it is more seizure like activity
[2023-01-04 22:27] LABS: International Normalized Ratio 0.9; Partial Thromboplast Time 27.1 Seconds (24.1-36.2); Prothrombin Time (Protime)PT. 12.4 SECONDS (11.7-14.9)
[2023-01-04 22:36] VITALS: BP 135/95; PULSE 72; RESP 16; TEMP 36.6
--- NOTE | 2023-01-04 22:39 | NURSING ---
PCU AGYEPONG SEIZURE, LEFT HEMIPARESIS
--- NOTE | 2023-01-04 22:50 | PCM.HP.STD ---
HPI - General General Date of Admission: 01/04/23 Date of Service: 01/04/23 Chief Complaint: syncope and seizure-like activity HPI Narrative FILIPPO MEDINA, is a 32 F with a significant history of cervical cancer status post internal and external radiation, and chemotherapy who presents to the emergency department with seizure-like activity. Patient was sitting with family and chatting ; and then she stated she was going to pass out. Subsequently she passed out and then had a jerking of his upper extremities. Because patient was sitting family did not know whether patient had jerking movement of her legs too. Patient had multiple episodes of same symptoms. Family transported patient to the emergency department; enroute to the emergency department patient had multiple episodes too. At the emergency department patient also had 1 episode of jerking. After the jerking episodes patient complained of headache. Patient also had numbness, tingling and weakness of her left upper extremity and left lower extremity which improved in the course of time but did not get to baseline. Stroke alert was called. A CT of head and neck was done. Telemetry neurologist saw patient and made recommendations. [facility] Medical History Anemia due to blood loss, chronic Cervical cancer Chronic radiation cystitis Clostridium difficile colitis Ovarian cyst Home Medications oxybutynin chloride 5 mg tablet 5 mg PO DAILY urinary leakage 02/17/19 [History Last Taken 03/22/19 08:30] potassium gluconate 500 mg (83 mg) tablet 595 mg PO DAILY muscle cramps 02/17/19 [History Last Taken 03/22/19 06:00] venlafaxine 75 mg tablet,extended release 24 hr 75 mg PO DAILY depression 02/17/19 [History Last Taken 03/22/19 08:30] phenazopyridine 200 mg tablet 200 mg PO BID PRN PRN Pain #10 tabs 10/06/19 [Rx Last Taken Unknown] phenazopyridine 200 mg tablet 200 mg PO BID PRN PRN Pain #10 tabs 01/14/20 [Rx Last Taken Unknown] sulfamethoxazole 800 mg-trimethoprim 160 mg tablet 1 tab PO BID #14 tabs 01/14/20 [Rx Last Taken Unknown] promethazine 25 mg tablet 25 mg PO Q6H PRN PRN Nausea #12 tabs 04/25/20 [Rx Last Taken Unknown] ondansetron 4 mg disintegrating tablet 4 mg PO Q8H PRN PRN Nausea #20 tabs 08/25/21 [Rx Last Taken Unknown] sulfamethoxazole 800 mg-trimethoprim 160 mg tablet (Bactrim DS) 1 tab PO BID #28 tabs 08/25/21 [Rx Last Taken Unknown] tizanidine 4 mg capsule (Zanaflex) 4 mg PO Q8H PRN muscle spasticity #20 caps 08/25/21 [Rx Last Taken Unknown] ibuprofen 600 mg tablet 600 mg PO Q6H PRN PRN fever or pain #20 tabs 10/01/21 [Rx Last Taken Unknown] epinephrine 0.3 mg/0.3 mL injection, auto-injector 0.3 mg subcut PRN PRN Allergic Symptoms 01/04/23 [History Last Taken Unknown] estradiol 0.05 mg-norethindrone 0.14 mg/24 hr semiwkly transderm patch (CombiPatch) 0.05 patch QWEEK 01/04/23 [History Last Taken Unknown] Allergy/AdvReac Type Severity Reaction Status Date / Time morphine Allergy Hives Verified 10/01/21 10:10 venom-honey bee Allergy Other Verified 10/01/21 10:10 [bee venom (honey bee)] cisplatin AdvReac Other Verified 10/01/21 10:10 oxycodone HCl [From Percocet] AdvReac Nausea Verified 10/01/21 10:10 Family History Other Cancer Surgical History History of appendectomy History of elbow surgery History of oophorectomy Social History Smoking Status: Current every day smoker tobacco type: cigarettes ROS ROS Narrative Pertinent positives and pertinent negatives as noted in HPI. All other systems were reviewed and are negative Vital Signs Vital Signs Vital Signs: 01/04/23 21:35 01/04/23 21:48 01/04/23 21:50 Temperature 98.2 F Temperature Source Temporal Pulse Rate 118 H 81 Respiratory Rate 27 H 10 L Blood Pressure 110/65 133/85 H Blood Pressure Mean 80 101 Pulse Ox 98 99 Oxygen Delivery Method Room Air Room Air Room Air 01/04/23 22:36 Temperature 98 F Temperature Source Temporal Pulse Rate 72 Respiratory Rate 16 Blood Pressure 135/95 H Blood Pressure Mean 108 Pulse Ox Oxygen Delivery Method Weight Weight: 45.8 kg Body Mass Index (BMI) 21.1 Physical Exam Narrative Physical exam: General: Well-nourished, well-developed. Head: Normocephalic, atraumatic, no tenderness Eyes: Vision is grossly intact. EOMI ENT, no trauma, moist mucous membranes, no rhinorrhea Neck: Nontender, No thyromegaly. CVS: Regular rate and rhythm. S1-S2 present. No murmur, gallop or rub. Respiratory : clear to auscultation bilaterally, chest wall nontender Abdomen: Soft, nontender, nondistended, normal bowel sounds, no masses : Deferred Back: Nontender, no CVA tenderness, no midline spinal tenderness, deformities, step-offs Extremities: Nontender full range of motion, no trauma Skin: Normal color, no trauma, abrasions Neuro: Alert, oriented, cranial nerves II through XII grossly intact. Strength in right upper extremity ; and right lower extremity 5 out of 5. Strength in left upper extremity and left lower extremity 4 out of 5. Psychiatry: Normal mood. Normal affect. Not depressed. Not anxious. Results Lab / Micro Data Result Diagrams: 01/04/23 21:45 01/04/23 21:45 Labs: Laboratory Results - last 24 hr 01/04/23 21:38: POC Glucose 99 01/04/23 21:45: WBC 9.7, RBC 4.64, Hgb 14.4, Hct 44.0, MCV 94.8, MCH 31.0, MCHC 32.7, RDW Std Deviation 46.8 H, RDW Coeff of Carmen 13.2, Plt Count 305, MPV 8.5, Immature Gran % (Auto) 0.300, Neut % (Auto) 70.6 H, Lymph % (Auto) 17.6 L, Bryan % (Auto) 9.8, Eos % (Auto) 1.1, Baso % (Auto) 0.6, Absolute Neuts (auto) 6.9, Absolute Lymphs (auto) 1.71, Nucleated RBC % 0 01/04/23 21:45: PT 12.4, INR 0.9, APTT 27.1 01/04/23 21:45: Sodium 138, Potassium 3.0 L, Chloride 103, Carbon Dioxide 27.0, Anion Gap 8, BUN 9, Creatinine 0.89, Estim Creat Clear Calc 66.22, Est GFR (MDRD) Af Amer 95, Est GFR (MDRD) Non-Af 79, BUN/Creatinine Ratio 10.2, Glucose 87, Calcium 8.9, Troponin I High Sens < 3 L Rhythm Strip Rhythm Strip: Sinus Rhythm Rate: 82 Ectopy: None Radiology Impression Brain CT 01/04/23 21:42 IMPRESSION: Negative Brain CT without contrast. Electronically Signed: Beck Shaver MD at 22:00 EDT , ADDENDUM: 01/04/234 IMPRESSION: Negative Brain CT without contrast. N.B. : The above Results were Read Back by Beck Shaver MD to Matias Hollingsworth MD, and understanding confirmed on 01/04/2023 22:07:42 (ET). Electronically Signed: Beck Shaver MD at 22:00 EDT , Head/Neck CTA 01/04/23 21:42 IMPRESSION: Negative CTA Carotid and CTA Brain. N.B. : The above Results were Read Back by Beck Shaver MD to Matias Hollingsworth MD, and understanding confirmed on 01/04/2023 22:11:10 (ET). Electronically Signed: Beck Shaver MD at 22:15 EDT , ADDENDUM: 01/04/232 IMPRESSION: Negative CTA Carotid and CTA Brain. N.B. : The above Results were Read Back by Beck Shaver MD to Matias Hollingsworth MD, and understanding confirmed on 01/04/2023 22:11:10 (ET). Electronically Signed: Beck Shaver MD at 22:15 EDT Reading Location ID and State: [facility] / [place] Tel , Service support , Chest X-Ray 01/04/23 22:05 IMPRESSION: Incidentally noted prominent renal collecting systems. No radiographic evidence of acute cardiopulmonary disease. Electronically Signed: Beck Shaver MD at 22:25 EDT , Assessment & Plan Assessment/Plan (1) Seizure: (2) Acute left hemiparesis: (3) Headache: (4) Hypokalemia: PLAN: Plan New onset Seizure with Jeremi paralysis Differential includes includes a complex migraine. Impression of brain CT by radiologist: Negative brain CT without contrast. Head CT was independently interpreted by hospitalist and I agree with radiology interpretation. Head/neck CTA was unremarkable. Impression of chest x-ray by radiology:Incidentally noted prominent renal collecting systems. No radiographic evidence of acute cardiopulmonary disease. Chest x-ray was visualized and independently interpreted and I agree with radiology interpretation. Keppra IV ordered. Per neurology recommendations medical medication ordered: Reglan ordered at the ED.. Compazine IV ordered for headache. Per neurology recommendation will get MRI with and without contrast of brain. EEG ordered. Check CPK and prolactin. Urine drug screen ordered at the emergency department, follow. Urine drug screen ordered at the emergency department, follow. Hypokalemia Potassium on presentation was 3.0 P.o. potassium ordered emergency department. IV potassium ordered. Check magnesium. Trend BMP. Tobacco abuse Counseled Nicotine patch prescribed. DVT prophylaxis: SCDs ordered. Charges/Coding Visit Charges Inpatient E&M: 83146 Init Hosp L3
[2023-01-04] MEDS: Metoclopramide 10 MG/2 ML Vial 5 MG IV (22:52)
[2023-01-04] MEDS: Potassium Chloride Oral Tablet 20 MEQ 40 MEQ PO (22:52)
[2023-01-04 23:17] LABS: CPK Total, Creatine Kinase 152 U/L (26-192); Prolactin 20.6 ng/mL
[2023-01-04 23:27] LABS: Magnesium 2.2 mg/dL (1.6-2.6)
[2023-01-04 23:35] VITALS: BP 116/75; PULSE 70; RESP 21; O2SAT 97
[2023-01-04 23:54] LABS: Amphetamine Urine VISTA NEGATIVE (<1000 ng/mL); Barbiturate Urine VISTA NEGATIVE (< 200 ng/mL); Benzodiazepine Urine VISTA NEGATIVE (< 200 ng/mL); Cocaine Urine VISTA NEGATIVE (< 300 ng/mL); Ecstacy Urine VISTA NEGATIVE (< 500 ng/mL); Methadone Urine VISTA NEGATIVE (< 300 ng/mL); PCP Urine VISTA NEGATIVE (< 25 ng/mL); THC Urine VISTA POSITIVE (< 50 ng/mL); Vista UDS pH Range 7
[2023-01-04 23:57] VITALS: BP 120/87; PULSE 80; RESP 16; TEMP 36.6; O2SAT 100; BMI 20.9
[2023-01-05] MEDS: Acetaminophen 325 MG Tablet 650 MG PO ×3 (00:46→21:10)
[2023-01-05 02:18] VITALS: O2SAT 96
[2023-01-05 03:00] VITALS: BP 104/62; PULSE 79; RESP 18; TEMP 36.8; O2SAT 97
[2023-01-05 06:35] LABS: Bacteria 0 SEEN /hpf (None Seen); Mucous, Urine 0 SEEN /hpf (<or=2+); Red Blood Cells-Urine 0 SEEN /hpf (0-5)
[2023-01-05 06:36] LABS: Absolute Lymphocyte Count 1.39 X10^3/uL (0.83-4.51); Absolute Neutrophil Count 4.7 X10^3/uL (2.0-7.7); Basophil# 0.07 X10^3/uL; Basophil% 0.9 % (0-1); Eosinophil# 0.17 X10^3/uL; Eosinophils% 2.3 % (0-5); Hematocrit 38.3 % (37-47); Hemoglobin 12.7 g/dL (12.0-15.0); Lymphocyte # 1.39 X10^3/ul (0.83-4.51); Lymphocyte % 18.7 % (19-41); Mean Corp Hgb Conc 33.2 g/dL (32-36); Mean Corpuscular Hgb 31.3 pg (27.0-32.0); Mean Corpuscular Volume 94.3 fL (81-99); Mean Platelet Vol. 8.4 fl (6.2-12.0); Monocyte# 1.05 X10^3/uL; Monocyte% 14.1 % (0-10); NRBC Flagged by Analyzer 0 % (0-5); Neutrophil # 4.74 X10^3/uL (2.7-7.7); Neutrophil % 63.7 % (47-70); Platelet Count 248 K/mm3 (150-450); RBC Distribution Width CV 13.3 % (11.6-14.6); RBC Distribution Width SD 46.4 fl (35.1-43.9); Red Blood Count 4.06 M/mm3 (4.2-5.4); White Blood Count 7.4 K/mm3 (4.4-11.0)
[2023-01-05 06:38] LABS: Color, Urine Yellow (Yellow); Glucose, Dipstick Normal (Normal); Ketone-Dipstick Negative (Negative); Leukocyte Esterase-Dipstick 25 /ul (Negative); Nitrite-Dipstick Negative (Negative); Occult Blood-Urine Negative /ul (Negative); Protein-Dipstick 15 mg/dl (Negative); Urine Bilirubin Dipstick Negative (Negative); Urine Clarity Clear (Clear); Urine Urobilinogen Normal (Normal)
[2023-01-05 06:52] LABS: Squamous Epithelial Cells - UA 0-5 SEEN /hpf (5-10); White Blood Cells 0-5 SEEN /hpf (0-5)
[2023-01-05 07:17] LABS: ALB/GLOB Ratio 0.8 RATIO (0.9-2.4); AST(SGOT) 19 U/L (15-37); Alanine Aminotransfer ALT/SGPT 16 U/L (13-56); Albumin, Serum 2.6 g/dL (3.2-5.0); Alkaline Phosphatase 75 U/L (45-117); Anion Gap 5 (5-15); BUN 7 mg/dL (7-18); BUN/Creat Ratio 10.5 RATIO (10-20); Calcium,Total 8.3 mg/dL (8.5-10.1); Chloride 111 mmol/L (98-107); Cholesterol 172 mg/dL (200); Creatinine, Serum 0.67 mg/dL (0.55-1.02); EST Glomerular Filtration Rate 109 mL/min (>60); Est Glom Filt Rate - Afr Amer 132 mL/min (>60); Estimated Creatinine Clearance 84.51 ml/min; Globulin 3.2 g/dL (2.2-4.2); Glucose 84 mg/dL (74-106); High Density Lipoprotein 81 mg/dL; Potassium 4.1 mmol/L (3.5-5.1); Protein, Total 5.8 g/dL (6.4-8.2); Sodium Level 141 mmol/L (136-145); Triglycerides 63 mg/dL; Very Low Density Lipoprotein 13 mg/dL (5-40)
--- NOTE | 2023-01-05 08:51 | PN.HOSP_ITS ---
Reason for Visit Reason for Visit: Diagnoses Hypokalemia (01/04/23) Hemiplegia, unspecified affecting left nondominant side (01/04/23) Headache, unspecified (01/04/23) Unspecified convulsions (01/04/23) Subjective Subjective Follow-up new onset seizures. Reports the tingling in her hand and foot are slowly improving though still present still feels odd to stand due to decreased feeling on her left foot Objective Data Objective Data Vital Signs: Vital Signs Temp Pulse Resp BP Pulse Ox O2 Del Method 98.2 F 79 18 104/62 97 Room Air 01/05/23 03:00 01/05/23 03:00 01/05/23 03:00 01/05/23 03:00 01/05/23 03:00 01/05/23 08:21 Oxygen Delivery Method Room Air Weight: 44 kg Body Mass Index (BMI) 20.9 Intake & Output: Intake and Output for Last 24 Hours 01/03/23 01/04/23 01/05/23 23:59 23:59 23:59 Intake Total 100 / 100 120 / 120 Balance 100 / 100 120 / 120 Lab / Micro Data Result Diagrams: 01/05/23 06:03 01/05/23 06:03 Labs: Laboratory Results - last 24 hr 01/04/23 21:38: POC Glucose 99 01/04/23 21:45: WBC 9.7, RBC 4.64, Hgb 14.4, Hct 44.0, MCV 94.8, MCH 31.0, MCHC 32.7, RDW Std Deviation 46.8 H, RDW Coeff of Carmen 13.2, Plt Count 305, MPV 8.5, Immature Gran % (Auto) 0.300, Neut % (Auto) 70.6 H, Lymph % (Auto) 17.6 L, [place] % (Auto) 9.8, Eos % (Auto) 1.1, Baso % (Auto) 0.6, Absolute Neuts (auto) 6.9, Absolute Lymphs (auto) 1.71, Nucleated RBC % 0 01/04/23 21:45: PT 12.4, INR 0.9, APTT 27.1 01/04/23 21:45: Sodium 138, Potassium 3.0 L, Chloride 103, Carbon Dioxide 27.0, Anion Gap 8, BUN 9, Creatinine 0.89, Estim Creat Clear Calc 66.22, Est GFR (MDRD) Af Amer 95, Est GFR (MDRD) Non-Af 79, BUN/Creatinine Ratio 10.2, Glucose 87, Calcium 8.9, Troponin I High Sens < 3 L 01/04/23 21:45: Magnesium 2.2 01/04/23 21:45: Total Creatine Kinase 152, Prolactin 20.6 01/04/23 23:20: Urine Opiates Screen NEGATIVE, Urine Methadone Screen NEGATIVE, Ur Barbiturates Screen NEGATIVE, Ur Phencyclidine Scrn NEGATIVE, Ur Amphetamines Screen NEGATIVE, MDMA (Ecstasy) Screen NEGATIVE, U Benzodiazepines Scrn NEGATIVE, Urine Cocaine Screen NEGATIVE, U Cannabinoids Screen POSITIVE H, Ur Drug Screen Comment 01/04/23 23:20: Urine Color Yellow, Urine Clarity Clear, Urine pH 8.0, Ur Specific [place] 1.010, Urine Protein 15 H, Urine Glucose (UA) Normal, Urine Ketones Negative, Urine Occult Blood Negative, Urine Nitrite Negative, Urine Bilirubin Negative, Urine Urobilinogen Normal, Ur Leukocyte Esterase 25 H, Urine RBC 0 SEEN, Urine WBC 0-5 SEEN, Ur Squamous Epith Cells 0-5 SEEN, Urine Bacteria 0 SEEN, Urine Mucus 0 SEEN 01/05/23 06:03: WBC 7.4, RBC 4.06 L, Hgb 12.7, Hct 38.3, MCV 94.3, MCH 31.3, MCHC 33.2, RDW Std Deviation 46.4 H, RDW Coeff of Carmen 13.3, Plt Count 248, MPV 8.4, Immature Gran % (Auto) 0.300, Neut % (Auto) 63.7, Lymph % (Auto) 18.7 L, [place] % (Auto) 14.1 H, Eos % (Auto) 2.3, Baso % (Auto) 0.9, Absolute Neuts (auto) 4.7, Absolute Lymphs (auto) 1.39, Nucleated RBC % 0 01/05/23 06:03: Sodium 141, Potassium 4.1, Chloride 111 H, Carbon Dioxide 25.0, Anion Gap 5, BUN 7, Creatinine 0.67, Estim Creat Clear Calc 84.51, Est GFR (MDRD) Af Amer 132, Est GFR (MDRD) Non-Af 109, BUN/Creatinine Ratio 10.5, Glucose 84, Calcium 8.3 L, Total Bilirubin 0.40, AST 19, ALT 16, Alkaline Phosphatase 75, Total Protein 5.8 L, Albumin 2.6 L, Globulin 3.2, Albumin/Globulin Ratio 0.8 L, Triglycerides 63, Cholesterol 172, LDL Cholesterol 78, VLDL Cholesterol 13, HDL Cholesterol 81 Radiography Diagnostic Testing: Radiology Impression Brain CT 01/04/23 21:42 IMPRESSION: Negative Brain CT without contrast. Electronically Signed: Beck Shaver MD at 22:00 EDT , ADDENDUM: 01/04/23 2214 IMPRESSION: Negative Brain CT without contrast. N.B. : The above Results were Read Back by Beck Shaver MD to Matias Hollingsworth MD, and understanding confirmed on 01/04/2023 22:07:42 (ET). Electronically Signed: Beck Shaver MD at 22:00 EDT , Head/Neck CTA 01/04/23 21:42 IMPRESSION: Negative CTA Carotid and CTA Brain. N.B. : The above Results were Read Back by Beck Shaver MD to Matias Hollingsworth MD, and understanding confirmed on 01/04/2023 22:11:10 (ET). Electronically Signed: Beck Shaver MD at 22:15 EDT , ADDENDUM: 01/04/232 IMPRESSION: Negative CTA Carotid and CTA Brain. N.B. : The above Results were Read Back by Beck Shaver MD to Matias Hollingsworth MD, and understanding confirmed on 01/04/2023 22:11:10 (ET). Electronically Signed: Beck Shaver MD at 22:15 EDT , Chest X-Ray 01/04/23 22:05 IMPRESSION: Incidentally noted prominent renal collecting systems. No radiographic evidence of acute cardiopulmonary disease. Electronically Signed: Beck Shaver MD at 22:25 EDT Reading Location ID and State: [facility] / [place] Tel , Service support , Rhythm Strip Rhythm Strip: Sinus Rhythm Rate: 82 Ectopy: None Physical Exam Narrative General: Alert, oriented, no apparent distress HEENT: Atraumatic, normocephalic Eyes: Anicteric, normal conjunctiva, extraocular movements intact, pupils equal Neck: Supple Respiratory: Clear to auscultation bilaterally, normal respiratory effort Cardiovascular: Regular rate and rhythm GI: Soft, nontender, nondistended Extremities: No edema Musculoskeletal: Strength 5 out of 5 in right upper extremity, 4+ out of 5 left upper extremity, 5 out of 5 right lower extremity, 4 - out of 5 left lower extremity Neuro: No overt focal neurological deficits, cranial nerves II through XII intact Skin: No rashes appreciated Psych: Cooperative Assessment & Plan Assessment/Plan (1) Seizure: (2) Acute left hemiparesis: (3) Headache: (4) Hypokalemia: PLAN: Plan #New onset seizures with Jeremi's paralysis -Differential include complex migraine given accompanying headache -CT head and CTA head and neck unremarkable -Neuro recommended medical management and IV Keppra ordered -MRI brain with and without contrast and EEG ordered as well as migraine cocktail per neuro recommendations -UDS positive for cannabinoids -EEG with no acute seizure-like activity, continue on Keppra, MRI brain pending. Will likely reconsult neurology for final recommendations after MRI is read. Today patient still having neurologic complaints and abnormal sensation, if doing better tomorrow and ambulating well and is able to be evaluated/MRI read may be able to DC tomorrow #History of cervical cancer -Status post internal and external radiation as well as chemotherapy #DVT ppx: SCDs per neuro recs Ashleigh Gill MD Time spent in the patient's overall evaluation,decision-making process, review of diagnostic data, adjustment of management, discussion with other providers, nursing nursing and ancillary staff involved in patient's care documentation, 30 minutes Charges/Coding Visit Charges Inpatient E&M: 69736 Subs Hosp L2
[2023-01-05 09:00] VITALS: BP 105/70; PULSE 70; RESP 16; TEMP 36.3; O2SAT 100
[2023-01-05 09:17] LABS: Hemoglobin A1c 4.9 % (3.8-5.6)
--- NOTE | 2023-01-05 09:30 | MRI_ITS ---
EXAM: MR HEAD WITHOUT AND WITH INTRAVENOUS CONTRAST CLINICAL INDICATION: seizures, H/A, N/T, LT SIDE WEAKNESS TECHNIQUE: Multiplanar and multisequence MR images of the brain were obtained without and with intravenous contrast. CONTRAST: IV 9ml clariscan COMPARISON: ct 01.04.23 FINDINGS: BRAIN AND EXTRA-AXIAL SPACES: Unremarkable. No intra- or extra-axial hemorrhage. No evidence of acute infarct. No intracranial mass or mass effect. There is preservation of the gomez/white matter interface. Posterior fossa structures are unremarkable. Ventricles are appropriate for age. No hydrocephalus. Basal cisterns are patent. SELLA: Unremarkable. Normal sella turcica, pituitary gland, infundibular stalk, optic chiasm and hypothalamus. AUDITORY SYSTEM: Unremarkable. The internal auditory canals are patent. BONES/JOINTS: Unremarkable. No discrete lytic or blastic abnormalities. SINUSES: Unremarkable as visualized. Clear. MASTOID AIR CELLS: Unremarkable as visualized. Clear. ORBITS: Unremarkable as visualized. Both globes, extraocular muscles, optic nerves and retrobulbar fat appear unremarkable. VASCULATURE: Unremarkable as visualized. Normal flow voids in the major intracranial circulation. MRI/Brain W/WO Contrast IMPRESSION: Negative MRI brain without and with intravenous contrast. Electronically Signed: Bartolo Jensen MD at 16:51 EDT ,
--- NOTE | 2023-01-05 11:00 | CASEMGMT ---
TINO DONALDSON Assessment: Face to Face with pt for initial transition planning/care coordination assessment. TINO DONALDSON introduced self and role at [facility], pt voices understanding and consents to assessment. Pt is A/O x4 and answers all questions appropriately at this time. Pt lying in bed in no distress, short with her answers. Care providers, pharmacy, and demographics verified/updated. Admitting Dx: new onset seizures PCP:Geena Specialists:Pt denies. Preferred Pharmacy: [facility] Insurance: [facility] Prescription Benefit: yes LNOK: Marshall Thompson, father; Susan Mcbride, grandmother Living Arrangements: Pt lives with dtr in a 2 story apt with 13 steps to enter with a rail. Pt reports she is I in ADL's and denies concerns at home. Transportation: Pt drives self and denies concerns with transportation. DME/HHC/SNF: Pt denies having any DME in the home, previous HHC or SNF stays. Pt states no concerns with going home at time of dc. Pt states no further concerns/needs. CM to follow. Advised pt to ask CM if any further question/concerns/needs arise, voices understanding. Pt Goal: Home Plan: Home
[2023-01-05] MEDS: Venlafaxine XR 75 MG Capsule PO (11:31)
[2023-01-05] MEDS: 0.9% Saline Lock 10 ML Syringe IV (11:31)
[2023-01-05] MEDS: Senna/Docusate Sodium 1 Tablet 2 TABLET PO (11:48)
[2023-01-05 15:00] VITALS: BP 106/69; PULSE 58; RESP 12; TEMP 36.8; O2SAT 99
[2023-01-05 21:06] VITALS: BP 133/85; PULSE 91; RESP 18; TEMP 36.8; O2SAT 95
[2023-01-05] MEDS: levETIRAcetam 500 MG Tablet PO (21:10)
--- NOTE | 2023-01-06 01:32 | PCM.PN.BLA ---
Progress Note Tele-neurologist who had evaluated patient called and recommended that Keppra be continued and that patient can be discharged from the neurology standpoint. Patient to see outpatient neurology and to have 24-hour EEG. Outpatient neurology to clear patient on when she can drive.
[2023-01-06 03:27] VITALS: BP 98/68; PULSE 50; RESP 18; TEMP 36.4; O2SAT 98
[2023-01-06 06:27] LABS: Absolute Lymphocyte Count 1.51 X10^3/uL (0.83-4.51); Absolute Neutrophil Count 3.2 X10^3/uL (2.0-7.7); Basophil# 0.06 X10^3/uL; Eosinophil# 0.18 X10^3/uL; Eosinophils% 3.1 % (0-5); Hematocrit 38.9 % (37-47); Hemoglobin 12.4 g/dL (12.0-15.0); Lymphocyte # 1.51 X10^3/ul (0.83-4.51); Lymphocyte % 25.7 % (19-41); Mean Corp Hgb Conc 31.9 g/dL (32-36); Mean Corpuscular Hgb 31.2 pg (27.0-32.0); Mean Corpuscular Volume 97.7 fL (81-99); Mean Platelet Vol. 8.8 fl (6.2-12.0); Monocyte# 0.89 X10^3/uL; Monocyte% 15.2 % (0-10); NRBC Flagged by Analyzer 0 % (0-5); Neutrophil % 54.5 % (47-70); Platelet Count 269 K/mm3 (150-450); RBC Distribution Width CV 13.2 % (11.6-14.6); RBC Distribution Width SD 47.7 fl (35.1-43.9); Red Blood Count 3.98 M/mm3 (4.2-5.4); White Blood Count 5.9 K/mm3 (4.4-11.0)
[2023-01-06 07:09] LABS: Albumin, Serum 2.7 g/dL (3.2-5.0); BUN 13 mg/dL (7-18); BUN/Creat Ratio 18.4 RATIO (10-20); Creatinine, Serum 0.71 mg/dL (0.55-1.02); EST Glomerular Filtration Rate 102 mL/min (>60); Est Glom Filt Rate - Afr Amer 123 mL/min (>60); Estimated Creatinine Clearance 79.75 ml/min; Glucose 91 mg/dL (74-106); Protein, Total 6.1 g/dL (6.4-8.2)
[2023-01-06 07:10] LABS: ALB/GLOB Ratio 0.8 RATIO (0.9-2.4); AST(SGOT) 19 U/L (15-37); Alanine Aminotransfer ALT/SGPT 18 U/L (13-56); Alkaline Phosphatase 87 U/L (45-117); Anion Gap 4 (5-15); Calcium,Total 8.6 mg/dL (8.5-10.1); Chloride 111 mmol/L (98-107); Globulin 3.4 g/dL (2.2-4.2); Potassium 4.2 mmol/L (3.5-5.1); Sodium Level 141 mmol/L (136-145)
--- NOTE | 2023-01-06 10:18 | PCM.DC.SUM ---
Providers Date of Admission: 01/04/23 Date of Discharge: 01/06/23 Primary Care Physician: Dr. Korey Seay MD Reason For Visit: NEW ONSET SEIZURES Diagnosis Discharge Diagnosis (1) Seizure: Status: Acute Code(s): R56.9 - Unspecified convulsions (2) Acute left hemiparesis: Status: Acute Code(s): G81.94 - Hemiplegia, unspecified affecting left nondominant side (3) Headache: Status: Acute Code(s): R51.9 - Headache, unspecified (4) Hypokalemia: Status: Acute Code(s): E87.6 - Hypokalemia Plan #New onset seizures with Jeremi's paralysis #History of cervical cancer Medications at Discharge Home Medications oxybutynin chloride 5 mg tablet 5 mg PO DAILY urinary leakage 02/17/19 venlafaxine 75 mg tablet,extended release 24 hr 75 mg PO DAILY depression 02/17/19 epinephrine 0.3 mg/0.3 mL injection, auto-injector 0.3 mg subcut PRN PRN Allergic Symptoms 01/04/23 estradiol 0.05 mg-norethindrone 0.14 mg/24 hr semiwkly transderm patch (CombiPatch) 0.05 patch QWEEK 01/04/23 ferrous sulfate 325 mg (65 mg iron) tablet mg Check with primary doctor 01/06/23 fluticasone propionate 50 mcg/actuation nasal spray,suspension intranasal Check with primary doctor 01/06/23 levetiracetam 500 mg tablet 500 mg PO BID 30 days #60 tabs 01/06/23 Hospital Course Procedures - (eeg) Summary of Care Provided Minutes Spent on Discharge: 31 Hospital Course: 32 F with a significant history of cervical cancer status post internal and external radiation, and chemotherapy who presents to the emergency department 01/04/2023 with seizure-like activity. She was sitting talking to family and stated then she was going to pass out. Subsequently passed out and had jerking of upper extremities and had multiple episodes of same symptoms. She was transported to the emergency department and in route had multiple episodes and also had 1 episode in the emergency department. Afterwards had headache and complained of weakness and numbness and tingling in left upper and lower extremity which had already improved but did not go back to baseline. CT head and neck unremarkable, stroke alert was called and recommended Keppra 500 mg twice daily and admission with MRI and EEG. It was felt she had new onset seizures with Jeremi's paralysis. EEG with no seizure-like activity and MRI brain with no acute abnormalities. Neurology agreeable to discharge with p.o. Keppra and follow-up with neurology, no driving until cleared to do so and will need outpatient 24-hour EEG. Patient had on second of admission complained still of some tingling and hand and foot on left side but by day of discharge she reported she was feeling back to normal and had no acute complaints. No further seizure-like episodes when she got to the floor and was on Keppra. Discharge instructions as follows: [facility] Medical Records Department [address] [place] [address] Instructions for Home/Discharge Instructions 01/06/23 1017 MR#:? [id number] Acct: [id number] Name: FILIPPO MEDINA Rep #: [id number] :? 1990 32 From:? Ashleigh Gill MD PCP: Dr. Korey Seay MD ? Status: ADM IN Discharge Instructions Diet Discharge Diet: No restrictions Activity Discharge Activity: May Not Drive (Until cleared to do so by neurology) Follow Up Care Test Results: Test results from this visit will be discussed in further detail at your follow-up appointment, if applicable. Discharge Plan Admission Admit Date/Time: 01/04/23 22:32 Primary Reason for Your Visit: New onset seizure Attending Provider: Ashleigh Gill Primary Care Provider: Korey Seay Consulting Providers: Perry Romero Instructions Patient Instructions:? ED Seizure New Onset Unknown ... Additional Instructions / Restrictions: DISCHARGE INSTRUCTIONS PLEASE READ *Please take this with you to your next doctors appointment* -You are diagnosed with new onset seizures and you will be discharged on Keppra 500 mg twice daily, will be very important that you take this as prescribed -You will need a 24-hour EEG to test your brain waves to assess for any abnormalities over an entire day, it will be very importantly follow-up with neurology upon discharge.? Please follow-up with neurology upon discharge, please call Dr. Abdi's office upon discharge to schedule hospital follow-up appointment ) -Please call your primary care provider's office upon discharge to schedule a hospital follow up within 1 week. -For any concerning signs or symptoms please call 911 or proceed to the nearest emergency department SEIZURE DISCHARGE INSTRUCTIONS: - Seizures are unpredictable.? Do not do anything that might cause danger to you or other people if you have another seizure.? Do not drive, ride a bike, climb ladders, or operate dangerous equipment - Do not take a bath alone.? Take shower instead - Not some alone until your healthcare provider says that you are no longer in danger of having another seizure - Tell your close friends and relatives about your seizure.? Teach them what to do for you if it happens again - Take your medicine as prescribed, missing doses increases your risk of having repeat seizure -Follow regular sleep schedule such that you get at least 60 hours of restful sleep every night.? This is especially important when you are sick or have a cold, flu, or another type of infection - Do not drink alcoholic beverages until your doctor says it is okay.? Do not ever use recreational drugs - Do not drive until you are cleared to do so by your doctor, specifically would not drive until cleared by a neurologist to do so -For future seizures if you are alone: If you feel a seizure coming on, lie down on a bed or the floor or with something soft under your head and lie on your left side, not in your back.? Also make sure you are not near any objects that may injure you during seizure.? Call 911 if you can. - For future seizures if someone is with you: Depression should help you get into a safe position and then they should call 911.? They should not try to force anything into your mouth once the seizure begins.? They should not put their fingers in your mouth. -After seizure you may be drowsy or confused.? That person should stay with you until you are fully awake.? That person should not offer you anything to eat or drink during that time.? Call 911 or go to the emergency department. -Call your healthcare provider right away if you have any of these: Another seizure, a fever of 100.4 ?F or higher, abnormal irritability, drowsiness, or confusion, head or neck pain that gets worse Physical Exam Narrative General: Alert, oriented, no apparent distress HEENT: Atraumatic, normocephalic Eyes: Anicteric, normal conjunctiva, extraocular movements intact, pupils equal Neck: Supple Respiratory: Clear to auscultation bilaterally, normal respiratory effort Cardiovascular: Regular rate and rhythm GI: Soft, nontender, nondistended Extremities: No edema Musculoskeletal: Moving all extremities Neuro: No overt focal neurological deficits Skin: No rashes appreciated Psych: Cooperative Weight / BMI Weight Weight: 44 kg Body Mass Index (BMI) 20.9 ABG / Lab / Microbiology Data Result Diagrams: 01/06/23 05:20 01/06/23 05:20 Laboratory: Laboratory Results - last 24 hr 01/06/23 05:20: WBC 5.9, RBC 3.98 L, Hgb 12.4, Hct 38.9, MCV 97.7, MCH 31.2, MCHC 31.9 L, RDW Std Deviation 47.7 H, RDW Coeff of Carmen 13.2, Plt Count 269, MPV 8.8, Immature Gran % (Auto) 0.500, Neut % (Auto) 54.5, Lymph % (Auto) 25.7, [place] % (Auto) 15.2 H, Eos % (Auto) 3.1, Baso % (Auto) 1.0, Absolute Neuts (auto) 3.2, Absolute Lymphs (auto) 1.51, Nucleated RBC % 0 01/06/23 05:20: Sodium 141, Potassium 4.2, Chloride 111 H, Carbon Dioxide 26.0, Anion Gap 4 L, BUN 13, Creatinine 0.71, Estim Creat Clear Calc 79.75, Est GFR (MDRD) Af Amer 123, Est GFR (MDRD) Non-Af 102, BUN/Creatinine Ratio 18.4, Glucose 91, Calcium 8.6, Total Bilirubin 0.30, AST 19, ALT 18, Alkaline Phosphatase 87, Total Protein 6.1 L, Albumin 2.7 L, Globulin 3.4, Albumin/Globulin Ratio 0.8 L Radiography Diagnostic Testing: Radiology Impression Brain MRI 01/05/23 09:30 IMPRESSION: Negative MRI brain without and with intravenous contrast. Electronically Signed: Bartolo Jensen MD at 16:51 EDT , D/C Instructions Discharge Diet: No restrictions Meaningful Use Info Meaningful Use Diagnoses (Choose all that apply): None applicable Discharge Plan Admission Admit Date/Time: 01/04/23 22:32 Primary Reason for Your Visit: New onset seizure Attending Provider: Ashleigh Gill Primary Care Provider: Korey Seay Consulting Providers: Perry Romero Instructions Patient Instructions: ED Seizure New Onset Unknown ... Additional Instructions / Restrictions: DISCHARGE INSTRUCTIONS PLEASE READ *Please take this with you to your next doctors appointment* -You are diagnosed with new onset seizures and you will be discharged on Keppra 500 mg twice daily, will be very important that you take this as prescribed -You will need a 24-hour EEG to test your brain waves to assess for any abnormalities over an entire day, it will be very importantly follow-up with neurology upon discharge. Please follow-up with neurology upon discharge, please call Dr. Abdi's office upon discharge to schedule hospital follow-up appointment ( [phone]) -Please call your primary care provider's office upon discharge to schedule a hospital follow up within 1 week. -For any concerning signs or symptoms please call 911 or proceed to the nearest emergency department SEIZURE DISCHARGE INSTRUCTIONS: - Seizures are unpredictable. Do not do anything that might cause danger to you or other people if you have another seizure. Do not drive, ride a bike, climb ladders, or operate dangerous equipment - Do not take a bath alone. Take shower instead - Not some alone until your healthcare provider says that you are no longer in danger of having another seizure - Tell your close friends and relatives about your seizure. Teach them what to do for you if it happens again - Take your medicine as prescribed, missing doses increases your risk of having repeat seizure -Follow regular sleep schedule such that you get at least 60 hours of restful sleep every night. This is especially important when you are sick or have a cold, flu, or another type of infection - Do not drink alcoholic beverages until your doctor says it is okay. Do not ever use recreational drugs - Do not drive until you are cleared to do so by your doctor, specifically would not drive until cleared by a neurologist to do so -For future seizures if you are alone: If you feel a seizure coming on, lie down on a bed or the floor or with something soft under your head and lie on your left side, not in your back. Also make sure you are not near any objects that may injure you during seizure. Call 911 if you can. - For future seizures if someone is with you: Depression should help you get into a safe position and then they should call 911. They should not try to force anything into your mouth once the seizure begins. They should not put their fingers in your mouth. -After seizure you may be drowsy or confused. That person should stay with you until you are fully awake. That person should not offer you anything to eat or drink during that time. Call 911 or go to the emergency department. -Call your healthcare provider right away if you have any of these: Another seizure, a fever of 100.4 ?F or higher, abnormal irritability, drowsiness, or confusion, head or neck pain that gets worse Discharge Orders/Prescriptions Prescriptions: New levetiracetam 500 mg Tablet 500 mg PO BID 30 Days Qty: 60 0RF Continued oxybutynin chloride 5 MG tablet 5 mg PO DAILY venlafaxine 75 MG tablet extended release 24hr 75 mg PO DAILY epinephrine 0.3 mg/0.3 mL auto-injector 0.3 mg subcut PRN PRN (Reason: Allergic Symptoms) CombiPatch 0.05-0.14 mg/24 hr patch semiweekly 0.05 patch QWEEK ferrous sulfate 325 mg (65 mg iron) tablet MDD 1 fluticasone propionate 50 mcg/actuation spray,suspension INTRANASAL MDD 1 Referrals / Follow Up: Korey Seay MD [Primary Care Provider] - Within 1 Week Abbe Abdi MD [Non-Staff -Ordering Privileges] - See Referral Note (Please follow-up with neurology upon discharge, please call Dr. Abdi's office upon discharge to schedule an appointment to establish care for your new onset seizures (ph [phone])) Disposition Disposition (needs filled in before D/C Order can be placed): Home, Self Care Charges/Coding Visit Charges Inpatient E&M: 40835 Disch Hosp >30min
[2023-01-06] MEDS: levETIRAcetam 500 MG Tablet PO (10:51)
[2023-01-06] MEDS: Venlafaxine XR 75 MG Capsule PO (10:51)
[2023-01-06 10:52] VITALS: BP 102/67; PULSE 81; RESP 16; TEMP 36.6; O2SAT 98
== END 2023-01-06 11:34 | disposition home or self-care (01) | DRG 53 ==
LOC: ED 22:43 → PCU 23:45
PROVIDERS: Admitting Provider Hospitalist; Emergency Provider Emergency Medicine; PCP Family Medicine; Referring Provider Internal Medicine; Visit Provider Internal Medicine
DX: R56.9 Unspecified convulsions (principal); E87.6 Hypokalemia; G83.84 Todd's paralysis (postepileptic); F17.210 Nicotine dependence, cigarettes, uncomplicated; Z85.41 Personal history of malignant neoplasm of cervix uteri; Z92.21 Personal history of antineoplastic chemotherapy; Z92.3 Personal history of irradiation
CPT/HCPCS: 36415; 70450; 70496; 70498; 70553; 71045; 80048; 80053; 80061; 80307; 81001; 82550; 82962; 83036; 83735; 84146; 84484; 85025; 85610; 85730; 93005; 95819; 97161; 97165; 99285; A9575; Q9967; A4216

== ENCOUNTER 2024-04-13 23:46 | Emergency (ER) | payer MEDICAID, SELFPAY ==
[2024-04-13 23:47] VITALS: BP 133/76; PULSE 95; RESP 16; TEMP 36.2; O2SAT 99; BMI 25.6
--- NOTE | 2024-04-14 00:16 | RAD_ITS ---
EXAM: XR LEFT KNEE, 3 VIEWS CLINICAL INDICATION: pain TECHNIQUE: Three views of the left knee. COMPARISON: No relevant prior studies available. FINDINGS: BONES/JOINTS: Unremarkable. No acute fracture. No subluxation. Normal alignment. Preservation of the joint space. No sclerotic or destructive changes observed. SOFT TISSUES: Unremarkable. No soft tissue swelling or gas. No radiopaque foreign body. RAD/Knee 3 Views IMPRESSION: Negative left knee x-rays. Electronically Signed: Bartolo Pantoja MD at 0:59 EDT ,
--- NOTE | 2024-04-14 00:16 | RAD_ITS ---
EXAM: XR LEFT WRIST COMPLETE, 3 OR MORE VIEWS CLINICAL INDICATION: pain TECHNIQUE: Frontal, lateral and oblique views of the left wrist. COMPARISON: No relevant prior studies available. FINDINGS: BONES/JOINTS: Unremarkable. No acute fracture. No subluxation. Normal alignment. Preservation of the joint space. No sclerotic or destructive changes observed. SOFT TISSUES: Unremarkable. No soft tissue swelling or gas. No radiopaque foreign body. RAD/Wrist min 3 Views IMPRESSION: Negative left wrist x-rays. Electronically Signed: Bartolo Pantoja MD at 0:53 EDT ,
[2024-04-14] MEDS: traMADol 50 MG Tablet 100 MG PO (00:50)
[2024-04-14] MEDS: Ondansetron ODT 4 MG Tablet PO (00:50)
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
[2024-04-14 01:28] VITALS: BP 123/88; PULSE 75; RESP 16; TEMP 36.3; O2SAT 98
== END 2024-04-14 01:46 | disposition home or self-care (01) ==
PROVIDERS: Emergency Provider Emergency Medicine; PCP Family Medicine; Visit Provider Emergency Medicine
DX: S63.92XA Sprain of unspecified part of left wrist and hand, initial encounter (principal); S80.02XA Contusion of left knee, initial encounter; F17.210 Nicotine dependence, cigarettes, uncomplicated; Z85.41 Personal history of malignant neoplasm of cervix uteri; S40.211A Abrasion of right shoulder, initial encounter; S70.211A Abrasion, right hip, initial encounter; V00.141A Fall from scooter (nonmotorized), initial encounter
CPT/HCPCS: 73110; 73562; 99284; A4216

== ENCOUNTER 2024-04-19 20:16 | Emergency (ER) | payer MEDICAID, SELFPAY ==
[2024-04-19 20:17] VITALS: BP 121/92; PULSE 80; RESP 16; TEMP 36.4; O2SAT 100; BMI 23.8
[2024-04-19 20:19] VITALS: BP 121/92; PULSE 88; RESP 16; TEMP 36.4; O2SAT 100
--- NOTE | 2024-04-19 21:03 | ED.VIS.DENTA ---
HPI History of Present Illness Chief Complaint: Dental Detail of Chief Complaint: Right lower dental pain and swelling. Informant: patient Onset/Context/Timing Onset: Today Context: Gradual Onset Timing: Continuous Current Severity: Mild Maximum Severity: Mild Associated Symptoms Assocated Symptom - Dental: jaw swelling; Negative for fever Narrative Narrative: Healthy 34-year-old female had root canals of 2 right lower teeth about 3 weeks ago. Last thing today developed some discomfort and pain and mild swelling along the outside of her jaw. No trouble swallowing. No fever. Prior similar symptoms: Yes Recent Illness/Hospitalization: No PFSH [facility] Medical History Ovarian cyst Anemia due to blood loss, chronic Chronic radiation cystitis Clostridium difficile colitis Cervical cancer Home Medications ?Medication ?Instructions ?Recorded ?Last Taken ?Type oxybutynin chloride 5 mg tablet 5 mg PO DAILY urinary leakage 02/17/19 03/22/19 08:30 History venlafaxine 75 mg tablet,extended 75 mg PO DAILY depression 02/17/19 03/22/19 08:30 History release 24 hr epinephrine 0.3 mg/0.3 mL 0.3 mg subcut PRN PRN Allergic 01/04/23 Unknown History injection, auto-injector Symptoms estradiol 0.05 mg-norethindrone 0.05 patch QWEEK 01/04/23 Unknown History 0.14 mg/24 hr semiwkly transderm patch (CombiPatch) ferrous sulfate 325 mg (65 mg mg supplement 01/06/23 Unknown History iron) tablet fluticasone propionate 50 intranasal allergies 01/06/23 Unknown History mcg/actuation nasal spray,suspension levetiracetam 500 mg tablet 500 mg PO BID 30 days #60 tabs 01/06/23 Unknown Rx tramadol 50 mg tablet 50 mg PO Q6H PRN pain 3 days #12 04/14/24 Unknown Rx tabs penicillin V potassium 500 mg 500 mg PO 4X/DAY #40 tabs 04/19/24 Unknown Rx tablet Allergy/AdvReac Type Severity Reaction Status Date / Time morphine Allergy Hives Verified 04/19/24 20:19 venom-honey bee (bee venom Allergy Other Verified 04/19/24 20:19 (honey bee)) cisplatin AdvReac Other Verified 04/19/24 20:19 oxycodone HCl (From Percocet) AdvReac Nausea Verified 04/19/24 20:19 Family History Other Cancer Surgical History History of elbow surgery History of appendectomy History of oophorectomy Social History Smoking Status: Current every day smoker tobacco type: cigarettes ROS ROS ED ROS Narrative Denies recent illness Constitutional Constitutional ED: Denies chills or fever(s) Eyes Eyes: Denies blurry vision ENT ENT ED: Denies ear pain Cardiovascular Cardiovascular: Denies chest pain Respiratory/Chest Respiratory/Chest: Denies cough Gastrointestinal Gastrointestinal: Denies abdominal pain Genitourinary Genitourinary ED: Denies dysuria or hematuria Musculoskeletal Musculoskeletal: Denies arthralgias Integumentary Denies abscess Neurologic Neurologic: Denies headache(s) Psychiatric Psychiatric: Denies anxiety or depression Endocrine Endocrinology: Denies cold intolerance Hematologic/Lymphatic Hematologic/Lymphatic: Denies easy bleeding Allergic/Immunologic Allergic/Immunologic ED: Denies mouth swelling or tongue swelling EXAM Physical Exam Narrative Exam Narrative: 31-year-old female no acute distress vital signs stable afebrile. HEENT exam mild swelling right lower jaw. No trouble opening closing her mouth. No Eduar angina. Right lower premolars are discolored. The gum on the outside of the teeth is mildly swollen. No abscess no fluctuance. No trouble swallowing or breathing. Neck nontender no lymphadenopathy. Lungs clear. Heart regular rate and rhythm no murmur. Otherwise exam unremarkable. Const Vital Signs: 04/19/24 20:17 04/19/24 20:19 Temperature 97.6 F L 97.6 F L Temperature Source Temporal Temporal Pulse Rate 80 88 Respiratory Rate 16 16 Blood Pressure 121/92 H 121/92 H Blood Pressure Mean 101 101 Pulse Ox 100 100 Oxygen Delivery Method Room Air Room Air Positive well nourished and well developed; Negative for obese, cachectic, contractures or unkempt General Appearance ED: well developed and NAD; Negative for unkempt, cachectic, contractures or pallor Nutritional Appearance: Negative for cachectic or obese HEENT HEENT Narrative: Mild right lower jaw swelling. Gingival swelling on the outside of the right lower premolars. No palpable abscess. tenderness; Negative for trauma Face and Sinus: Negative for sinuses nontender Mouth ED: Yes lips normal, Yes tongue normal, Yes salivary gland normal, No mouth trauma and No salivary gland abnormal Mouth: lips normal, tongue normal, salivary gland normal, No mouth trauma and No salivary gland abnormal Teeth and Gingiva: abnormal tooth and associated gingiva Throat: posterior oropharynx normal Eyes PERRL and EOMs intact bilaterally General Eye ED: Negative for pale conjunctiva or scleral icterus Neck no lymphadenopathy, supple and no JVD General: normal visual inspection and anterior neck swelling; Negative for tenderness or submandibular swelling Lymph Lymphatic: no lymphadenopathy noted; Negative for lymphadenopathy Chest Wall inspection of chest normal and palpation of chest normal Resp normal respiratory effort, no retractions and clear to auscultation bilaterally Cardio regular rate, regular rhythm, S1 normal heart sound, S2 normal heart sound and no murmurs Palpation: Negative for palpable S3 Rate: Negative for bradycardia or tachycardic Rhythm: Negative for abnormal rhythm GI normal to inspection, nondistended, normoactive bowel sounds, non-tender and no masses Palpation: soft Back/Spine no CVA tenderness General Back: Negative for CVA tenderness Extremity normal to inspection and no joint enlargement Neuro oriented x3, CN's II-XII intact bilaterally, moves all extremities and no focal motor deficits Sensorium / Orientation: alert, oriented to person, oriented to place and oriented to time Motor Exam: strength 5/5 throughout Psych mental status grossly normal Appearance: Negative for unkempt Skin no rashes or lesions noted and no wounds General Skin Exam: Negative for pallor MDM MDM MDM Narrative Medical decision making narrative: 34-year-old with right lower dental infection. No abscess nothing to drain. Motrin Tylenol for pain. Pen-Vee K 500 4 times daily for 10 days. Follow-up with her dentist. Given first dose antibiotic here. Discharge Plan Triage Chief Complaint: Dental ED Provider: Mariusz Basilio Dx/Rx/DC Orders Clinical Impression: Dental infection, Pain, dental Instructions: ED Dental Pain, ED Tooth Abscess Prescriptions: New penicillin V potassium 500 mg tablet 500 mg PO 4X/DAY Qty: 40 0RF No Action oxybutynin chloride 5 MG tablet 5 mg PO DAILY venlafaxine 75 MG tablet extended release 24hr 75 mg PO DAILY epinephrine 0.3 mg/0.3 mL auto-injector 0.3 mg subcut PRN PRN (Reason: Allergic Symptoms) CombiPatch 0.05-0.14 mg/24 hr patch semiweekly 0.05 patch QWEEK ferrous sulfate 325 mg (65 mg iron) tablet MDD 1 fluticasone propionate 50 mcg/actuation spray,suspension INTRANASAL MDD 1 levetiracetam 500 mg Tablet 500 mg PO BID 30 Days Qty: 60 0RF tramadol 50 mg tablet 50 mg PO Q6H PRN (Reason: pain) 3 Days Qty: 12 0RF Primary Care Provider: Korey Seay Referrals: Korey Seay MD [Primary Care Provider] - Activity Restrictions/Additional Instructions: Follow-up with your dentist. Motrin and Tylenol for pain. Ice pack to your jaw. Warm salt water rinses in your mouth. The antibiotic penicillin 4 times a day till gone. Print Language: Telugu Disposition Disposition: Home, Self Care
[2024-04-19] MEDS: Penicillin Vk 250 MG Tablet 500 MG PO (21:11)
== END 2024-04-19 21:15 | disposition home or self-care (01) ==
PROVIDERS: Emergency Provider Emergency Medicine; PCP Family Medicine; Visit Provider Emergency Medicine
DX: K04.7 Periapical abscess without sinus (principal); F17.210 Nicotine dependence, cigarettes, uncomplicated; Z79.899 Other long term (current) drug therapy; Z98.818 Other dental procedure status
CPT/HCPCS: 99282

== ENCOUNTER 2024-09-15 18:09 | Emergency (ER) | payer MEDICAID, SELFPAY ==
[2024-09-15 18:10] VITALS: BP 115/56; PULSE 115; RESP 18; TEMP 37.1; O2SAT 100; BMI 24.2
[2024-09-15 19:09] VITALS: PULSE 109; RESP 18; O2SAT 98
--- NOTE | 2024-09-15 19:34 | EX.ED.VIS.PS ---
HPI HPI - Psych History of Present Illness Chief Complaint: Mental Health Narrative Narrative: Chief complaint and HPI: Medication refill request. 34-year-old female with past medical history of depression, anxiety, iron deficiency anemia, seizures presents for evaluation of medical refill request. Patient states last week she ran out of her seroquel and venlafaxine. She states she she called her psychiatrist and she is currently out of the office with illness and therefore her prescription was not filled. Patient states she tried the office again today and psychiatrist is still out of office. She states she called her PCPs office who told her to present to the emergency department. Patient states since being off of her medication she has had labile mood. States she is more emotional. Patient states she has been crying more and becoming easily angered. She denies any auditory or visual hallucinations. Denies any suicidal or homicidal ideation. Patient states I do not know if I am withdrawing from the medication or going through a manic episode. She states she has no history of manic episodes prior and no history of bipolar disorder that she knows of. She has been eating and drinking well. She denies any fever, chills, shortness of breath, chest pain abdominal pain, nausea, vomiting, dysuria. Endorses difficulty sleeping due to being out of her Seroquel. Patient states I just want my medication which is why I am here because I do not know what else to do. Review of systems: See HPI Medications: As listed on the chart Allergies: As listed on the chart PFSH: Per chart Vital signs: As listed on the chart. Reviewed. Physical exam: Gen: A&O x3, NAD Head: Normocephalic, atraumatic Eyes: No sclera icterus, conjunctiva clear, PERRL, EOMI ENT: Moist mucous membranes Neck: Trachea midline, No JVD CV: RRR, no murmurs, no peripheral edema Resp: Lungs CTA BL, no w/r/c GI: Abd soft, non-distended, non-tender, no r/r/g Musc: Full ROM, no deformity Skin: Warm, dry Neuro: Alert, oriented, grossly intact, sensation intact Psych: Cooperative, appropriate mood and affect, mild pressured speech but no flight of ideas or signs of klaudia PFSH PFS Medical History Ovarian cyst Anemia due to blood loss, chronic Chronic radiation cystitis Clostridium difficile colitis Cervical cancer Home Medications ?Medication ?Instructions ?Recorded ?Last Taken ?Type oxybutynin chloride 5 mg tablet 5 mg PO DAILY urinary leakage 02/17/19 03/22/19 08:30 History venlafaxine 75 mg tablet,extended 75 mg PO DAILY depression 02/17/19 03/22/19 08:30 History release 24 hr epinephrine 0.3 mg/0.3 mL 0.3 mg subcut PRN PRN Allergic 01/04/23 Unknown History injection, auto-injector Symptoms estradiol 0.05 mg-norethindrone 0.05 patch QWEEK 01/04/23 Unknown History 0.14 mg/24 hr semiwkly transderm patch (CombiPatch) ferrous sulfate 325 mg (65 mg mg supplement 01/06/23 Unknown History iron) tablet fluticasone propionate 50 intranasal allergies 01/06/23 Unknown History mcg/actuation nasal spray,suspension levetiracetam 500 mg tablet 500 mg PO BID 30 days #60 tabs 01/06/23 Unknown Rx tramadol 50 mg tablet 50 mg PO Q6H PRN pain 3 days #12 04/14/24 Unknown Rx tabs penicillin V potassium 500 mg 500 mg PO 4X/DAY #40 tabs 04/19/24 Unknown Rx tablet quetiapine 25 mg tablet 25 mg PO QHS 30 days #30 tabs 09/15/24 Unknown Rx venlafaxine 150 mg 150 mg PO DAILY 30 days #30 caps 09/15/24 Unknown Rx capsule,extended release 24 hr Allergy/AdvReac Type Severity Reaction Status Date / Time morphine Allergy Hives Verified 09/15/24 18:09 venom-honey bee (bee venom Allergy Other Verified 09/15/24 18:09 (honey bee)) cisplatin AdvReac Other Verified 09/15/24 18:09 oxycodone HCl (From Percocet) AdvReac Nausea Verified 09/15/24 18:09 Family History Other Cancer Surgical History History of elbow surgery History of appendectomy History of oophorectomy Social History Smoking Status: Current every day smoker tobacco type: cigarettes EXAM Physical Exam Const Vital Signs: 09/15/24 18:10 09/15/24 19:09 Temperature 98.8 F Temperature Source Oral Pulse Rate 115 H 109 H Respiratory Rate 18 18 Blood Pressure 115/56 L Blood Pressure Mean 75 Pulse Ox 100 98 Oxygen Delivery Method Room Air MDM MDM MDM Narrative Medical decision making narrative: 34-year-old female with past medical history of depression, anxiety, iron deficiency anemia, seizures presents for evaluation of medical refill request. Patient states that she is out of her Seroquel and venlafaxine. Prescriptions ran out last week. Patient states that she has never been without these 2 medications since they were first prescribed. Patient endorses labile emotions since being without prescription. Patient denies any suicidal or homicidal ideation. She denies any auditory or visual hallucinations. Not manic or paranoid. At this point in time, I do not think patient needs any psychiatric placement or further workup. Do not think any laboratory studies or imaging is needed. Patient was educated that she will be written for a prescription for venlafaxine as well as Seroquel. On chart review, patient last had these filled in July. She was educated that she needs to call her PCP in the morning as well as her psychiatrist to figure out better medication prescription management so that she does not have any further relapses in her psychiatric medications. She confirmed understand of the plan. Return precautions explained. Impression: 1. Medication refill request 2. Depression/anxiety 3. Insomnia Discharge Plan Triage Chief Complaint: Mental Health ED Provider: Archie Delatorre Dx/Rx/DC Orders Clinical Impression: Medication requested Instructions: ED Depression Prescriptions: New venlafaxine 150 mg capsule,extended release 24hr 150 mg PO DAILY 30 Days Qty: 30 0RF quetiapine 25 mg tablet 25 mg PO QHS 30 Days Qty: 30 0RF No Action oxybutynin chloride 5 MG tablet 5 mg PO DAILY venlafaxine 75 MG tablet extended release 24hr 75 mg PO DAILY epinephrine 0.3 mg/0.3 mL auto-injector 0.3 mg subcut PRN PRN (Reason: Allergic Symptoms) CombiPatch 0.05-0.14 mg/24 hr patch semiweekly 0.05 patch QWEEK ferrous sulfate 325 mg (65 mg iron) tablet MDD 1 fluticasone propionate 50 mcg/actuation spray,suspension INTRANASAL MDD 1 levetiracetam 500 mg Tablet 500 mg PO BID 30 Days Qty: 60 0RF tramadol 50 mg tablet 50 mg PO Q6H PRN (Reason: pain) 3 Days Qty: 12 0RF penicillin V potassium 500 mg tablet 500 mg PO 4X/DAY Qty: 40 0RF Primary Care Provider: Korey Seay Referrals: Korey Seay MD [Primary Care Provider] - 3-5 Days Activity Restrictions/Additional Instructions: Follow-up with your primary care physician and psychiatrist. Return back to the ED if symptoms change or worsen. Print Language: Kittitian Disposition Disposition: Home, Self Care Discharge Date/Time: 09/15/24 19:55
--- NOTE | 2024-09-15 19:53 | CM.ED ---
Social Work SW met with patient who voiced frustration due to not being able to get her prescriptions refilled by her psychiatrist. Patient stated she has been out of her medications for four days. Patient reports to feeling more labile than normal, that she is feeling herself being quick to anger and tearful and does not want to feel this way. Patient states she does not feel this way when she is taking her medications as ordered and presented to the ER requesting refills. Patient denied need for any additional resources. No further needs identified. Quyen Mcconnell, F[employer]ER, [employer]
== END 2024-09-15 19:55 | disposition home or self-care (01) ==
PROVIDERS: Emergency Provider Surgery; PCP Family Medicine; Visit Provider Surgery
DX: Z76.0 Encounter for issue of repeat prescription (principal); F32.A Depression, unspecified; F41.9 Anxiety disorder, unspecified; G47.09 Other insomnia; F17.210 Nicotine dependence, cigarettes, uncomplicated; Z79.899 Other long term (current) drug therapy
CPT/HCPCS: 99282